=== PATIENT | female | born 1960 | race Caucasian/White ===

== ENCOUNTER 2023-08-23 16:45 | Inpatient (IN) | payer OTHER, SELFPAY ==
[2023-08-23 17:17] VITALS: BP 138/78; BP 138/84; PULSE 64; PULSE 72; RESP 18; TEMP 36.6; O2SAT 97; O2SAT 98; BMI 25.1
--- NOTE | 2023-08-23 17:53 | ED_ITS ---
HPI - General Adult General Chief complaint: Psychiatric Symptoms Stated complaint: SEC 12 FROM MV,DELUSIONS,PARANOID,GONZALES PER EMS Time Seen by Provider: 08/23/23 17:30 Source: patient, RN notes reviewed and old records reviewed Mode of arrival: EMS Limitations: other (Patient is delusional unclear which of the HPI is accurate) History of Present Illness HPI narrative: 63-year-old female presents for evaluation from [facility] Patient states that she is at [facility] for ?security. ? She states that her sister and a few others are ?trying to kill me for my spiritual gifts. Patient states that she was to be discharged from [facility] back to [place], [place] She states that there was an issue with the Uber and she could not go back to [facility] She was sent here in the meantime on a Section 12 Patient states that she was ?pushed off a laxmi in 2002. She states that ?they were drilling into my head to do bad things and get the spirits out. ? She complains of a left-sided headache that started just prior to arrival She took some baby aspirin which did not seem to help her pain Denies visual changes, nausea vomiting, diarrhea Related Data Home Medications Medication Instructions Recorded Confirmed quetiapine 25 mg tablet 25 mg PO BEDTIME 08/23/23 08/23/23 Allergies Allergy/AdvReac Type Severity Reaction Status Date / Time amoxicillin [From Augmentin] AdvReac Facial Verified 08/23/23 17:23 Swelling clavulanic acid AdvReac Facial Verified 08/23/23 17:23 [From Augmentin] Swelling Sulfa (Sulfonamide AdvReac Hives Verified 08/23/23 17:23 Antibiotics) sulfamethoxazole AdvReac Hives Verified 08/23/23 17:23 [From Bactrim] trimethoprim [From Bactrim] AdvReac Hives Verified 08/23/23 17:23 Review of Systems 2 Constitutional: Constitutional: Denies chills, Denies fever(s) and Reports headache(s) Eyes: Eyes: Denies blurry vision ENT: Reports headache(s) and Denies sore throat Cardiovascular: Cardiovascular: Denies chest pain and Denies dyspnea Respiratory: Respiratory: Denies cough and Denies dyspnea Gastrointestinal: Gastrointestinal: Denies abdominal pain, Denies nausea and Denies vomiting Genitourinary: Genitourinary: Denies difficulty voiding and Denies urinary urgency Musculoskeletal: Musculoskeletal: Denies back pain Integumentary/Breasts: Skin/Breast: Denies rash Neurologic: Reports headache(s) PMFSH Social History Social History Advance Directives: No Advance Directives Information Provided: No Healthcare Proxy: No Guardian: No Physical Exam ED Vital Signs: Vital Signs - 24 hr 08/23/23 17:17 08/24/23 06:34 Temperature 97.8 F 98.0 F Pulse Rate 64 53 Respiratory Rate 18 15 Blood Pressure 138/78 133/72 Pulse Oximetry 98 Oxygen Delivery Method Room Air Room Air BMI result Body Mass Index 25.1 Const General: healthy appearing, comfortable, no acute distress, alert and awake Nutritional Appearance: well nourished Orientation/consciousness: patient oriented x3 HENMT Head: Yes normocephalic and Yes atraumatic Eyes Eyelids: Yes eyelids normal Conjunctivae: conjunctivae normal Sclerae: sclerae normal Corneas: corneas normal Pupils: Equal, round and reactive pupils present EOM: EOMs intact bilaterally Neck Neck: Yes full ROM Resp Effort & Inspection: normal respiratory effort, able to speak in complete sentences and not labored Skin General skin exam: elasticity normal Neuro General: patient oriented x3 Cranial nerves: Yes Equal, round and reactive pupils present and Yes Bilaterally intact EOM present Cognition (Neuro): normal cognition Extrem Other: Moving all extremities well without any obvious deformities Psych Appearance: grossly normal Speech and movement: Normal speech and movement present Affect: normal affect Attitude: cooperative Thought process: Loose association thought process present Thought content: suicidality, no homicidality and Paranoid delusions present Insight: Limited insight present (Psych) Judgement: Limited judgement present (Psych) Course Reevaluation(s) Reevaluation #1: Reviewed patient's lab without any significant acute findings. The patient is medically cleared for care to evaluation Time: 18:34 Reevaluation #2: You physician observation, patient was Section 12 from [facility] but continued to be very delusional, follow-up today. Time: 07:19 Medications Administered Generic Name Dose Route Start Last Admin Trade Name Freq PRN Reason Stop Dose Admin Quetiapine Fumarate 25 mg 08/23/23 22:15 08/23/23 22:30 Quetiapine Fumarate 25 Mg Tablet PO 25 mg BEDTIME MARTHA Administration Medical Decision Making Medical Decision Making MDM Narrative: 63-year-old female presents for evaluation of delusional behavior and medical clearance. The patient denies section 12 from [facility]. She complains of a headache but declines analgesia at this time. She has no neuro deficits. Plan for basic labs, toxicology and COVID swab. Patient will require a care to evaluation and will likely be discharged back to [facility] Differential Diagnosis Differential Diagnoses: The differential diagnosis associated with the presentation includes Delusional behavior Paranoia Schizophrenia Bipolar disorder [place] Lab Data [facility] Lab Attestation statement: I reviewed the patient's lab results. No leukocytosis or anemia. No significant electrolyte abnormalities. 08/23/23 17:59 08/23/23 17:59 Labs: Lab Results 08/23/23 08/23/23 08/23/23 Range/Units 17:48 17:59 19:40 WBC 8.7 (4.8-10.8) X10*3/uL RBC 4.84 (4.20-5.50) X10*6/uL Hgb 14.3 (12.0-16.0) g/dl Hct 43.3 (37.0-47.0) % MCV 89.5 (80.0-98.0) fL MCH 29.5 (27.0-33.0) pg MCHC 33.0 (31.0-35.0) g/dl RDW 13.4 (11.0-16.0) % Plt Count 363 (160-400) X10*3/uL MPV 8.7 L (9.4-12.3) fL Immature Gran % (Auto) 0.6 H (0.0-0.4) % Neut % (Auto) 79.4 H (45-73) % Lymph % (Auto) 12.7 L (20-40) % [place] % (Auto) 5.9 (2-11) % Eos % (Auto) 0.7 (0-4) % Baso % (Auto) 0.7 (0-2) % Lymph # (Auto) 1.1 L (1.2-4.9) X10*3/uL [place] # (Auto) 0.5 (0.1-1.2) X10*3/uL Eos # (Auto) 0.1 (0.0-0.4) X10*3/uL Baso # (Auto) 0.1 (0.0-0.2) X10*3/uL Abs Immat Gran (auto) 0.05 H (0.00-0.03) X10*3/uL Absolute Neuts (auto) 6.9 (2.0-8.3) x10*3/uL Absolute Nucleated RBC 0.000 (0.0-0.012) X10*3/uL Nucleated RBC % (auto) 0.0 (0.0-0.2) /100WBC Sodium 141 (135-145) mmol/L Potassium 4.0 (3.3-5.1) mmol/L Chloride 106 (96-108) mmol/L Carbon Dioxide 28 (22-29) mmol/L Anion Gap 11 L (12-20) BUN 19 H (9-16) mg/dL Creatinine 0.85 (0.5-1.4) mg/dL Estim Creat Clear Calc 57.9 Estimated GFR > 60 Random Glucose 95 (60-115) mg/dL Calcium 9.6 (8.4-10.2) mg/dL Total Bilirubin 0.3 (0.0-1.0) mg/dL AST 18 (5-31) U/L ALT 16 (0-31) U/L Alkaline Phosphatase 68 (39-117) U/L Total Protein 7.0 (6.5-8.0) g/dL Albumin 4.2 (3.5-5.0) g/dL Urine Color Yellow Urine Appearance Clear Urine pH 7.0 (5.0-9.0) Ur Specific [place] <= 1.005 (1.005-1.025) Urine Protein Negative (Neg-Trace) mg/dL Urine Glucose (UA) Negative (Negative) mg/dL Urine Ketones Negative (Negative) mg/dL Urine Blood Negative (Negative) Urine Nitrite Negative (Negative) Ur Leukocyte Esterase Trace H (Negative) Urine RBC 0-2 (0-2) /HPF Urine WBC 0-5 (0-5) /HPF Ur Squamous Epith Cells 0-2 (0-2) /HPF Urine Bacteria None Seen (None Seen) Hyaline Casts 0-2 (0-2) /LPF Salicylates < 5.0 L (15-30) mg/dL Urine Opiates Screen Not Detected (Not Detect) Urine Fentanyl Screen Not Detected (Not Detect) Acetaminophen < 3 (<30) mcg/mL Ur Barbiturates Screen Not Detected (Not Detect) Ur Phencyclidine Scrn Not Detected (Not Detect) Ur Amphetamines Screen Not Detected (Not Detect) U Benzodiazepines Scrn Not Detected (Not Detect) Urine Cocaine Screen Not Detected (Not Detect) U Marijuana (THC) Screen Not Detected (Not Detect) Ethyl Alcohol < 10 mg/dL COVID-19 (ERIC) Positive A (Negative) COVID-19 Clin Com See Note Discharge Plan Discharge Clinical Impression: Acute psychosis Patient Disposition: Still a Patient Prescriptions: No Action quetiapine 25 mg tablet 25 mg PO BEDTIME Interventions: [place]-Suicide Risk Severity Scale Last Done: 08/24/23 07:08
--- NOTE | 2023-08-23 17:58 | PC.NURSE ---
Lillian was BIBA from [facility] after delusional behavior and poor insight according to her section 12. Lillian reports she was supposed to take an UBER to [place] but that it fell through and they no longer had a bed for her so they sent her here. Unclear answers to questions but she is pleasant and cooperative. No behavioral concerns. Labs pending.
[2023-08-23 18:28] LABS: Alanine Aminotransferase 16 U/L (0-31); Albumin Level 4.2 g/dL (3.5-5.0); Alkaline Phosphatase 68 U/L (39-117); Anion Gap 11 (12-20); Aspartate Amino Transferase 18 U/L (5-31); Bilirubin Total 0.3 mg/dL (0.0-1.0); Blood Urea Nitrogen 19 mg/dL (9-16); Calcium 9.6 mg/dL (8.4-10.2); Carbon Dioxide 28 mmol/L (22-29); Chloride 106 mmol/L (96-108); Creatinine Clr Calc Pharmacy 57.9; Estimated Glomerular Filt Rate > 60; Ethanol < 10 mg/dL; Glucose Random 95 mg/dL (60-115); Sodium 141 mmol/L (135-145)
[2023-08-24 06:34] VITALS: BP 133/72; PULSE 53; RESP 15; TEMP 36.7
--- NOTE | 2023-08-24 07:09 | PC.NURSE ---
Pt denies si.hi at this time. reports 03/30 pain states i have foreign objects all over by body plan of care ongoing
[2023-08-24 13:11] VITALS: RESP 18
--- NOTE | 2023-08-24 13:18 | PHA.MEDREC ---
Pharmacy Consult ? Medication Reconciliation Pharmacy has reviewed the medication reconciliation completed by nursing.
--- NOTE | 2023-08-24 13:26 | PC.NURSE ---
Covid Positive. Precautions in place. PT difficult to redirect at times. Appetite good. No medications req/rec. no behavioral concerns.
--- NOTE | 2023-08-24 15:25 | PM.PSYCN ---
History of Present Illness Date of Service: 08/24/2023 Chief Complaint: SEC 12 FROM MV,DELUSIONS,PARANOID,GONZALES PER EMS Reason for Consult: psychosis/delusions Requesting physician: Shahla Linton Discussed with referring provider: Yes Sources of Information: patient interviewed, chart reviewed and crisis/core team assessment reviewed HPI Narrative: Ms. Garcia is a 63 year-old woman with hx of schizophrenia. Pt was discharged from [facility] on 08/23/2023 and it appears she had then declined to leave the building as she reported not feeling safe returning to her home. She was sent on sect 12a to [facility] for further assessment and evaluations. In the ED. pt reports these people are trying to murder me. She reports that there is a and , with spiritual power who have been trying to kill her for 18 years. She adds, and is getting worse because now my sister is involved too. She reports she was told by two other spirits that there is a secure location for her to go. However, voices are not telling her the address. She reports she believes everyone else has this information referring to the address she is suppose to go to including this keno writer / runner. She reports she is not safe anywhere. She reports that last night these people inserted objects and medications into her. She reports she has sore throat which she interprets as spirits having done something to her last night and GI symptoms (including diarrhea and cramping). She is covid positive, which when this keno writer / runner tried to explain may be cause of her symptoms, pt continues to believe this is related to what spirits are trying to do. She denies SI/HI. She does present with impaired judgment in that she does not feel safe returning to her house because she believes she will be killed there but is awaiting for voices to tell her where to go. Collateral information gathered from the sister who reports pt progressively getting worse in terms of paranoid and psychosis and refusing treatment. She has had about 5-7 admission since last year and it appear that she is discharged without treatment. Pt in the past has been to other states including [place] and [place] due to voices telling her to go places. Pt was staying at her mother's apartment until 2019 when sister had to move mother into her house as pt not able to care for mother. However, pt's mother and sister pay all her bills and utilities so pt has a roof over her head. Sister reports pt has not had significant treatment to know which medications have been effective. Past Psychiatric History: Inpatient: [facility] 07/2023, 6 other admission in past year but unclear where OP: none Past medication trials: olanzapine, seroquel Diagnostics Vital Signs (24Hr): Vital Signs - 24 hr 08/23/23 17:17 08/24/23 06:34 08/24/23 13:11 Temperature 97.8 F 98.0 F Pulse Rate 64 53 Respiratory Rate 18 15 18 Blood Pressure 138/78 133/72 Pulse Oximetry 98 Oxygen Delivery Method Room Air Room Air BMI result Body Mass Index 25.1 Labs 08/23/23 17:59 08/23/23 17:59 Labs: Laboratory Results - last 48 hr 08/23/23 08/23/23 08/23/23 17:48 17:59 19:40 WBC 8.7 RBC 4.84 Hgb 14.3 Hct 43.3 MCV 89.5 MCH 29.5 MCHC 33.0 RDW 13.4 Plt Count 363 MPV 8.7 L Immature Gran % (Auto) 0.6 H Neut % (Auto) 79.4 H Lymph % (Auto) 12.7 L [place] % (Auto) 5.9 Eos % (Auto) 0.7 Baso % (Auto) 0.7 Lymph # (Auto) 1.1 L [place] # (Auto) 0.5 Eos # (Auto) 0.1 Baso # (Auto) 0.1 Abs Immat Gran (auto) 0.05 H Absolute Neuts (auto) 6.9 Absolute Nucleated RBC 0.000 Nucleated RBC % (auto) 0.0 Sodium 141 Potassium 4.0 Chloride 106 Carbon Dioxide 28 Anion Gap 11 L BUN 19 H Creatinine 0.85 Estim Creat Clear Calc 57.9 Estimated GFR > 60 Random Glucose 95 Calcium 9.6 Total Bilirubin 0.3 AST 18 ALT 16 Alkaline Phosphatase 68 Total Protein 7.0 Albumin 4.2 Urine Color Yellow Urine Appearance Clear Urine pH 7.0 Ur Specific [place] <= 1.005 Urine Protein Negative Urine Glucose (UA) Negative Urine Ketones Negative Urine Blood Negative Urine Nitrite Negative Ur Leukocyte Esterase Trace H Urine RBC 0-2 Urine WBC 0-5 Ur Squamous Epith Cells 0-2 Urine Bacteria None Seen Hyaline Casts 0-2 Salicylates < 5.0 L Urine Opiates Screen Not Detected Urine Fentanyl Screen Not Detected Acetaminophen < 3 Ur Barbiturates Screen Not Detected Ur Phencyclidine Scrn Not Detected Ur Amphetamines Screen Not Detected U Benzodiazepines Scrn Not Detected Urine Cocaine Screen Not Detected U Marijuana (THC) Screen Not Detected Ethyl Alcohol < 10 COVID-19 (ERIC) Positive A COVID-19 Clin Com See Note Mental Status Exam Mental Status Exam Narrative: Appearance: wearing hospital gown, fair hygiene, in NAD Behavior: somewhat guarded, Psychomotor: no agitation or retardation noted Speech: clear, normal rate/rhythm/volume, spontaneous TP: mostly linear TC: paranoid/persecutory delusions, VH/AH: responding to internal stimuli Delusions: paranoid delusions Insight/judgment: impaired x 2. Memory/cog: alert, oriented to place, month not situation. Medications Medications Current Medications Quetiapine Fumarate (Quetiapine Fumarate 25 Mg Tablet) 25 mg PO BEDTIME MARTHA Last Admin: 08/23/23 22:30 Dose: 25 mg Allergies Allergies Allergy/AdvReac Type Severity Reaction Status Date / Time amoxicillin [From Augmentin] AdvReac Facial Verified 08/23/23 17:23 Swelling clavulanic acid AdvReac Facial Verified 08/23/23 17:23 [From Augmentin] Swelling Sulfa (Sulfonamide AdvReac Hives Verified 08/23/23 17:23 Antibiotics) sulfamethoxazole AdvReac Hives Verified 08/23/23 17:23 [From Bactrim] trimethoprim [From Bactrim] AdvReac Hives Verified 08/23/23 17:23 Assessment & Plan Assessment & Plan (1) Schizophrenia, paranoid type: Status: Acute Code(s): F20.0 - Paranoid schizophrenia Plan Ms. Garcia is a 63 year-old woman with hx of schizophrenia mostly untreated who has been presenting with increase paranoid delusions and psychosis to the point that she does not feel safe returning home. She has no insight into mental illness nor need for treatment and refuses psychiatric treatment. Of concern is her impaired judgment, her ability to recognize medical symptoms related to medical conditions such as now covid symptoms which she explains as spirits trying to hurt her and fact that she waiting voices where to go and this is how in the past she has ended up in other states ([place] and [place]). Due to paranoia she has trespass [facility] and found in someone's kitchen at night. She has court hearing tomorrow- which we can send letter letting them know she is here in the hospital. PLAN 1. Pt has agreed voluntarily to go to inpatient psych. 2. She also lacks capacity to make medical decisions including insight into her mental illness and need for treatment. Would benefit from [facility]. 3. will start pepcid, flonax and mucinex for covid symptoms prn. 4. will start prolixin 5mg po BID for psychosis and delusions. Total time managing care of this patient today ____ minutes.
--- NOTE | 2023-08-24 19:03 | PC.NURSE ---
patient appears to remain at rest at present respirations are even and unlabored patient appears in no distress
[2023-08-24 21:15] VITALS: BP 109/48; PULSE 66; RESP 18; TEMP 37.3; O2SAT 98
[2023-08-25 03:56] VITALS: BP 125/67; PULSE 75; RESP 16; TEMP 37.8; O2SAT 97
--- NOTE | 2023-08-25 04:00 | PC.NURSE ---
Tylenol given for temp of 100.
[2023-08-25 07:44] VITALS: BP 114/62; PULSE 73; RESP 18; TEMP 37.5; O2SAT 95
--- NOTE | 2023-08-25 10:17 | PC.NURSE ---
alert, speech clear, skin wpd, refused pepcid and prolixin, Keila aware, asked for Ativan and given, pt states she would not start prolixin as she would not ever take this outside of the hospital
--- NOTE | 2023-08-25 14:24 | PM.PSYCN ---
History of Present Illness Date of Service: 08/25/2023 Chief Complaint: SEC 12 FROM MV,DELUSIONS,PARANOID,GONZALES PER EMS Reason for Consult: persecutory delusions and hallucinations Requesting physician: Leia Lr Discussed with referring provider: Yes Sources of Information: patient interviewed, chart reviewed and crisis/core team assessment reviewed HPI Narrative: Interim Hx: pt continues to present with persecutory delusions of couple trying to kill her. She reports she is still waiting for spirts (voices) to tell her where to go. She also reports voices are telling her that they will send transportation to pick her up. She reports less sore throat which she attributes to spirits trying to harm her and putting things down her throat. She denies SI/HI. She declines prolixin. She states she may try ativan for anxiety. Past Psychiatric History: Inpatient: [facility] 07/2023, 6 other admission in past year but unclear where OP: none Past medication trials: olanzapine, seroquel Diagnostics Vital Signs (24Hr): Vital Signs - 24 hr 08/24/23 21:15 08/25/23 03:56 08/25/23 07:44 Temperature 99.2 F 100.0 F 99.5 F Pulse Rate 66 75 73 Respiratory Rate 18 16 18 Blood Pressure 109/48 L 125/67 114/62 Pulse Oximetry 98 97 95 Oxygen Delivery Method Room Air Room Air Room Air BMI result Body Mass Index 25.1 Labs 08/23/23 17:59 08/23/23 17:59 Labs: Laboratory Results - last 48 hr 08/23/23 08/23/23 08/23/23 17:48 17:59 19:40 WBC 8.7 RBC 4.84 Hgb 14.3 Hct 43.3 MCV 89.5 MCH 29.5 MCHC 33.0 RDW 13.4 Plt Count 363 MPV 8.7 L Immature Gran % (Auto) 0.6 H Neut % (Auto) 79.4 H Lymph % (Auto) 12.7 L [place] % (Auto) 5.9 Eos % (Auto) 0.7 Baso % (Auto) 0.7 Lymph # (Auto) 1.1 L [place] # (Auto) 0.5 Eos # (Auto) 0.1 Baso # (Auto) 0.1 Abs Immat Gran (auto) 0.05 H Absolute Neuts (auto) 6.9 Absolute Nucleated RBC 0.000 Nucleated RBC % (auto) 0.0 Sodium 141 Potassium 4.0 Chloride 106 Carbon Dioxide 28 Anion Gap 11 L BUN 19 H Creatinine 0.85 Estim Creat Clear Calc 57.9 Estimated GFR > 60 Random Glucose 95 Calcium 9.6 Total Bilirubin 0.3 AST 18 ALT 16 Alkaline Phosphatase 68 Total Protein 7.0 Albumin 4.2 Urine Color Yellow Urine Appearance Clear Urine pH 7.0 Ur Specific [place] <= 1.005 Urine Protein Negative Urine Glucose (UA) Negative Urine Ketones Negative Urine Blood Negative Urine Nitrite Negative Ur Leukocyte Esterase Trace H Urine RBC 0-2 Urine WBC 0-5 Ur Squamous Epith Cells 0-2 Urine Bacteria None Seen Hyaline Casts 0-2 Salicylates < 5.0 L Urine Opiates Screen Not Detected Urine Fentanyl Screen Not Detected Acetaminophen < 3 Ur Barbiturates Screen Not Detected Ur Phencyclidine Scrn Not Detected Ur Amphetamines Screen Not Detected U Benzodiazepines Scrn Not Detected Urine Cocaine Screen Not Detected U Marijuana (THC) Screen Not Detected Ethyl Alcohol < 10 COVID-19 (ERIC) Positive A COVID-19 Clin Com See Note Mental Status Exam Mental Status Exam Narrative: Appearance: wearing hospital gown, fair hygiene, in NAD Behavior: somewhat guarded, Psychomotor: no agitation or retardation noted Speech: clear, normal rate/rhythm/volume, spontaneous TP: mostly linear TC: paranoid/persecutory delusions, VH/AH: responding to internal stimuli Delusions: paranoid delusions Insight/judgment: impaired x 2. Memory/cog: alert, oriented to place, month not situation. Medications Medications Current Medications Acetaminophen (Acetaminophen 325 Mg Tablet) 650 mg PO Q6H PRN PRN Reason: pain, fever Last Admin: 08/25/23 03:56 Dose: 650 mg Famotidine (Famotidine 20 Mg Tablet) 20 mg PO DAILY [facility] Last Admin: 08/25/23 10:13 Dose: Not Given Fluphenazine HCl (Fluphenazine Hcl 5 Mg Tablet) 5 mg PO BID [facility] Last Admin: 08/25/23 10:13 Dose: Not Given Fluticasone Propionate (Fluticasone Propionate Nasal 16 Gm [place]) 1 spray NOSTRIL-B ONCE [facility] Guaifenesin/Dextromethorphan (Guaifenesin Dm 600/30 1 Tab Tab.Er.12h) 1 tab PO BID PRN PRN Reason: congestion/cough Lorazepam (Lorazepam 0.5 Mg Tablet) 0.5 mg PO TID PRN PRN Reason: anxiety Last Admin: 08/25/23 10:14 Dose: 0.5 mg Allergies Allergies Allergy/AdvReac Type Severity Reaction Status Date / Time amoxicillin [From Augmentin] AdvReac Facial Verified 08/23/23 17:23 Swelling clavulanic acid AdvReac Facial Verified 08/23/23 17:23 [From Augmentin] Swelling Sulfa (Sulfonamide AdvReac Hives Verified 08/23/23 17:23 Antibiotics) sulfamethoxazole AdvReac Hives Verified 08/23/23 17:23 [From Bactrim] trimethoprim [From Bactrim] AdvReac Hives Verified 08/23/23 17:23 Assessment & Plan Assessment & Plan (1) Schizophrenia, paranoid type: Status: Acute Code(s): F20.0 - Paranoid schizophrenia Plan Ms. Garcia is a 63 year-old woman with hx of schizophrenia. She has been mostly untreated. She lacks capacity to make medical decisions and her judgment and insight is severely impaired due to psychiatric symptoms. At this point, pt will work with case management as macy is being petitioned. PLAN 1. Pt can't leave AMA due to lacking capacity to make medical decisions. 2. Case management working on filing macy. Total time managing care of this patient today ____ minutes.
--- NOTE | 2023-08-25 14:58 | MHC.CM.PN ---
Addendum entered by Oneida De La Torre 08/25/23 15:40: CM SPOKE TO THE DRAW FURNACE TENDER CLINICAL PRODUCT SPECIALIST AT [facility] THEY CONFIRM PT MISSED A HEARING TODAY THEY INDICATED IF A WRITTEN NOTICE, ON [facility] LETTERHEAD, IS EMAILED TO THEM THEY MAY BE ABLE TO RESCHEDULE EMAIL: [email or web address]. THEY ALSO PROVIDED INFORMATION REGARDING THE PTS CHIEF RADIOLOGIC TECHNOLOGIST: KARON DRISCOLL [phone] LETTER WILL BE EMAILED TODAY Original Note: CM will assist with next site of care for patient. Plan to pursue guardianship & glez. Will refer to [facility], [facility] & [facility]. Pt will need to be dis-enrolled from her [facility] Medicaid. Placement will be challenging due to open criminal charges.
--- NOTE | 2023-08-25 16:38 | PC.NURSE ---
Report taken from Mark GUEVARA, assumed care of pt at 1500. Pt A&Ox3, calm and cooperative, in behavioral control. Offers no complaints. Remains on continuous video monitoring in POD, safety maintained.
--- NOTE | 2023-08-25 18:23 | PC.NURSE ---
Pt remains calm and cooperative, no complaints at this time, dinner tray provided. SAfety maintained in pod.
--- NOTE | 2023-08-25 19:00 | PC.NURSE ---
Report given to Roxana RN, pt exits my care at this time.
--- NOTE | 2023-08-25 19:13 | PC.NURSE ---
[patient appears to remain at rest at present respirations are even and unlabored patient appears in no distress
[2023-08-25 20:33] VITALS: BP 130/77; PULSE 81; RESP 18; TEMP 37.4; O2SAT 96
--- NOTE | 2023-08-26 07:56 | MHC.CARE ---
RAD team conducted [place] bed[place], unfortunately there are no beds available due to pt saleem castanedaid+, RAD team will continue bedsearch tomorrow (08/27) if deemed necessary
--- NOTE | 2023-08-26 10:26 | PC.NURSE ---
OOB at 0930 requested breakfast, good appetite. 10:25 received Lorazepam 0.5mg PRN for anxiety. Advocating to DC. Will refer discharge questions to case management but client is going to be held pending guardianship hearing. Covid test pending to see if she is still positive.
--- NOTE | 2023-08-26 11:24 | MHC.CM.ED ---
Patient remains in ER BH pod. Will need guardianship paperwork. Sola Mcgraw CM director aware. Continue to monitor for d/c needs.
--- NOTE | 2023-08-26 16:24 | PC.NURSE ---
Lillian having some agitation today. Repeatedly stating she has a ride or an ambulance here to get her and asking to discharge. Loudly sobbing and screaming at times in her room. Coming out without a mask and stating she does not have Covid and only has a cold. Refused scheduled medications. Appetite good. Requiring redirection for stepping close to staff with fingers in their face demanding to be discharged but ultimately able to accept redirection.
[2023-08-26 17:53] VITALS: RESP 18
--- NOTE | 2023-08-26 19:34 | PC.NURSE ---
patient appears to remain relaxed at present respirations are even and unlabored, patient came out after dinner and brushed teeth, appears in no distress presently.
--- NOTE | 2023-08-26 21:12 | PC.NURSE ---
patient given seroquel after returning from restroom, patient continues with delusions people trying to kill me asked for fax number, given and client returned it soon thereafter.
[2023-08-26 22:00] VITALS: BP 97/60; PULSE 66; RESP 12; TEMP 37.2; O2SAT 95
[2023-08-27 06:00] VITALS: BP 122/62; PULSE 65; RESP 16; O2SAT 96
--- NOTE | 2023-08-27 13:59 | PC.NURSE ---
Client in room resting much of the day and observed watching tv and pacing. Refused AM medication and stated I don't need anything . Appetite good. No behavioral concerns or asking to DC. Denies SI/HI/AVH.
[2023-08-27 17:11] VITALS: BP 144/73; PULSE 64; RESP 17; TEMP 36.5; O2SAT 98
--- NOTE | 2023-08-27 18:04 | PC.NURSE ---
PT given Lorazepam 0.5mg and Tylenol 650mg. Pain in head 4/10 and anxiety a little . Pending effect.
--- NOTE | 2023-08-27 20:39 | PC.NURSE ---
Addendum entered by Nohemy Mcconnellarnacion 08/28/23 06:23: Upon conducting a thorough chart review, seroquel noted to be d/c by provider and prolixin ordered BID. Educated pt on medication and plan. Pt ultimately agreeable to take new medication. Original Note: Pt declines pm meds. Requesting seroquel 25mg. Med rec list this medication for her home medications. Reached out to provider with request.
--- NOTE | 2023-08-27 23:00 | PC.NURSE ---
Assumed care of pt at 1900. PT requesting seroquel. Explained that medication as dc'd and alternative antipsychotics prescribed. Pt initially declined, but after having troubling sleeping PT was agreeable. Plan of care ongoing
[2023-08-28 06:00] VITALS: BP 109/56; PULSE 60; RESP 15; TEMP 36.4; O2SAT 98
--- NOTE | 2023-08-28 11:17 | PC.NURSE ---
assumed care of pt at 1100. pt resting quietly, per AM nurse pt took meds this morning, has been wearing facemask when out in common areas. no new orders at this time.
--- NOTE | 2023-08-28 13:52 | PC.NURSE ---
pt asking about a ride from [facility] and asking if they have called to come and get her. pt is vague as to where she is planning on going when asked for address, states that the address needs to be protected and the people who need to know know. asking spirits what she needs to do to get out of here. pt tearful stating that it's uncomfortable and cold here and that she has been put in [facility] here for 3 weeks. pt requested medication to help her calm down, medicated w PRN ativan. pt continues to talk to spirits in her room asking them to call the nurse to get [her] out of here.
--- NOTE | 2023-08-28 15:05 | P.CNPS_ITS ---
History of Present Illness Date of Service: 08/28/2023 Chief Complaint: SEC 12 FROM MV,DELUSIONS,PARANOID,GONZALES PER EMS Reason for Consult: f/u delusions/psychosis Requesting physician: Leia Lr Discussed with referring provider: Yes Sources of Information: patient interviewed, chart reviewed and crisis/core team assessment reviewed HPI Narrative: Interim Hx: pt continues to present with paranoid/persecutory delusions, still reports hearing voices of spirits who are telling her there is transportation waiting for her. She did take first dose of prolixin last night and this morning. She tells this consumer loan underwriter that voices continue to talk to her and she is having difficulty keeping up with what they say. She reports feeling tired. No SI/HI. No aggression towards self or others. Per RN, pt more agitated over the weekend stating that there was transportation waiting for her outside as she was being informed by voices which was not the case. Past Psychiatric History: Inpatient: [facility] 07/2023, 6 other admission in past year but unclear where OP: none Past medication trials: olanzapine, seroquel Diagnostics Vital Signs (24Hr): Vital Signs - 24 hr 08/27/23 17:11 08/28/23 06:00 Temperature 97.7 F 97.6 F Pulse Rate 64 60 Respiratory Rate 17 15 Blood Pressure 144/73 H 109/56 L Pulse Oximetry 98 98 Oxygen Delivery Method Room Air Room Air BMI result Body Mass Index 25.1 Labs 08/23/23 17:59 08/23/23 17:59 Labs: Laboratory Results - last 48 hr 08/27/23 17:11 COVID-19 (ERIC) Positive A COVID-19 Clin Com See Note Mental Status Exam Mental Status Exam Narrative: Appearance: wearing hospital gown, fair hygiene, in NAD Behavior: somewhat guarded, Psychomotor: no agitation or retardation noted Speech: clear, normal rate/rhythm/volume, spontaneous TP: mostly linear TC: paranoid/persecutory delusions, VH/AH: responding to internal stimuli Delusions: paranoid delusions Insight/judgment: impaired x 2. Memory/cog: alert, oriented to place, month not situation. Medications Medications Current Medications Acetaminophen (Acetaminophen 325 Mg Tablet) 650 mg PO Q6H PRN PRN Reason: pain, fever Last Admin: 08/27/23 17:46 Dose: 650 mg Famotidine (Famotidine 20 Mg Tablet) 20 mg PO DAILY [facility] Last Admin: 08/28/23 08:29 Dose: 20 mg Fluphenazine HCl (Fluphenazine Hcl 5 Mg Tablet) 5 mg PO BID [facility] Last Admin: 08/28/23 08:29 Dose: 5 mg Fluticasone Propionate (Fluticasone Propionate Nasal 16 Gm [place]) 1 spray NOSTRIL-B ONCE [facility] Guaifenesin/Dextromethorphan (Guaifenesin Dm 600/30 1 Tab Tab.Er.12h) 1 tab PO BID PRN PRN Reason: congestion/cough Lorazepam (Lorazepam 0.5 Mg Tablet) 0.5 mg PO TID PRN PRN Reason: anxiety Last Admin: 08/28/23 13:43 Dose: 0.5 mg Allergies Allergies Allergy/AdvReac Type Severity Reaction Status Date / Time amoxicillin [From Augmentin] AdvReac Facial Verified 08/23/23 17:23 Swelling clavulanic acid AdvReac Facial Verified 08/23/23 17:23 [From Augmentin] Swelling Sulfa (Sulfonamide AdvReac Hives Verified 08/23/23 17:23 Antibiotics) sulfamethoxazole AdvReac Hives Verified 08/23/23 17:23 [From Bactrim] trimethoprim [From Bactrim] AdvReac Hives Verified 08/23/23 17:23 Assessment & Plan Assessment & Plan (1) Schizophrenia, paranoid type: Status: Acute Code(s): F20.0 - Paranoid schizophrenia Plan Mrs. Garcia continues to present with paranoid/persecutory delusions as well as auditory hallucinations. No insight into mental illness or need for treatment. Awaiting guardianship and glez. PLAN 1. Cannot leave AMA. pending guardianship. 2. continue prolixin 5mg po BID. pending meredith's. Total time managing care of this patient today ____ minutes.
[2023-08-28 17:48] VITALS: RESP 16
--- NOTE | 2023-08-28 19:20 | PC.NURSE ---
Pt ambulated with a steadt gait to restroom. Pt now in room sitting at the desk. Plan of care ongoing.
--- NOTE | 2023-08-28 19:27 | PC.NURSE ---
This RN assumed care of pt @ 1900. Plan of care ongoing.
--- NOTE | 2023-08-28 21:12 | PC.NURSE ---
Pt agitated and refused to take pm meds prolixin. Pt states Brooke taken like 5 different medications since I got here and i'm not taking anymore meds unless its seroquel. Plan of care ongoing.
--- NOTE | 2023-08-28 21:19 | PC.NURSE ---
Pt ambulated with a steady gait to restroom. Plan of care ongoing.
--- NOTE | 2023-08-28 21:31 | PC.NURSE ---
Pt requesting 50mg of seroquel for bed. Pt states I've been getting it every night here for bed. This RN made provider aware. Plan of care ongoing.
[2023-08-28] MEDS: QUEtiapine Fumarate 25 MG TABLET PO (21:45)
--- NOTE | 2023-08-28 21:49 | PC.NURSE ---
Pt agitated that she was given ice and gingerale. Pt speaking loudly stating Do you feel how cold it is in here why would I want anything with ice in it. I only want water and no ice. Pt medicated per mar. Plan of care ongoing.
[2023-08-29 06:20] VITALS: BP 135/70; PULSE 59; RESP 16; TEMP 36.3; O2SAT 98
[2023-08-29] MEDS: fluPHENAZine HCl 5 MG TABLET PO (08:55)
--- NOTE | 2023-08-29 11:09 | PC.NURSE ---
Assumed care of patient at 1100, pt sleeping at this time, respirations even and unlabored, no apparent distress. Awaiting guardianship and glez order from hospital
--- NOTE | 2023-08-29 12:35 | P.CNPS_ITS ---
History of Present Illness Date of Service: 08/29/2023 Chief Complaint: SEC 12 FROM MV,DELUSIONS,PARANOID,GONZALES PER EMS Reason for Consult: f/u Discussed with referring provider: Yes Sources of Information: patient interviewed, chart reviewed and crisis/core team assessment reviewed HPI Narrative: Interim Hx: Pt expressed frustration as to being here in the hospital. She believes voices are not telling her the secure address because of what my sister is doing. She reports voices telling her that there will be an ambulance coming to pick her up, which pt has been informed this is not the case. She does note that without an address she would be on the streets, as she continues to report she could not return to her mother's house. She denies SI/HI. She reports less cough and feeling better. She has been taking medications intermittently. VS stable, afebrile. NO SOB Past Psychiatric History: Inpatient: [facility] [place] 07/2023, 6 other admission in past year but unclear where OP: none Past medication trials: olanzapine, seroquel Medical Evaluation Reviewed: Yes Diagnostics Vital Signs (24Hr): Vital Signs - 24 hr 08/28/23 17:48 08/29/23 06:20 Temperature 97.4 F Pulse Rate 59 Respiratory Rate 16 16 Blood Pressure 135/70 Pulse Oximetry 98 Oxygen Delivery Method Room Air BMI result Body Mass Index 25.1 Labs 08/23/23 17:59 08/23/23 17:59 Labs: Laboratory Results - last 48 hr 08/27/23 17:11 COVID-19 (ERIC) Positive A COVID-19 Clin Com See Note Mental Status Exam Mental Status Exam Narrative: Appearance: wearing hospital gown, fair hygiene, in NAD Behavior: somewhat guarded, Psychomotor: no agitation or retardation noted Speech: clear, normal rate/rhythm/volume, spontaneous TP: mostly linear TC: paranoid/persecutory delusions, VH/AH: responding to internal stimuli Delusions: paranoid delusions Insight/judgment: impaired x 2. Memory/cog: alert, oriented to place, month not situation. Medications Medications Current Medications Acetaminophen (Acetaminophen 325 Mg Tablet) 650 mg PO Q6H PRN PRN Reason: pain, fever Last Admin: 08/27/23 17:46 Dose: 650 mg Famotidine (Famotidine 20 Mg Tablet) 20 mg PO DAILY [facility] Last Admin: 08/29/23 08:52 Dose: Not Given Fluphenazine HCl (Fluphenazine Hcl 5 Mg Tablet) 5 mg PO BID [facility] Last Admin: 08/29/23 08:55 Dose: 5 mg Fluticasone Propionate (Fluticasone Propionate Nasal 16 Gm [place]) 1 spray NOSTRIL-B ONCE [facility] Guaifenesin/Dextromethorphan (Guaifenesin Dm 600/30 1 Tab Tab.Er.12h) 1 tab PO BID PRN PRN Reason: congestion/cough Lorazepam (Lorazepam 0.5 Mg Tablet) 0.5 mg PO TID PRN PRN Reason: anxiety Last Admin: 08/28/23 13:43 Dose: 0.5 mg Allergies Allergies Allergy/AdvReac Type Severity Reaction Status Date / Time amoxicillin [From Augmentin] AdvReac Facial Verified 08/23/23 17:23 Swelling clavulanic acid AdvReac Facial Verified 08/23/23 17:23 [From Augmentin] Swelling Sulfa (Sulfonamide AdvReac Hives Verified 08/23/23 17:23 Antibiotics) sulfamethoxazole AdvReac Hives Verified 08/23/23 17:23 [From Bactrim] trimethoprim [From Bactrim] AdvReac Hives Verified 08/23/23 17:23 Assessment & Plan Assessment & Plan (1) Schizophrenia, paranoid type: Status: Acute Code(s): F20.0 - Paranoid schizophrenia Plan Mrs. Garcia continues to present with paranoid/persecutory delusions as well as auditory hallucinations. No insight into mental illness or need for treatment. Awaiting guardianship and glez. PLAN 1. Cannot leave AMA. pending guardianship. 2. continue prolixin 5mg po BID. pending meredith's. 3. Added prn seroquel, but main antipsychotic is prolixin Total time managing care of this patient today ____ minutes.
--- NOTE | 2023-08-29 18:16 | MHC.CM.ED ---
Sola Mcgraw continues to work on guardianship paperwork. Patient remains in behavioral health pod. CM following.
--- NOTE | 2023-08-29 19:04 | PC.NURSE ---
patient appears to remain at rest at present respirations are even and unlabored patient appears in no distress
[2023-08-29 20:25] VITALS: BP 131/76; PULSE 68; RESP 20; TEMP 36.3; O2SAT 98
[2023-08-29] MEDS: QUEtiapine Fumarate 25 MG TABLET PO (20:34)
[2023-08-29] MEDS: QUEtiapine Fumarate 50 MG TABLET PO (21:39)
--- NOTE | 2023-08-30 03:20 | PC.NURSE ---
assumed care of pt at this time. pt sleeping in room resp even and unlabored.
[2023-08-30 06:34] VITALS: BP 132/56; PULSE 54; RESP 16; TEMP 37.2; O2SAT 98
[2023-08-30 07:55] LABS: COVID-19 Test Positive (Negative); IDNOW Serial# 08D9AD1C
--- NOTE | 2023-08-30 08:17 | PC.NURSE ---
Pt refused the meds telling nurse keep it fuckin moving, I've been saying I'm not taking them for 3 days
--- NOTE | 2023-08-30 13:23 | PC.NURSE ---
Pt out in common area, compliant with mask, interacting nicely with staff.
[2023-08-30 17:41] VITALS: BP 143/69; PULSE 65; RESP 20; TEMP 36.6; O2SAT 98
--- NOTE | 2023-08-30 19:15 | PC.NURSE ---
patient appears to remain at rest/relaxing at this time, did ask about looking through belongings which t/w declined this request at present to prevent unnecessary exposure to staff, patient seemed to accept this well, patient appears in no distress.
[2023-08-30] MEDS: LORazepam 0.5 MG TABLET PO (21:28)
[2023-08-30] MEDS: QUEtiapine Fumarate 50 MG TABLET PO (22:51)
[2023-08-31 03:42] VITALS: BP 120/58; PULSE 62; RESP 15; TEMP 36.4; O2SAT 97
[2023-08-31 13:55] LABS: COVID-19 Test Positive (Negative); IDNOW Serial# 9DB6401D
[2023-08-31 18:00] VITALS: RESP 18
--- NOTE | 2023-08-31 18:12 | PC.NURSE ---
Pt calm and cooperative throughout shift, able to make needs known, ate 100% of meals during this shift with snacks provided upon request. Pt refused am medication. observed cleaning room, took shower, pacing at times. +covid.
[2023-08-31 18:18] VITALS: BP 141/78; PULSE 59; TEMP 36.6; O2SAT 97
--- NOTE | 2023-08-31 18:58 | PC.NURSE ---
patient appears to remain at rest at present respirations are even and unlabored patient appears in no distress.
[2023-08-31] MEDS: QUEtiapine Fumarate 50 MG TABLET PO (21:30)
[2023-09-01 03:47] VITALS: BP 110/59; PULSE 59; RESP 14; TEMP 36.7; O2SAT 96
[2023-09-01] MEDS: QUEtiapine Fumarate 50 MG TABLET PO (03:54)
[2023-09-01 08:35] VITALS: BP 127/73; PULSE 66; RESP 16; TEMP 36.7; O2SAT 96
[2023-09-01] MEDS: LORazepam 0.5 MG TABLET PO (08:36)
[2023-09-01] MEDS: fluPHENAZine HCl 5 MG TABLET PO ×2 (08:36→21:42)
--- NOTE | 2023-09-01 15:05 | MHC.CM.PN ---
All documentation for guardianship & Arron's had been submitted to [facility].
[2023-09-01 17:14] VITALS: RESP 18
--- NOTE | 2023-09-01 17:18 | PC.NURSE ---
Lillian OOB this morning and cleaning her room. Ambulates well and is independent with her ADL's. Adherent with medications. No behavioral concerns. Lillian still Covid Positive yesterday 08/31. Can be swabbed again this evening and is wearing a mask when not in her room. Appetite good.
[2023-09-01 18:13] LABS: COVID-19 Test Positive (Negative); IDNOW Serial# 152EDE1D
[2023-09-01] MEDS: Acetaminophen 325 MG TABLET 650 MG PO (21:12)
[2023-09-02] MEDS: LORazepam 0.5 MG TABLET PO ×2 (02:58→12:33)
[2023-09-02 03:21] VITALS: BP 121/54; PULSE 53; RESP 16; TEMP 36; O2SAT 97
--- NOTE | 2023-09-02 03:30 | PC.NURSE ---
PT requesting medication for anxious and restlessness. denies si/hi at this time. plan of care ongoing
[2023-09-02] MEDS: fluPHENAZine HCl 5 MG TABLET PO ×2 (09:04→21:02)
--- NOTE | 2023-09-02 10:51 | PC.NURSE ---
Assumed care of patient at 1045, patient is up making bed in room at this time, offers no complaints to this RN. Continued awaiting guardianship
--- NOTE | 2023-09-02 13:04 | PC.NURSE ---
Pt comes out of room, angry stating this is unacceptable, I have gotten pasta 3 days in a row for lunch, I need a salad with balsamic vinaigrette . This RN called food services to request something different. per food services, they were told yesterday that the patient only wanted pasta from this point on. Food order changed for today. Pt back in room at this time, respirations even and unlabored, skin pwd, no apparent distress
[2023-09-02] MEDS: Acetaminophen 325 MG TABLET 650 MG PO (19:42)
[2023-09-02 22:00] VITALS: RESP 16
[2023-09-02] MEDS: QUEtiapine Fumarate 50 MG TABLET PO (22:20)
--- NOTE | 2023-09-02 22:23 | PC.NURSE ---
pt requesting something additional something for sleep, provided with PRN
[2023-09-03 06:00] VITALS: BP 116/54; PULSE 57; RESP 16; TEMP 36.7; O2SAT 96
[2023-09-03 06:25] VITALS: BP 122/77
[2023-09-03] MEDS: fluPHENAZine HCl 5 MG TABLET PO ×2 (10:09→21:15)
--- NOTE | 2023-09-03 11:01 | MHC.EDTECH ---
Pt came to the nurses station stating she has previously requested something I actually want for breakfast. T/w said they would put in a note. She asked for a fruit cup and specifically blueberry yogurt, but any flavor yogurt will do.
--- NOTE | 2023-09-03 11:27 | PC.NURSE ---
Assumed care of patient at 1100, patient up to nurses station asking about specific offerings for meal times. Pt requesting chicken, potato and broccoli for lunch, kitchen called with request. Pt is otherwise in good mood, offers no complaints, willingly engages in conversation with this RN. Continue plan of care for guardianship
[2023-09-03 14:09] VITALS: RESP 12
[2023-09-03 17:07] LABS: COVID-19 Test Negative (Negative); IDNOW Serial# 08D9AD1C
--- NOTE | 2023-09-03 17:44 | PC.NURSE ---
pt tested again for COVID, negative test back. Precaution signs removed. Pt denies any symptoms
--- NOTE | 2023-09-03 19:04 | PC.NURSE ---
patient appears to remain at rest at present respirations are even and unlabored patient appears in no distress, patient now testing covid negative, giggling periodically.
[2023-09-03 20:44] VITALS: BP 133/65; PULSE 64; RESP 18; TEMP 36.1; O2SAT 98
[2023-09-03] MEDS: QUEtiapine Fumarate 50 MG TABLET PO (22:55)
[2023-09-04 06:19] VITALS: BP 107/51; PULSE 54; RESP 16; TEMP 36.5; O2SAT 97
[2023-09-04] MEDS: fluPHENAZine HCl 5 MG TABLET PO (10:57)
--- NOTE | 2023-09-04 15:01 | PM.PSYCN ---
History of Present Illness Date of Service: 09/04/2023 Chief Complaint: SEC 12 FROM MV,DELUSIONS,PARANOID,GONZALES PER EMS Reason for Consult: psychosis/delusions Sources of Information: patient interviewed, chart reviewed and crisis/core team assessment reviewed HPI Narrative: Interim Hx: pt continues to report hearing voices of spirits. She reports spirts are trying to harm her. She tells this card writer hand that she is leaving tomorrow. She states she communicated spiritually with her PCP in [place] and he told her that she is leaving tomorrow. She continues to report voices have a safe location for her to go but they can't disclose the location to her. She states I just follow their instruction No insight into symptoms and need for treatment. She denies SI/HI. No aggression towards others or herself. Past Psychiatric History: Inpatient: [facility] 07/2023, 6 other admission in past year but unclear where OP: none Past medication trials: olanzapine, seroquel Medical Evaluation Reviewed: Yes Diagnostics Vital Signs (24Hr): Vital Signs - 24 hr 09/03/23 20:44 09/04/23 06:19 Temperature 97 F 97.7 F Pulse Rate 64 54 Respiratory Rate 18 16 Blood Pressure 133/65 107/51 L Pulse Oximetry 98 97 Oxygen Delivery Method Room Air Room Air BMI result Body Mass Index 25.1 Labs 08/23/23 17:59 08/23/23 17:59 Labs: Laboratory Results - last 48 hr 09/03/23 16:48 COVID-19 (ERIC) Negative COVID-19 Clin Com See Note Mental Status Exam Mental Status Exam Narrative: Appearance: wearing hospital gown, fair hygiene, in NAD Behavior: somewhat guarded, Psychomotor: no agitation or retardation noted Speech: clear, normal rate/rhythm/volume, spontaneous TP: mostly linear TC: paranoid/persecutory delusions, VH/AH: responding to internal stimuli Delusions: paranoid delusions Insight/judgment: impaired x 2. Memory/cog: alert, oriented to place, month not situation. Medications Medications Current Medications Acetaminophen (Acetaminophen 325 Mg Tablet) 650 mg PO Q6H PRN PRN Reason: pain, fever Last Admin: 09/02/23 19:42 Dose: 650 mg Fluphenazine HCl (Fluphenazine Hcl 5 Mg Tablet) 5 mg PO BID [facility] Last Admin: 09/04/23 10:57 Dose: 5 mg Fluticasone Propionate (Fluticasone Propionate Nasal 16 Gm [place]) 1 spray NOSTRIL-B ONCE [facility] Guaifenesin/Dextromethorphan (Guaifenesin Dm 600/30 1 Tab Tab.Er.12h) 1 tab PO BID PRN PRN Reason: congestion/cough Quetiapine Fumarate (Quetiapine Fumarate 50 Mg Tablet) 50 mg PO Q6H PRN PRN Reason: agitation/anxiety Last Admin: 09/03/23 22:55 Dose: 50 mg Allergies Allergies Allergy/AdvReac Type Severity Reaction Status Date / Time amoxicillin [From Augmentin] AdvReac Facial Verified 08/23/23 17:23 Swelling clavulanic acid AdvReac Facial Verified 08/23/23 17:23 [From Augmentin] Swelling Sulfa (Sulfonamide AdvReac Hives Verified 08/23/23 17:23 Antibiotics) sulfamethoxazole AdvReac Hives Verified 08/23/23 17:23 [From Bactrim] trimethoprim [From Bactrim] AdvReac Hives Verified 08/23/23 17:23 Assessment & Plan Assessment & Plan (1) Schizophrenia, paranoid type: Status: Acute Code(s): F20.0 - Paranoid schizophrenia Plan Mrs. Garcia continues to present with paranoid/persecutory delusions as well as auditory hallucinations. No insight into mental illness or need for treatment. Awaiting guardianship and glez. PLAN 1. Cannot leave AMA. pending guardianship. 2. will increase prolixin to 10mg po BID, she is taking it a bit more consistently and no side effects. 3. continue prn seroquel and ativan Total time managing care of this patient today ____ minutes.
[2023-09-04 15:43] VITALS: BP 136/73; PULSE 64; RESP 18; TEMP 36.5; O2SAT 97
--- NOTE | 2023-09-04 17:52 | PC.NURSE ---
Observed pacing, pleasant. Compliant with meds, no behavioral concerns at this time. Appetite good.
[2023-09-04] MEDS: Acetaminophen 325 MG TABLET 650 MG PO (18:43)
--- NOTE | 2023-09-04 18:56 | PC.NURSE ---
Patient reports headache, 02/27, requested Tylenol. Patient administered PRN Tylenol 650 mg PO.
[2023-09-04] MEDS: fluPHENAZine HCl 5 MG TABLET 10 MG PO (21:53)
[2023-09-04] MEDS: QUEtiapine Fumarate 50 MG TABLET PO (23:45)
--- NOTE | 2023-09-05 00:43 | PC.NURSE ---
client remarked to this staff prior to admin of seroquel prn makes me feel stimulated, maybe i dont like it
[2023-09-05 05:52] VITALS: BP 105/52; PULSE 55; RESP 16; TEMP 36.6; O2SAT 96
--- NOTE | 2023-09-05 08:34 | MHC.CM.ED ---
Patient remains in ER BH Pod. Waiting for court date for guardianship. Continue to monitor for d/c needs.
--- NOTE | 2023-09-05 10:05 | PC.NURSE ---
Lillian verbalized she is ready for discharge and is planning to leave today at 1000. Case Management contacted and they report they are still waiting for a court date. Lillian refused her AM medications and stated she isn't taking anything else before we let her leave.
[2023-09-05 14:40] VITALS: RESP 18
[2023-09-05 17:32] VITALS: BP 127/54; PULSE 68; RESP 17; TEMP 37.1; O2SAT 98
[2023-09-05] MEDS: fluPHENAZine HCl 5 MG TABLET 10 MG PO (20:20)
[2023-09-05] MEDS: QUEtiapine Fumarate 50 MG TABLET PO (20:20)
[2023-09-06 02:35] VITALS: RESP 14
[2023-09-06 06:16] VITALS: BP 119/66; PULSE 52; RESP 16; TEMP 36.4; O2SAT 96
[2023-09-06] MEDS: fluPHENAZine HCl 5 MG TABLET 10 MG PO (10:29)
--- NOTE | 2023-09-06 13:30 | PC.NURSE ---
Assumed care of patient at 1100, patient awake and alert, calm and cooperative, offers no complaints to this RN. Denies pain. Patient offers no complaints to this RN. Eating lunch at this time, no apparent distress. Continuing await for guardianship
[2023-09-06] MEDS: QUEtiapine Fumarate 50 MG TABLET PO (21:16)
[2023-09-06 21:18] VITALS: BP 115/76; PULSE 63; RESP 18; TEMP 37.7; O2SAT 98
--- NOTE | 2023-09-06 21:22 | PC.NURSE ---
pt refused 2100 medication Prolixin stating that she wants to stop taking it all in all. This Rn educated patient on benefits of medication, patient continues to decline med
--- NOTE | 2023-09-06 22:04 | PC.NURSE ---
pt had uneventful day, offers no complaints, now sleeping, RR even and unlabored, no apparent distress
--- NOTE | 2023-09-07 03:58 | PC.NURSE ---
This resume writer assumed care of this patient at 03:00 am. Patient sleeping comfortably in bed, respirations even and unlabored, RR 16, no s/s of acute distress noted. Plan of care ongoing.
--- NOTE | 2023-09-07 05:30 | PC.NURSE ---
Assumed care of patient at 03:00 am, patient sleeping in bed, RR 16, no apparent distress. Plan of care ongoing.
[2023-09-07 06:28] VITALS: RESP 16
--- NOTE | 2023-09-07 07:06 | PC.NURSE ---
this RN assumed care of patient, patient appears to be asleep, respirations equal and unlabored. patient shows no signs of distress
--- NOTE | 2023-09-07 08:20 | PC.NURSE ---
patient refusing to take AM medications, documented in MAR
--- NOTE | 2023-09-07 09:37 | PC.NURSE ---
patient sitting up in bed watching tv, no apparent signs of distress, resp equal and unlabored, skin pwd
--- NOTE | 2023-09-07 12:26 | PC.NURSE ---
patient is in community room with other patients, has remained calm, cooperative and respectful to those around her. patient able to make needs known. patient made bed, is keeping room neat and clean.
[2023-09-07] MEDS: LORazepam 0.5 MG TABLET PO ×2 (14:17→20:14)
--- NOTE | 2023-09-07 14:18 | MHC.CM.ED ---
Patient remains in ER BH pod. Waiting for court date for Guardianship and Arron's Order. Continue to monitor for d/c needs.
--- NOTE | 2023-09-07 14:19 | PC.NURSE ---
patient stated she was feeling tense and could not relax, requested prn ativan. patient medicated per MAR
[2023-09-07 16:45] VITALS: BP 114/77; PULSE 65; RESP 18; TEMP 36.6; O2SAT 97
[2023-09-07] MEDS: QUEtiapine Fumarate 50 MG TABLET PO (22:02)
--- NOTE | 2023-09-07 22:02 | PM.PSYCN ---
History of Present Illness Date of Service: 09/12/2023 Chief Complaint: SEC 12 FROM MV,DELUSIONS,PARANOID,GONZALES PER EMS Discussed with referring provider: Yes Sources of Information: patient interviewed, chart reviewed and crisis/core team assessment reviewed HPI Narrative: Interim Hx: pt continues to report hearing voices of spirts who continue to tell her that group of people are trying to harm her. However, she is less guarded, able to have conversation about pending court case, she asks this conventional mortgage underwriter to contact court to find out what's going on. She takes medications sporadically. No aggression towards self or others. Past Psychiatric History: Inpatient: [facility] Pat[facility] 07/2023, 6 other admission in past year but unclear where OP: none Past medication trials: olanzapine, seroquel Review of Systems Constitutional: Denies chills, Denies fever(s) and Reports headache(s) Eyes: Denies blurry vision Reports headache(s) and Denies sore throat Cardiovascular: Denies chest pain and Denies dyspnea Respiratory: Denies cough and Denies dyspnea Gastrointestinal: Denies abdominal pain, Denies nausea and Denies vomiting Musculoskeletal: Denies back pain Skin/Breast: Denies rash Reports headache(s) Diagnostics Vital Signs (24Hr): Vital Signs - 24 hr 09/07/23 06:28 09/07/23 16:45 Temperature 97.8 F Pulse Rate 65 Respiratory Rate 16 18 Blood Pressure 114/77 Pulse Oximetry 97 Oxygen Delivery Method Room Air BMI result Body Mass Index 25.1 Labs 09/09/23 13:07 09/09/23 13:07 Mental Status Exam Mental Status Exam Narrative: Appearance: wearing hospital gown, fair hygiene, in NAD Behavior: somewhat guarded, Psychomotor: no agitation or retardation noted Speech: clear, normal rate/rhythm/volume, spontaneous TP: mostly linear TC: paranoid/persecutory delusions, VH/AH: responding to internal stimuli Delusions: paranoid delusions Insight/judgment: impaired x 2. Memory/cog: alert, oriented to place, month not situation. Medications Medications Current Medications Acetaminophen (Acetaminophen 325 Mg Tablet) 650 mg PO Q6H PRN PRN Reason: pain, fever Last Admin: 09/04/23 18:43 Dose: 650 mg Fluphenazine HCl (Fluphenazine Hcl 5 Mg Tablet) 10 mg PO BID MARTHA Last Admin: 09/07/23 20:16 Dose: Not Given Fluticasone Propionate (Fluticasone Propionate Nasal 16 Gm [place]) 1 spray NOSTRIL-B ONCE MARTHA Guaifenesin/Dextromethorphan (Guaifenesin Dm 600/30 1 Tab Tab.Er.12h) 1 tab PO BID PRN PRN Reason: congestion/cough Lorazepam (Lorazepam 0.5 Mg Tablet) 0.5 mg PO TID PRN PRN Reason: Anxiety Last Admin: 09/07/23 20:14 Dose: 0.5 mg Quetiapine Fumarate (Quetiapine Fumarate 50 Mg Tablet) 50 mg PO Q6H PRN PRN Reason: agitation/anxiety Last Admin: 09/06/23 21:16 Dose: 50 mg Allergies Allergies Allergy/AdvReac Type Severity Reaction Status Date / Time amoxicillin [From Augmentin] AdvReac Facial Verified 08/23/23 17:23 Swelling clavulanic acid AdvReac Facial Verified 08/23/23 17:23 [From Augmentin] Swelling Sulfa (Sulfonamide AdvReac Hives Verified 08/23/23 17:23 Antibiotics) sulfamethoxazole AdvReac Hives Verified 08/23/23 17:23 [From Bactrim] trimethoprim [From Bactrim] AdvReac Hives Verified 08/23/23 17:23 Assessment & Plan Assessment & Plan (1) Schizophrenia, paranoid type: Status: Acute Code(s): F20.0 - Paranoid schizophrenia Plan Mrs. Garcia continues to present with paranoid/persecutory delusions as well as auditory hallucinations. No insight into mental illness or need for treatment. Awaiting guardianship and glez. PLAN 1. Cannot leave AMA. pending guardianship. 2. continue prolixin to 10mg po BID, she is taking it a bit more consistently and no side effects. 3. continue prn seroquel and ativan Total time managing care of this patient today ____ minutes.
--- NOTE | 2023-09-07 23:20 | PC.NURSE ---
patient expressed before going to bed im not really supposed to be here...my sister called and...defending her belief essentially of yazdanism persecution, etc...
--- NOTE | 2023-09-08 | ECG_ITS ---
Test Reason : QTC Blood Pressure : / mmHG Vent. Rate : 064 BPM Atrial Rate : 064 BPM P-R Int : 158 ms QRS Dur : 078 ms QT Int : 392 ms P-R-T Axes : 057 031 036 degrees QTc Int : 404 ms Normal sinus rhythm Normal ECG When compared with ECG of 23-AUG-2023 19:46, Criteria for Septal infarct are no longer Present Referred By: Keila Romero Electronically Signed By:IRAIS AVILA
[2023-09-08 06:38] VITALS: BP 108/58; PULSE 58; RESP 15; TEMP 36.7; O2SAT 98
--- NOTE | 2023-09-08 07:36 | PC.NURSE ---
patient currently sleeping, respirations even/non labored
--- NOTE | 2023-09-08 08:10 | PC.NURSE ---
pt ambulating with steady gait throughout unit, this nurse asked pt to come to nurses station to be medicated, pt asked what medication she was getting and this nurse told her the name of her 9am med, pt refused medication.
[2023-09-08] MEDS: LORazepam 0.5 MG TABLET PO ×2 (10:16→15:08)
--- NOTE | 2023-09-08 10:23 | PC.NURSE ---
alert, denies pain, conversing with staff/patients in common room. denies si/hi. given prn ativan per pt request for anxiety. cooperative.
[2023-09-08 16:00] VITALS: BP 119/69; PULSE 65; RESP 16; TEMP 36.6; O2SAT 96
--- NOTE | 2023-09-08 17:14 | PC.NURSE ---
eating yogurt. no distress. this rn passed on message to case mgmt that pt wants to speak w them for update- roma states magali will visit
--- NOTE | 2023-09-08 19:10 | PC.NURSE ---
patient appears at rest at present respirations are even and unlabored patient appears in no distress
[2023-09-08] MEDS: QUEtiapine Fumarate 50 MG TABLET PO (21:00)
[2023-09-09 06:30] VITALS: BP 103/47; PULSE 67; RESP 16; TEMP 36.6; O2SAT 96
--- NOTE | 2023-09-09 09:03 | PC.NURSE ---
assumed care of pt at 0700. pt sleeping soundly in bed. rr even/unlabored. plan of care ongoing.
--- NOTE | 2023-09-09 10:17 | PC.NURSE ---
woke up pt to take medication. pt refused, sts she only wants to take Ativan. pt was quite dismissive of t/w and refused to answer any questions. pt placed towel over head and turned back over to sleep.
--- NOTE | 2023-09-09 10:45 | PC.NURSE ---
pt up and oob. requesting snack. judito provided. pt back to room. plan of care ongoing.
[2023-09-09 10:49] VITALS: BP 165/69; PULSE 65; RESP 16; TEMP 36.8; O2SAT 98
[2023-09-09 11:18] VITALS: BP 128/74; PULSE 59; RESP 16; O2SAT 95
--- NOTE | 2023-09-09 11:23 | PC.NURSE ---
pt requesting ativan for anxiety. pt medicated per oct. repeat BP taken due to elevated reading around 1100. BP now WNL. pt requesting to have a chemistry and hematology done for blood work due to her staying in one place and it being concerning to her. t/w assured her that she already had labs drawn when she arrived and she is not exhibiting any emergent symptoms that would require a redraw. pt understanding and cooperative.
[2023-09-09 12:37] VITALS: BP 134/66; PULSE 57; RESP 16; TEMP 36.2; O2SAT 97
--- NOTE | 2023-09-09 12:38 | PC.NURSE ---
Patient is c/o chest pressure mid sternal 5/10 non-radiating she is requesting ekg and labs. vitals are WNL. Dr. Price notified awaiting orders.
--- NOTE | 2023-09-09 12:44 | ECG_ITS ---
Test Reason : CHEST PAIN Blood Pressure : / mmHG Vent. Rate : 054 BPM Atrial Rate : 054 BPM P-R Int : 164 ms QRS Dur : 074 ms QT Int : 428 ms P-R-T Axes : 070 049 044 degrees QTc Int : 405 ms Sinus bradycardia Otherwise normal ECG When compared with ECG of 08-SEP-2023 14:44, No significant change was found Referred By: Lillian Price Electronically Signed By:IRAIS AVILA
[2023-09-09 13:13] LABS: MANUAL DIFF FLAG NO
[2023-09-09 13:14] LABS: Basophils Absolute Auto 0.1 X10*3/uL (0.0-0.2); Basophils Percent Auto 0.7 % (0-2); Eosinophils Absolute Auto 0.1 X10*3/uL (0.0-0.4); Eosinophils Percent Auto 1.6 % (0-4); Hematocrit 43.6 % (37.0-47.0); Hemoglobin 14.2 g/dl (12.0-16.0); Imm Gran Abs Auto 0.03 X10*3/uL (0.00-0.03); Imm Gran Pct Auto 0.4 % (0.0-0.4); Lymphocytes Absolute Auto 1.3 X10*3/uL (1.2-4.9); Lymphocytes Percent Auto 17.5 % (20-40); Mean Corpuscular HGB Conc 32.6 g/dl (31.0-35.0); Mean Corpuscular Hemoglobin 29.2 pg (27.0-33.0); Mean Corpuscular Volume 89.5 fL (80.0-98.0); Mean Platelet Volume 8.5 fL (9.4-12.3); Monocytes Absolute Auto 0.6 X10*3/uL (0.1-1.2); Monocytes Percent Auto 8.3 % (2-11); Neutrophils Absolute Auto 5.4 x10*3/uL (2.0-8.3); Neutrophils Percent Auto 71.5 % (45-73); Platelet Count 415 X10*3/uL (160-400); Red Blood Count 4.87 X10*6/uL (4.20-5.50); Red Cell Distribution Width 13.3 % (11.0-16.0); White Blood Count 7.5 X10*3/uL (4.8-10.8)
--- NOTE | 2023-09-09 13:27 | MHC.CM.ED ---
Patient remains in ER BH pod. Waiting for court date for guardianship and Arron's order. Continue to monitor for d/c needs.
[2023-09-09 13:31] LABS: Alanine Aminotransferase 17 U/L (0-31); Albumin Level 4.2 g/dL (3.5-5.0); Alkaline Phosphatase 76 U/L (39-117); Anion Gap 13 (12-20); Aspartate Amino Transferase 15 U/L (5-31); Bilirubin Total 0.3 mg/dL (0.0-1.0); Blood Urea Nitrogen 18 mg/dL (9-16); Calcium 9.4 mg/dL (8.4-10.2); Carbon Dioxide 28 mmol/L (22-29); Chloride 105 mmol/L (96-108); Creatinine Clr Calc Pharmacy 60.8; Estimated Glomerular Filt Rate > 60; Glucose Random 135 mg/dL (60-115); Potassium 4.2 mmol/L (3.3-5.1); Sodium 142 mmol/L (135-145); Total Protein 7.2 g/dL (6.5-8.0)
[2023-09-09 13:38] LABS: Troponin-I High Sensitivity < 2.7 ng/L (<3.5-17.0)
[2023-09-09 14:50] VITALS: BP 117/65; PULSE 64; RESP 16; TEMP 37.1; O2SAT 99
[2023-09-09 16:36] LABS: Troponin-I High Sensitivity < 2.7 ng/L (<3.5-17.0)
--- NOTE | 2023-09-09 18:16 | MHC.EDTECH ---
Patient given dinner tray
[2023-09-09] MEDS: fluPHENAZine HCl 5 MG TABLET 10 MG PO (20:18)
[2023-09-09 20:47] VITALS: BP 125/59; PULSE 64; RESP 16; TEMP 36.7; O2SAT 99
[2023-09-09] MEDS: QUEtiapine Fumarate 50 MG TABLET PO (21:30)
--- NOTE | 2023-09-09 23:09 | PC.NURSE ---
Took report from off-going RN. Pt is a 63 y/o female who is here for increasing delusions, seen by cases management, waitng for court date. Cooperative and easily arousable with verbal stimuli. Changes position in bed independently as desired and asks for needs as they arise. Will continue to monitor.
--- NOTE | 2023-09-10 00:14 | PC.NURSE ---
Pt OOB, walked to the bathroom without assistance. Steady gait observed.
--- NOTE | 2023-09-10 00:30 | MHC.EDTECH ---
Pt refusing vital signs multiple times.
--- NOTE | 2023-09-10 02:02 | PC.NURSE ---
Pt is sleeping in bed, appears comfortable, changes positions independently as desired. Ambulates to the bathroom when needed. Regular safety checks conducted. Pt is easily arousable with verbal stimuli.
--- NOTE | 2023-09-10 04:19 | PC.NURSE ---
Pt OOB to use the bathroom. No acute distress noted. Ambulated with a steady gait and returned to her room.
--- NOTE | 2023-09-10 04:53 | PC.NURSE ---
Pt OOB, walked to the nurses station and asked for a cup of orange juice and then sat in a chair to drink it. Pt has a calm cooperative demeanor. Described a noise in her head and reports feeling off but is unable to articulate details. No other symtposm or complaints reported. Pt returned to her room after consuming her drink. Will continue to monitor.
--- NOTE | 2023-09-10 05:36 | PC.NURSE ---
Pt is sleeping in bed, appears comfortable. Changes positions independently as desired. Easily arousable with verbal stimuli. Verbalizes needs. Will continue to monitor and note any changes. Regular safety checks will continue.
[2023-09-10 06:00] VITALS: BP 112/60; PULSE 56; RESP 12; TEMP 36.6; O2SAT 96
--- NOTE | 2023-09-10 08:39 | PC.NURSE ---
ASSUMED CARE OF THIS PT, ALLOWED TO SLEEP THIS AM, RESP EVEN NONLABOURED.
--- NOTE | 2023-09-10 14:03 | PC.NURSE ---
PATIENT WANTED ME TO KNOW SHE HAD A BOWEL MOVEMENT AT 2PM TODAY.
--- NOTE | 2023-09-10 14:04 | PC.NURSE ---
PATIENT STATES SHE WANTS SOMETHING DONE ABOUT THE SHAKES IN HER HANDS.
--- NOTE | 2023-09-10 14:48 | PC.NURSE ---
PT VERY TEARFUL, SOBBING IN HER ROOM, INCONSOLABLE, ANXIOUS. OFFERED PRN SEROQUEL, PT REFUSED STATING THAT IT MAKES HER GO TO SLEEP. SHE DOES NOT WANT TO SLEEP. DISCUSSED WITH MD, AWAITING NEW ORDERS.
[2023-09-10] MEDS: risperiDONE 1 MG TABLET PO (15:45)
[2023-09-10 18:26] VITALS: BP 139/75; PULSE 56; RESP 16; TEMP 36.5; O2SAT 98
[2023-09-10] MEDS: Acetaminophen 325 MG TABLET 650 MG PO (18:53)
[2023-09-10] MEDS: fluPHENAZine HCl 5 MG TABLET 10 MG PO (20:43)
[2023-09-10] MEDS: QUEtiapine Fumarate 50 MG TABLET PO (22:12)
[2023-09-11 06:11] VITALS: BP 113/64; PULSE 53; RESP 12; TEMP 36.8; O2SAT 98
--- NOTE | 2023-09-11 08:51 | MHC.CM.ED ---
Patient remains in ER BH pod. Still waiting for court date for guardianship and Arron's order. Referrals made to [facility], [facility], [facility] and [facility] as requested by Sola Mcgraw CM director. Continue to monitor for d/c needs.
[2023-09-11] MEDS: fluPHENAZine HCl 5 MG TABLET 10 MG PO (09:33)
--- NOTE | 2023-09-11 12:02 | PC.NURSE ---
Assumed care of patient at 1100, patient is ambulatory around BH pod, offers no complaints this am to this RN. Respirations even and unlabored, skin pwd, no apparent distress. continue guardianship search
[2023-09-11 14:04] VITALS: RESP 14
[2023-09-11] MEDS: Docusate Sodium 100 MG CAPSULE PO (17:33)
[2023-09-11] MEDS: QUEtiapine Fumarate 50 MG TABLET PO (20:40)
[2023-09-11 20:42] VITALS: BP 132/76; PULSE 63; RESP 20; TEMP 36.8; O2SAT 98
--- NOTE | 2023-09-11 21:10 | PC.NURSE ---
Pt refusing night medication, requesting seroquel
--- NOTE | 2023-09-12 01:57 | PC.NURSE ---
Pt had uneventful evening, now appears to be sleeping, RR even and unlabored, no apparent distress at this time
[2023-09-12 05:24] VITALS: BP 130/52; PULSE 82; RESP 16; TEMP 36.3; O2SAT 97
[2023-09-12] MEDS: fluPHENAZine HCl 5 MG TABLET 10 MG PO (08:34)
--- NOTE | 2023-09-12 10:11 | PC.NURSE ---
Pt alert and oriented x3, she denies pain, denies SI/HI. Plan of care remains the same, pt aware. Med given as documented, breakfast given, no behavioral concerns at this time.
[2023-09-12 11:16] VITALS: BP 118/61; PULSE 57; RESP 16; TEMP 36.5; O2SAT 95
[2023-09-12] MEDS: QUEtiapine Fumarate 50 MG TABLET PO (20:03)
[2023-09-12 20:43] VITALS: BP 130/66; PULSE 64; RESP 18; TEMP 36.6; O2SAT 97
[2023-09-13 02:11] VITALS: BP 126/53; PULSE 69; RESP 16; TEMP 36.4; O2SAT 98
[2023-09-13] MEDS: QUEtiapine Fumarate 50 MG TABLET PO ×2 (02:25→20:59)
[2023-09-13 07:59] VITALS: BP 116/60; PULSE 62; TEMP 36.3; O2SAT 98
--- NOTE | 2023-09-13 08:42 | MHC.CM.ED ---
Patient remains in ER BH pod. Still waiting for court date for guardianship & Arron's order. Continue to monitor for d/c needs.
[2023-09-13] MEDS: fluPHENAZine HCl 5 MG TABLET 10 MG PO (10:57)
[2023-09-13 14:20] VITALS: RESP 18
--- NOTE | 2023-09-13 17:37 | PC.NURSE ---
Lillian AYON this shift. pleasant when engaged. Appetite good. Gait steady.
--- NOTE | 2023-09-13 19:00 | PC.NURSE ---
patient appears to remain at rest at present respirations are even and unlabored patient appears in no distress.
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
[2023-09-13] MEDS: Docusate Sodium 100 MG CAPSULE PO (19:38)
--- NOTE | 2023-09-13 20:26 | P.CNPS_ITS ---
History of Present Illness Date of Service: 09/14/2023 Chief Complaint: SEC 12 FROM MV,DELUSIONS,PARANOID,GONZALES PER EMS Discussed with referring provider: Yes Sources of Information: patient interviewed, chart reviewed and crisis/core team assessment reviewed HPI Narrative: Interim Hx: pt reports that spirits are hanging on to me. She reports still hearing voices telling her that group of people are trying to harm her. Pt asks this scientific technical writer to contact actress from TV show because pt states she has been helping in spirit for the past 3 years. She states that the reason voices are not telling her address of secure location is because voices are telling other people like the actress from TV show and her PCP. She does agree that without an address or place for her to go she would be on the streets in the middle of the winter. She has been more open to taking prolixin, not consistently or at full dose but more consistently. She is able to have a slightly more coherent conversation. She tells this scientific technical writer she appreciates staff help in finding place, also expresses her frustration about being in the hospital in the ED. Past Psychiatric History: Inpatient: [facility] oPoja 07/2023, 6 other admission in past year but unclear where OP: none Past medication trials: olanzapine, seroquel Diagnostics Vital Signs (24Hr): Vital Signs - 24 hr 09/12/23 20:43 09/13/23 02:11 09/13/23 07:59 Temperature 97.8 F 97.6 F 97.3 F Pulse Rate 64 69 62 Respiratory Rate 18 16 Blood Pressure 130/66 126/53 L 116/60 Pulse Oximetry 97 98 98 Oxygen Delivery Method Room Air Room Air Room Air 09/13/23 14:20 Temperature Pulse Rate Respiratory Rate 18 Blood Pressure Pulse Oximetry Oxygen Delivery Method BMI result Body Mass Index 25.1 Labs 09/09/23 13:07 09/09/23 13:07 Mental Status Exam Mental Status Exam Narrative: Appearance: wearing hospital gown, fair hygiene, in NAD Behavior: somewhat guarded, Psychomotor: no agitation or retardation noted Speech: clear, normal rate/rhythm/volume, spontaneous TP: mostly linear TC: paranoid/persecutory delusions, VH/AH: responding to internal stimuli Delusions: paranoid delusions Insight/judgment: impaired x 2. Memory/cog: alert, oriented to place, month not situation. Medications Medications Current Medications Acetaminophen (Acetaminophen 325 Mg Tablet) 650 mg PO Q6H PRN PRN Reason: pain, fever Last Admin: 09/10/23 18:53 Dose: 650 mg Docusate Sodium (Docusate Sodium 100 Mg Capsule) 100 mg PO BID PRN PRN Reason: Constipation Stop: 09/19/23 23:59 Last Admin: 09/13/23 19:38 Dose: 100 mg Fluphenazine HCl (Fluphenazine Hcl 5 Mg Tablet) 10 mg PO BID MARTHA Last Admin: 09/13/23 10:57 Dose: 10 mg Fluticasone Propionate (Fluticasone Propionate Nasal 16 Gm [place]) 1 spray NOSTRIL-B ONCE PENDING SALE TO [facility] Guaifenesin/Dextromethorphan (Guaifenesin Dm 600/30 1 Tab Tab.Er.12h) 1 tab PO BID PRN PRN Reason: congestion/cough Quetiapine Fumarate (Quetiapine Fumarate 50 Mg Tablet) 50 mg PO Q6H PRN PRN Reason: agitation/anxiety Last Admin: 09/13/23 02:25 Dose: 50 mg Allergies Allergies Allergy/AdvReac Type Severity Reaction Status Date / Time amoxicillin [From Augmentin] AdvReac Facial Verified 08/23/23 17:23 Swelling clavulanic acid AdvReac Facial Verified 08/23/23 17:23 [From Augmentin] Swelling Sulfa (Sulfonamide AdvReac Hives Verified 08/23/23 17:23 Antibiotics) sulfamethoxazole AdvReac Hives Verified 08/23/23 17:23 [From Bactrim] trimethoprim [From Bactrim] AdvReac Hives Verified 08/23/23 17:23 Assessment & Plan Assessment & Plan (1) Schizophrenia, paranoid type: Status: Acute Code(s): F20.0 - Paranoid schizophrenia Plan Mrs. Garcia continues to present with paranoid/persecutory delusions as well as auditory hallucinations. No insight into mental illness or need for treatment. Awaiting guardianship and glez. PLAN 1. Cannot leave AMA. pending guardianship. 2. continue prolixin to 10mg po BID, she is taking it a bit more consistently and no side effects. 3. continue prn seroquel and ativan Total time managing care of this patient today ____ minutes.
[2023-09-13 20:27] VITALS: BP 127/51; PULSE 65; RESP 18; TEMP 36.8; O2SAT 98
[2023-09-14] MEDS: fluPHENAZine HCl 5 MG TABLET 10 MG PO (07:50)
--- NOTE | 2023-09-14 11:36 | PC.NURSE ---
Pt ate breakfast, given am medications without incident. Pt ambulatory to the BR for ADL's with a steady gait, able to make her needs known. Calm/cooperative.
[2023-09-14] MEDS: Docusate Sodium 100 MG CAPSULE PO (14:02)
--- NOTE | 2023-09-14 14:25 | MHC.CM.ED ---
Patient remains in ER overflow. Guardianship is scheduled virtually on 09/28 at 240pm. Patient came aware. Copy of court paperwork provided to patient. Tony Sunshine is her purposed guardian. Continue to monitor for d/c needs.
[2023-09-14] MEDS: LORazepam 0.5 MG TABLET PO (17:04)
[2023-09-14 17:40] VITALS: RESP 18
--- NOTE | 2023-09-14 17:42 | PC.NURSE ---
Lillian struggling with feelings about her upcoming court case this shift. She was able to verbalize feeling nervous and shaky with anxiety. Lorazepam 0.5mg given with pending effect. Lillian sought out staff to have her needs met this shift and reports she is having regular bowel movements with the addition of the stool softner. Appetite good. No behavioral concerns.
--- NOTE | 2023-09-14 19:23 | PC.NURSE ---
patient appears in no distress at present patient approached t/w and said hello within last ten minutes appears in no distress, pleasant cooperative, able to let need be known
[2023-09-14] MEDS: QUEtiapine Fumarate 50 MG TABLET PO (20:34)
[2023-09-15 06:54] VITALS: BP 134/62; PULSE 57; RESP 16; TEMP 36.4; O2SAT 97
[2023-09-15] MEDS: fluPHENAZine HCl 5 MG TABLET 10 MG PO ×2 (10:26→20:26)
[2023-09-15] MEDS: Sennosides/Docusate Sodium TABLET 1 TAB PO ×2 (10:26→20:26)
[2023-09-15 11:54] VITALS: BP 127/67; PULSE 53; RESP 16; TEMP 36.7; O2SAT 97
--- NOTE | 2023-09-15 17:18 | PC.NURSE ---
sleeping in room. NAD. skin PWD. chest rise noted.
[2023-09-15 21:46] VITALS: BP 128/58; PULSE 55; RESP 16; TEMP 36.4; O2SAT 96
[2023-09-15] MEDS: QUEtiapine Fumarate 50 MG TABLET PO (21:57)
[2023-09-16 05:43] VITALS: RESP 16
[2023-09-16] MEDS: fluPHENAZine HCl 5 MG TABLET 10 MG PO ×2 (09:01→20:38)
[2023-09-16] MEDS: Sennosides/Docusate Sodium TABLET 1 TAB PO ×2 (09:01→20:38)
--- NOTE | 2023-09-16 11:07 | PC.NURSE ---
Assumed care of patient at 1100, patient is ambulating with steady gait around BH pod, offers no complaints to this RN at this time. calm and cooperative, respirations even and unlabored, skin pwd, alert and oriented x4, no apparent distress. Pt remains under case management review at this time, court date on Sep 22
--- NOTE | 2023-09-16 14:32 | MHC.CM.ED ---
Pt remains holding in the ED pending a guardianship hearing on 09/28. CM to follow for finalization of d/c needs after appointment.
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
[2023-09-16 18:53] VITALS: BP 133/79; PULSE 75; RESP 18; TEMP 36.6; O2SAT 95
[2023-09-16] MEDS: QUEtiapine Fumarate 50 MG TABLET PO (20:39)
--- NOTE | 2023-09-16 22:52 | PC.NURSE ---
Pt had uneventful day, now sleeping, respirations even and unlabored, skin pwd, no apparent distress. Continue plan of care for CM review
[2023-09-17] MEDS: LORazepam 0.5 MG TABLET PO ×3 (00:50→18:26)
[2023-09-17 06:18] VITALS: BP 111/52; PULSE 60; RESP 16; TEMP 37.2; O2SAT 96
[2023-09-17] MEDS: fluPHENAZine HCl 5 MG TABLET 10 MG PO ×2 (08:05→20:41)
--- NOTE | 2023-09-17 11:05 | PC.NURSE ---
Assumed care of patient at 1045, patient appears to be sleeping, respirations even and unlabored, no apparent distress is noted. Continue plan of care for CM follow up and court date on 09/28
--- NOTE | 2023-09-17 12:18 | PC.NURSE ---
report given to PAOLA Gamble in overflow
--- NOTE | 2023-09-17 12:57 | PC.NURSE ---
pt belongings moved from lockers to overflow with patient. and November, [facility] transporting patient to overflow at this time
--- NOTE | 2023-09-17 13:45 | PC.NURSE ---
assumed care of pt at 1315. pt transitioned to overflow from pod. plan for guardianship hearing 09/28, pt aware and agreeable to plan. pt oriented to new room and surrounding. pt belongings at bedside. kitchen staff at bedside coordinating menu for pt. kitchen contacted for missing lunch tray.
[2023-09-17 13:52] VITALS: BP 114/75; PULSE 65; RESP 20; TEMP 37.1; O2SAT 97
--- NOTE | 2023-09-17 15:53 | PC.NURSE ---
pt assisted in trimming finger nail, independently filing nails and trimming toe nails. reports some increased back spasms which she correlates to increased anxiety. discussed triggers for anxiety and pt agreed that it may be due to relocating to over flow. pt declined PRN seroquel and verbalized understanding that it is too early for next dose of ativan. pt agreeable to relaxing in bed and watching nature program on tv.
--- NOTE | 2023-09-17 18:18 | PC.NURSE ---
pt given warm wipes to clean face and brief for overnight. pt requesting PRN ativan.
[2023-09-17] MEDS: Sennosides/Docusate Sodium TABLET 1 TAB PO (20:41)
--- NOTE | 2023-09-17 21:08 | PC.NURSE ---
pt medicated per MAR, pt reports that she is more comfortable and furniture inspector overflow room. pt ambulating independently to restroom, vss. denies any needs at this time.
[2023-09-17 21:11] VITALS: BP 131/71; PULSE 61; RESP 16; TEMP 36.8; O2SAT 94
[2023-09-18] MEDS: LORazepam 0.5 MG TABLET PO (04:26)
[2023-09-18 05:01] VITALS: BP 131/69; PULSE 71; RESP 19; TEMP 36.3; O2SAT 95
[2023-09-18] MEDS: fluPHENAZine HCl 5 MG TABLET 10 MG PO ×2 (11:02→21:53)
[2023-09-18 16:57] VITALS: BP 127/70; PULSE 72; RESP 16; TEMP 36.6; O2SAT 97
[2023-09-18] MEDS: QUEtiapine Fumarate 50 MG TABLET PO (20:23)
[2023-09-18 21:02] VITALS: BP 140/69; PULSE 62; RESP 16; TEMP 36.7; O2SAT 98
--- NOTE | 2023-09-19 04:42 | PC.NURSE ---
this RN assumed care of the pt at 0330. pt refusing vital signs at this time. pt independently ambulates to and from bathroom with a steady gait.
[2023-09-19 06:00] VITALS: BP 125/60; PULSE 54; RESP 17; TEMP 36.4; O2SAT 95
--- NOTE | 2023-09-19 08:25 | PC.NURSE ---
PT IS A/O X 4 NO SOB/HUGO NOTED SPEAKS IN FULL SENTENCES. PT TOOK HER AM MEDS WITHOUT ANY ISSUES. DENIES ANY PAIN/DISC. DENIES ANY SI/HI. DENIES ANY HALLUCINATIONS. PT AMB (I) GAIT STEADY FROM HER ROOM TO THE BATHROOM AND BTB. WILL CONTINUE TO MONITOR.
[2023-09-19] MEDS: fluPHENAZine HCl 5 MG TABLET 10 MG PO ×2 (08:38→21:12)
[2023-09-19] MEDS: Sennosides/Docusate Sodium TABLET 1 TAB PO ×2 (08:38→21:13)
--- NOTE | 2023-09-19 08:53 | MHC.CM.ED ---
Patient remains in ER overflow. Court scheduled for 09/28 for guardianship and Arron's order. Continue to monitor for d/c needs.
--- NOTE | 2023-09-19 13:00 | MHC.EDTECH ---
pt ate 100% of her lunch, 240cc of her fluids
[2023-09-19 14:00] VITALS: BP 137/74; PULSE 59; RESP 17; TEMP 36.9; O2SAT 96
--- NOTE | 2023-09-19 14:01 | PC.NURSE ---
PT IS CALM/CO-OP. PT CONTINUES TO AMB (I) GAIT STEADY FROM BED TO BATHROOM AND BTB.
--- NOTE | 2023-09-19 16:00 | PC.NURSE ---
PT'S LABORATORY APPARATUS GLASS BLOWER IS AT BEDSIDE. CASE MANAGEMENT AWARE.
--- NOTE | 2023-09-19 17:02 | MHC.EDTECH ---
PT ATE 100% OF HER BREAKFAST. 240CC OF FLUIDS
--- NOTE | 2023-09-19 17:30 | PC.NURSE ---
PT AMB (I) TO BATHROOM, STATES THAT SHE HAD A LARGE MODERATELY LOOSE BM X 1
--- NOTE | 2023-09-19 18:02 | MHC.EDTECH ---
PT IS A INDEPENDENT. CLOSE WATCH FOR FLIGHT RISK. PT USED THE BATHROOM AND HAD A BOWEL MOVEMENT.
--- NOTE | 2023-09-19 18:03 | MHC.EDTECH ---
PT ATE 100% OF HER DINNER TRAY. 240CC OF FLUIDS
--- NOTE | 2023-09-19 18:59 | MHC.CM.ED ---
Court appointed immigration lawyer, Casa Lang met with patient and then met with CM to discuss patient. Aware that psych does not feel patient has capacity to make decisions. Hand Trimmer is in agreement. Court Date 09/28/2023. CM contact card given. CM will follow for discharge needs.
[2023-09-19] MEDS: QUEtiapine Fumarate 50 MG TABLET PO (21:15)
[2023-09-19 22:45] VITALS: BP 145/75; PULSE 60; RESP 17; TEMP 36.7; O2SAT 97
[2023-09-20] MEDS: QUEtiapine Fumarate 50 MG TABLET PO ×2 (05:14→20:27)
[2023-09-20 05:39] VITALS: BP 136/73; PULSE 61; RESP 16; TEMP 37.4; O2SAT 96
[2023-09-20 08:29] VITALS: BP 119/69; PULSE 67; RESP 18; TEMP 36.4; O2SAT 94
--- NOTE | 2023-09-20 08:40 | PC.NURSE ---
PT IS A/O X 4 NO SOB/HUGO NOTED SPEAKS IN FULL SENTENCES. AMB (I) GAIT STEADY TO BATHROOM AND BTB. PT WAS OFFERED TO SHOWER/ADL'S AND REFUSED. PT DENIES ANY PAIN/DISC. PT DENIES ANY SI/HI/HALLUCINATIONS. WILL CONTINUE TO MONITOR.
[2023-09-20] MEDS: fluPHENAZine HCl 5 MG TABLET 10 MG PO ×2 (08:48→20:27)
[2023-09-20] MEDS: Sennosides/Docusate Sodium TABLET 1 TAB PO ×2 (08:48→20:27)
[2023-09-20 14:00] VITALS: BP 114/57; PULSE 64; RESP 18; TEMP 36.8; O2SAT 95
--- NOTE | 2023-09-20 16:02 | PC.NURSE ---
this rn assumed care of pt. pt ambulated with steady gait to bathroom at this time, denies pain and SOB. no acute distress noted.
[2023-09-20 16:13] VITALS: BP 144/77; PULSE 63; RESP 16; TEMP 37.3; O2SAT 95
--- NOTE | 2023-09-20 19:30 | PC.NURSE ---
Patient refusing vital signs at this time. Patient able to ambulate to bathroom without assistance. Patient with no s/s of distress noted at this time, able to make needs known.
[2023-09-20 19:46] VITALS: BP 142/73; PULSE 70; RESP 15; TEMP 37.1; O2SAT 94
[2023-09-21] MEDS: QUEtiapine Fumarate 50 MG TABLET PO ×3 (02:34→20:02)
--- NOTE | 2023-09-21 02:36 | PC.NURSE ---
Patient stating that she is having difficulty sleeping and requesting a dose of seroquel. Patient medicated per OCT. Patient resting on bed calmly, no s/s of distress noted.
[2023-09-21 04:43] VITALS: BP 125/66; PULSE 60; RESP 19; TEMP 36.4; O2SAT 95
[2023-09-21] MEDS: fluPHENAZine HCl 5 MG TABLET 10 MG PO ×2 (07:52→20:02)
[2023-09-21] MEDS: Sennosides/Docusate Sodium TABLET 1 TAB PO ×2 (07:52→20:02)
--- NOTE | 2023-09-21 10:53 | PC.NURSE ---
in room with lights off at this time, sleeping intermittently. Requesting door to remain shut
--- NOTE | 2023-09-21 12:25 | PC.NURSE ---
ate lunch , medicated with prn seroquel for reported anxiety, no other needs or complaints per pt, laying in room with lights off
[2023-09-21 14:00] VITALS: BP 122/60; PULSE 62; RESP 16; TEMP 36.4; O2SAT 98
--- NOTE | 2023-09-21 17:33 | PC.NURSE ---
assumed care of pt at 1500, pt resting quietly in bed, eyes closed, respirations even and unlabored. wakes to name. Awake to eat dinner, requesting her lights remain off and door remains shut, encouraged to call for assistance, offering no complaints, safety precautions remain in place.
[2023-09-21 20:04] VITALS: BP 133/61; PULSE 60; RESP 19; TEMP 36.6; O2SAT 99
--- NOTE | 2023-09-21 21:57 | PC.NURSE ---
Assumed care of pt at 19:00: Pt Alert to self and place at this time. Ambulates independently w/ supervision. Cont X2. VSS, breathing non-labored, afebrile. Denies pain. pt c/o anxiety, given prn seroquel as ordered with good effect. Pt resting quietly at this time, call rincon within reach. Will cont with plan of care, safety precautions remain in place.
[2023-09-22] MEDS: QUEtiapine Fumarate 50 MG TABLET PO ×2 (03:52→20:57)
[2023-09-22 05:56] VITALS: BP 121/63; PULSE 57; RESP 19; TEMP 36.2; O2SAT 95
[2023-09-22] MEDS: fluPHENAZine HCl 5 MG TABLET 10 MG PO ×2 (08:17→20:57)
[2023-09-22] MEDS: Sennosides/Docusate Sodium TABLET 1 TAB PO ×2 (08:17→20:57)
[2023-09-22 14:00] VITALS: BP 148/72; PULSE 66; RESP 16; TEMP 36.6; O2SAT 96
[2023-09-22 20:46] VITALS: BP 128/78; PULSE 59; RESP 16; TEMP 37.3; O2SAT 95
[2023-09-23 05:25] VITALS: BP 131/72; PULSE 58; RESP 14; TEMP 36.4; O2SAT 94
--- NOTE | 2023-09-23 07:12 | PC.NURSE ---
Assumed care of patient at 19:00 on 09/22. Patient seen in ED overflow. Pt is A&Ox4, calm and cooperative. VSS. +pp/cms. Breathing is even and unlabored without distress. Pt denies acute complaints. Tolerated po meds without n/v. Ambulates independently with standby assistance to bathroom due to elopement risk. Safety measures in place. Handoff report given at 06:45.
--- NOTE | 2023-09-23 07:38 | PC.NURSE ---
assumed care of pt at 0700. pt resting quietly in bed sandra, watching tv. denies SI/HI. awaiting breakfast tray. all pt needs met sandra. call rincon within reach. plan of care ongoing.
[2023-09-23] MEDS: fluPHENAZine HCl 5 MG TABLET 10 MG PO ×2 (09:38→20:22)
[2023-09-23] MEDS: Sennosides/Docusate Sodium TABLET 1 TAB PO ×2 (09:38→20:22)
--- NOTE | 2023-09-23 10:28 | PC.NURSE ---
pt consumed breakfast and medicated per oct. pt between bed and recliner, ambulating self with steady gait. pt resting quietly, watching tv. plan of care ongoing.
--- NOTE | 2023-09-23 12:51 | PC.NURSE ---
Addendum entered by Meliza Meehan RN 09/23/23 13:47: pt medicated per mar with prn seroquel for agitation. Original Note: pt reporting spasming of the inside of her upper body. t/w tried to feel and observe for any spasming. none witnessed. pt sts this happens frequently and doesn't know what she is normally given for it. pt is starting to get agitated. t/w offered pt prn seroquel but pt requested not to take it due to drowsiness. BRIGIDA Owen notified.
[2023-09-23] MEDS: QUEtiapine Fumarate 50 MG TABLET PO ×2 (13:12→20:22)
[2023-09-23 14:00] VITALS: BP 104/61; PULSE 62; RESP 18; TEMP 37.2; O2SAT 94
--- NOTE | 2023-09-23 19:05 | PC.NURSE ---
pt sleeping quietly in bed, rr even/unlabored. plan of care ongoing.
[2023-09-23 20:15] VITALS: BP 142/83; PULSE 63; RESP 14; TEMP 36.6; O2SAT 94
--- NOTE | 2023-09-23 21:32 | PC.NURSE ---
Pt took all her pm meds offers no complaints resting quietly at present time.
[2023-09-24 06:00] VITALS: BP 105/58; PULSE 55; RESP 16; TEMP 36.9; O2SAT 96
[2023-09-24] MEDS: fluPHENAZine HCl 5 MG TABLET 10 MG PO ×2 (09:07→20:49)
[2023-09-24] MEDS: Sennosides/Docusate Sodium TABLET 1 TAB PO ×2 (09:07→20:49)
[2023-09-24] MEDS: QUEtiapine Fumarate 50 MG TABLET PO ×3 (09:08→20:50)
--- NOTE | 2023-09-24 09:49 | PC.NURSE ---
pt awake, ate breakfast. pleasant in her affect. pt reports feeling anxious and requested PRN medication, pt medicated per OCT. pt in room, resting with lights off requesting to sleep at this time. pt needs met, she is in NAD, rr even, unlabored/
[2023-09-24 13:58] VITALS: BP 138/68; PULSE 62; RESP 18; TEMP 37; O2SAT 96
--- NOTE | 2023-09-24 18:46 | PC.NURSE ---
pt called staff into her room, reporting that she is shakey and agitated . offered PRN Seroquel and pt accepted, reports she feels agitated because she cant do anything for herself . educated pt on asking for help from staff as well as deep breathing techniques and grounding techniques. pt thankful. reports she wants to rest at this time.
--- NOTE | 2023-09-24 20:48 | MHC.EDTECH ---
patient refused vitals ,rn aware
--- NOTE | 2023-09-24 20:55 | PC.NURSE ---
Pt calm and cooperative resting at the bedside. Medicated per MAR. All needs mets. Delines vitals at this time reports I already had them done earlier today . Pt ambulates independently to the restroom and back. Able to make needs known. Monitoring is ongoing.
[2023-09-25] MEDS: QUEtiapine Fumarate 50 MG TABLET PO ×3 (00:01→20:39)
[2023-09-25 05:36] VITALS: BP 116/64; PULSE 63; RESP 16; TEMP 36.5; O2SAT 97
[2023-09-25] MEDS: Sennosides/Docusate Sodium TABLET 1 TAB PO ×2 (07:54→20:39)
[2023-09-25] MEDS: fluPHENAZine HCl 5 MG TABLET 10 MG PO ×2 (07:54→20:39)
--- NOTE | 2023-09-25 08:08 | MHC.CM.ED ---
Patient remains in ER overflow. Court scheduled for 09/28 for Guardianship and Arron's order. Continue to monitor for d/c needs.
--- NOTE | 2023-09-25 09:43 | MHC.EDTECH ---
patient wash washed up with a complete bed change and teeth brushing was done
--- NOTE | 2023-09-25 10:28 | PM.PSYCN ---
History of Present Illness Date of Service: 09/25/2023 Chief Complaint: SEC 12 FROM MV,DELUSIONS,PARANOID,GONZALES PER EMS Discussed with referring provider: Yes Sources of Information: patient interviewed, chart reviewed and crisis/core team assessment reviewed HPI Narrative: Interim Hx: pt reports she barely hearing voices of the spirits. She states for the first time in 15 years, no one is following me anymore. I'm glad it stopped She does report missing one of the voices of the spirits who had promised her the [place]. She appears more aware of reality and fact that she has to find with support of case management, housing. She denies SI/HI. She reports sleeping and eating well. No side effects with current medications. No s/s of EPS. Past Psychiatric History: Inpatient: [facility] 07/2023, 6 other admission in past year but unclear where OP: none Past medication trials: olanzapine, seroquel Diagnostics Vital Signs (24Hr): Vital Signs - 24 hr 09/24/23 13:58 09/25/23 05:36 Temperature 98.6 F 97.7 F Pulse Rate 62 63 Respiratory Rate 18 16 Blood Pressure 138/68 116/64 Pulse Oximetry 96 97 Oxygen Delivery Method Room Air Room Air BMI result Body Mass Index 25.1 Labs 09/09/23 13:07 09/09/23 13:07 Mental Status Exam Mental Status Exam Narrative: Appearance: wearing hospital gown, fair hygiene, in NAD Behavior: cooperative. Psychomotor: no agitation or retardation noted Speech: clear, normal rate/rhythm/volume, spontaneous TP: mostly linear TC: much less paranoid/persecutory delusions, VH/AH: reports she is not hearing spirits as often as she was Delusions: paranoid delusions Insight/judgment: impaired x 2 Memory/cog: alert, oriented to place, month not situation. Medications Medications Current Medications Acetaminophen (Acetaminophen 325 Mg Tablet) 650 mg PO Q6H PRN PRN Reason: pain, fever Last Admin: 09/10/23 18:53 Dose: 650 mg Fluphenazine HCl (Fluphenazine Hcl 5 Mg Tablet) 10 mg PO BID MARTHA Last Admin: 09/25/23 07:54 Dose: 10 mg Fluticasone Propionate (Fluticasone Propionate Nasal 16 Gm [place]) 1 spray NOSTRIL-B ONCE [facility] Guaifenesin/Dextromethorphan (Guaifenesin Dm 600/30 1 Tab Tab.Er.12h) 1 tab PO BID PRN PRN Reason: congestion/cough Quetiapine Fumarate (Quetiapine Fumarate 50 Mg Tablet) 50 mg PO Q6H PRN PRN Reason: agitation/anxiety Last Admin: 09/25/23 00:01 Dose: 50 mg Quetiapine Fumarate (Quetiapine Fumarate 50 Mg Tablet) 50 mg PO BEDTIME MARTHA Last Admin: 09/24/23 20:50 Dose: 50 mg Senna/Docusate Sodium (Sennosides/Docusate Sodium Tablet) 1 tab PO BID MARTHA Last Admin: 09/25/23 07:54 Dose: 1 tab Allergies Allergies Allergy/AdvReac Type Severity Reaction Status Date / Time amoxicillin [From Augmentin] AdvReac Facial Verified 08/23/23 17:23 Swelling clavulanic acid AdvReac Facial Verified 08/23/23 17:23 [From Augmentin] Swelling Sulfa (Sulfonamide AdvReac Hives Verified 08/23/23 17:23 Antibiotics) sulfamethoxazole AdvReac Hives Verified 08/23/23 17:23 [From Bactrim] trimethoprim [From Bactrim] AdvReac Hives Verified 08/23/23 17:23 Assessment & Plan Assessment & Plan (1) Schizophrenia, paranoid type: Status: Acute Code(s): F20.0 - Paranoid schizophrenia Plan Mrs. Garcia continues to present with paranoid/persecutory delusions as well as auditory hallucinations. No insight into mental illness or need for treatment. Awaiting guardianship and glez. PLAN 2/5 pt appears with much less delusional content, less VH/AH. expresses relief about not hearing voices and not feeling like people are following her trying to harm her. No side effects with prolixin which she is tolerating well and taking consistently. Total time managing care of this patient today ____ minutes.
[2023-09-25 14:00] VITALS: BP 115/59; PULSE 66; RESP 16; TEMP 36.5; O2SAT 96
[2023-09-25 20:15] VITALS: BP 123/68; PULSE 58; RESP 20; TEMP 37.6; O2SAT 95
--- NOTE | 2023-09-25 21:13 | PC.NURSE ---
Patient is resting in a recliner chair, watching TV. Patient is calm and cooperative, medicated per MAR. Patient is able to make her need known. Call rincon within patient's reach. Plan of care ongoing.
[2023-09-26] MEDS: QUEtiapine Fumarate 50 MG TABLET PO ×3 (02:05→20:29)
--- NOTE | 2023-09-26 02:10 | PC.NURSE ---
Patient reports that she is having difficulty sleeping and requesting PRN dose of Seroquel 50 mg. Patient medicated per OCT. Patient currently resting in bed eyes closed, RR 16, respirations are even and unlabored, call rincon in patien's reach.
[2023-09-26 05:28] VITALS: BP 111/61; PULSE 60; RESP 18; TEMP 36.7; O2SAT 97
[2023-09-26 08:04] VITALS: BP 131/73; PULSE 56; RESP 14; TEMP 36.6; O2SAT 97
[2023-09-26] MEDS: fluPHENAZine HCl 5 MG TABLET 10 MG PO ×2 (08:37→20:29)
[2023-09-26] MEDS: Sennosides/Docusate Sodium TABLET 1 TAB PO ×2 (08:37→20:28)
--- NOTE | 2023-09-26 08:40 | PC.NURSE ---
Assumed care of this pt at 0700. Pt a+o x3, vss, denies pain. Pt up to use restroom independently, gait stead. Meds given as documented, breakfast given. No complaints at this time.
--- NOTE | 2023-09-26 13:00 | PC.NURSE ---
Pt requested Seroquel for anxiety. Med given as documented. Good effect.
[2023-09-26 14:00] VITALS: BP 119/66; PULSE 61; RESP 14; TEMP 36.7; O2SAT 95
--- NOTE | 2023-09-26 16:04 | MHC.EDTECH ---
pt went to use the bathroom. and returned back to her room.
[2023-09-26 21:09] VITALS: BP 151/75; PULSE 57; RESP 18; TEMP 36.8; O2SAT 97
[2023-09-27] MEDS: QUEtiapine Fumarate 50 MG TABLET PO ×2 (01:12→20:56)
--- NOTE | 2023-09-27 01:14 | PC.NURSE ---
Pt is a 63 y/o female who is here awaiting guardianship with a court date set for Sep 28, pt has been here since Aug 23. Pt is pleasant and cooperative. No acute distress noted. Pt ambulates to and from bathroom independently as desired without assistance and steady gait. Verbalizes needs appropriately. Skin is W/P/D. Speech is clear. Bed is at the lowest position and call light is within reach. Cleared by care team, no SI/HI. Will continue to monitor.
--- NOTE | 2023-09-27 01:19 | PC.NURSE ---
Pt reports being wide awake and requests seroquel. Medicated per oct. Lights dimmed and door partially closed at pt's request.
--- NOTE | 2023-09-27 01:20 | PC.NURSE ---
Took report from off-going RN at 2300 hours.
--- NOTE | 2023-09-27 02:48 | PC.NURSE ---
Pt is restless in bed, reports having a difficult time sleeping. Asking for additional medication to help with sleep. Provider aware. Pt ambulates independently as desired with a steady gait. Changes positions in bed as desired. Awaiting guardianship. Will continue to monitor.
--- NOTE | 2023-09-27 04:59 | PC.NURSE ---
Pt is sleeping and appears comfortable. Was restless earlier. Changes position in bed as desired. No acute distress observed. RR is regular depth and pattern. Will continue to monitor.
[2023-09-27 06:00] VITALS: BP 111/64; PULSE 79; RESP 18; TEMP 37.2; O2SAT 96
[2023-09-27] MEDS: fluPHENAZine HCl 5 MG TABLET 10 MG PO ×2 (08:04→20:55)
[2023-09-27] MEDS: Sennosides/Docusate Sodium TABLET 1 TAB PO ×2 (08:04→20:55)
[2023-09-27 13:49] VITALS: BP 114/63; PULSE 59; RESP 18; TEMP 36.4; O2SAT 96
[2023-09-27 23:11] VITALS: BP 121/66; PULSE 66; RESP 18; TEMP 37; O2SAT 97
--- NOTE | 2023-09-27 23:15 | PC.NURSE ---
Patient calm and cooperative with staff, able to ambulate to bathroom independently. Patient with no s/s of distress at this time, able to make needs known.
[2023-09-28] MEDS: QUEtiapine Fumarate 50 MG TABLET PO ×2 (00:28→21:03)
--- NOTE | 2023-09-28 00:28 | PC.NURSE ---
Patient stating that she is unable to sleep and requesting PRN which was provided for patient per MAR
[2023-09-28 05:26] VITALS: BP 114/67; PULSE 55; RESP 16; TEMP 36.6; O2SAT 94
[2023-09-28] MEDS: Sennosides/Docusate Sodium TABLET 1 TAB PO ×2 (08:22→21:03)
[2023-09-28] MEDS: fluPHENAZine HCl 5 MG TABLET 10 MG PO ×2 (08:22→21:03)
[2023-09-28 14:00] VITALS: BP 126/70; PULSE 64; RESP 20; TEMP 37; O2SAT 96
--- NOTE | 2023-09-28 16:52 | PC.NURSE ---
assumed care of pt at 1555, pt resting quietly in room, ambulating independently to restroom, sitting in bed eating dinner.
[2023-09-28 22:00] VITALS: BP 133/67; PULSE 60; RESP 18; TEMP 36.7; O2SAT 97
--- NOTE | 2023-09-28 22:51 | PC.NURSE ---
pt medicated per MAR - meds taken whole w water. pt expressed concern that medications are making her more shaky during the day but that it has typically worn of by the evening. discussed holding second PRN seroquel that pt has been getting later in the evening to see if this helps. pt agreeable to trying, but will notify nurse if she is having difficulty sleeping. vss. resting quietly w eyes closed.
--- NOTE | 2023-09-29 03:06 | PC.NURSE ---
Assumed care of pt at 23:30. Pt AxOx4,self with ADLs, ambulates independently to restroom. VSS. Pt flight risk on unit. Pt resting quietly in bed, in lowest position, no complaints of pain. Call rincon within reach of pt. CM involved with care.
[2023-09-29 06:00] VITALS: BP 135/78; PULSE 63; RESP 16; TEMP 36.6; O2SAT 96
--- NOTE | 2023-09-29 08:23 | MHC.EDTECH ---
pt ate 100% of her breakfast and 120cc of juice.
--- NOTE | 2023-09-29 08:25 | PC.NURSE ---
PT IS A/O X 4 NO SOB/HUGO NOTED SPEAKS IN FULL SENTENCES. NO EDEMA NOTED PT REFUSED ALL AM MEDS. STATES THAT SHE IS SHAKING FOR A COUPLE OF WEEKS DUE TO THE MEDS THAT SHE IS TAKING. PT STATES I AM NOT TAKING ANY MORE MEDS BECAUSE I CANNOT FUNCTION AND TAKE CARE OF MYSELF . PT ENCOURAGED TO TAKE HER MEDS, BUT PT HAS ADAMANTLY REFUSED. PT DENIES ANY PAIN/DISC. DENIES ANY HALLUCINATIONS. PT AMB (I) GAIT STEADY TO BATHROOM AND BTB. WILL CONTINUE TO MONITOR.
[2023-09-29 08:36] VITALS: BP 133/70; PULSE 61; RESP 16; TEMP 36.6; O2SAT 96
--- NOTE | 2023-09-29 10:00 | MHC.EDTECH ---
Pt went to the bathroom and back in room
--- NOTE | 2023-09-29 12:37 | PC.NURSE ---
PT REFUSED LUNCH, STATING THAT SHE DOES NOT FEEL WELL. MLP (NANCI) AWARE.
--- NOTE | 2023-09-29 13:43 | PC.NURSE ---
PT CONTINUES TO AMB (I) GAIT STEADY BATHROOM AND BTB. WILL CONTINUE.
[2023-09-29 14:00] VITALS: BP 151/77; PULSE 59; RESP 18; TEMP 36.9; O2SAT 95
--- NOTE | 2023-09-29 14:47 | PC.NURSE ---
PT IS A/O X 4 NO SOB/HUGO NOTED SPEAKS IN FULL SENTENCES. PASylvia (Dolores CHRISTINE) AT BEDSIDE ASSESS/EVAL PT WITH THIS RN PRESENT. PT TO HAVE REPEAT LABS AND URINE DONE. PER MLP (NANCI).
[2023-09-29 16:11] LABS: MANUAL DIFF FLAG NO
[2023-09-29 16:12] LABS: Basophils Percent Auto 0.6 % (0-2); Eosinophils Absolute Auto 0.2 X10*3/uL (0.0-0.4); Eosinophils Percent Auto 2.3 % (0-4); Hematocrit 42.6 % (37.0-47.0); Hemoglobin 14.3 g/dl (12.0-16.0); Imm Gran Abs Auto 0.01 X10*3/uL (0.00-0.03); Imm Gran Pct Auto 0.1 % (0.0-0.4); Lymphocytes Percent Auto 14.8 % (20-40); Mean Corpuscular HGB Conc 33.6 g/dl (31.0-35.0); Mean Corpuscular Hemoglobin 29.5 pg (27.0-33.0); Mean Corpuscular Volume 87.8 fL (80.0-98.0); Mean Platelet Volume 8.3 fL (9.4-12.3); Monocytes Absolute Auto 0.5 X10*3/uL (0.1-1.2); Monocytes Percent Auto 7.2 % (2-11); Neutrophils Absolute Auto 5.1 x10*3/uL (2.0-8.3); Platelet Count 371 X10*3/uL (160-400); Red Blood Count 4.85 X10*6/uL (4.20-5.50); Red Cell Distribution Width 13.3 % (11.0-16.0); White Blood Count 6.8 X10*3/uL (4.8-10.8)
[2023-09-29 16:13] LABS: Appearance Urine Cloudy; Color Urine Yellow; Glucose Urine UA Negative (Negative); Leukocyte Esterase Urine Negative (Negative); Nitrite Urine Negative (Negative); PH 6.5 (5.0-9.0); Specific Gravity - Urine 1.025 (1.005-1.025); Urine Blood Negative (Negative); Urine Ketones Negative (Negative); Urine Protein Negative (Neg-Trace)
[2023-09-29 16:26] LABS: Alanine Aminotransferase 10 U/L (0-31); Albumin Level 4.2 g/dL (3.5-5.0); Alkaline Phosphatase 71 U/L (39-117); Anion Gap 11 (12-20); Aspartate Amino Transferase 13 U/L (5-31); Bilirubin Total 0.4 mg/dL (0.0-1.0); Blood Urea Nitrogen 18 mg/dL (9-16); Calcium 9.1 mg/dL (8.4-10.2); Carbon Dioxide 29 mmol/L (22-29); Chloride 106 mmol/L (96-108); Creatinine Clr Calc Pharmacy 68.4; Estimated Glomerular Filt Rate > 60; Glucose Random 110 mg/dL (60-115); Magnesium 2.1 mg/dL (1.6-2.6); Potassium 4.4 mmol/L (3.3-5.1); Sodium 142 mmol/L (135-145); Total Protein 7.1 g/dL (6.5-8.0)
--- NOTE | 2023-09-29 19:59 | PC.NURSE ---
This RN took over pt care @ 1900. Pt ambulated to the restroom and back into room/bed. Pt reporting she cannot get comfortable. Pt refusing to take meds. Pt states I dont want meds. I'm not taking any meds. Pt in bed, camera in place. Plan of care ongoing.
--- NOTE | 2023-09-29 21:06 | PC.NURSE ---
Pt ambulated to the restroom and back into room/bed independently. Pt still refusing 2100 meds. Plan of care ongoing.
[2023-09-29 21:40] VITALS: BP 156/81; PULSE 72; RESP 17; TEMP 37; O2SAT 95
[2023-09-30] MEDS: QUEtiapine Fumarate 50 MG TABLET PO ×3 (00:30→20:50)
--- NOTE | 2023-09-30 03:11 | PC.NURSE ---
Pt. requested Seroquel at 00:30AM; pt reported feeling spazzy. Given 50mg PRN Seroquel. Pt. has been sleeping in her room since. Will cont. to monitor.
[2023-09-30 08:33] VITALS: BP 132/74; PULSE 64; RESP 18; TEMP 37.6; O2SAT 96
[2023-09-30] MEDS: Sennosides/Docusate Sodium TABLET 1 TAB PO ×2 (08:43→20:50)
[2023-09-30 14:00] VITALS: BP 132/74; PULSE 72; RESP 18; TEMP 36.8; O2SAT 94
--- NOTE | 2023-09-30 20:08 | PC.NURSE ---
This RN took over pt care @ 1900. Pt ambulated to restroom and assisted by tech. Plan of care ongoing.
--- NOTE | 2023-09-30 20:50 | PC.NURSE ---
Pt medicated per oct. Pt refused prolixin at this time. Plan of care ongoing.
[2023-09-30 23:00] VITALS: BP 133/66; PULSE 67; RESP 19; TEMP 37.1; O2SAT 94
--- NOTE | 2023-10-01 00:04 | MHC.EDTECH ---
This tech took over care of patient at 2300,hourly rounds completed,patient ambulate to the bathroom with a steady gait,patient is back in bed resting comfortably.
--- NOTE | 2023-10-01 01:34 | MHC.EDTECH ---
Patient ambulated to bathroom with a steady gait,patient back to bed and resting at this time.
[2023-10-01 06:00] VITALS: BP 137/83; PULSE 75; RESP 20; TEMP 36.3; O2SAT 93
[2023-10-01] MEDS: fluPHENAZine HCl 5 MG TABLET 10 MG PO (08:50)
[2023-10-01] MEDS: Sennosides/Docusate Sodium TABLET 1 TAB PO ×2 (08:50→21:01)
[2023-10-01] MEDS: QUEtiapine Fumarate 50 MG TABLET PO ×2 (08:53→21:01)
[2023-10-01 14:00] VITALS: BP 140/69; PULSE 62; RESP 15; TEMP 36.8; O2SAT 95
[2023-10-01 23:21] VITALS: BP 157/79; PULSE 68; RESP 17; TEMP 37; O2SAT 94
[2023-10-02 07:49] VITALS: BP 152/71; PULSE 60; RESP 18; TEMP 36.6; O2SAT 94
--- NOTE | 2023-10-02 08:26 | PC.NURSE ---
attempted to medicate patient, requesting medications be provided later so she could continue to sleep. will reattempt to medicate patient
--- NOTE | 2023-10-02 11:40 | PC.NURSE ---
did not eat breakfast, refusing lunch at this time. offered patient different food option, denied.
--- NOTE | 2023-10-02 11:44 | MHC.CM.ED ---
Patient remains in ER overflow. Temporary guardianship has been obtained. Just waiting for court to provide paperwork. Continue to monitor for d/c needs.
[2023-10-02 14:00] VITALS: BP 156/74; PULSE 59; RESP 18; TEMP 36.8; O2SAT 96
[2023-10-02] MEDS: QUEtiapine Fumarate 50 MG TABLET PO (19:07)
[2023-10-02] MEDS: Sennosides/Docusate Sodium TABLET 1 TAB PO (19:07)
--- NOTE | 2023-10-02 19:08 | PC.NURSE ---
Assumed care of patient 19:00. Patient demanding her night meds, refused the blue ones , stated I don't take those . Carolin not offer a reason why. Medicated with remaining ordered scheduled meds.
[2023-10-02] MEDS: Acetaminophen 325 MG TABLET 650 MG PO (19:13)
[2023-10-02 20:34] VITALS: BP 135/78; PULSE 62; RESP 19; TEMP 36.4; O2SAT 96
[2023-10-03] MEDS: QUEtiapine Fumarate 50 MG TABLET PO ×3 (00:04→20:34)
[2023-10-03 01:04] VITALS: RESP 16
--- NOTE | 2023-10-03 01:17 | PC.NURSE ---
Patient continues in ED overflow. A&Ox4, anxious at times. Patient medicated with prn seroquel as ordered and appropriate with +effect. Patient observed resting in bed with even and unlabored breathing on reassessment. Pain well managed with current ordered regimen. VSS. Patient ambulates to the bathroom steadily with nursing supervision due to elopement risk. Camera also continues outside of patient room. Hourly purposeful rounding and safety measures in place. Call rincon within reach, pt able to make needs known. Will continue to monitor for remainder of television writer's scheduled care.
[2023-10-03 06:00] VITALS: BP 119/62; PULSE 57; RESP 16; TEMP 36.8; O2SAT 98
[2023-10-03] MEDS: Sennosides/Docusate Sodium TABLET 1 TAB PO ×2 (07:34→20:34)
--- NOTE | 2023-10-03 15:07 | PM.PSYCN ---
History of Present Illness Date of Service: 10/03/2023 Chief Complaint: SEC 12 FROM MV,DELUSIONS,PARANOID,GONZALES PER EMS Discussed with referring provider: Yes Sources of Information: patient interviewed, chart reviewed and crisis/core team assessment reviewed HPI Narrative: Interim Hx: pt stopped taking oral prolixin. Today, pt presents as more paranoid and suspicious. She reports again that she is being followed. She states she does not have schizophrenia or any mental illness and does not think she needs psychiatric treatment. Court hearing was scheduled for 09/28- approved temporary guardianship and glez. WIll give Prolixin decanoate- she had oral for several week with no side effects and positive therapeutic effect. Past Psychiatric History: Inpatient: [facility] 07/2023, 6 other admission in past year but unclear where OP: none Past medication trials: olanzapine, seroquel Review of Systems Constitutional: Denies chills, Denies fever(s) and Reports headache(s) Eyes: Denies blurry vision Reports headache(s) and Denies sore throat Cardiovascular: Denies chest pain and Denies dyspnea Respiratory: Denies cough and Denies dyspnea Gastrointestinal: Denies abdominal pain, Denies nausea and Denies vomiting Musculoskeletal: Denies back pain Skin/Breast: Denies rash Reports headache(s) Diagnostics Vital Signs (24Hr): Vital Signs - 24 hr 10/02/23 20:34 10/03/23 01:04 10/03/23 06:00 Temperature 97.6 F 98.2 F Pulse Rate 62 57 Respiratory Rate 19 16 16 Blood Pressure 135/78 119/62 Pulse Oximetry 96 98 Oxygen Delivery Method Room Air Room Air BMI result Body Mass Index 25.1 Labs 09/29/23 15:59 09/29/23 15:59 Mental Status Exam Mental Status Exam Narrative: Appearance: wearing hospital gown, fair hygiene, in NAD Behavior: cooperative. Psychomotor: no agitation or retardation noted Speech: clear, normal rate/rhythm/volume, spontaneous TP: mostly linear TC:more paranoid VH/AH: increase AH Delusions: paranoid delusions Insight/judgment: impaired x 2 Memory/cog: alert, oriented to place, month not situation. Medications Medications Current Medications Acetaminophen (Acetaminophen 325 Mg Tablet) 650 mg PO Q6H PRN PRN Reason: pain, fever Last Admin: 10/02/23 19:13 Dose: 650 mg Fluphenazine HCl (Fluphenazine Hcl 5 Mg Tablet) 10 mg PO BID COUNTS INCLUDE 234 BEDS AT [facility] Last Admin: 10/03/23 07:35 Dose: Not Given Fluticasone Propionate (Fluticasone Propionate Nasal 16 Gm [place]) 1 spray NOSTRIL-B ONCE COUNTS INCLUDE 234 BEDS AT THE [facility] Guaifenesin/Dextromethorphan (Guaifenesin Dm 600/30 1 Tab Tab.Er.12h) 1 tab PO BID PRN PRN Reason: congestion/cough Quetiapine Fumarate (Quetiapine Fumarate 50 Mg Tablet) 50 mg PO Q6H PRN PRN Reason: agitation/anxiety Last Admin: 10/03/23 07:34 Dose: 50 mg Quetiapine Fumarate (Quetiapine Fumarate 50 Mg Tablet) 50 mg PO BEDTIME COUNTS INCLUDE 234 BEDS AT THE [facility] Last Admin: 10/02/23 19:07 Dose: 50 mg Senna/Docusate Sodium (Sennosides/Docusate Sodium Tablet) 1 tab PO BID COUNTS INCLUDE 234 BEDS AT THE [facility] Last Admin: 10/03/23 07:34 Dose: 1 tab Allergies Allergies Allergy/AdvReac Type Severity Reaction Status Date / Time amoxicillin [From Augmentin] AdvReac Facial Verified 08/23/23 17:23 Swelling clavulanic acid AdvReac Facial Verified 08/23/23 17:23 [From Augmentin] Swelling Sulfa (Sulfonamide AdvReac Hives Verified 08/23/23 17:23 Antibiotics) sulfamethoxazole AdvReac Hives Verified 08/23/23 17:23 [From Bactrim] trimethoprim [From Bactrim] AdvReac Hives Verified 08/23/23 17:23 Assessment & Plan Assessment & Plan (1) Schizophrenia, paranoid type: Status: Acute Code(s): F20.0 - Paranoid schizophrenia Plan Mrs. Garcia continues to present with paranoid/persecutory delusions as well as auditory hallucinations. No insight into mental illness or need for treatment. Awaiting guardianship and glez. PLAN 09/25 pt appears with much less delusional content, less VH/AH. expresses relief about not hearing voices and not feeling like people are following her trying to harm her. No side effects with prolixin which she is tolerating well and taking consistently. 10/03 pt stopped taking prolixin oral since 09/28- again presents as much more suspicious and paranoid. Temporary Arron's granted. Will give prolixin decanoate 50mg IM qmonthly. Pt had several weeks of prolixin oral with positive therapeutic effect and no side effect. Total time managing care of this patient today ____ minutes.
[2023-10-03 16:28] VITALS: BP 143/69; PULSE 72; RESP 16; TEMP 36.8; O2SAT 94
--- NOTE | 2023-10-03 16:40 | PC.NURSE ---
Pt refused to let this nurse give IM prolixin deconate as ordered. Nurse Practitioner Keila Romero notified.
--- NOTE | 2023-10-03 19:15 | PC.NURSE ---
This RN took over pt care @ 1900. Pt ambulated to restroom and back to room independently. Camera remains on. Plan of care ongoing.
--- NOTE | 2023-10-03 20:36 | PC.NURSE ---
Pt requesting seroquel and senna. Pt medicated per oct. Pt refused prolixin. Plan of care ongoing.
[2023-10-03 21:15] VITALS: BP 133/71; PULSE 59; RESP 18; TEMP 37.1; O2SAT 96
--- NOTE | 2023-10-03 23:38 | PC.NURSE ---
Pt ambulated to the restroom independently and back to room/bed. Camera remains on. Plan of care ongoing.
[2023-10-04] MEDS: QUEtiapine Fumarate 50 MG TABLET PO ×3 (03:22→20:19)
--- NOTE | 2023-10-04 03:23 | PC.NURSE ---
Pt requested and given prn seroquel. Plan of care ongoing.
--- NOTE | 2023-10-04 07:32 | PC.NURSE ---
Addendum entered by Bea Fowler RN 10/04/23 07:41: ED provider-stephanie is also notified of this situation. Original Note: this nurse obtained report and was told the patient was awaiting temporary guardianship and a glez order and patient had been refusing po and im prolixin. upon this nurse looking into the chart this nurse found a note by Keila Romero which stated there was a court hearing on 09/28 and temporary guardianship and glez was given and patient was to have IM prolixitin 50 mg monthly, it was then noted by this nurse that this medication was not given IM which was stated to give by the psych provider. this nurse also checked the patients chart and there is no copy of the glez order in the chart. This nurse then called audrey- Moriah about the situation, also tiger texted Keila Romero and placed a call to case management to get guidance.
[2023-10-04 07:58] VITALS: BP 118/67; PULSE 62; RESP 16; TEMP 36.9; O2SAT 96
[2023-10-04] MEDS: Sennosides/Docusate Sodium TABLET 1 TAB PO ×2 (08:46→20:19)
--- NOTE | 2023-10-04 08:52 | PC.NURSE ---
patient alert to person/place and is aware today is valentines day- likely from the TV being on, patient refused prolixin PO but requested po PRN seroquel which was given, pt currently calm/cooporative otherwise, meds were given whole with water, lungs clear- respirations equal and non labored, denies pain/discomfort, pt independent in room and to bathroom with steady gait, pt camera outside of room, call rincon within reach, will continue to monitor
--- NOTE | 2023-10-04 10:52 | MHC.CM.PN ---
Communication sent to Jane and Neo for copies of guardianship and [place]- as of 10/04 AM the paperwork is not ready from the courts.
[2023-10-04 14:00] VITALS: BP 124/60; PULSE 58; RESP 16; TEMP 36.7; O2SAT 95
--- NOTE | 2023-10-04 14:04 | PC.NURSE ---
patient refused most of her lunch, pt ambulated with steady gait to bathroom.
--- NOTE | 2023-10-04 16:45 | MHC.CM.ED ---
Guardianship paperwork placed on patient chart and uploaded into [facility] [employer]. Primary RN aware
--- NOTE | 2023-10-04 17:13 | PC.NURSE ---
this nurse was given a copy of the patients guardianship/glez order for medication by case management and it was placed in the chart. Keila wilder tiger texted a copy of the medication portion of this document.
--- NOTE | 2023-10-04 18:18 | PC.NURSE ---
Med order Per noa parra- because of having the copy of the glez order, the patient can begin the prolixin 50 mg IM today, pharmacy was called and they updated the order that was already in the system but not given since we didnt previously have the order in hand. Noa was notified of this and we will administer the medication when it is brought to the unit with assistance of security.
[2023-10-04] MEDS: fluPHENAZine decanoate 25 MG/ML 5 ML VIAL 50 MG IM (18:59)
--- NOTE | 2023-10-04 18:59 | PC.NURSE ---
security arrived, pt was spoken to about having a court order to take her medication, pt was upset and not wanting the medication- pt was given med with the help of security.
[2023-10-04 22:00] VITALS: BP 137/66; PULSE 63; RESP 18; TEMP 36.3; O2SAT 96
[2023-10-05] MEDS: QUEtiapine Fumarate 50 MG TABLET PO ×4 (02:08→21:32)
[2023-10-05 06:00] VITALS: BP 130/70; PULSE 54; RESP 18; TEMP 36.6; O2SAT 98
--- NOTE | 2023-10-05 08:10 | MHC.EDTECH ---
patient was offered to wash up and brush teeth she said later
[2023-10-05] MEDS: Sennosides/Docusate Sodium TABLET 1 TAB PO ×2 (09:10→21:32)
[2023-10-05] MEDS: fluPHENAZine HCl 5 MG TABLET 10 MG PO ×2 (09:59→21:32)
--- NOTE | 2023-10-05 10:05 | PC.NURSE ---
Assumed care at 0700. Pt calm, cooperative, offering no complaints this morning. Pt compliant with all medications this morning, additionally requested PRN seroquel. Pt verbalized understanding of continuation of Prolixin PO BID. Plan of care ongoing.
--- NOTE | 2023-10-05 12:00 | PC.NURSE ---
assumed care of pt at 1100, pt resting quietly in room, camera in hallway, pt sleeping in bed w lights dimmed, encouraged to sit up in recliner for lunch, pt declined.
[2023-10-05 14:00] VITALS: BP 118/70; PULSE 61; RESP 16; TEMP 36.8; O2SAT 96
--- NOTE | 2023-10-05 15:33 | PC.NURSE ---
pt camera alarming when pt is exiting room, clarified w both case management and psych that camera should be positioned to watch hallway leading to overflow exit doors, and alarm if pt turns to exit unit. she is allowed to walk around unit and to the bathroom independently. [facility] observation unit notified and altered camera orientation.
--- NOTE | 2023-10-05 15:42 | PC.NURSE ---
pt reporting increased anxiety, medicated per OCT w PRN seroquel. pt stated that she was planning on taking all of her medications if it helped her get out of here.
--- NOTE | 2023-10-05 19:06 | PC.NURSE ---
this nurse met with patient, patient sts that since her prolixin has been restarted she seems to be forgetting things and would like to have seroquel q6h PRN changed to scheduled q6h as she forgets to ask for it .
[2023-10-05 20:59] VITALS: BP 127/71; PULSE 59; RESP 20; TEMP 36.7; O2SAT 96
--- NOTE | 2023-10-05 22:00 | PC.NURSE ---
pt medicated according to oct. pt states no new needs at this time
[2023-10-06] MEDS: QUEtiapine Fumarate 50 MG TABLET PO ×3 (03:35→20:11)
--- NOTE | 2023-10-06 03:37 | PC.NURSE ---
this rn re assumed care of pt @ 0181. pt requested prn dose of seroquel for anxiety. pt medicated according to oct. lights dimmed to promote sleep
[2023-10-06] MEDS: fluPHENAZine HCl 5 MG TABLET 10 MG PO ×2 (08:18→20:11)
[2023-10-06] MEDS: Sennosides/Docusate Sodium TABLET 1 TAB PO ×2 (08:18→20:11)
--- NOTE | 2023-10-06 08:37 | PC.NURSE ---
Calm and cooperative, po meds as ordered, ate well for breakfast.
--- NOTE | 2023-10-06 12:24 | MHC.CM.ED ---
Patient remains in ER overflow. Guardianship and Arron's orders obtained. [facility] does not feel she is appropriate for their facility. [facility] doesn't have a bed available. Waiting to hear from [facility] and [facility]. Continue to monitor for d/c needs.
[2023-10-06 13:39] VITALS: BP 109/59; PULSE 61; RESP 18; TEMP 36.4; O2SAT 97
[2023-10-06 20:04] VITALS: BP 125/63; PULSE 60; RESP 14; TEMP 36.6; O2SAT 97
--- NOTE | 2023-10-06 20:05 | MHC.EDTECH ---
Assumed care of pt at 1930. Vitals updated. Pt resting quietly in bed. Camera in place outside room. RN aware
--- NOTE | 2023-10-06 22:52 | PC.NURSE ---
Addendum entered by Patience Heredia 10/06/23 23:10: Pt denies SI/HI/AH/VH. Plan of care on going. Original Note: This financial underwriter assumed care of this Pt at 1900. Pt A&Ox3, denies any pain. Pt medicated per OCT. Water given per request. Pt has camera outside of room for flight risk.
--- NOTE | 2023-10-07 00:02 | PC.NURSE ---
Pt ambulated to BR independently with steady gait.
[2023-10-07] MEDS: QUEtiapine Fumarate 50 MG TABLET PO ×3 (02:02→20:22)
--- NOTE | 2023-10-07 02:03 | PC.NURSE ---
Pt requesting PRN med to help sleep, medicated per OCT.
--- NOTE | 2023-10-07 04:59 | PC.NURSE ---
Pt appears to be sleeping, equal, nonlabored respirations, no apparent distress. Plan of care ongoing.
[2023-10-07 06:20] VITALS: BP 126/62; PULSE 54; RESP 16; TEMP 37.1; O2SAT 98
--- NOTE | 2023-10-07 07:40 | PC.NURSE ---
PT IS A/O X 4. NO SOB/HUGO NOTED SPEAKS IN FULL SENTENCES. PT EATING BREAKFAST. DENIES ANY PAIN/DISC/HALLUCINATIONS. PT DENIES ANY SI/HI. PT AMB (I) GAIT STEADY TO BATHROOM AND BTB. PT TAKES MEDS WHOLE WITH WATER. PT IS A FLIGHT RISK - CAMERA IN USE. PT AWARE OF PLAN OF CARE. WILL CONTINUE TO MONITOR.
--- NOTE | 2023-10-07 07:45 | PC.NURSE ---
PT C/O SLIGHT ANXIETY, MED X 1 WITH SEROQUEL 50MG PO.
[2023-10-07 07:50] VITALS: BP 129/79; PULSE 69; RESP 16; TEMP 36.8; O2SAT 96
[2023-10-07] MEDS: Sennosides/Docusate Sodium TABLET 1 TAB PO ×2 (07:51→20:22)
[2023-10-07] MEDS: fluPHENAZine HCl 5 MG TABLET 10 MG PO ×2 (07:51→20:22)
--- NOTE | 2023-10-07 08:13 | MHC.EDTECH ---
gave patient her breakfast. she at 80% of her breakfast.
--- NOTE | 2023-10-07 11:16 | MHC.EDTECH ---
Patient offered to be cleaned up but declined and said she is tired. will try again later.
--- NOTE | 2023-10-07 12:36 | MHC.EDTECH ---
patient asleep. lunch put aside until patient wakes up.
[2023-10-07 18:20] VITALS: BP 124/62; PULSE 73; RESP 16; TEMP 36.8; O2SAT 97
--- NOTE | 2023-10-07 18:24 | MHC.EDTECH ---
Patient ate 40% of her dinner.
[2023-10-08 01:19] VITALS: BP 119/66; PULSE 59
[2023-10-08] MEDS: QUEtiapine Fumarate 50 MG TABLET PO ×3 (01:23→19:52)
[2023-10-08 05:47] VITALS: BP 115/59; PULSE 59; RESP 21; TEMP 36.4; O2SAT 96
[2023-10-08] MEDS: Sennosides/Docusate Sodium TABLET 1 TAB PO ×2 (08:24→19:52)
[2023-10-08] MEDS: fluPHENAZine HCl 5 MG TABLET 10 MG PO ×2 (08:24→19:52)
[2023-10-08 14:41] VITALS: BP 134/64; PULSE 61; RESP 16; O2SAT 95
[2023-10-08 20:02] VITALS: BP 137/69; PULSE 62; RESP 16; TEMP 36.5; O2SAT 97
[2023-10-09] MEDS: QUEtiapine Fumarate 50 MG TABLET PO ×3 (00:08→22:18)
--- NOTE | 2023-10-09 00:54 | PC.NURSE ---
assumed care of pt at 2300. PT alert and oriented. ambulated independently to bathroom. Reports anxiety and difficulty sleeping. States she does not understand why they sought guardianship and why it is taking so long to be place. This Rn spoke with PT in her room to allow her to vent feeling for about 20 minutes and provided PRN seroquel for anxiety.
[2023-10-09 07:23] VITALS: BP 119/63; PULSE 59; RESP 18; TEMP 36.6; O2SAT 97
[2023-10-09] MEDS: Sennosides/Docusate Sodium TABLET 1 TAB PO ×2 (08:27→22:18)
[2023-10-09] MEDS: fluPHENAZine HCl 5 MG TABLET 10 MG PO ×2 (08:27→22:17)
--- NOTE | 2023-10-09 08:43 | MHC.EDTECH ---
Pt ate 50% of her breakfast. 120cc of fluids
--- NOTE | 2023-10-09 12:21 | MHC.EDTECH ---
pt ate 100% of her lunch. 240cc of fluids
[2023-10-09 14:00] VITALS: BP 120/70; PULSE 75; RESP 18; TEMP 36.8; O2SAT 95
[2023-10-09 21:27] VITALS: BP 131/72; PULSE 60; RESP 16; TEMP 36.6; O2SAT 95
--- NOTE | 2023-10-10 03:51 | PC.NURSE ---
CARE ASSUMED 7PM...AWAKE..ALERT..ORIENTED X3...VAGUE RESPONSES AT TIMES....VSS...AMBULATES TO BATHROOM WITH STEADY GAIT...CALM AND CO-OPERATIVE OVERNIGHT..DENIES/OFFERS NO COMPLAINTS
[2023-10-10 05:14] VITALS: BP 110/70; PULSE 62; RESP 16; TEMP 36.8; O2SAT 96
--- NOTE | 2023-10-10 05:26 | MHC.EDTECH ---
Patient slept most of the night ,vitals taken ,pt up to bathroom four times tonight .
[2023-10-10] MEDS: fluPHENAZine HCl 5 MG TABLET 10 MG PO (07:22)
[2023-10-10] MEDS: Sennosides/Docusate Sodium TABLET 1 TAB PO ×2 (07:22→21:24)
--- NOTE | 2023-10-10 07:25 | PC.NURSE ---
Resumed care of patisera, she is currently ambulating to that bathroom. She is a/o, no complaints of pain, call rincon within reach.
--- NOTE | 2023-10-10 08:49 | MHC.CM.ED ---
NO BED OFFERS OF THIS NOTE. [facility] DECLINES OT OFFER A BED [facility] DOES NOT HAVE A BED. [facility] HAS PATIENT ON A WAITLIST REFERRALS UPDATED TO INCLUDE [facility], [facility], AND [facility].
--- NOTE | 2023-10-10 11:38 | MHC.CM.PN ---
This magnetic tape typewriter operator received notification from [facility] that pt has 39K in assets thus requiring the addition of a conservator to pt's guardianship. Paperwork sent to attorneys to move forward.
--- NOTE | 2023-10-10 13:24 | MHC.CM.ED ---
Call from patient's temporary guardian, Tony Castillo who is willing to serve as temporary guardian. Facility search updated.
[2023-10-10 13:57] VITALS: BP 137/82; PULSE 67; RESP 17; TEMP 36.6; O2SAT 96
--- NOTE | 2023-10-10 15:28 | PM.PSYCN ---
History of Present Illness Date of Service: 10/10/23 Chief Complaint: SEC 12 FROM MV,DELUSIONS,PARANOID,GONZALES PER EMS Discussed with referring provider: Yes Sources of Information: patient interviewed, chart reviewed and crisis/core team assessment reviewed HPI Narrative: Interim Hx: pt presents with very little to no delusional content. She asks appropriate questions about where she will go next. She is not talking about spirits or spirits trying to kill her. Case management informed this speech writer that she does have some funds. She does have some rigidity. No cogwheel. she received prolixin dec 50mg IM last week. Will stop oral prolixin and add cogentin 1mg po BID and clonazepam. No SI/HI. Past Psychiatric History: Inpatient: [facility] 07/2023, 6 other admission in past year but unclear where OP: none Past medication trials: olanzapine, seroquel Diagnostics Vital Signs (24Hr): Vital Signs - 24 hr 10/09/23 21:27 10/10/23 05:14 10/10/23 13:57 Temperature 97.8 F 98.3 F 97.9 F Pulse Rate 60 62 67 Respiratory Rate 16 16 17 Blood Pressure 131/72 110/70 137/82 Pulse Oximetry 95 96 96 Oxygen Delivery Method Room Air Room Air Room Air BMI result Body Mass Index 25.1 Labs 09/29/23 15:59 09/29/23 15:59 Mental Status Exam Mental Status Exam Narrative: Appearance: wearing hospital gown, fair hygiene, in NAD Behavior: cooperative. Psychomotor: no agitation or retardation noted Speech: clear, normal rate/rhythm/volume, spontaneous TP: mostly linear TC: waiting for a place to go VH/AH: denies Delusions: no overt delusions. Insight/judgment: impaired x 2 Memory/cog: alert, oriented to place, month not situation. Medications Medications Current Medications Acetaminophen (Acetaminophen 325 Mg Tablet) 650 mg PO Q6H PRN PRN Reason: pain, fever Last Admin: 10/02/23 19:13 Dose: 650 mg Benztropine Mesylate (Benztropine Mesylate 1 Mg Tablet) 1 mg PO BID [facility]TH[facility] Fluphenazine Decanoate (Fluphenazine Decanoate 25 Mg/Ml 5 Ml Vial) 50 mg IM Q28D [facility]TH[facility] Last Admin: 10/04/23 18:59 Dose: 50 mg Fluticasone Propionate (Fluticasone Propionate Nasal 16 Gm [place]) 1 spray NOSTRIL-B ONCE [facility] Guaifenesin/Dextromethorphan (Guaifenesin Dm 600/30 1 Tab Tab.Er.12h) 1 tab PO BID PRN PRN Reason: congestion/cough Quetiapine Fumarate (Quetiapine Fumarate 50 Mg Tablet) 50 mg PO Q6H PRN PRN Reason: agitation/anxiety Last Admin: 10/09/23 08:29 Dose: 50 mg Quetiapine Fumarate (Quetiapine Fumarate 50 Mg Tablet) 50 mg PO BEDTIME [facility] Last Admin: 10/09/23 22:18 Dose: 50 mg Senna/Docusate Sodium (Sennosides/Docusate Sodium Tablet) 1 tab PO BID [facility] Last Admin: 10/10/23 07:22 Dose: 1 tab Allergies Allergies Allergy/AdvReac Type Severity Reaction Status Date / Time amoxicillin [From Augmentin] AdvReac Facial Verified 08/23/23 17:23 Swelling clavulanic acid AdvReac Facial Verified 08/23/23 17:23 [From Augmentin] Swelling Sulfa (Sulfonamide AdvReac Hives Verified 08/23/23 17:23 Antibiotics) sulfamethoxazole AdvReac Hives Verified 08/23/23 17:23 [From Bactrim] trimethoprim [From Bactrim] AdvReac Hives Verified 08/23/23 17:23 Assessment & Plan Assessment & Plan (1) Schizophrenia, paranoid type: Status: Acute Code(s): F20.0 - Paranoid schizophrenia Plan Mrs. Garcia continues to present with paranoid/persecutory delusions as well as auditory hallucinations. No insight into mental illness or need for treatment. Awaiting guardianship and glez. PLAN 09/25 pt appears with much less delusional content, less VH/AH. expresses relief about not hearing voices and not feeling like people are following her trying to harm her. No side effects with prolixin which she is tolerating well and taking consistently. 10/03 pt stopped taking prolixin oral since 09/28- again presents as much more suspicious and paranoid. Temporary Arron's granted. Will give prolixin decanoate 50mg IM qmonthly. Pt had several weeks of prolixin oral with positive therapeutic effect and no side effect. 10/10 received prolixin dec 50mg IM on 10/04. She has continued oral prolixin. Some rigidity noted with mild shuffling gait. Will stop oral prolixin. Will add cogentin and clonazepam. May have to decrease dose of prolixin dec next dose if s/e not improve or worsen. Otherwise, pt stable psychiatrically, conversations much more based on reality. Total time managing care of this patient today ____ minutes.
[2023-10-10] MEDS: clonazePAM 0.5 MG TABLET PO ×2 (16:11→21:24)
[2023-10-10] MEDS: Benztropine Mesylate 1 MG TABLET PO ×2 (16:11→21:24)
[2023-10-10] MEDS: QUEtiapine Fumarate 50 MG TABLET PO (21:24)
[2023-10-10 21:35] VITALS: BP 134/79; PULSE 66; RESP 18; TEMP 36.6; O2SAT 94
--- NOTE | 2023-10-10 23:30 | PC.NURSE ---
Assumed care for pt. Pt currently sleeping at the bedside. No apparent distress noted. Breaths are even regular and unlabored. Monitoring is ongoing.
[2023-10-11] MEDS: QUEtiapine Fumarate 50 MG TABLET PO ×2 (03:46→20:31)
--- NOTE | 2023-10-11 03:50 | PC.NURSE ---
Pt reporting difficulty sleeping. Medicated with PRN meds as ordered. Pt tolerated well.
[2023-10-11 06:00] VITALS: RESP 18
[2023-10-11] MEDS: Benztropine Mesylate 1 MG TABLET PO (08:26)
[2023-10-11] MEDS: Sennosides/Docusate Sodium TABLET 1 TAB PO ×2 (08:26→20:31)
[2023-10-11] MEDS: clonazePAM 0.5 MG TABLET PO ×2 (08:26→20:31)
[2023-10-11 14:00] VITALS: BP 105/55; PULSE 66; RESP 20; TEMP 37; O2SAT 95
--- NOTE | 2023-10-11 17:49 | MHC.EDTECH ---
Brought patient cranberry juice and one chocolate ice cream.
--- NOTE | 2023-10-11 18:12 | PC.NURSE ---
report recieved from overnight RN, medication specialist per OCT. pt ambulates independently with a steady gait, speech is clear, CALVIN, respirations even and unlabored, offering no complaints. Withdrawn to room most of day with door closed and lights off, eating meals with lights on. Pleasant and cooperative. Safety precautions remain in place, call rincon within reach, encouraged to call for assistance.
[2023-10-11] MEDS: Acetaminophen 325 MG TABLET 650 MG PO (18:25)
[2023-10-11 20:33] VITALS: BP 117/69; PULSE 62; RESP 16; TEMP 36.7; O2SAT 93
[2023-10-12 06:00] VITALS: BP 116/60; PULSE 53; RESP 15; TEMP 36.8; O2SAT 95
[2023-10-12] MEDS: clonazePAM 0.5 MG TABLET PO ×2 (09:14→21:05)
[2023-10-12] MEDS: Sennosides/Docusate Sodium TABLET 1 TAB PO ×2 (09:14→21:05)
[2023-10-12] MEDS: Benztropine Mesylate 1 MG TABLET PO ×2 (09:14→21:30)
--- NOTE | 2023-10-12 10:05 | PC.NURSE ---
this RN resumed care of pt at this time. pt resting comfortably in no apparent distress w/ the lights dimmed. medications administered per provider order. pt requesting prolixin injection at this time. per pt's progress notes - there has been a delay in IM proloxin d/t meredith's order not being confirmed at this time. this RN will reach out to INÉS Pedraza in regards to medication request. no sob/wob noted. respirations even and unlabored. call rincon placed within reach.
--- NOTE | 2023-10-12 12:53 | MHC.CM.ED ---
Patient remains in ER. Guardianship was granted. However it was discovered patient has about $39,000 in assets. Conservator is needed. Antony is in the process of obtaining court date for this. Continue to monitor for d/c needs.
[2023-10-12 14:21] VITALS: BP 132/63; PULSE 62; RESP 18; TEMP 36.6; O2SAT 96
--- NOTE | 2023-10-12 15:38 | MHC.EDTECH ---
pt had a bm at 3:30 pm
[2023-10-12 16:19] VITALS: BP 122/71; PULSE 75; RESP 18; TEMP 36.8; O2SAT 95
--- NOTE | 2023-10-12 16:21 | MHC.EDTECH ---
pt. complain not feeling good . Her nurse require .
[2023-10-12 17:27] VITALS: TEMP 36.5
--- NOTE | 2023-10-12 19:58 | PC.NURSE ---
no respiratory distress. breathing well. in bed resting.
[2023-10-12] MEDS: QUEtiapine Fumarate 50 MG TABLET PO (21:05)
[2023-10-12 21:12] VITALS: BP 122/71; PULSE 63; RESP 18; TEMP 37.1; O2SAT 96
--- NOTE | 2023-10-13 01:22 | PC.NURSE ---
Pt ambulating to the bathroom with steady gait.
[2023-10-13] MEDS: QUEtiapine Fumarate 50 MG TABLET PO ×2 (04:35→20:45)
[2023-10-13 04:58] VITALS: BP 120/62; PULSE 56; RESP 18; TEMP 36.4; O2SAT 94
[2023-10-13 08:32] VITALS: BP 131/78; PULSE 56; RESP 17; TEMP 36.8; O2SAT 96
[2023-10-13] MEDS: Benztropine Mesylate 1 MG TABLET PO ×2 (08:56→20:42)
[2023-10-13] MEDS: clonazePAM 0.5 MG TABLET PO ×2 (08:56→20:42)
[2023-10-13] MEDS: Sennosides/Docusate Sodium TABLET 1 TAB PO ×2 (08:56→20:42)
--- NOTE | 2023-10-13 12:00 | PM.PSYCN ---
History of Present Illness Date of Service: 10/13/2023 Chief Complaint: SEC 12 FROM MV,DELUSIONS,PARANOID,GONZALES PER EMS Discussed with referring provider: Yes Sources of Information: patient interviewed, chart reviewed and crisis/core team assessment reviewed HPI Narrative: Interin Hx: pt slept through the night. Less tremors noted with cogentin. Her conversations are more and more based on reality. She asks about housing, facilities available and whether she needs to pay out of pocket. She is also asking for casual clothing, which case management is working on. OT offered additional activities. She is intermittently doing cross words. She denies SI/HI. She has much less AH/VH. Much less paranoid ideas. She expresses relief about not having to worry about people trying to harm her. No behavioral concerns. Pt is pleasant on approach. Past Psychiatric History: Inpatient: [facility] 07/2023, 6 other admission in past year but unclear where OP: none Past medication trials: olanzapine, seroquel Diagnostics Vital Signs (24Hr): Vital Signs - 24 hr 10/12/23 14:21 10/12/23 16:19 10/12/23 17:27 Temperature 97.9 F 98.2 F 97.7 F Pulse Rate 62 75 Respiratory Rate 18 18 Blood Pressure 132/63 122/71 Pulse Oximetry 96 95 Oxygen Delivery Method Room Air Room Air 10/12/23 21:12 10/13/23 04:58 10/13/23 08:32 Temperature 98.7 F 97.6 F 98.2 F Pulse Rate 63 56 56 Respiratory Rate 18 18 17 Blood Pressure 122/71 120/62 131/78 Pulse Oximetry 96 94 96 Oxygen Delivery Method Room Air Room Air Room Air BMI result Body Mass Index 25.1 Labs 09/29/23 15:59 09/29/23 15:59 Mental Status Exam Mental Status Exam Narrative: Appearance: wearing hospital gown, fair hygiene, in NAD Behavior: cooperative. Psychomotor: no agitation or retardation noted Speech: clear, normal rate/rhythm/volume, spontaneous TP: mostly linear TC: waiting for a place to go VH/AH: denies Delusions: no overt delusions. Insight/judgment: improving x 2 Memory/cog: alert, oriented x 3. Medications Medications Current Medications Acetaminophen (Acetaminophen 325 Mg Tablet) 650 mg PO Q6H PRN PRN Reason: pain, fever Last Admin: 10/11/23 18:25 Dose: 650 mg Benztropine Mesylate (Benztropine Mesylate 1 Mg Tablet) 1 mg PO BID [facility] Last Admin: 10/13/23 08:56 Dose: 1 mg Clonazepam (Clonazepam 0.5 Mg Tablet) 0.5 mg PO BEDTIME [facility] Fluphenazine Decanoate (Fluphenazine Decanoate 25 Mg/Ml 5 Ml Vial) 50 mg IM Q28D [facility] Last Admin: 10/04/23 18:59 Dose: 50 mg Fluticasone Propionate (Fluticasone Propionate Nasal 16 Gm [place]) 1 spray NOSTRIL-B ONCE [facility] Guaifenesin/Dextromethorphan (Guaifenesin Dm 600/30 1 Tab Tab.Er.12h) 1 tab PO BID PRN PRN Reason: congestion/cough Quetiapine Fumarate (Quetiapine Fumarate 50 Mg Tablet) 50 mg PO Q6H PRN PRN Reason: agitation/anxiety Last Admin: 10/13/23 04:35 Dose: 50 mg Senna/Docusate Sodium (Sennosides/Docusate Sodium Tablet) 1 tab PO BID [facility] Last Admin: 10/13/23 08:56 Dose: 1 tab Allergies Allergies Allergy/AdvReac Type Severity Reaction Status Date / Time amoxicillin [From Augmentin] AdvReac Facial Verified 08/23/23 17:23 Swelling clavulanic acid AdvReac Facial Verified 08/23/23 17:23 [From Augmentin] Swelling Sulfa (Sulfonamide AdvReac Hives Verified 08/23/23 17:23 Antibiotics) sulfamethoxazole AdvReac Hives Verified 08/23/23 17:23 [From Bactrim] trimethoprim [From Bactrim] AdvReac Hives Verified 08/23/23 17:23 Assessment & Plan Assessment & Plan (1) Schizophrenia, paranoid type: Status: Acute Code(s): F20.0 - Paranoid schizophrenia Plan Mrs. Garcia continues to present with paranoid/persecutory delusions as well as auditory hallucinations. No insight into mental illness or need for treatment. Awaiting guardianship and glez. PLAN 2/5 pt appears with much less delusional content, less VH/AH. expresses relief about not hearing voices and not feeling like people are following her trying to harm her. No side effects with prolixin which she is tolerating well and taking consistently. 10/03 pt stopped taking prolixin oral since 09/28- again presents as much more suspicious and paranoid. Temporary Arron's granted. Will give prolixin decanoate 50mg IM qmonthly. Pt had several weeks of prolixin oral with positive therapeutic effect and no side effect. 10/10 received prolixin dec 50mg IM on 10/04. She has continued oral prolixin. Some rigidity noted with mild shuffling gait. Will stop oral prolixin. Will add cogentin and clonazepam. May have to decrease dose of prolixin dec next dose if s/e not improve or worsen. Otherwise, pt stable psychiatrically, conversations much more based on reality. 10/13 less tremors and rigidity with cogentin. She is much improved in terms of delusions and psychosis. conversations much more based on reality. Next COFFMAN of Prolixin due 10/31-->may consider giving lower dose of prolixin 25mg IM q28d given mild-moderate EPS although much improved with cogentin and discontinuation of oral prolixin (initial COFFMAN has a delayed onset of action). Seroquel is as needed and honestly only keeping it due to pt requesting it at times. Total time managing care of this patient today ____ minutes.
--- NOTE | 2023-10-13 12:00 | PC.NURSE ---
pt resting in bed in NAD, skin PWD, pts appearance remains unkempt though she does report that she feels more clear and is able to work on a cross word puzzle. train director Keila martinez to see pt. pt initially had refused lunch but later agreed to sit up and have something to eat. she ate 100% of her lunch. pt ambulates to the bathroom independently with an appropriate gait
[2023-10-13 14:00] VITALS: BP 111/58; PULSE 60; RESP 16; TEMP 36.9; O2SAT 97
--- NOTE | 2023-10-13 15:09 | P.HPHOSP_ITS ---
History of Present Illness Date of Service: 10/13/23 Attending physician on admission: Anthony Sanders Chief Complaint: Delusional behavior Pt is a 63-year-old female with a PMH significant for schizophrenia? who initially presented to the ED on 08/23/2023 for evaluation of delusional behavior. Patient was apparently recently discharged from [facility] and was placed on a section 12 due to increasingly erratic behavior. Patient apparently was paranoid that other people were ?trying to kill me for my spiritual gives? by ?drilling into my head to do bad things and get the spirits out?. Workup at that time significant for patient tested positive for COVID. Patient was placed in physician observation and seen by crisis and case management and placed in overflow awaiting long-term placement and filing for guardianship. Temporary guardianship was obtained, and patient's stay has so far has been largely unremarkable. Vital signs have remained stable. Will get labs tomorrow. Patient seen and evaluated in her room, where she is resting comfortably in bed. Patient is alert and oriented x4. Reports being ?bored? since she does not have much of anything to do, but has no acute medical complaints at this time. Patient will be admitted to the hospital and brought to the medical floor while awaiting long-term placement. Review of Systems 2 Review of Systems: Patient has no acute medical complaints at this time [facility] Social History Smoked in Last 30 Days: No Use of substances other than those prescribed or required for medical reasons: No Advance Directives: No Advance Directives Information Provided: No Healthcare Proxy: No Guardian: No Patient : No Meds Allergies Allergy/AdvReac Type Severity Reaction Status Date / Time amoxicillin [From Augmentin] AdvReac Facial Verified 08/23/23 17:23 Swelling clavulanic acid AdvReac Facial Verified 08/23/23 17:23 [From Augmentin] Swelling Sulfa (Sulfonamide AdvReac Hives Verified 08/23/23 17:23 Antibiotics) sulfamethoxazole AdvReac Hives Verified 08/23/23 17:23 [From Bactrim] trimethoprim [From Bactrim] AdvReac Hives Verified 08/23/23 17:23 Active Medications: Current Medications Acetaminophen (Acetaminophen 325 Mg Tablet) 650 mg PO Q6H PRN PRN Reason: pain, fever Last Admin: 10/11/23 18:25 Dose: 650 mg Benztropine Mesylate (Benztropine Mesylate 1 Mg Tablet) 1 mg PO BID [facility] Last Admin: 10/13/23 08:56 Dose: 1 mg Clonazepam (Clonazepam 0.5 Mg Tablet) 0.5 mg PO BEDTIME [facility] Fluphenazine Decanoate (Fluphenazine Decanoate 25 Mg/Ml 5 Ml Vial) 50 mg IM Q28D [facility] Last Admin: 10/04/23 18:59 Dose: 50 mg Fluticasone Propionate (Fluticasone Propionate Nasal 16 Gm [place]) 1 spray NOSTRIL-B ONCE [facility] Guaifenesin/Dextromethorphan (Guaifenesin Dm 600/30 1 Tab Tab.Er.12h) 1 tab PO BID PRN PRN Reason: congestion/cough Quetiapine Fumarate (Quetiapine Fumarate 50 Mg Tablet) 50 mg PO Q6H PRN PRN Reason: agitation/anxiety Last Admin: 10/13/23 04:35 Dose: 50 mg Senna/Docusate Sodium (Sennosides/Docusate Sodium Tablet) 1 tab PO BID [facility] Last Admin: 10/13/23 08:56 Dose: 1 tab Home Medications Medication Instructions Recorded Confirmed Last Taken Type quetiapine 50 mg tablet 50 mg PO BEDTIME 09/09/23 09/09/23 Unknown History Physical Exam 2 Vital Signs and Narrative: Vital Signs: Last Vital Signs Temp 98.5 F 10/13/23 14:00 Pulse 60 10/13/23 14:00 Resp 16 10/13/23 14:00 BP 111/58 L 10/13/23 14:00 Pulse Ox 97 10/13/23 14:00 O2 Del Method Room Air 10/13/23 14:00 BMI result Body Mass Index 25.1 General: AOx3, no acute distress Resp: CTA bilaterally CVS: S1, S2, RRR GI: +BS, NT, no distention Skin: Warm, dry Neuro: Cranial nerves II-XII grossly intact bilaterally. Motor grossly intact bilaterally Extremities: No edema Psych: Appropriate affect Results Labs 09/29/23 15:59 09/29/23 15:59 Assessment and Plan (1) Schizophrenia, paranoid type: Status: Acute Plan Pt is a 63-year-old female with a PMH significant for schizophrenia? who initially presented to the ED on 08/23/2023 for evaluation of delusional behavior. Medical workup has been negative for any acute concerns, and patient has been placed on physician observation in over flow since that time. Patient will be admitted to the hospital and brought to the medical floor while awaiting long- term placement. Schizophrenia, paranoid type Currently alert and oriented x4, no acute delusions Patient has been seen and evaluated by psych and started on appropriate medications Continue Klonopin, quetiapine, fluphenazine, and Cogentin Patient otherwise has no chronic medical conditions or acute medical complaints Full Code Attending:?Dr. Sanders DVT Prophylaxis: Patient ambulatory Patient will be admitted to the hospital and brought to the medical floor while awaiting long-term care placement. Quality Stroke Does the patient have a stroke diagnosis?: No VTE Prior VTE?: No VTE Risk Level:: Medical - low VTE Device Contraindication: Treatment Not Indicated VTE Drug Contraindication: Treatment Not Indicated
[2023-10-13 16:37] VITALS: BP 124/69; PULSE 62; RESP 17; TEMP 36.3; O2SAT 96
--- NOTE | 2023-10-13 16:46 | PC.NURSE ---
Pt A/O. Ambulated to BR with a steady gait. Denies pain. All needs in reach
--- NOTE | 2023-10-13 17:59 | MHC.EDTECH ---
Pt ambulated to and from bathroom.
--- NOTE | 2023-10-13 19:27 | MHC.CM.ED ---
Pt will be socially admitted awaiting conservator and LTC placement. Bed assignment pending.
[2023-10-13 20:43] VITALS: BP 122/74; PULSE 59; RESP 16; TEMP 36.8; O2SAT 96
--- NOTE | 2023-10-13 20:44 | MHC.EDTECH ---
This tech took over care at 1900. PT found laying in bed with camera present. PT states she is hungry and given a sandwich. PT assisted to bathroom without incident. PT vitals are taken and as noted.
--- NOTE | 2023-10-13 21:58 | PC.NURSE ---
this rn assumed care of pt @ 1900 pt medicated according to oct pt requested prn serquel pt provided with med according to oct. pt remains calm and cooperative
[2023-10-14] MEDS: Melatonin 3 MG TABLET 6 MG PO (01:21)
--- NOTE | 2023-10-14 05:13 | PC.NURSE ---
Assumed care of patient . Patient requesting additional sleep medication. Melatonin admininstered as per OCT . Patient resting comfortable at present time.
[2023-10-14 06:11] LABS: Hematocrit 40.8 % (37.0-47.0); Hemoglobin 13.5 g/dl (12.0-16.0); Mean Corpuscular HGB Conc 33.1 g/dl (31.0-35.0); Mean Corpuscular Hemoglobin 29.2 pg (27.0-33.0); Mean Corpuscular Volume 88.1 fL (80.0-98.0); Mean Platelet Volume 8.3 fL (9.4-12.3); Platelet Count 328 X10*3/uL (160-400); Red Blood Count 4.63 X10*6/uL (4.20-5.50); Red Cell Distribution Width 13.5 % (11.0-16.0)
[2023-10-14 06:27] LABS: Anion Gap 12 (12-20); Blood Urea Nitrogen 16 mg/dL (9-16); Carbon Dioxide 28 mmol/L (22-29); Chloride 108 mmol/L (96-108); Creatinine Clr Calc Pharmacy 57.3; Estimated Glomerular Filt Rate > 60; Glucose Random 89 mg/dL (60-115); Sodium 144 mmol/L (135-145)
[2023-10-14 07:48] VITALS: BP 136/75; PULSE 53; RESP 14; TEMP 36.3; O2SAT 96
[2023-10-14] MEDS: Sennosides/Docusate Sodium TABLET 1 TAB PO ×2 (08:15→20:52)
[2023-10-14] MEDS: Benztropine Mesylate 1 MG TABLET PO ×2 (08:15→20:52)
--- NOTE | 2023-10-14 10:56 | PC.NURSE ---
uriel caro notified pt wants tums for acid reflux sensation. walked well to bathroom. video monitor on
--- NOTE | 2023-10-14 11:42 | PC.NURSE ---
monisha tobias from pharmacy prn dyspepsia
[2023-10-14 12:00] VITALS: BP 112/70; PULSE 55; RESP 14; TEMP 36.4; O2SAT 96
[2023-10-14] MEDS: Calcium Carbonate 750 MG TAB.CHEW PO (13:36)
--- NOTE | 2023-10-14 14:39 | P.PNIM_ITS ---
Subjective Subjective Date of Service: 10/14/23 Interval History: No acute issues overnight Review of Systems Denies chest pain Denies shortness of breath Denies nausea vomiting diarrhea Denies fever chills Physical Exam 2 Vital Signs: Vital Signs: Last Vital Signs Temp 97.5 F 10/14/23 12:00 Pulse 55 10/14/23 12:00 Resp 14 10/14/23 12:00 BP 112/70 10/14/23 12:00 Pulse Ox 96 10/14/23 12:00 O2 Del Method Room Air 10/14/23 12:00 BMI result Body Mass Index 25.1 Const: Other: Awake alert no acute distress Resp: Other: Clear to auscultation bilaterally no rales rhonchi or wheezes Cardio: Other: No S4; positive S1-S2; no S3 murmurs rubs gallops Extrem: Other: No edema bilaterally Objective Data Active Medications Acetaminophen (Acetaminophen 325 Mg Tablet) 650 mg PO Q6H PRN PRN Reason: pain, fever Last Admin: 10/11/23 18:25 Dose: 650 mg Documented By: KUN Benztropine Mesylate (Benztropine Mesylate 1 Mg Tablet) 1 mg PO BID [facility] Last Admin: 10/14/23 08:15 Dose: 1 mg Documented By: WAYNE Calcium Carbonate (Calcium Carbonate 750 Mg Tab.Chew) 750 mg PO Q6H PRN PRN Reason: Dyspepsia Last Admin: 10/14/23 13:36 Dose: 750 mg Documented By: ERIS Clonazepam (Clonazepam 0.5 Mg Tablet) 0.5 mg PO BEDTIME [facility] Last Admin: 10/13/23 20:42 Dose: 0.5 mg Documented By: BARBARA Fluphenazine Decanoate (Fluphenazine Decanoate 25 Mg/Ml 5 Ml Vial) 50 mg IM Q28D [facility] Last Admin: 10/04/23 18:59 Dose: 50 mg Documented By: DAVE Fluticasone Propionate (Fluticasone Propionate Nasal 16 Gm [place]) 1 spray NOSTRIL-B ONCE [facility] Guaifenesin/Dextromethorphan (Guaifenesin Dm 600/30 1 Tab Tab.Er.12h) 1 tab PO BID PRN PRN Reason: congestion/cough Melatonin (Melatonin 3 Mg Tablet) 6 mg PO BEDTIME PRN PRN Reason: Insomnia Last Admin: 10/14/23 01:21 Dose: 6 mg Documented By: ISMAEL Ondansetron HCl (Ondansetron Hcl 4 Mg/2 Ml Vial) 4 mg IVPUSH Q8H PRN PRN Reason: Nausea and Vomiting Quetiapine Fumarate (Quetiapine Fumarate 50 Mg Tablet) 50 mg PO Q6H PRN PRN Reason: agitation/anxiety Last Admin: 10/13/23 20:45 Dose: 50 mg Documented By: BARBARA Senna/Docusate Sodium (Sennosides/Docusate Sodium Tablet) 1 tab PO BID [facility] Last Admin: 10/14/23 08:15 Dose: 1 tab Documented By: THOMASFAJessica Sodium Chloride (0.9 % Sodium Chloride Flush 3 Ml Syringe) 3 ml IVFLUSH QSHIFT [facility] Last Admin: 10/14/23 07:46 Dose: Not Given Documented By: WAYNE Non-Admin Reason: See Note Labs 10/14/23 05:47 10/14/23 05:47 Labs: Laboratory Results - last 24 hr 10/14/23 05:47 MCV 88.1 MCH 29.2 MCHC 33.1 RDW 13.5 Plt Count 328 MPV 8.3 L Absolute Nucleated RBC 0.000 Nucleated RBC % (auto) 0.0 Anion Gap 12 Estim Creat Clear Calc 57.3 Estimated GFR > 60 Random Glucose 89 Calcium 9.0 Assessment and Plan (1) Schizophrenia, paranoid type: Status: Acute Plan Pt is a 63-year-old female with a PMH significant for schizophrenia? who initially presented to the ED on 08/23/2023 for evaluation of delusional behavior. Medical workup has been negative for any acute concerns, and patient has been placed on physician observation in over flow since that time. Patient will be admitted to the hospital and brought to the medical floor while awaiting long- term placement. Schizophrenia, paranoid type Currently alert and oriented x4, no acute delusions Patient has been seen and evaluated by psych and started on appropriate medications Continue Klonopin, quetiapine, fluphenazine, and Cogentin Patient otherwise has no chronic medical conditions or acute medical complaints Full Code Attending:?Dr. Sanders DVT Prophylaxis: Patient ambulatory Patient will be admitted to the hospital and brought to the medical floor while awaiting long-term care placement. Quality Stroke Does the patient have a stroke diagnosis?: No VTE Prior VTE?: No VTE Risk Level:: Medical - low VTE Device Contraindication: Treatment Not Indicated VTE Drug Contraindication: Treatment Not Indicated
[2023-10-14 16:00] VITALS: BP 131/63; PULSE 57; RESP 18; TEMP 36.6; O2SAT 96
[2023-10-14] MEDS: Acetaminophen 325 MG TABLET 650 MG PO (16:41)
[2023-10-14] MEDS: clonazePAM 0.5 MG TABLET PO (20:52)
[2023-10-14] MEDS: QUEtiapine Fumarate 50 MG TABLET PO (20:56)
[2023-10-15] MEDS: QUEtiapine Fumarate 50 MG TABLET PO ×2 (03:02→14:52)
[2023-10-15 03:04] VITALS: BP 128/69; PULSE 54; RESP 14; TEMP 36.4; O2SAT 94
--- NOTE | 2023-10-15 03:05 | MHC.EDTECH ---
PT requests sleeping meds at this time. Tech assisted PT to bathroom multiple times through the night without incident. PT vitals taken at this time. PT calm and cooperative throughout care.
[2023-10-15] MEDS: Benztropine Mesylate 1 MG TABLET PO ×2 (08:39→21:09)
[2023-10-15] MEDS: Sennosides/Docusate Sodium TABLET 1 TAB PO ×2 (08:39→21:09)
--- NOTE | 2023-10-15 08:41 | MHC.EDTECH ---
Pt ate 100% of her breakfast. 120cc of fluids. Pt is resting in her room.
--- NOTE | 2023-10-15 09:28 | MHC.EDTECH ---
This tech offered to setup for a shower for the PT but she said she took one yesterday and declined.
--- NOTE | 2023-10-15 12:18 | MHC.EDTECH ---
Pt ate 50% of her lunch. Pt drank 120cc of juice.
--- NOTE | 2023-10-15 13:45 | HO.PM.IMPN ---
Subjective Subjective Date of Service: 10/15/23 Interval History: No acute issues overnight Review of Systems Denies chest pain Denies shortness of breath Denies nausea vomiting diarrhea Denies fever chills Physical Exam Vital Signs: Vital Signs: Last Vital Signs Temp 97.6 F 10/15/23 03:04 Pulse 54 10/15/23 03:04 Resp 14 10/15/23 03:04 BP 128/69 10/15/23 03:04 Pulse Ox 94 10/15/23 03:04 O2 Del Method Room Air 10/15/23 03:04 BMI result Body Mass Index 25.1 Const: Other: Awake alert no acute distress Resp: Other: Clear to auscultation bilaterally no rales rhonchi or wheezes Cardio: Other: No S4; positive S1-S2; no S3 murmurs rubs gallops Extrem: Other: No edema bilaterally Objective Data Active Medications Acetaminophen (Acetaminophen 325 Mg Tablet) 650 mg PO Q6H PRN PRN Reason: pain, fever Last Admin: 10/14/23 16:41 Dose: 650 mg Documented By: PRITESH Benztropine Mesylate (Benztropine Mesylate 1 Mg Tablet) 1 mg PO BID [facility] Last Admin: 10/15/23 08:39 Dose: 1 mg Documented By: OTTO Calcium Carbonate (Calcium Carbonate 750 Mg Tab.Chew) 750 mg PO Q6H PRN PRN Reason: Dyspepsia Last Admin: 10/14/23 13:36 Dose: 750 mg Documented By: ERIS Clonazepam (Clonazepam 0.5 Mg Tablet) 0.5 mg PO BEDTIME [facility] Last Admin: 10/14/23 20:52 Dose: 0.5 mg Documented By: CARMINA Fluphenazine Decanoate (Fluphenazine Decanoate 25 Mg/Ml 5 Ml Vial) 50 mg IM Q28D [facility] Last Admin: 10/04/23 18:59 Dose: 50 mg Documented By: DAVE Fluticasone Propionate (Fluticasone Propionate Nasal 16 Gm [place]) 1 spray NOSTRIL-B ONCE [facility] Guaifenesin/Dextromethorphan (Guaifenesin Dm 600/30 1 Tab Tab.Er.12h) 1 tab PO BID PRN PRN Reason: congestion/cough Melatonin (Melatonin 3 Mg Tablet) 6 mg PO BEDTIME PRN PRN Reason: Insomnia Last Admin: 10/14/23 01:21 Dose: 6 mg Documented By: ISMAEL Ondansetron HCl (Ondansetron Hcl 4 Mg/2 Ml Vial) 4 mg IVPUSH Q8H PRN PRN Reason: Nausea and Vomiting Quetiapine Fumarate (Quetiapine Fumarate 50 Mg Tablet) 50 mg PO Q6H PRN PRN Reason: agitation/anxiety Last Admin: 10/15/23 03:02 Dose: 50 mg Documented By: CARMINA Senna/Docusate Sodium (Sennosides/Docusate Sodium Tablet) 1 tab PO BID [facility] Last Admin: 10/15/23 08:39 Dose: 1 tab Documented By: OTTO Sodium Chloride (0.9 % Sodium Chloride Flush 3 Ml Syringe) 3 ml IVFLUSH QSHIFT [facility] Last Admin: 10/15/23 08:41 Dose: Not Given Documented By: OTTO Non-Admin Reason: No Access Labs 10/14/23 05:47 10/14/23 05:47 Assessment and Plan (1) Schizophrenia, paranoid type: Status: Acute Plan Pt is a 63-year-old female with a PMH significant for schizophrenia? who initially presented to the ED on 08/23/2023 for evaluation of delusional behavior. Medical workup has been negative for any acute concerns, and patient has been placed on physician observation in over flow since that time. Patient will be admitted to the hospital and brought to the medical floor while awaiting long-term placement. Schizophrenia, paranoid type Currently alert and oriented x4, no acute delusions Patient has been seen and evaluated by psych and started on appropriate medications Continue Klonopin, quetiapine, fluphenazine, and Cogentin Patient otherwise has no chronic medical conditions or acute medical complaints Full Code Attending:?Dr. Sanders DVT Prophylaxis: Patient ambulatory Patient will be admitted to the hospital and brought to the medical floor while awaiting long-term care placement. Quality Stroke Does the patient have a stroke diagnosis?: No VTE Prior VTE?: No VTE Risk Level:: Medical - low VTE Device Contraindication: Treatment Not Indicated VTE Drug Contraindication: Treatment Not Indicated
[2023-10-15 15:12] VITALS: BP 119/65; PULSE 62; RESP 17; TEMP 37.1; O2SAT 95
--- NOTE | 2023-10-15 17:44 | MHC.EDTECH ---
pt ate 50% of her dinner. 120ccof juice
--- NOTE | 2023-10-15 20:23 | PC.NURSE ---
Pt ambulated to the restroom. Pt requested and given time. Plan of care ongoing.
--- NOTE | 2023-10-15 20:27 | PC.NURSE ---
Pt ambulated back to room. plan of care ongoing.
--- NOTE | 2023-10-15 20:53 | PC.NURSE ---
Pt out of room at the nurses station requesting to meds. Pt advised meds will be administered shortly. Pt back in room. Plan of care ongoing.
[2023-10-15] MEDS: clonazePAM 0.5 MG TABLET PO (21:09)
--- NOTE | 2023-10-15 21:12 | PC.NURSE ---
Pt medicated per oct. Plan of care ongoing.
--- NOTE | 2023-10-15 23:35 | PC.NURSE ---
Pt ambulated to restroom and back to bed independently. Plan of care ongoing.
[2023-10-16] VITALS: BP 121/63; PULSE 55; RESP 19; TEMP 36.7; O2SAT 96
[2023-10-16] MEDS: Melatonin 3 MG TABLET 6 MG PO (00:01)
--- NOTE | 2023-10-16 00:02 | PC.NURSE ---
Pt requested and given meds to help with insomnia. Plan of care ongoing.
--- NOTE | 2023-10-16 02:38 | PC.NURSE ---
Pt ambulated to the restroom and back to bed. plan of care ongoing.
--- NOTE | 2023-10-16 03:30 | PC.NURSE ---
Pt ambulated to the restroom and back to room independently. Plan of care ongoing.
--- NOTE | 2023-10-16 04:08 | PC.NURSE ---
Pt up at the nurses station requesting and given food. Plan of care ongoing.
[2023-10-16] MEDS: QUEtiapine Fumarate 50 MG TABLET PO ×3 (08:36→23:49)
[2023-10-16] MEDS: Benztropine Mesylate 1 MG TABLET PO ×2 (08:37→20:03)
[2023-10-16] MEDS: Sennosides/Docusate Sodium TABLET 1 TAB PO ×2 (08:37→20:04)
[2023-10-16 08:59] VITALS: BP 123/64; PULSE 59; RESP 17; TEMP 36.3; O2SAT 95
--- NOTE | 2023-10-16 12:35 | PC.NURSE ---
Pt does not have IV line, refusing. MD Frankel aware.
--- NOTE | 2023-10-16 14:00 | HO.PM.IMPN ---
Subjective Subjective Date of Service: 10/16/23 Interval History: f/u on delusional, paranoid schizophrenia she is calm, cooperative and lucid Physical Exam Vital Signs: Vital Signs: Last Vital Signs Temp 97.4 F 10/16/23 08:59 Pulse 59 10/16/23 08:59 Resp 17 10/16/23 08:59 BP 123/64 10/16/23 08:59 Pulse Ox 95 10/16/23 08:59 O2 Del Method Room Air 10/16/23 08:59 BMI result Body Mass Index 25.1 General: AO X 3, no acute distress Resp: CTA bilateral CVS: S1,S2,RRR GI: +BS, NT, no distention Skin: No rash Neuro: motor grossly intact Psych: appropriate affect Objective Data Active Medications Acetaminophen (Acetaminophen 325 Mg Tablet) 650 mg PO Q6H PRN PRN Reason: pain, fever Last Admin: 10/14/23 16:41 Dose: 650 mg Documented By: PRITESH Benztropine Mesylate (Benztropine Mesylate 1 Mg Tablet) 1 mg PO BID [facility] Last Admin: 10/16/23 08:37 Dose: 1 mg Documented By: JAGDISH Calcium Carbonate (Calcium Carbonate 750 Mg Tab.Chew) 750 mg PO Q6H PRN PRN Reason: Dyspepsia Last Admin: 10/14/23 13:36 Dose: 750 mg Documented By: ERIS Clonazepam (Clonazepam 0.5 Mg Tablet) 0.5 mg PO BEDTIME [facility] Last Admin: 10/15/23 21:09 Dose: 0.5 mg Documented By: ROSE Fluphenazine Decanoate (Fluphenazine Decanoate 25 Mg/Ml 5 Ml Vial) 50 mg IM Q28D [facility] Last Admin: 10/04/23 18:59 Dose: 50 mg Documented By: DAVE Fluticasone Propionate (Fluticasone Propionate Nasal 16 Gm [place]) 1 spray NOSTRIL-B ONCE [facility] Guaifenesin/Dextromethorphan (Guaifenesin Dm 600/30 1 Tab Tab.Er.12h) 1 tab PO BID PRN PRN Reason: congestion/cough Melatonin (Melatonin 3 Mg Tablet) 6 mg PO BEDTIME PRN PRN Reason: Insomnia Last Admin: 10/16/23 00:01 Dose: 6 mg Documented By: ROSE Ondansetron HCl (Ondansetron Hcl 4 Mg/2 Ml Vial) 4 mg IVPUSH Q8H PRN PRN Reason: Nausea and Vomiting Quetiapine Fumarate (Quetiapine Fumarate 50 Mg Tablet) 50 mg PO Q6H PRN PRN Reason: agitation/anxiety Last Admin: 10/16/23 08:36 Dose: 50 mg Documented By: JAGDISH Senna/Docusate Sodium (Sennosides/Docusate Sodium Tablet) 1 tab PO BID [facility] Last Admin: 10/16/23 08:37 Dose: 1 tab Documented By: JAGDISH Labs 10/14/23 05:47 10/14/23 05:47 Assessment and Plan (1) Schizophrenia, paranoid type: Status: Acute Plan Pt is a 63-year-old female with a PMH significant for schizophrenia? who initially presented to the ED on 08/23/2023 for evaluation of delusional behavior. Medical workup has been negative for any acute concerns, and patient has been placed on physician observation in over flow since that time. Patient will be admitted to the hospital and brought to the medical floor while awaiting long-term placement. Schizophrenia, paranoid type Currently alert and oriented x4, no acute delusions Patient has been seen and evaluated by psych and started on appropriate medications Continue Klonopin, quetiapine, fluphenazine, and Cogentin Patient otherwise has no acute or chronic medical conditions or acute medical complaints Full Code DVT Prophylaxis: Patient ambulatory need for inpt: awaiting for placement Quality Stroke Does the patient have a stroke diagnosis?: No VTE Prior VTE?: No VTE Risk Level:: Medical - low VTE Device Contraindication: Treatment Not Indicated VTE Drug Contraindication: Treatment Not Indicated
[2023-10-16] MEDS: Milk of Magnesia 30 ML ORAL.SUSP PO (14:52)
[2023-10-16] MEDS: Docusate Sodium 100 MG CAPSULE PO ×2 (14:52→20:04)
--- NOTE | 2023-10-16 16:34 | PC.NURSE ---
assumed care of pt at 1530, per report pt has been c/o constipation. pt successfully moved bowels 1630, states she is feeling much better. Safety precautions remain in place, call rincon within reach, ambulating independently with a steady gait, respirations even and unlabored, offering no complaints at this time. Encouraged to call for assistance.
[2023-10-16] MEDS: Acetaminophen 325 MG TABLET 650 MG PO (18:09)
--- NOTE | 2023-10-16 19:10 | PC.NURSE ---
arrived to overflow and pt was already upstairs- sent up by previous shift.
[2023-10-16 19:30] VITALS: BMI 25.0
[2023-10-16 20:00] VITALS: BP 126/71; PULSE 65; RESP 20; TEMP 36.6; O2SAT 96
[2023-10-16] MEDS: clonazePAM 0.5 MG TABLET PO (20:04)
[2023-10-17 00:10] VITALS: BP 130/70; PULSE 53; TEMP 36.7; O2SAT 97
[2023-10-17] MEDS: Melatonin 3 MG TABLET 6 MG PO ×2 (02:40→23:42)
[2023-10-17 03:41] VITALS: BP 119/72; PULSE 51; RESP 18; TEMP 36.8; O2SAT 96
[2023-10-17 07:34] VITALS: BP 123/58; PULSE 51; RESP 18; TEMP 36.2; O2SAT 95
[2023-10-17] MEDS: Docusate Sodium 100 MG CAPSULE PO ×2 (08:23→20:34)
[2023-10-17] MEDS: Benztropine Mesylate 1 MG TABLET PO ×2 (08:23→20:34)
[2023-10-17] MEDS: Sennosides/Docusate Sodium TABLET 1 TAB PO ×2 (08:23→20:33)
[2023-10-17] MEDS: QUEtiapine Fumarate 50 MG TABLET PO ×3 (08:23→20:33)
[2023-10-17] MEDS: Acetaminophen 325 MG TABLET 650 MG PO ×2 (08:50→14:34)
--- NOTE | 2023-10-17 10:39 | MHC.CM.PN ---
Received call from Jocelin at [address] (pts payor through [employer]) who states pt does not have a LTC benefit. She also stated payor would offer administrative day rate until pt is placed: Per CM director, this is acceptable. Information requested by payor faxed along with admin day auth. CM to follow for eventual placement. Jocelin [phone]
--- NOTE | 2023-10-17 10:54 | HO.PM.IMPN ---
Subjective Subjective Date of Service: 10/18/23 Interval History: f/u on delusional, paranoid schizophrenia she remains calm, cooperative and lucid Physical Exam Vital Signs: Vital Signs: Last Vital Signs Temp 97.2 F 10/17/23 07:34 Pulse 51 10/17/23 07:34 Resp 18 10/17/23 07:34 BP 123/58 L 10/17/23 07:34 Pulse Ox 95 10/17/23 07:34 O2 Del Method Room Air 10/17/23 07:34 BMI result Body Mass Index 25.0 General: AO X 3, no acute distress Resp: CTA bilateral CVS: S1,S2,RRR GI: +BS, NT, no distention Skin: No rash Neuro: motor grossly intact Psych: appropriate affect Objective Data Active Medications Acetaminophen (Acetaminophen 325 Mg Tablet) 650 mg PO Q6H PRN PRN Reason: pain, fever Last Admin: 10/17/23 08:50 Dose: 650 mg Documented By: BRENDA Benztropine Mesylate (Benztropine Mesylate 1 Mg Tablet) 1 mg PO BID [facility] Last Admin: 10/17/23 08:23 Dose: 1 mg Documented By: BRENDA Calcium Carbonate (Calcium Carbonate 750 Mg Tab.Chew) 750 mg PO Q6H PRN PRN Reason: Dyspepsia Last Admin: 10/14/23 13:36 Dose: 750 mg Clonazepam (Clonazepam 0.5 Mg Tablet) 0.5 mg PO BEDTIME [facility] Last Admin: 10/16/23 20:04 Dose: 0.5 mg Documented By: LIAT Docusate Sodium (Docusate Sodium 100 Mg Capsule) 100 mg PO BID [facility] Last Admin: 10/17/23 08:23 Dose: 100 mg Documented By: BRENDA Fluphenazine Decanoate (Fluphenazine Decanoate 25 Mg/Ml 5 Ml Vial) 50 mg IM Q28D [facility] Last Admin: 10/04/23 18:59 Dose: 50 mg Documented By: DAVE Fluticasone Propionate (Fluticasone Propionate Nasal 16 Gm [place]) 1 spray NOSTRIL-B ONCE [facility] Guaifenesin/Dextromethorphan (Guaifenesin Dm 600/30 1 Tab Tab.Er.12h) 1 tab PO BID PRN PRN Reason: congestion/cough Magnesium Hydroxide (Milk Of Magnesia 30 Ml Oral.Susp) 30 ml PO DAILY PRN PRN Reason: Constipation Last Admin: 10/16/23 14:52 Dose: 30 ml Documented By: JAGDISH Melatonin (Melatonin 3 Mg Tablet) 6 mg PO BEDTIME PRN PRN Reason: Insomnia Last Admin: 10/17/23 02:40 Dose: 6 mg Documented By: ARNOLDO Ondansetron HCl (Ondansetron Hcl 4 Mg/2 Ml Vial) 4 mg IVPUSH Q8H PRN PRN Reason: Nausea and Vomiting Polyethylene Glycol (Polyethylene Glycol 3350 17 Gm Powd.Pack) 17 gm PO DAILY PRN PRN Reason: Constipation Quetiapine Fumarate (Quetiapine Fumarate 50 Mg Tablet) 50 mg PO Q6H PRN PRN Reason: agitation/anxiety Last Admin: 10/17/23 08:23 Dose: 50 mg Documented By: BRENDA Senna/Docusate Sodium (Sennosides/Docusate Sodium Tablet) 1 tab PO BID [facility] Last Admin: 10/17/23 08:23 Dose: 1 tab Documented By: BRENDA Labs 10/14/23 05:47 10/14/23 05:47 Assessment and Plan (1) Schizophrenia, paranoid type: Status: Acute Plan Pt is a 63-year-old female with a PMH significant for schizophrenia? who initially presented to the ED on 08/23/2023 for evaluation of delusional behavior. Medical workup has been negative for any acute concerns, and patient has been placed on physician observation in over flow since that time. Patient will be admitted to the hospital and brought to the medical floor while awaiting long-term placement. Schizophrenia, paranoid type, symptoms controlled, lucid, continue meds per Psych direction (Klonopin, quetiapine, fluphenazine, and Cogentin) Patient otherwise has no acute or chronic medical conditions issues and just awaiting placement Full Code DVT Prophylaxis: Patient ambulatory need for inpt: awaiting for placement Quality Stroke Does the patient have a stroke diagnosis?: No VTE Prior VTE?: No VTE Risk Level:: Medical - low VTE Device Contraindication: Treatment Not Indicated VTE Drug Contraindication: Treatment Not Indicated
--- NOTE | 2023-10-17 11:42 | MHC.CM.PN ---
EMR REVIEWED, PER CM DIRECTOR PREVIOUS CM, PT HAS $39,000 IN ASSETS AND WILL NEED A CONSERVATOR, GUARDIAN IS FARAZ EMILIA [phone] WHO WILL BE PT'S CONSERVATOR WELL, CM DIRECTOR AWAITING COURT DATE. DAS ORDER NEEDS TO BE REVIEWED BY 12/15/23 OR IT WILL 7DAYS AFTER 12/14. ANTIC PT WILL BE ABLE TO PRIVATE PAY FOR LTC ONCE CONSERVATORSHIP GRANTED AND GUARDIAN HAS ACCESS TO PT'S FUNDS.
--- NOTE | 2023-10-17 12:04 | MHC.CM.PN ---
CM RECEIVED CALL FROM PT'S [facility] NURSE BECKA TRAN [phone] WHO PROVIDES PT'S OUTPT PSYCHIATRIC SERVICES, REQUESTED UPDATE ON PLAN, BECKA UPDATED AND GIVEN CM OFFICE NUMBER.
[2023-10-17 15:34] VITALS: BP 110/57; PULSE 70; RESP 18; TEMP 37.2; O2SAT 98
[2023-10-17] MEDS: Calcium Carbonate 750 MG TAB.CHEW PO (19:43)
[2023-10-17 20:00] VITALS: BP 121/68; PULSE 62; RESP 16; TEMP 36.7; O2SAT 96
[2023-10-17] MEDS: clonazePAM 0.5 MG TABLET PO (20:35)
[2023-10-18] MEDS: QUEtiapine Fumarate 50 MG TABLET PO ×2 (02:45→20:32)
[2023-10-18 03:21] VITALS: BP 132/69; PULSE 53; RESP 18; TEMP 36.2; O2SAT 96
[2023-10-18 07:46] VITALS: BP 108/64; PULSE 51; RESP 18; TEMP 36.1; O2SAT 96
--- NOTE | 2023-10-18 09:16 | MHC.CM.PN ---
Addendum entered by Ct Griffin 10/18/23 12:44: This CM received a return call from Sandhya from [facility], they have added pt to their wait list and will contact us when they need information on her. Original Note: This CM called [facility] [place], and faxed information to them to review pt for respite care. This CM called and left messages at [facility] and [facility], awaiting return calls.
[2023-10-18] MEDS: Docusate Sodium 100 MG CAPSULE PO ×2 (09:46→20:32)
[2023-10-18] MEDS: Benztropine Mesylate 1 MG TABLET PO ×2 (09:46→20:32)
[2023-10-18] MEDS: Sennosides/Docusate Sodium TABLET 1 TAB PO ×2 (09:46→20:32)
--- NOTE | 2023-10-18 10:29 | HO.PM.IMPN ---
Subjective Subjective Date of Service: 10/18/23 Interval History: She is fully alert and oriented, cooperative and has no acute complaint Physical Exam Vital Signs: Vital Signs: Last Vital Signs Temp 97.0 F 10/18/23 07:46 Pulse 51 10/18/23 07:46 Resp 18 10/18/23 07:46 BP 108/64 10/18/23 07:46 Pulse Ox 96 10/18/23 07:46 O2 Del Method Room Air 10/18/23 07:46 BMI result Body Mass Index 25.0 General: AO X 3, no acute distress Resp: CTA bilateral CVS: S1,S2,RRR GI: +BS, NT, no distention Skin: No rash Neuro: motor grossly intact Psych: appropriate affect Objective Data Active Medications Acetaminophen (Acetaminophen 325 Mg Tablet) 650 mg PO Q6H PRN PRN Reason: pain, fever Last Admin: 10/17/23 14:34 Dose: 650 mg Documented By: BRENDA Benztropine Mesylate (Benztropine Mesylate 1 Mg Tablet) 1 mg PO BID [facility] Last Admin: 10/18/23 09:46 Dose: 1 mg Documented By: SHIRLEY Calcium Carbonate (Calcium Carbonate 750 Mg Tab.Chew) 750 mg PO Q6H PRN PRN Reason: Dyspepsia Last Admin: 10/17/23 19:43 Dose: 750 mg Documented By: KIM Clonazepam (Clonazepam 0.5 Mg Tablet) 0.5 mg PO BEDTIME [facility] Last Admin: 10/17/23 20:35 Dose: 0.5 mg Documented By: KIM Docusate Sodium (Docusate Sodium 100 Mg Capsule) 100 mg PO BID [facility] Last Admin: 10/18/23 09:46 Dose: 100 mg Documented By: SHIRLEY Fluphenazine Decanoate (Fluphenazine Decanoate 25 Mg/Ml 5 Ml Vial) 50 mg IM Q28D [facility] Last Admin: 10/04/23 18:59 Dose: 50 mg Documented By: DAVE Fluticasone Propionate (Fluticasone Propionate Nasal 16 Gm [place]) 1 spray NOSTRIL-B ONCE [facility] Guaifenesin/Dextromethorphan (Guaifenesin Dm 600/30 1 Tab Tab.Er.12h) 1 tab PO BID PRN PRN Reason: congestion/cough Magnesium Hydroxide (Milk Of Magnesia 30 Ml Oral.Susp) 30 ml PO DAILY PRN PRN Reason: Constipation Last Admin: 10/16/23 14:52 Dose: 30 ml Documented By: JAGDISH Melatonin (Melatonin 3 Mg Tablet) 6 mg PO BEDTIME PRN PRN Reason: Insomnia Last Admin: 10/17/23 23:42 Dose: 6 mg Documented By: KIM Ondansetron HCl (Ondansetron Hcl 4 Mg/2 Ml Vial) 4 mg IVPUSH Q8H PRN PRN Reason: Nausea and Vomiting Polyethylene Glycol (Polyethylene Glycol 3350 17 Gm Powd.Pack) 17 gm PO DAILY PRN PRN Reason: Constipation Quetiapine Fumarate (Quetiapine Fumarate 50 Mg Tablet) 50 mg PO Q6H PRN PRN Reason: agitation/anxiety Last Admin: 10/18/23 02:45 Dose: 50 mg Documented By: KIM Senna/Docusate Sodium (Sennosides/Docusate Sodium Tablet) 1 tab PO BID [facility] Last Admin: 10/18/23 09:46 Dose: 1 tab Documented By: PHANLYM Labs 10/14/23 05:47 10/14/23 05:47 Assessment and Plan (1) Schizophrenia, paranoid type: Status: Acute Plan Pt is a 63-year-old female with a PMH significant for schizophrenia? who initially presented to the ED on 08/23/2023 for evaluation of delusional behavior. Medical workup has been negative for any acute concerns, and patient has been placed on physician observation in over flow since that time. Patient will be admitted to the hospital and brought to the medical floor while awaiting long-term placement. Schizophrenia, paranoid type, symptoms controlled, lucid, continue meds per Psych direction (Klonopin, quetiapine, fluphenazine, and Cogentin) Patient otherwise has no acute or chronic medical conditions issues and just awaiting placement Full Code DVT Prophylaxis: Patient ambulatory need for inpt: awaiting for placement Quality Stroke Does the patient have a stroke diagnosis?: No VTE Prior VTE?: No VTE Risk Level:: Medical - low VTE Device Contraindication: Treatment Not Indicated VTE Drug Contraindication: Treatment Not Indicated
--- NOTE | 2023-10-18 10:46 | MHC.CM.PN ---
This functional tester typewriters spoke w/ [employer] Sola Lara- court hearing for conservatorship will not take place anytime before 10/20. Continue to await date for conservator hearing.
[2023-10-18] MEDS: polyethylene glycoL 3350 17 GM POWD.PACK PO (14:03)
[2023-10-18 15:19] VITALS: BP 116/76; PULSE 59; RESP 19; TEMP 36.1; O2SAT 96
[2023-10-18] MEDS: Acetaminophen 325 MG TABLET 650 MG PO (17:30)
[2023-10-18 19:28] VITALS: BP 127/65; PULSE 60; RESP 20; TEMP 36.2; O2SAT 96
[2023-10-18] MEDS: clonazePAM 0.5 MG TABLET PO (20:32)
[2023-10-18 23:46] VITALS: BP 110/58; PULSE 58; RESP 20; TEMP 36.8; O2SAT 96
[2023-10-19 03:48] VITALS: BP 129/60; PULSE 52; RESP 20; TEMP 36.8; O2SAT 96
[2023-10-19] MEDS: Docusate Sodium 100 MG CAPSULE PO (07:39)
[2023-10-19] MEDS: Sennosides/Docusate Sodium TABLET 1 TAB PO ×2 (07:40→20:23)
[2023-10-19] MEDS: Benztropine Mesylate 1 MG TABLET PO ×2 (07:40→20:23)
[2023-10-19 07:52] VITALS: BP 113/57; PULSE 54; RESP 18; TEMP 36.8; O2SAT 95
--- NOTE | 2023-10-19 11:05 | HO.PM.IMPN ---
Subjective Subjective Date of Service: 10/19/23 Interval History: She is doing well with no new complaint Review of Systems Denies chest pain Denies shortness of breath Denies nausea vomiting diarrhea Denies fever chills Constitutional Constitutional: Denies chills, Denies fever(s) and Reports headache(s) Eyes Eyes: Denies blurry vision ENT Ears, Nose, Mouth, and Throat: Reports headache(s) and Denies sore throat Cardiovascular Cardiovascular: Denies chest pain and Denies dyspnea Respiratory Respiratory: Denies cough and Denies dyspnea Gastrointestinal Gastrointestinal: Denies abdominal pain, Denies nausea and Denies vomiting Musculoskeletal Musculoskeletal: Denies back pain Integumentary/Breasts Skin/Breast: Denies rash Neurologic Neurologic: Reports headache(s) Physical Exam Vital Signs: Vital Signs: Last Vital Signs Temp 98.3 F 10/19/23 07:52 Pulse 54 10/19/23 07:52 Resp 18 10/19/23 07:52 BP 113/57 L 10/19/23 07:52 Pulse Ox 95 10/19/23 07:52 O2 Del Method Room Air 10/19/23 07:52 BMI result Body Mass Index 25.0 General: AO X 3, no acute distress Resp: CTA bilateral CVS: S1,S2,RRR GI: +BS, NT, no distention Skin: No rash Neuro: motor grossly intact Psych: appropriate affect Const: Other: Awake alert no acute distress Resp: Other: Clear to auscultation bilaterally no rales rhonchi or wheezes Cardio: Other: No S4; positive S1-S2; no S3 murmurs rubs gallops Extrem: Other: No edema bilaterally Objective Data Active Medications Acetaminophen (Acetaminophen 325 Mg Tablet) 650 mg PO Q6H PRN PRN Reason: pain, fever Last Admin: 10/18/23 17:30 Dose: 650 mg Documented By: SHIRLEY Benztropine Mesylate (Benztropine Mesylate 1 Mg Tablet) 1 mg PO BID [facility] Last Admin: 10/19/23 07:40 Dose: 1 mg Documented By: ESTHER Calcium Carbonate (Calcium Carbonate 750 Mg Tab.Chew) 750 mg PO Q6H PRN PRN Reason: Dyspepsia Last Admin: 10/17/23 19:43 Dose: 750 mg Documented By: KIM Docusate Sodium (Docusate Sodium 100 Mg Capsule) 100 mg PO BID [facility] Last Admin: 10/19/23 07:39 Dose: 100 mg Documented By: ESTHER Fluphenazine Decanoate (Fluphenazine Decanoate 25 Mg/Ml 5 Ml Vial) 50 mg IM Q28D [facility] Last Admin: 10/04/23 18:59 Dose: 50 mg Documented By: DAVE Fluticasone Propionate (Fluticasone Propionate Nasal 16 Gm [place]) 1 spray NOSTRIL-B ONCE [facility] Guaifenesin/Dextromethorphan (Guaifenesin Dm 600/30 1 Tab Tab.Er.12h) 1 tab PO BID PRN PRN Reason: congestion/cough Magnesium Hydroxide (Milk Of Magnesia 30 Ml Oral.Susp) 30 ml PO DAILY PRN PRN Reason: Constipation Last Admin: 10/16/23 14:52 Dose: 30 ml Documented By: JAGDISH Melatonin (Melatonin 3 Mg Tablet) 6 mg PO BEDTIME PRN PRN Reason: Insomnia Last Admin: 10/17/23 23:42 Dose: 6 mg Documented By: KIM Ondansetron HCl (Ondansetron Hcl 4 Mg/2 Ml Vial) 4 mg IVPUSH Q8H PRN PRN Reason: Nausea and Vomiting Polyethylene Glycol (Polyethylene Glycol 3350 17 Gm Powd.Pack) 17 gm PO DAILY PRN PRN Reason: Constipation Last Admin: 10/18/23 14:03 Dose: 17 gm Documented By: SHIRLEY Quetiapine Fumarate (Quetiapine Fumarate 50 Mg Tablet) 50 mg PO Q6H PRN PRN Reason: agitation/anxiety Last Admin: 10/18/23 20:32 Dose: 50 mg Documented By: LACEY Senna/Docusate Sodium (Sennosides/Docusate Sodium Tablet) 1 tab PO BID [facility] Last Admin: 10/19/23 07:40 Dose: 1 tab Documented By: ESTHER Labs 10/14/23 05:47 10/14/23 05:47 Assessment and Plan (1) Schizophrenia, paranoid type: Status: Acute Plan Pt is a 63-year-old female with a PMH significant for schizophrenia? who initially presented to the ED on 08/23/2023 for evaluation of delusional behavior. Medical workup has been negative for any acute concerns, and patient has been placed on physician observation in over flow since that time. Patient will be admitted to the hospital and brought to the medical floor while awaiting long-term placement. Schizophrenia, paranoid type, symptoms controlled, lucid, continue meds per Psych direction (Prolixin, cogentin) and seroquel PRN Patient otherwise has no acute or chronic medical conditions issues and just awaiting placement Full Code DVT Prophylaxis: Patient ambulatory need for inpt: awaiting for placement out of bed, ambulate Quality Stroke Does the patient have a stroke diagnosis?: No VTE Prior VTE?: No VTE Risk Level:: Medical - low VTE Device Contraindication: Treatment Not Indicated VTE Drug Contraindication: Treatment Not Indicated
--- NOTE | 2023-10-19 12:23 | P.CNPS_ITS ---
History of Present Illness Date of Service: 10/19/2023 Chief Complaint: Awaiting usp placement HPI Narrative: Interim Hx: pt mostly in bed. She appropriately express frustration about being here in the hospital with minimal interactions with others. She denies SI/HI. Less AH/VH. Her conversations are overall much more reality base although she questions validity of her dx schizophrenia. She reports she does not hear the spirits as much, nor her sister who was harassing her (pt would hear her here in the hospital when sister not present). She also questions need for prolixin as an antipsychotic as she states I've never been psychotic, that would be awful. She does report that she needs supports to function such as help with securing housing, managing finances and is in agreement with guardian and conservatorship. Pt does have some mild rigidity, will lower prolixin next dose to 25mg IM [id number]. Per RN, no aggression or agitation. Past Psychiatric History: Inpatient: [facility] 07/2023, 6 other admission in past year but unclear where OP: none Past medication trials: olanzapine, seroquel Diagnostics Vital Signs (24Hr): Vital Signs - 24 hr 10/18/23 15:19 10/18/23 19:28 10/18/23 23:46 Temperature 96.9 F 97.2 F 98.3 F Pulse Rate 59 60 58 Respiratory Rate 19 20 20 Blood Pressure 116/76 127/65 110/58 L Pulse Oximetry 96 96 96 Oxygen Delivery Method Room Air Room Air Room Air 10/19/23 03:48 10/19/23 07:52 Temperature 98.2 F 98.3 F Pulse Rate 52 54 Respiratory Rate 20 18 Blood Pressure 129/60 113/57 L Pulse Oximetry 96 95 Oxygen Delivery Method Room Air Room Air BMI result Body Mass Index 25.0 Labs 10/14/23 05:47 10/14/23 05:47 Mental Status Exam Mental Status Exam Narrative: Appearance: wearing hospital gown, fair hygiene, in NAD Behavior: cooperative. Psychomotor: no agitation or retardation noted Speech: clear, normal rate/rhythm/volume, spontaneous TP: mostly linear TC: waiting for a place to go VH/AH: denies Delusions: no overt delusions. Insight/judgment: improving x 2 Memory/cog: alert, oriented x 3. Medications Medications Current Medications Acetaminophen (Acetaminophen 325 Mg Tablet) 650 mg PO Q6H PRN PRN Reason: pain, fever Last Admin: 10/18/23 17:30 Dose: 650 mg Benztropine Mesylate (Benztropine Mesylate 1 Mg Tablet) 1 mg PO BID [facility] Last Admin: 10/19/23 07:40 Dose: 1 mg Calcium Carbonate (Calcium Carbonate 750 Mg Tab.Chew) 750 mg PO Q6H PRN PRN Reason: Dyspepsia Last Admin: 10/17/23 19:43 Dose: 750 mg Docusate Sodium (Docusate Sodium 100 Mg Capsule) 100 mg PO BID [facility] Last Admin: 10/19/23 07:39 Dose: 100 mg Fluphenazine Decanoate (Fluphenazine Decanoate 25 Mg/Ml 5 Ml Vial) 50 mg IM Q28D [facility] Last Admin: 10/04/23 18:59 Dose: 50 mg Fluticasone Propionate (Fluticasone Propionate Nasal 16 Gm [place]) 1 spray NOSTRIL-B ONCE [facility] Guaifenesin/Dextromethorphan (Guaifenesin Dm 600/30 1 Tab Tab.Er.12h) 1 tab PO BID PRN PRN Reason: congestion/cough Magnesium Hydroxide (Milk Of Magnesia 30 Ml Oral.Susp) 30 ml PO DAILY PRN PRN Reason: Constipation Last Admin: 10/16/23 14:52 Dose: 30 ml Melatonin (Melatonin 3 Mg Tablet) 6 mg PO BEDTIME PRN PRN Reason: Insomnia Last Admin: 10/17/23 23:42 Dose: 6 mg Ondansetron HCl (Ondansetron Hcl 4 Mg/2 Ml Vial) 4 mg IVPUSH Q8H PRN PRN Reason: Nausea and Vomiting Polyethylene Glycol (Polyethylene Glycol 3350 17 Gm Powd.Pack) 17 gm PO DAILY PRN PRN Reason: Constipation Last Admin: 10/18/23 14:03 Dose: 17 gm Quetiapine Fumarate (Quetiapine Fumarate 50 Mg Tablet) 50 mg PO Q6H PRN PRN Reason: agitation/anxiety Last Admin: 10/18/23 20:32 Dose: 50 mg Senna/Docusate Sodium (Sennosides/Docusate Sodium Tablet) 1 tab PO BID [facility] Last Admin: 10/19/23 07:40 Dose: 1 tab Allergies Allergies Allergy/AdvReac Type Severity Reaction Status Date / Time amoxicillin [From Augmentin] AdvReac Facial Verified 08/23/23 17:23 Swelling clavulanic acid AdvReac Facial Verified 08/23/23 17:23 [From Augmentin] Swelling Sulfa (Sulfonamide AdvReac Hives Verified 08/23/23 17:23 Antibiotics) sulfamethoxazole AdvReac Hives Verified 08/23/23 17:23 [From Bactrim] trimethoprim [From Bactrim] AdvReac Hives Verified 08/23/23 17:23 Assessment & Plan Assessment & Plan (1) Schizophrenia, paranoid type: Status: Acute Code(s): F20.0 - Paranoid schizophrenia Plan Pt is a 63-year-old female with a PMH significant for schizophrenia? who initially presented to the ED on 08/23/2023 for evaluation of delusional behavior. Medical workup has been negative for any acute concerns, and patient has been placed on physician observation in over flow since that time. Patient will be admitted to the hospital and brought to the medical floor while awaiting long- term placement. - will add trazodone for sleep 50mg po qhs- monitor dry mouth, carry over sedation next morning. I lowered next dose of Prolixin from 50mg IM to 25mg IM q28d due to persistent mild rigidity even with addition of cogentin. Next Prolixin dose is on 11/01/23. No cogwheel. Encourage Ms. Garcia to get out of bed, offer activities during the day. Total time managing care of this patient today ____ minutes. Patient educated on: diagnosis and medication risk/benefits
[2023-10-19] MEDS: Acetaminophen 325 MG TABLET 650 MG PO (14:25)
[2023-10-19] MEDS: QUEtiapine Fumarate 50 MG TABLET PO ×2 (14:25→20:26)
--- NOTE | 2023-10-19 14:36 | MHC.CM.PN ---
CHRISTIANO received a call today from pt.'s guardian, Tony Gracia, she has requested that referrals be submitted to SNF's that have mental health services and a secured unit. CM was looking at rest homes for pt., guardian said no to this, that pt must be in secured unit. CM will submit referrals to SNFs requested and gave guardian my email if she has more facilities that she would like us to refer to.
[2023-10-19 16:00] VITALS: BP 108/66; PULSE 58; RESP 16; TEMP 36.6; O2SAT 96
[2023-10-19 19:12] VITALS: BP 111/58; PULSE 54; RESP 20; TEMP 36.6; O2SAT 97
[2023-10-19] MEDS: Melatonin 3 MG TABLET 6 MG PO (20:25)
[2023-10-20] MEDS: traZODone HCL 50 MG TABLET PO ×2 (00:45→20:08)
[2023-10-20 03:31] VITALS: BP 109/59; PULSE 50; RESP 20; TEMP 36.8; O2SAT 95
[2023-10-20] MEDS: Sennosides/Docusate Sodium TABLET 1 TAB PO ×2 (07:48→20:08)
[2023-10-20] MEDS: Benztropine Mesylate 1 MG TABLET PO ×2 (07:49→20:08)
[2023-10-20 07:50] VITALS: BP 137/60; PULSE 52; RESP 16; TEMP 36; O2SAT 96
--- NOTE | 2023-10-20 11:58 | P.PNIM_ITS ---
Subjective Subjective Date of Service: 10/20/23 Interval History: No new issues Physical Exam 2 Vital Signs: Vital Signs: Last Vital Signs Temp 96.8 F 10/20/23 07:50 Pulse 52 10/20/23 07:50 Resp 16 10/20/23 07:50 BP 137/60 10/20/23 07:50 Pulse Ox 96 10/20/23 07:50 O2 Del Method Room Air 10/20/23 07:50 BMI result Body Mass Index 25.0 General: AO X 3, no acute distress Resp: CTA bilateral CVS: S1,S2,RRR GI: +BS, NT, no distention Skin: No rash Neuro: motor grossly intact Psych: appropriate affect Objective Data Active Medications Acetaminophen (Acetaminophen 325 Mg Tablet) 650 mg PO Q6H PRN PRN Reason: pain, fever Last Admin: 10/19/23 14:25 Dose: 650 mg Documented By: ESTHER Benztropine Mesylate (Benztropine Mesylate 1 Mg Tablet) 1 mg PO BID [facility] Last Admin: 10/20/23 07:49 Dose: 1 mg Documented By: LAUREL Calcium Carbonate (Calcium Carbonate 750 Mg Tab.Chew) 750 mg PO Q6H PRN PRN Reason: Dyspepsia Last Admin: 10/17/23 19:43 Dose: 750 mg Documented By: KIM Fluphenazine Decanoate (Fluphenazine Decanoate 25 Mg/Ml 5 Ml Vial) 25 mg IM Q28D [facility] Fluticasone Propionate (Fluticasone Propionate Nasal 16 Gm [place]) 1 spray NOSTRIL-B ONCE [facility] Guaifenesin/Dextromethorphan (Guaifenesin Dm 600/30 1 Tab Tab.Er.12h) 1 tab PO BID PRN PRN Reason: congestion/cough Magnesium Hydroxide (Milk Of Magnesia 30 Ml Oral.Susp) 30 ml PO DAILY PRN PRN Reason: Constipation Last Admin: 10/16/23 14:52 Dose: 30 ml Documented By: JAGDISH Melatonin (Melatonin 3 Mg Tablet) 6 mg PO BEDTIME [facility] Last Admin: 10/19/23 20:25 Dose: 6 mg Documented By: LACEY Ondansetron HCl (Ondansetron Hcl 4 Mg/2 Ml Vial) 4 mg IVPUSH Q8H PRN PRN Reason: Nausea and Vomiting Polyethylene Glycol (Polyethylene Glycol 3350 17 Gm Powd.Pack) 17 gm PO DAILY PRN PRN Reason: Constipation Last Admin: 10/18/23 14:03 Dose: 17 gm Documented By: SHIRLEY Quetiapine Fumarate (Quetiapine Fumarate 50 Mg Tablet) 50 mg PO Q6H PRN PRN Reason: agitation/anxiety Last Admin: 10/19/23 20:26 Dose: 50 mg Documented By: LACEY Senna/Docusate Sodium (Sennosides/Docusate Sodium Tablet) 1 tab PO BID [facility] Last Admin: 10/20/23 07:48 Dose: 1 tab Documented By: LAUREL Trazodone HCl (Trazodone Hcl 50 Mg Tablet) 50 mg PO BEDTIME [facility] Last Admin: 10/20/23 00:45 Dose: 50 mg Documented By: LACEY Labs 10/14/23 05:47 10/14/23 05:47 Assessment and Plan (1) Schizophrenia, paranoid type: Status: Acute Plan Pt is a 63-year-old female with a PMH significant for schizophrenia? who initially presented to the ED on 08/23/2023 for evaluation of delusional behavior. Medical workup has been negative for any acute concerns, and patient has been placed on physician observation in over flow since that time. Patient will be admitted to the hospital and brought to the medical floor while awaiting long- term placement. essentially no changes Schizophrenia, paranoid type, symptoms controlled, lucid, continue meds per Psych direction (Prolixin, cogentin) and seroquel PRN or further adjustment per Psych Patient otherwise has no acute or chronic medical conditions issues and just awaiting placement Full Code DVT Prophylaxis: Patient ambulatory need for inpt: awaiting for placement out of bed, ambulate Quality Stroke Does the patient have a stroke diagnosis?: No VTE Prior VTE?: No VTE Risk Level:: Medical - low VTE Device Contraindication: Treatment Not Indicated VTE Drug Contraindication: Treatment Not Indicated
[2023-10-20 16:00] VITALS: BP 128/64; PULSE 58; RESP 16; TEMP 36.8; O2SAT 96
[2023-10-20 19:29] VITALS: BP 119/70; PULSE 67; RESP 20; TEMP 36.2; O2SAT 97
[2023-10-20] MEDS: Melatonin 3 MG TABLET 6 MG PO (20:08)
[2023-10-20 23:04] VITALS: BP 113/55; PULSE 54; RESP 20; TEMP 36.7; O2SAT 96
[2023-10-21 03:07] VITALS: BP 121/58; PULSE 52; RESP 20; TEMP 36.4; O2SAT 97
[2023-10-21 08:00] VITALS: BP 106/66; PULSE 60; RESP 20; TEMP 36.2; O2SAT 96
[2023-10-21] MEDS: Benztropine Mesylate 1 MG TABLET PO ×2 (09:46→20:25)
[2023-10-21] MEDS: Sennosides/Docusate Sodium TABLET 1 TAB PO ×2 (09:46→20:25)
--- NOTE | 2023-10-21 11:36 | P.PNIM_ITS ---
Subjective Subjective Date of Service: 10/21/23 Interval History: No new issues, doing well Physical Exam 2 Vital Signs: Vital Signs: Last Vital Signs Temp 97.2 F 10/21/23 08:00 Pulse 60 10/21/23 08:00 Resp 20 10/21/23 08:00 BP 106/66 10/21/23 08:00 Pulse Ox 96 10/21/23 08:00 O2 Del Method Room Air 10/21/23 08:00 BMI result Body Mass Index 25.0 General: AO X 3, no acute distress Resp: CTA bilateral CVS: S1,S2,RRR GI: +BS, NT, no distention Skin: No rash Neuro: motor grossly intact Psych: appropriate affect Objective Data Active Medications Acetaminophen (Acetaminophen 325 Mg Tablet) 650 mg PO Q6H PRN PRN Reason: pain, fever Last Admin: 10/19/23 14:25 Dose: 650 mg Documented By: ESTHER Benztropine Mesylate (Benztropine Mesylate 1 Mg Tablet) 1 mg PO BID [facility] Last Admin: 10/21/23 09:46 Dose: 1 mg Documented By: CINTHYA Calcium Carbonate (Calcium Carbonate 750 Mg Tab.Chew) 750 mg PO Q6H PRN PRN Reason: Dyspepsia Last Admin: 10/17/23 19:43 Dose: 750 mg Documented By: KIM Fluphenazine Decanoate (Fluphenazine Decanoate 25 Mg/Ml 5 Ml Vial) 25 mg IM Q28D [facility] Fluticasone Propionate (Fluticasone Propionate Nasal 16 Gm [place]) 1 spray NOSTRIL-B ONCE [facility] Guaifenesin/Dextromethorphan (Guaifenesin Dm 600/30 1 Tab Tab.Er.12h) 1 tab PO BID PRN PRN Reason: congestion/cough Magnesium Hydroxide (Milk Of Magnesia 30 Ml Oral.Susp) 30 ml PO DAILY PRN PRN Reason: Constipation Last Admin: 10/16/23 14:52 Dose: 30 ml Documented By: JAGDISH Melatonin (Melatonin 3 Mg Tablet) 6 mg PO BEDTIME [facility] Last Admin: 10/20/23 20:08 Dose: 6 mg Documented By: AMINA Ondansetron HCl (Ondansetron Hcl 4 Mg/2 Ml Vial) 4 mg IVPUSH Q8H PRN PRN Reason: Nausea and Vomiting Polyethylene Glycol (Polyethylene Glycol 3350 17 Gm Powd.Pack) 17 gm PO DAILY PRN PRN Reason: Constipation Last Admin: 10/18/23 14:03 Dose: 17 gm Documented By: SHIRLEY Quetiapine Fumarate (Quetiapine Fumarate 50 Mg Tablet) 50 mg PO Q6H PRN PRN Reason: agitation/anxiety Last Admin: 10/19/23 20:26 Dose: 50 mg Documented By: LACEY Senna/Docusate Sodium (Sennosides/Docusate Sodium Tablet) 1 tab PO BID [facility] Last Admin: 10/21/23 09:46 Dose: 1 tab Documented By: CINTHYA Trazodone HCl (Trazodone Hcl 50 Mg Tablet) 50 mg PO BEDTIME [facility] Last Admin: 10/20/23 20:08 Dose: 50 mg Documented By: ANDERM Labs 10/14/23 05:47 10/14/23 05:47 Assessment and Plan (1) Schizophrenia, paranoid type: Status: Acute Plan Pt is a 63-year-old female with a PMH significant for schizophrenia? who initially presented to the ED on 08/23/2023 for evaluation of delusional behavior. Medical workup has been negative for any acute concerns, and patient has been placed on physician observation in over flow since that time. Patient will be admitted to the hospital and brought to the medical floor while awaiting long- term placement. essentially no changes in care at this time Schizophrenia, paranoid type, symptoms controlled, lucid, continue meds per Psych direction (Prolixin, cogentin, Trazadone at hs) and or further adjustment per Psych Patient otherwise has no acute or chronic medical conditions issues and just awaiting placement Full Code DVT Prophylaxis: Patient ambulatory need for inpt: awaiting for placement out of bed, ambulate Quality Stroke Does the patient have a stroke diagnosis?: No VTE Prior VTE?: No VTE Risk Level:: Medical - low VTE Device Contraindication: Treatment Not Indicated VTE Drug Contraindication: Treatment Not Indicated
[2023-10-21 15:55] VITALS: BP 134/62; PULSE 57; RESP 20; TEMP 36.9; O2SAT 97
[2023-10-21] MEDS: Melatonin 3 MG TABLET 6 MG PO (20:25)
[2023-10-21] MEDS: traZODone HCL 50 MG TABLET PO (20:25)
[2023-10-21 20:30] VITALS: BP 133/63; PULSE 57; RESP 20; TEMP 36.3; O2SAT 96
[2023-10-21 23:04] VITALS: BP 111/58; PULSE 54; RESP 20; TEMP 36.5; O2SAT 97
[2023-10-22 03:34] VITALS: BP 126/67; PULSE 59; RESP 20; TEMP 37; O2SAT 97
[2023-10-22 08:00] VITALS: BP 122/70; PULSE 65; RESP 16; TEMP 36.4; O2SAT 97
[2023-10-22] MEDS: Benztropine Mesylate 1 MG TABLET PO ×2 (09:04→20:42)
[2023-10-22] MEDS: Sennosides/Docusate Sodium TABLET 1 TAB PO ×2 (09:04→20:42)
[2023-10-22 11:17] VITALS: BP 123/82; PULSE 55; RESP 20; TEMP 36.9; O2SAT 97
[2023-10-22] MEDS: Calcium Carbonate 750 MG TAB.CHEW PO (14:46)
[2023-10-22 15:45] VITALS: BP 133/76; PULSE 60; RESP 18; TEMP 36.6; O2SAT 95
[2023-10-22] MEDS: Magnesium Hydrox/Alum Hydrox 30 ML ORAL.SUSP PO (17:06)
[2023-10-22 19:24] VITALS: BP 139/66; PULSE 54; RESP 18; TEMP 36.6; O2SAT 96
[2023-10-22] MEDS: Melatonin 3 MG TABLET 6 MG PO (20:42)
[2023-10-22] MEDS: traZODone HCL 50 MG TABLET PO (20:42)
[2023-10-23 03:28] VITALS: BP 118/56; PULSE 51; RESP 18; TEMP 36.6; O2SAT 95
[2023-10-23] MEDS: Magnesium Hydrox/Alum Hydrox 30 ML ORAL.SUSP PO ×3 (04:05→19:45)
[2023-10-23] MEDS: Benztropine Mesylate 1 MG TABLET PO ×2 (07:48→19:45)
[2023-10-23] MEDS: Sennosides/Docusate Sodium TABLET 1 TAB PO ×2 (07:48→19:45)
[2023-10-23 08:00] VITALS: BP 137/75; PULSE 52; RESP 20; TEMP 36.4; O2SAT 95
--- NOTE | 2023-10-23 10:49 | HO.PM.IMPN ---
Subjective Subjective Date of Service: 10/23/23 Interval History: doing well, no new issues Physical Exam Vital Signs: Vital Signs: Last Vital Signs Temp 97.6 F 10/23/23 08:00 Pulse 52 10/23/23 08:00 Resp 20 10/23/23 08:00 BP 137/75 10/23/23 08:00 Pulse Ox 95 10/23/23 08:00 O2 Del Method Room Air 10/23/23 08:00 BMI result Body Mass Index 25.0 General: AO X 3, no acute distress Resp: CTA bilateral CVS: S1,S2,RRR GI: +BS, NT, no distention Skin: No rash Neuro: motor grossly intact Psych: appropriate affect Objective Data Active Medications Acetaminophen (Acetaminophen 325 Mg Tablet) 650 mg PO Q6H PRN PRN Reason: pain, fever Last Admin: 10/19/23 14:25 Dose: 650 mg Documented By: ESTHER Al Hydroxide/Mg Hydroxide (Magnesium Hydrox/Alum Hydrox 30 Ml Oral.Susp) 30 ml PO Q6H PRN PRN Reason: Dyspepsia Last Admin: 10/23/23 04:05 Dose: 30 ml Documented By: KIM Benztropine Mesylate (Benztropine Mesylate 1 Mg Tablet) 1 mg PO BID [facility] Last Admin: 10/23/23 07:48 Dose: 1 mg Documented By: LAUREL Calcium Carbonate (Calcium Carbonate 750 Mg Tab.Chew) 750 mg PO Q6H PRN PRN Reason: Dyspepsia Last Admin: 10/22/23 14:46 Dose: 750 mg Documented By: BRIANNA Fluphenazine Decanoate (Fluphenazine Decanoate 25 Mg/Ml 5 Ml Vial) 25 mg IM Q28D [facility] Fluticasone Propionate (Fluticasone Propionate Nasal 16 Gm [employer]) 1 spray NOSTRIL-B ONCE [facility] Guaifenesin/Dextromethorphan (Guaifenesin Dm 600/30 1 Tab Tab.Er.12h) 1 tab PO BID PRN PRN Reason: congestion/cough Magnesium Hydroxide (Milk Of Magnesia 30 Ml Oral.Susp) 30 ml PO DAILY PRN PRN Reason: Constipation Last Admin: 10/16/23 14:52 Dose: 30 ml Documented By: JAGDISH Melatonin (Melatonin 3 Mg Tablet) 6 mg PO BEDTIME [facility] Last Admin: 10/22/23 20:42 Dose: 6 mg Documented By: KIM Ondansetron HCl (Ondansetron Hcl 4 Mg/2 Ml Vial) 4 mg IVPUSH Q8H PRN PRN Reason: Nausea and Vomiting Polyethylene Glycol (Polyethylene Glycol 3350 17 Gm Powd.Pack) 17 gm PO DAILY PRN PRN Reason: Constipation Last Admin: 10/18/23 14:03 Dose: 17 gm Documented By: SHIRLEY Quetiapine Fumarate (Quetiapine Fumarate 50 Mg Tablet) 50 mg PO Q6H PRN PRN Reason: agitation/anxiety Last Admin: 10/19/23 20:26 Dose: 50 mg Documented By: LACEY Senna/Docusate Sodium (Sennosides/Docusate Sodium Tablet) 1 tab PO BID [facility] Last Admin: 10/23/23 07:48 Dose: 1 tab Documented By: LAUREL Trazodone HCl (Trazodone Hcl 50 Mg Tablet) 50 mg PO BEDTIME [facility] Last Admin: 10/22/23 20:42 Dose: 50 mg Documented By: KIM Labs 10/14/23 05:47 10/14/23 05:47 Assessment and Plan (1) Schizophrenia, paranoid type: Status: Acute Plan Pt is a 63-year-old female with a PMH significant for schizophrenia? who initially presented to the ED on 08/23/2023 for evaluation of delusional behavior. Medical workup has been negative for any acute concerns, and patient has been placed on physician observation in over flow since that time. Patient will be admitted to the hospital and brought to the medical floor while awaiting long-term placement. essentially no changes in care at this time Schizophrenia, paranoid type, symptoms controlled, lucid, continue meds per Psych direction (Prolixin, cogentin, Trazadone at hs) and or further adjustment per Psych Patient otherwise has no acute or chronic medical conditions issues and just awaiting placement Full Code DVT Prophylaxis: Patient ambulatory need for inpt: awaiting for placement out of bed, ambulate Quality Stroke Does the patient have a stroke diagnosis?: No VTE Prior VTE?: No VTE Risk Level:: Medical - low VTE Device Contraindication: Treatment Not Indicated VTE Drug Contraindication: Treatment Not Indicated
[2023-10-23 11:16] VITALS: BP 126/70; PULSE 55; RESP 20; TEMP 36.5; O2SAT 94
--- NOTE | 2023-10-23 11:21 | MHC.CM.PN ---
EMR REVIEWED, CM DIRECTOR STILL AWAITING COURT DATE FOR CONSERVATORSHIP, PER PREVIOUS CM NOTES PER DAJAAN FARAZ MILES PT WILL NEED SECURE UNIT AND WOULD LIKE FACILITY W/PSYCH SERVICES, CM HAS UPDATED AND EXPANDED REFERRAL, CM WILL CONT TO FOLLOW DC NEEDS.
[2023-10-23 15:17] VITALS: BP 136/74; PULSE 59; RESP 20; TEMP 36.7; O2SAT 96
[2023-10-23 19:06] VITALS: BP 131/64; PULSE 57; RESP 20; TEMP 36.1; O2SAT 97
[2023-10-23] MEDS: Melatonin 3 MG TABLET 6 MG PO (19:44)
[2023-10-23] MEDS: traZODone HCL 50 MG TABLET PO (19:45)
[2023-10-23 23:21] VITALS: BP 129/58; PULSE 53; RESP 16; TEMP 36.2; O2SAT 94
[2023-10-23] MEDS: Calcium Carbonate 750 MG TAB.CHEW PO (23:34)
[2023-10-24 07:24] VITALS: BP 121/59; PULSE 54; RESP 18; TEMP 36.6; O2SAT 94
[2023-10-24] MEDS: Sennosides/Docusate Sodium TABLET 1 TAB PO ×2 (08:14→20:36)
[2023-10-24] MEDS: Acetaminophen 325 MG TABLET 650 MG PO (08:14)
[2023-10-24] MEDS: Benztropine Mesylate 1 MG TABLET PO ×2 (08:14→20:36)
[2023-10-24] MEDS: Magnesium Hydrox/Alum Hydrox 30 ML ORAL.SUSP PO (08:14)
--- NOTE | 2023-10-24 10:15 | P.PNIM_ITS ---
Subjective Subjective Date of Service: 10/24/23 Interval History: doing well, no new issues, inquiring about when she can go Physical Exam 2 Vital Signs: Vital Signs: Last Vital Signs Temp 97.8 F 10/24/23 07:24 Pulse 54 10/24/23 07:24 Resp 18 10/24/23 07:24 BP 121/59 L 10/24/23 07:24 Pulse Ox 94 10/24/23 07:24 O2 Del Method Room Air 10/24/23 07:24 BMI result Body Mass Index 25.0 General: AO X 3, no acute distress Resp: CTA bilateral CVS: S1,S2,RRR GI: +BS, NT, no distention Skin: No rash Neuro: motor grossly intact Psych: appropriate affect Objective Data Active Medications Acetaminophen (Acetaminophen 325 Mg Tablet) 650 mg PO Q6H PRN PRN Reason: pain, fever Last Admin: 10/24/23 08:14 Dose: 650 mg Documented By: ESTHER Al Hydroxide/Mg Hydroxide (Magnesium Hydrox/Alum Hydrox 30 Ml Oral.Susp) 30 ml PO Q6H PRN PRN Reason: Dyspepsia Last Admin: 10/24/23 08:14 Dose: 30 ml Documented By: ESTHER Benztropine Mesylate (Benztropine Mesylate 1 Mg Tablet) 1 mg PO BID [facility] Last Admin: 10/24/23 08:14 Dose: 1 mg Documented By: ESTHER Calcium Carbonate (Calcium Carbonate 750 Mg Tab.Chew) 750 mg PO Q6H PRN PRN Reason: Dyspepsia Last Admin: 10/23/23 23:34 Dose: 750 mg Fluphenazine Decanoate (Fluphenazine Decanoate 25 Mg/Ml 5 Ml Vial) 25 mg IM Q28D [facility] Fluticasone Propionate (Fluticasone Propionate Nasal 16 Gm [place]) 1 spray NOSTRIL-B ONCE [facility] Guaifenesin/Dextromethorphan (Guaifenesin Dm 600/30 1 Tab Tab.Er.12h) 1 tab PO BID PRN PRN Reason: congestion/cough Magnesium Hydroxide (Milk Of Magnesia 30 Ml Oral.Susp) 30 ml PO DAILY PRN PRN Reason: Constipation Last Admin: 10/16/23 14:52 Dose: 30 ml Documented By: JAGDISH Melatonin (Melatonin 3 Mg Tablet) 6 mg PO BEDTIME [facility] Last Admin: 10/23/23 19:44 Dose: 6 mg Documented By: KIM Ondansetron HCl (Ondansetron Hcl 4 Mg/2 Ml Vial) 4 mg IVPUSH Q8H PRN PRN Reason: Nausea and Vomiting Polyethylene Glycol (Polyethylene Glycol 3350 17 Gm Powd.Pack) 17 gm PO DAILY PRN PRN Reason: Constipation Last Admin: 10/18/23 14:03 Dose: 17 gm Documented By: SHILREY Quetiapine Fumarate (Quetiapine Fumarate 50 Mg Tablet) 50 mg PO Q6H PRN PRN Reason: agitation/anxiety Last Admin: 10/19/23 20:26 Dose: 50 mg Documented By: LACEY Senna/Docusate Sodium (Sennosides/Docusate Sodium Tablet) 1 tab PO BID [facility] Last Admin: 10/24/23 08:14 Dose: 1 tab Documented By: ESTHER Trazodone HCl (Trazodone Hcl 50 Mg Tablet) 50 mg PO BEDTIME [facility] Last Admin: 10/23/23 19:45 Dose: 50 mg Documented By: KIM Labs 10/14/23 05:47 10/14/23 05:47 Assessment and Plan (1) Schizophrenia, paranoid type: Status: Acute Plan Pt is a 63-year-old female with a PMH significant for schizophrenia? who initially presented to the ED on 08/23/2023 for evaluation of delusional behavior. Medical workup has been negative for any acute concerns, and patient has been placed on physician observation in over flow since that time. Patient will be admitted to the hospital and brought to the medical floor while awaiting long- term placement. essentially no changes in care at this time Schizophrenia, paranoid type, symptoms controlled, lucid, continue meds per Psych direction (Prolixin, cogentin, Trazadone at hs) and or further adjustment per Psych Patient otherwise has no acute or chronic medical conditions issues and just awaiting placement Full Code DVT Prophylaxis: Patient ambulatory need for inpt: awaiting for placement out of bed, ambulate Ongoing daily discussion with CM Quality Stroke Does the patient have a stroke diagnosis?: No VTE Prior VTE?: No VTE Risk Level:: Medical - low VTE Device Contraindication: Treatment Not Indicated VTE Drug Contraindication: Treatment Not Indicated
[2023-10-24] MEDS: QUEtiapine Fumarate 50 MG TABLET PO ×2 (10:25→18:51)
[2023-10-24 15:53] VITALS: BP 123/60; PULSE 72; RESP 16; TEMP 36.4; O2SAT 99
[2023-10-24 19:34] VITALS: BP 141/65; PULSE 62; RESP 18; TEMP 36.8; O2SAT 94
[2023-10-24] MEDS: traZODone HCL 50 MG TABLET PO (20:36)
[2023-10-24] MEDS: Melatonin 3 MG TABLET 6 MG PO (20:36)
[2023-10-25 03:25] VITALS: BP 121/57; PULSE 51; RESP 16; TEMP 36.2; O2SAT 95
[2023-10-25 07:38] VITALS: BP 135/78; PULSE 62; RESP 20; TEMP 36.1; O2SAT 95
[2023-10-25] MEDS: QUEtiapine Fumarate 50 MG TABLET PO ×2 (07:43→19:04)
[2023-10-25] MEDS: Benztropine Mesylate 1 MG TABLET PO ×2 (07:43→19:24)
[2023-10-25] MEDS: Sennosides/Docusate Sodium TABLET 1 TAB PO ×2 (07:43→19:24)
--- NOTE | 2023-10-25 10:17 | HO.PM.IMPN ---
Subjective Subjective Date of Service: 10/25/23 Interval History: Seen and evaluated this morning feels comfortable overall no reported events overnight Review of Systems Review of Systems: Yes all other systems are reviewed and are negative Physical Exam Vital Signs: Vital Signs: Last Vital Signs Temp 96.9 F 10/25/23 07:38 Pulse 62 10/25/23 07:38 Resp 20 10/25/23 07:38 BP 135/78 10/25/23 07:38 Pulse Ox 95 10/25/23 07:38 O2 Del Method Room Air 10/25/23 07:38 BMI result Body Mass Index 25.0 Const: Other: Constitutional : Awake, interactive, not in distress Neck : Normal inspection, Supple Cardiovascular : no JVP, no lower extremity edema Skin : Warm, Dry Neurological : Alert & oriented to self and place, No focal deficit Objective Data Active Medications Acetaminophen (Acetaminophen 325 Mg Tablet) 650 mg PO Q6H PRN PRN Reason: pain, fever Last Admin: 10/24/23 08:14 Dose: 650 mg Documented By: ESTHER Al Hydroxide/Mg Hydroxide (Magnesium Hydrox/Alum Hydrox 30 Ml Oral.Susp) 30 ml PO Q6H PRN PRN Reason: Dyspepsia Last Admin: 10/24/23 08:14 Dose: 30 ml Documented By: ESTHER Benztropine Mesylate (Benztropine Mesylate 1 Mg Tablet) 1 mg PO BID [facility] Last Admin: 10/25/23 07:43 Dose: 1 mg Documented By: ESTHER Calcium Carbonate (Calcium Carbonate 750 Mg Tab.Chew) 750 mg PO Q6H PRN PRN Reason: Dyspepsia Last Admin: 10/23/23 23:34 Dose: 750 mg Fluphenazine Decanoate (Fluphenazine Decanoate 25 Mg/Ml 5 Ml Vial) 25 mg IM Q28D [facility] Fluticasone Propionate (Fluticasone Propionate Nasal 16 Gm [place]) 1 spray NOSTRIL-B ONCE [facility] Guaifenesin/Dextromethorphan (Guaifenesin Dm 600/30 1 Tab Tab.Er.12h) 1 tab PO BID PRN PRN Reason: congestion/cough Magnesium Hydroxide (Milk Of Magnesia 30 Ml Oral.Susp) 30 ml PO DAILY PRN PRN Reason: Constipation Last Admin: 10/16/23 14:52 Dose: 30 ml Documented By: JAGDISH Melatonin (Melatonin 3 Mg Tablet) 6 mg PO BEDTIME [facility] Last Admin: 10/24/23 20:36 Dose: 6 mg Documented By: TIESHA Ondansetron HCl (Ondansetron Hcl 4 Mg/2 Ml Vial) 4 mg IVPUSH Q8H PRN PRN Reason: Nausea and Vomiting Polyethylene Glycol (Polyethylene Glycol 3350 17 Gm Powd.Pack) 17 gm PO DAILY PRN PRN Reason: Constipation Last Admin: 10/18/23 14:03 Dose: 17 gm Documented By: SHIRLEY Quetiapine Fumarate (Quetiapine Fumarate 50 Mg Tablet) 50 mg PO Q6H PRN PRN Reason: agitation/anxiety Last Admin: 10/25/23 07:43 Dose: 50 mg Documented By: ESTHER Senna/Docusate Sodium (Sennosides/Docusate Sodium Tablet) 1 tab PO BID [facility] Last Admin: 10/25/23 07:43 Dose: 1 tab Documented By: ESTHER Trazodone HCl (Trazodone Hcl 50 Mg Tablet) 50 mg PO BEDTIME [facility] Last Admin: 10/24/23 20:36 Dose: 50 mg Documented By: TIESHA Labs 10/14/23 05:47 10/14/23 05:47 Assessment and Plan (1) Schizophrenia, paranoid type: Status: Acute Plan Pt is a 63-year-old female with a PMH significant for schizophrenia? who initially presented to the ED on 08/23/2023 for evaluation of delusional behavior. Medical workup has been negative for any acute concerns, and patient has been placed on physician observation in over flow since that time. Patient will be admitted to the hospital and brought to the medical floor while awaiting long-term placement. essentially no changes in care at this time Schizophrenia, paranoid type, symptoms controlled, lucid, continue meds per Psych direction (Prolixin, cogentin, Trazadone at hs) and or further adjustment per Psych Patient otherwise has no acute or chronic medical conditions issues and just awaiting placement Full Code DVT Prophylaxis: Patient ambulatory need for inpt: awaiting for placement out of bed, ambulate Ongoing daily discussion with CM Quality Stroke Does the patient have a stroke diagnosis?: No VTE Prior VTE?: No VTE Risk Level:: Medical - low VTE Device Contraindication: Treatment Not Indicated VTE Drug Contraindication: Treatment Not Indicated
--- NOTE | 2023-10-25 15:14 | MHC.CM.PN ---
EMR reviewed and per MD rounds, pt remains medically cleared for D/C, but unable to due to awaiting date for conservatorship. This CM met with pt to discuss per her request.
[2023-10-25 15:37] VITALS: BP 129/74; PULSE 58; RESP 16; TEMP 36.6; O2SAT 97
[2023-10-25 19:00] VITALS: BP 130/70; PULSE 71; RESP 20; TEMP 36.6; O2SAT 92
[2023-10-25] MEDS: traZODone HCL 50 MG TABLET PO (19:24)
[2023-10-25] MEDS: Melatonin 3 MG TABLET 6 MG PO (19:24)
[2023-10-26] MEDS: QUEtiapine Fumarate 50 MG TABLET PO ×2 (05:28→12:12)
[2023-10-26 07:22] VITALS: BP 111/66; PULSE 56; RESP 20; TEMP 36.9; O2SAT 97
[2023-10-26] MEDS: Sennosides/Docusate Sodium TABLET 1 TAB PO (08:00)
[2023-10-26] MEDS: Acetaminophen 325 MG TABLET 650 MG PO (08:00)
[2023-10-26] MEDS: Benztropine Mesylate 1 MG TABLET PO ×2 (08:00→21:22)
--- NOTE | 2023-10-26 15:28 | MHC.CM.PN ---
CM contacted both [facility] [place]) and [place] [facility] to see if Pt. was connected with them, had a showcase maker who could help with DC planning. Both offices said that she is not listed with them. CM gathering a list of [place] SNF's with locked units to refer pt when finances / conservator is in place.
[2023-10-26 15:36] VITALS: BP 131/86; PULSE 60; RESP 18; TEMP 36.6; O2SAT 96
--- NOTE | 2023-10-26 15:59 | P.PNIM_ITS ---
Subjective Subjective Date of Service: 10/26/23 Interval History: Seen and evaluated this morning feels comfortable overall no reported events overnight Physical Exam 2 Vital Signs: Vital Signs: Last Vital Signs Temp 97.9 F 10/26/23 15:36 Pulse 60 10/26/23 15:36 Resp 18 10/26/23 15:36 BP 131/86 10/26/23 15:36 Pulse Ox 96 10/26/23 15:36 O2 Del Method Room Air 10/26/23 15:36 BMI result Body Mass Index 25.0 Const: Other: Constitutional : Awake, interactive, not in distress Neck : Normal inspection, Supple Cardiovascular : no JVP, no lower extremity edema Skin : Warm, Dry Neurological : Alert & oriented to self and place, No focal deficit Objective Data Active Medications Acetaminophen (Acetaminophen 325 Mg Tablet) 650 mg PO Q6H PRN PRN Reason: pain, fever Last Admin: 10/26/23 08:00 Dose: 650 mg Documented By: ESTHER Al Hydroxide/Mg Hydroxide (Magnesium Hydrox/Alum Hydrox 30 Ml Oral.Susp) 30 ml PO Q6H PRN PRN Reason: Dyspepsia Last Admin: 10/24/23 08:14 Dose: 30 ml Documented By: ESTHER Benztropine Mesylate (Benztropine Mesylate 1 Mg Tablet) 1 mg PO BID [facility] Last Admin: 10/26/23 08:00 Dose: 1 mg Documented By: ESTHER Calcium Carbonate (Calcium Carbonate 750 Mg Tab.Chew) 750 mg PO Q6H PRN PRN Reason: Dyspepsia Last Admin: 10/23/23 23:34 Dose: 750 mg Fluphenazine Decanoate (Fluphenazine Decanoate 25 Mg/Ml 5 Ml Vial) 25 mg IM Q28D [facility] Fluticasone Propionate (Fluticasone Propionate Nasal 16 Gm [place]) 1 spray NOSTRIL-B ONCE [facility] Guaifenesin/Dextromethorphan (Guaifenesin Dm 600/30 1 Tab Tab.Er.12h) 1 tab PO BID PRN PRN Reason: congestion/cough Magnesium Hydroxide (Milk Of Magnesia 30 Ml Oral.Susp) 30 ml PO DAILY PRN PRN Reason: Constipation Last Admin: 10/16/23 14:52 Dose: 30 ml Documented By: JAGDISH Melatonin (Melatonin 3 Mg Tablet) 6 mg PO BEDTIME [facility] Last Admin: 10/25/23 19:24 Dose: 6 mg Documented By: VLADISLAV Ondansetron HCl (Ondansetron Hcl 4 Mg/2 Ml Vial) 4 mg IVPUSH Q8H PRN PRN Reason: Nausea and Vomiting Polyethylene Glycol (Polyethylene Glycol 3350 17 Gm Powd.Pack) 17 gm PO DAILY PRN PRN Reason: Constipation Last Admin: 10/18/23 14:03 Dose: 17 gm Documented By: SHIRLEY Quetiapine Fumarate (Quetiapine Fumarate 50 Mg Tablet) 50 mg PO Q6H PRN PRN Reason: agitation/anxiety Last Admin: 10/26/23 12:12 Dose: 50 mg Documented By: ESTHER Senna/Docusate Sodium (Sennosides/Docusate Sodium Tablet) 1 tab PO BID [facility] Last Admin: 10/26/23 08:00 Dose: 1 tab Documented By: ESTHER Trazodone HCl (Trazodone Hcl 50 Mg Tablet) 50 mg PO BEDTIME [facility] Last Admin: 10/25/23 19:24 Dose: 50 mg Documented By: VLADISLAV Labs 10/14/23 05:47 10/14/23 05:47 Assessment and Plan (1) Schizophrenia, paranoid type: Status: Acute Plan Pt is a 63-year-old female with a PMH significant for schizophrenia? who initially presented to the ED on 08/23/2023 for evaluation of delusional behavior. Medical workup has been negative for any acute concerns, and patient has been placed on physician observation in over flow since that time. Patient will be admitted to the hospital and brought to the medical floor while awaiting long- term placement. essentially no changes in care at this time Schizophrenia, paranoid type, symptoms controlled, lucid, continue meds per Psych direction (Prolixin, cogentin, Trazadone at hs) and or further adjustment per Psych Patient otherwise has no acute or chronic medical conditions issues and just awaiting placement Full Code DVT Prophylaxis: Patient ambulatory need for inpt: awaiting for placement out of bed, ambulate Ongoing daily discussion with CM Quality Stroke Does the patient have a stroke diagnosis?: No VTE Prior VTE?: No VTE Risk Level:: Medical - low VTE Device Contraindication: Treatment Not Indicated VTE Drug Contraindication: Treatment Not Indicated
[2023-10-26 19:48] VITALS: BP 122/70; PULSE 62; RESP 20; TEMP 36.6; O2SAT 93
[2023-10-26] MEDS: Melatonin 3 MG TABLET 6 MG PO (21:21)
[2023-10-26] MEDS: traZODone HCL 50 MG TABLET PO (21:22)
[2023-10-27] MEDS: QUEtiapine Fumarate 50 MG TABLET PO ×3 (01:45→23:45)
[2023-10-27 03:36] VITALS: BP 116/59; PULSE 54; RESP 20; TEMP 36.1; O2SAT 98
[2023-10-27 07:29] VITALS: BP 145/69; PULSE 59; RESP 16; TEMP 36.7; O2SAT 96
[2023-10-27] MEDS: Sennosides/Docusate Sodium TABLET 1 TAB PO ×2 (07:54→20:16)
[2023-10-27] MEDS: Benztropine Mesylate 1 MG TABLET PO ×2 (07:54→20:16)
--- NOTE | 2023-10-27 12:00 | MHC.CM.PN ---
CM MET W/PT TO VERIFY PCP, PT REPORTS HER PCP [facility] IN [place], TASK COMPLETED.
--- NOTE | 2023-10-27 12:29 | MHC.CM.PN ---
CM called [facility] today to ask about previous referral, they declined because pt does not have Dementia. Referral sent to [facility] call placed to [facility] to inquire about their previous declining of pt.
--- NOTE | 2023-10-27 12:49 | P.PNIM_ITS ---
Subjective Subjective Date of Service: 10/27/23 Interval History: Seen and evaluated this morning feels comfortable overall no reported events overnight Review of Systems Review of Systems: Yes all other systems are reviewed and are negative Physical Exam 2 Vital Signs: Vital Signs: Last Vital Signs Temp 98.1 F 10/27/23 07:29 Pulse 59 10/27/23 07:29 Resp 16 10/27/23 07:29 BP 145/69 H 10/27/23 07:29 Pulse Ox 96 10/27/23 07:29 O2 Del Method Room Air 10/27/23 07:29 BMI result Body Mass Index 25.0 Const: Other: Constitutional : Awake, interactive, not in distress Neck : Normal inspection, Supple Cardiovascular : no JVP, no lower extremity edema Skin : Warm, Dry Neurological : Alert & oriented to self and place, No focal deficit Objective Data Active Medications Acetaminophen (Acetaminophen 325 Mg Tablet) 650 mg PO Q6H PRN PRN Reason: pain, fever Last Admin: 10/26/23 08:00 Dose: 650 mg Documented By: ESTHER Al Hydroxide/Mg Hydroxide (Magnesium Hydrox/Alum Hydrox 30 Ml Oral.Susp) 30 ml PO Q6H PRN PRN Reason: Dyspepsia Last Admin: 10/24/23 08:14 Dose: 30 ml Documented By: ESTHER Benztropine Mesylate (Benztropine Mesylate 1 Mg Tablet) 1 mg PO BID [facility] Last Admin: 10/27/23 07:54 Dose: 1 mg Documented By: SABA Calcium Carbonate (Calcium Carbonate 750 Mg Tab.Chew) 750 mg PO Q6H PRN PRN Reason: Dyspepsia Last Admin: 10/23/23 23:34 Dose: 750 mg Fluphenazine Decanoate (Fluphenazine Decanoate 25 Mg/Ml 5 Ml Vial) 25 mg IM Q28D [facility] Fluticasone Propionate (Fluticasone Propionate Nasal 16 Gm [place]) 1 spray NOSTRIL-B ONCE [facility] Guaifenesin/Dextromethorphan (Guaifenesin Dm 600/30 1 Tab Tab.Er.12h) 1 tab PO BID PRN PRN Reason: congestion/cough Magnesium Hydroxide (Milk Of Magnesia 30 Ml Oral.Susp) 30 ml PO DAILY PRN PRN Reason: Constipation Last Admin: 10/16/23 14:52 Dose: 30 ml Documented By: JAGDISH Melatonin (Melatonin 3 Mg Tablet) 6 mg PO BEDTIME [facility] Last Admin: 10/26/23 21:21 Dose: 6 mg Documented By: MANNY Ondansetron HCl (Ondansetron Hcl 4 Mg/2 Ml Vial) 4 mg IVPUSH Q8H PRN PRN Reason: Nausea and Vomiting Polyethylene Glycol (Polyethylene Glycol 3350 17 Gm Powd.Pack) 17 gm PO DAILY PRN PRN Reason: Constipation Last Admin: 10/18/23 14:03 Dose: 17 gm Documented By: SHIRLEY Quetiapine Fumarate (Quetiapine Fumarate 50 Mg Tablet) 50 mg PO Q6H PRN PRN Reason: agitation/anxiety Last Admin: 10/27/23 07:54 Dose: 50 mg Documented By: SABA Senna/Docusate Sodium (Sennosides/Docusate Sodium Tablet) 1 tab PO BID [facility] Last Admin: 10/27/23 07:54 Dose: 1 tab Documented By: SABA Trazodone HCl (Trazodone Hcl 50 Mg Tablet) 50 mg PO BEDTIME [facility] Last Admin: 10/26/23 21:22 Dose: 50 mg Documented By: MANNY Labs 10/14/23 05:47 10/14/23 05:47 Assessment and Plan (1) Schizophrenia, paranoid type: Status: Acute Plan Pt is a 63-year-old female with a PMH significant for schizophrenia? who initially presented to the ED on 08/23/2023 for evaluation of delusional behavior. Medical workup has been negative for any acute concerns, and patient has been placed on physician observation in over flow since that time. Patient will be admitted to the hospital and brought to the medical floor while awaiting long- term placement. essentially no changes in care at this time Schizophrenia, paranoid type, symptoms controlled, lucid, continue meds per Psych direction (Prolixin, cogentin, Trazadone at hs) and or further adjustment per Psych Patient otherwise has no acute or chronic medical conditions issues and just awaiting placement Full Code DVT Prophylaxis: Patient ambulatory need for inpt: awaiting for placement out of bed, ambulate Ongoing daily discussion with CM Quality Stroke Does the patient have a stroke diagnosis?: No VTE Prior VTE?: No VTE Risk Level:: Medical - low VTE Device Contraindication: Treatment Not Indicated VTE Drug Contraindication: Treatment Not Indicated
[2023-10-27 15:10] VITALS: BP 119/60; PULSE 65; RESP 20; TEMP 36.8; O2SAT 93
[2023-10-27 19:09] VITALS: BP 136/75; PULSE 62; RESP 20; TEMP 36.3; O2SAT 96
[2023-10-27] MEDS: traZODone HCL 50 MG TABLET PO (20:16)
[2023-10-27] MEDS: Melatonin 3 MG TABLET 6 MG PO (20:16)
[2023-10-28 04:00] VITALS: TEMP -17.7; TEMP 0
[2023-10-28 08:00] VITALS: BP 125/66; PULSE 59; RESP 20; TEMP 36.1; O2SAT 94
[2023-10-28] MEDS: Sennosides/Docusate Sodium TABLET 1 TAB PO ×2 (08:57→20:16)
[2023-10-28] MEDS: Benztropine Mesylate 1 MG TABLET PO ×2 (08:57→20:16)
[2023-10-28 11:14] VITALS: BP 141/75; PULSE 62; RESP 20; TEMP 36.1; O2SAT 96
--- NOTE | 2023-10-28 11:40 | HO.PM.IMPN ---
Subjective Subjective Date of Service: 10/28/23 Interval History: Seen and evaluated this morning feels comfortable overall no reported events overnight Physical Exam Vital Signs: Vital Signs: Last Vital Signs Temp 97.0 F 10/28/23 11:14 Pulse 62 10/28/23 11:14 Resp 20 10/28/23 11:14 BP 141/75 H 10/28/23 11:14 Pulse Ox 96 10/28/23 11:14 O2 Del Method Room Air 10/28/23 11:14 BMI result Body Mass Index 25.0 Const: Other: Constitutional : Awake, interactive, not in distress Neck : Normal inspection, Supple Cardiovascular : no JVP, no lower extremity edema Skin : Warm, Dry Neurological : Alert & oriented to self and place, No focal deficit Objective Data Active Medications Acetaminophen (Acetaminophen 325 Mg Tablet) 650 mg PO Q6H PRN PRN Reason: pain, fever Last Admin: 10/26/23 08:00 Dose: 650 mg Documented By: ESTHER Al Hydroxide/Mg Hydroxide (Magnesium Hydrox/Alum Hydrox 30 Ml Oral.Susp) 30 ml PO Q6H PRN PRN Reason: Dyspepsia Last Admin: 10/24/23 08:14 Dose: 30 ml Documented By: ESTHER Benztropine Mesylate (Benztropine Mesylate 1 Mg Tablet) 1 mg PO BID [facility] Last Admin: 10/28/23 08:57 Dose: 1 mg Documented By: BRENDA Calcium Carbonate (Calcium Carbonate 750 Mg Tab.Chew) 750 mg PO Q6H PRN PRN Reason: Dyspepsia Last Admin: 10/23/23 23:34 Dose: 750 mg Fluphenazine Decanoate (Fluphenazine Decanoate 25 Mg/Ml 5 Ml Vial) 25 mg IM Q28D [facility] Fluticasone Propionate (Fluticasone Propionate Nasal 16 Gm [place]) 1 spray NOSTRIL-B ONCE [facility] Guaifenesin/Dextromethorphan (Guaifenesin Dm 600/30 1 Tab Tab.Er.12h) 1 tab PO BID PRN PRN Reason: congestion/cough Magnesium Hydroxide (Milk Of Magnesia 30 Ml Oral.Susp) 30 ml PO DAILY PRN PRN Reason: Constipation Last Admin: 10/16/23 14:52 Dose: 30 ml Documented By: JAGDISH Melatonin (Melatonin 3 Mg Tablet) 6 mg PO BEDTIME [facility] Last Admin: 10/27/23 20:16 Dose: 6 mg Documented By: MANNY Ondansetron HCl (Ondansetron Hcl 4 Mg/2 Ml Vial) 4 mg IVPUSH Q8H PRN PRN Reason: Nausea and Vomiting Polyethylene Glycol (Polyethylene Glycol 3350 17 Gm Powd.Pack) 17 gm PO DAILY PRN PRN Reason: Constipation Last Admin: 10/18/23 14:03 Dose: 17 gm Documented By: SHIRLEY Quetiapine Fumarate (Quetiapine Fumarate 50 Mg Tablet) 50 mg PO Q6H PRN PRN Reason: agitation/anxiety Last Admin: 10/27/23 23:45 Dose: 50 mg Documented By: MANNY Senna/Docusate Sodium (Sennosides/Docusate Sodium Tablet) 1 tab PO BID [facility] Last Admin: 10/28/23 08:57 Dose: 1 tab Documented By: BRENDA Trazodone HCl (Trazodone Hcl 50 Mg Tablet) 50 mg PO BEDTIME [facility] Last Admin: 10/27/23 20:16 Dose: 50 mg Documented By: MANNY Labs 10/14/23 05:47 10/14/23 05:47 Assessment and Plan (1) Schizophrenia, paranoid type: Status: Acute Plan Pt is a 63-year-old female with a PMH significant for schizophrenia? who initially presented to the ED on 08/23/2023 for evaluation of delusional behavior. Medical workup has been negative for any acute concerns, and patient has been placed on physician observation in over flow since that time. Patient will be admitted to the hospital and brought to the medical floor while awaiting long-term placement. essentially no changes in care at this time Schizophrenia, paranoid type, symptoms controlled, lucid, continue meds per Psych direction (Prolixin, cogentin, Trazadone at hs) and or further adjustment per Psych Patient otherwise has no acute or chronic medical conditions issues and just awaiting placement Full Code DVT Prophylaxis: Patient ambulatory need for inpt: awaiting for placement out of bed, ambulate Ongoing daily discussion with CM Quality Stroke Does the patient have a stroke diagnosis?: No VTE Prior VTE?: No VTE Risk Level:: Medical - low VTE Device Contraindication: Treatment Not Indicated VTE Drug Contraindication: Treatment Not Indicated
[2023-10-28 15:10] VITALS: BP 147/77; PULSE 55; RESP 18; TEMP 36.7; O2SAT 96
[2023-10-28] MEDS: QUEtiapine Fumarate 50 MG TABLET PO (15:31)
[2023-10-28 20:00] VITALS: BP 138/65; PULSE 64; RESP 20; TEMP 36.2; O2SAT 98
[2023-10-28] MEDS: traZODone HCL 50 MG TABLET PO (20:16)
[2023-10-28] MEDS: Melatonin 3 MG TABLET 6 MG PO (20:16)
[2023-10-29] MEDS: QUEtiapine Fumarate 50 MG TABLET PO ×3 (04:10→20:03)
[2023-10-29 07:58] VITALS: BP 136/70; PULSE 56; RESP 19; TEMP 36.2; O2SAT 96
[2023-10-29] MEDS: Benztropine Mesylate 1 MG TABLET PO ×2 (08:58→20:02)
[2023-10-29] MEDS: Sennosides/Docusate Sodium TABLET 1 TAB PO ×2 (08:58→20:03)
[2023-10-29 10:54] VITALS: BP 141/73; PULSE 62; RESP 19; TEMP 36.1; O2SAT 94
--- NOTE | 2023-10-29 12:48 | HO.PM.IMPN ---
Subjective Subjective Date of Service: 10/29/23 Interval History: Seen and evaluated this morning feels comfortable overall No complaints Physical Exam Vital Signs: Vital Signs: Last Vital Signs Temp 96.9 F 10/29/23 10:54 Pulse 62 10/29/23 10:54 Resp 19 10/29/23 10:54 BP 141/73 H 10/29/23 10:54 Pulse Ox 94 10/29/23 10:54 O2 Del Method Room Air 10/29/23 10:54 BMI result Body Mass Index 25.0 Const: Other: Constitutional : Awake, interactive, not in distress Neck : Normal inspection, Supple Cardiovascular : no JVP, no lower extremity edema Skin : Warm, Dry Neurological : Alert & oriented to self and place, No focal deficit Objective Data Active Medications Acetaminophen (Acetaminophen 325 Mg Tablet) 650 mg PO Q6H PRN PRN Reason: pain, fever Last Admin: 10/26/23 08:00 Dose: 650 mg Documented By: ESTHER Al Hydroxide/Mg Hydroxide (Magnesium Hydrox/Alum Hydrox 30 Ml Oral.Susp) 30 ml PO Q6H PRN PRN Reason: Dyspepsia Last Admin: 10/24/23 08:14 Dose: 30 ml Documented By: ESTHER Benztropine Mesylate (Benztropine Mesylate 1 Mg Tablet) 1 mg PO BID [facility] Last Admin: 10/29/23 08:58 Dose: 1 mg Documented By: BRENDA Calcium Carbonate (Calcium Carbonate 750 Mg Tab.Chew) 750 mg PO Q6H PRN PRN Reason: Dyspepsia Last Admin: 10/23/23 23:34 Dose: 750 mg Fluphenazine Decanoate (Fluphenazine Decanoate 25 Mg/Ml 5 Ml Vial) 25 mg IM Q28D [facility] Fluticasone Propionate (Fluticasone Propionate Nasal 16 Gm [place]) 1 spray NOSTRIL-B ONCE [facility] Guaifenesin/Dextromethorphan (Guaifenesin Dm 600/30 1 Tab Tab.Er.12h) 1 tab PO BID PRN PRN Reason: congestion/cough Magnesium Hydroxide (Milk Of Magnesia 30 Ml Oral.Susp) 30 ml PO DAILY PRN PRN Reason: Constipation Last Admin: 10/16/23 14:52 Dose: 30 ml Documented By: JAGDISH Melatonin (Melatonin 3 Mg Tablet) 6 mg PO BEDTIME [facility] Last Admin: 10/28/23 20:16 Dose: 6 mg Documented By: KIM Ondansetron HCl (Ondansetron Hcl 4 Mg/2 Ml Vial) 4 mg IVPUSH Q8H PRN PRN Reason: Nausea and Vomiting Polyethylene Glycol (Polyethylene Glycol 3350 17 Gm Powd.Pack) 17 gm PO DAILY PRN PRN Reason: Constipation Last Admin: 10/18/23 14:03 Dose: 17 gm Documented By: SHIRLEY Quetiapine Fumarate (Quetiapine Fumarate 50 Mg Tablet) 50 mg PO Q6H PRN PRN Reason: agitation/anxiety Last Admin: 10/29/23 04:10 Dose: 50 mg Documented By: KIM Senna/Docusate Sodium (Sennosides/Docusate Sodium Tablet) 1 tab PO BID [facility] Last Admin: 10/29/23 08:58 Dose: 1 tab Documented By: BRENDA Trazodone HCl (Trazodone Hcl 50 Mg Tablet) 50 mg PO BEDTIME [facility] Last Admin: 10/28/23 20:16 Dose: 50 mg Documented By: KIM Labs 10/14/23 05:47 10/14/23 05:47 Assessment and Plan (1) Schizophrenia, paranoid type: Status: Acute Plan Pt is a 63-year-old female with a PMH significant for schizophrenia? who initially presented to the ED on 08/23/2023 for evaluation of delusional behavior. Medical workup has been negative for any acute concerns, and patient has been placed on physician observation in over flow since that time. Patient will be admitted to the hospital and brought to the medical floor while awaiting long-term placement. essentially no changes in care at this time Schizophrenia, paranoid type, symptoms controlled, lucid, continue meds per Psych direction (Prolixin, cogentin, Trazadone at hs) and or further adjustment per Psych Patient otherwise has no acute or chronic medical conditions issues and just awaiting placement DVT Prophylaxis: Patient ambulatory need for inpt: awaiting for placement , Ongoing daily discussion with CM Quality Stroke Does the patient have a stroke diagnosis?: No VTE Prior VTE?: No VTE Risk Level:: Medical - low VTE Device Contraindication: Treatment Not Indicated VTE Drug Contraindication: Treatment Not Indicated
[2023-10-29 15:46] VITALS: BP 131/68; PULSE 64; RESP 20; TEMP 36.4; O2SAT 95
[2023-10-29 19:18] VITALS: BP 140/66; PULSE 68; RESP 20; TEMP 36.4; O2SAT 95
[2023-10-29] MEDS: Melatonin 3 MG TABLET 6 MG PO (20:02)
[2023-10-29] MEDS: traZODone HCL 50 MG TABLET PO (20:03)
[2023-10-30 03:29] VITALS: BP 129/55; PULSE 53; RESP 20; TEMP 36.1; O2SAT 95
[2023-10-30] MEDS: QUEtiapine Fumarate 50 MG TABLET PO ×2 (03:55→19:55)
[2023-10-30 07:16] VITALS: BP 134/61; PULSE 57; RESP 18; TEMP 36.2; O2SAT 94
[2023-10-30] MEDS: hydrOXYzine HCL 25 MG TABLET PO ×2 (08:14→15:04)
[2023-10-30] MEDS: Benztropine Mesylate 1 MG TABLET PO ×2 (08:14→19:55)
[2023-10-30] MEDS: Sennosides/Docusate Sodium TABLET 1 TAB PO ×2 (08:14→19:55)
--- NOTE | 2023-10-30 10:14 | MHC.CM.PN ---
EMR REVIEWED, CM DIRECTOR STILL AWAITING COURT DATE FOR CONSERVATORSHIP, CM STILL WAITING TO SECURE PLACEMENT AND CALL CALL BACK FROM [place] AND RESPONSE FROM [facility], CM WILL CONT TO FOLLOW REFERRAL, DC NEEDS.
--- NOTE | 2023-10-30 11:36 | HO.PM.IMPN ---
Subjective Subjective Date of Service: 10/30/23 Interval History: Seen and evaluated this morning feels comfortable overall No complaints Review of Systems Review of Systems: Yes all other systems are reviewed and are negative Physical Exam Vital Signs: Vital Signs: Last Vital Signs Temp 97.2 F 10/30/23 07:16 Pulse 57 10/30/23 07:16 Resp 18 10/30/23 07:16 BP 134/61 10/30/23 07:16 Pulse Ox 94 10/30/23 07:16 O2 Del Method Room Air 10/30/23 07:16 BMI result Body Mass Index 25.0 Const: Other: Constitutional : Awake, interactive, not in distress Neck : Normal inspection, Supple Cardiovascular : no JVP, no lower extremity edema Skin : Warm, Dry Neurological : Alert & oriented to self and place, No focal deficit Objective Data Active Medications Acetaminophen (Acetaminophen 325 Mg Tablet) 650 mg PO Q6H PRN PRN Reason: pain, fever Last Admin: 10/26/23 08:00 Dose: 650 mg Documented By: ESTHER Al Hydroxide/Mg Hydroxide (Magnesium Hydrox/Alum Hydrox 30 Ml Oral.Susp) 30 ml PO Q6H PRN PRN Reason: Dyspepsia Last Admin: 10/24/23 08:14 Dose: 30 ml Documented By: ESTHER Benztropine Mesylate (Benztropine Mesylate 1 Mg Tablet) 1 mg PO BID [facility] Last Admin: 10/30/23 08:14 Dose: 1 mg Documented By: BRENDA Calcium Carbonate (Calcium Carbonate 750 Mg Tab.Chew) 750 mg PO Q6H PRN PRN Reason: Dyspepsia Last Admin: 10/23/23 23:34 Dose: 750 mg Fluphenazine Decanoate (Fluphenazine Decanoate 25 Mg/Ml 5 Ml Vial) 25 mg IM Q28D [facility] Fluticasone Propionate (Fluticasone Propionate Nasal 16 Gm [place]) 1 spray NOSTRIL-B ONCE [facility] Guaifenesin/Dextromethorphan (Guaifenesin Dm 600/30 1 Tab Tab.Er.12h) 1 tab PO BID PRN PRN Reason: congestion/cough Hydroxyzine HCl (Hydroxyzine Hcl 25 Mg Tablet) 25 mg PO Q8H PRN PRN Reason: anxiety/restlessness Last Admin: 10/30/23 08:14 Dose: 25 mg Documented By: BRENDA Magnesium Hydroxide (Milk Of Magnesia 30 Ml Oral.Susp) 30 ml PO DAILY PRN PRN Reason: Constipation Last Admin: 10/16/23 14:52 Dose: 30 ml Documented By: JAGDISH Melatonin (Melatonin 3 Mg Tablet) 6 mg PO BEDTIME [facility] Last Admin: 10/29/23 20:02 Dose: 6 mg Documented By: KIM Ondansetron HCl (Ondansetron Hcl 4 Mg/2 Ml Vial) 4 mg IVPUSH Q8H PRN PRN Reason: Nausea and Vomiting Polyethylene Glycol (Polyethylene Glycol 3350 17 Gm Powd.Pack) 17 gm PO DAILY PRN PRN Reason: Constipation Last Admin: 10/18/23 14:03 Dose: 17 gm Documented By: SHIRLEY Quetiapine Fumarate (Quetiapine Fumarate 50 Mg Tablet) 50 mg PO Q6H PRN PRN Reason: agitation/anxiety Last Admin: 10/30/23 03:55 Dose: 50 mg Documented By: KIM Senna/Docusate Sodium (Sennosides/Docusate Sodium Tablet) 1 tab PO BID [facility] Last Admin: 10/30/23 08:14 Dose: 1 tab Documented By: BRENDA Trazodone HCl (Trazodone Hcl 50 Mg Tablet) 50 mg PO BEDTIME [facility] Last Admin: 10/29/23 20:03 Dose: 50 mg Documented By: KIM Labs 10/14/23 05:47 10/14/23 05:47 Assessment and Plan (1) Schizophrenia, paranoid type: Status: Acute Plan Pt is a 63-year-old female with a PMH significant for schizophrenia? who initially presented to the ED on 08/23/2023 for evaluation of delusional behavior. Medical workup has been negative for any acute concerns, and patient has been placed on physician observation in over flow since that time. Patient will be admitted to the hospital and brought to the medical floor while awaiting long-term placement. essentially no changes in care at this time Schizophrenia, paranoid type, symptoms controlled, lucid, continue meds per Psych direction (Prolixin, cogentin, Trazadone at hs) and or further adjustment per Psych Patient otherwise has no acute or chronic medical conditions issues and just awaiting placement DVT Prophylaxis: Patient ambulatory need for inpt: awaiting for placement , Ongoing daily discussion with CM Quality Stroke Does the patient have a stroke diagnosis?: No VTE Prior VTE?: No VTE Risk Level:: Medical - low VTE Device Contraindication: Treatment Not Indicated VTE Drug Contraindication: Treatment Not Indicated
[2023-10-30 15:13] VITALS: BP 127/70; PULSE 62; RESP 20; TEMP 36.1; O2SAT 96
[2023-10-30 19:15] VITALS: BP 128/62; PULSE 60; RESP 15; TEMP 36.1; O2SAT 96
[2023-10-30] MEDS: traZODone HCL 50 MG TABLET PO (19:55)
[2023-10-30] MEDS: Melatonin 3 MG TABLET 6 MG PO (19:55)
[2023-10-31] MEDS: QUEtiapine Fumarate 50 MG TABLET PO ×2 (03:17→19:31)
[2023-10-31 03:18] VITALS: BP 130/66; PULSE 54; RESP 16; TEMP 36.2; O2SAT 95
[2023-10-31 07:20] VITALS: BP 130/70; PULSE 55; RESP 20; TEMP 36.9; O2SAT 97
[2023-10-31] MEDS: Sennosides/Docusate Sodium TABLET 1 TAB PO ×2 (08:08→19:31)
[2023-10-31] MEDS: Benztropine Mesylate 1 MG TABLET PO ×2 (08:08→19:31)
--- NOTE | 2023-10-31 12:27 | P.PNIM_ITS ---
Subjective Subjective Date of Service: 10/31/23 Interval History: Seen and evaluated this morning feels comfortable overall No complaints Review of Systems Review of Systems: Yes all other systems are reviewed and are negative Physical Exam 2 Vital Signs: Vital Signs: Last Vital Signs Temp 98.5 F 10/31/23 07:20 Pulse 55 10/31/23 07:20 Resp 20 10/31/23 07:20 BP 130/70 10/31/23 07:20 Pulse Ox 97 10/31/23 07:20 O2 Del Method Room Air 10/31/23 07:20 BMI result Body Mass Index 25.0 Const: Other: Constitutional : Awake, interactive, not in distress Neck : Normal inspection, Supple Cardiovascular : no JVP, no lower extremity edema Skin : Warm, Dry Neurological : Alert & oriented to self and place, No focal deficit Objective Data Active Medications Acetaminophen (Acetaminophen 325 Mg Tablet) 650 mg PO Q6H PRN PRN Reason: pain, fever Last Admin: 10/26/23 08:00 Dose: 650 mg Documented By: ESTHER Al Hydroxide/Mg Hydroxide (Magnesium Hydrox/Alum Hydrox 30 Ml Oral.Susp) 30 ml PO Q6H PRN PRN Reason: Dyspepsia Last Admin: 10/24/23 08:14 Dose: 30 ml Documented By: ESTHER Benztropine Mesylate (Benztropine Mesylate 1 Mg Tablet) 1 mg PO BID [facility] Last Admin: 10/31/23 08:08 Dose: 1 mg Documented By: CAROLTEKGregory Calcium Carbonate (Calcium Carbonate 750 Mg Tab.Chew) 750 mg PO Q6H PRN PRN Reason: Dyspepsia Last Admin: 10/23/23 23:34 Dose: 750 mg Fluphenazine Decanoate (Fluphenazine Decanoate 25 Mg/Ml 5 Ml Vial) 25 mg IM Q28D [facility] Fluticasone Propionate (Fluticasone Propionate Nasal 16 Gm [place]) 1 spray NOSTRIL-B ONCE [facility] Guaifenesin/Dextromethorphan (Guaifenesin Dm 600/30 1 Tab Tab.Er.12h) 1 tab PO BID PRN PRN Reason: congestion/cough Hydroxyzine HCl (Hydroxyzine Hcl 25 Mg Tablet) 25 mg PO Q8H PRN PRN Reason: anxiety/restlessness Last Admin: 10/30/23 15:04 Dose: 25 mg Documented By: BRENDA Magnesium Hydroxide (Milk Of Magnesia 30 Ml Oral.Susp) 30 ml PO DAILY PRN PRN Reason: Constipation Last Admin: 10/16/23 14:52 Dose: 30 ml Documented By: JAGDISH Melatonin (Melatonin 3 Mg Tablet) 6 mg PO BEDTIME [facility] Last Admin: 10/30/23 19:55 Dose: 6 mg Documented By: ELIANA Ondansetron HCl (Ondansetron Hcl 4 Mg/2 Ml Vial) 4 mg IVPUSH Q8H PRN PRN Reason: Nausea and Vomiting Polyethylene Glycol (Polyethylene Glycol 3350 17 Gm Powd.Pack) 17 gm PO DAILY PRN PRN Reason: Constipation Last Admin: 10/18/23 14:03 Dose: 17 gm Documented By: SHIRLEY Quetiapine Fumarate (Quetiapine Fumarate 50 Mg Tablet) 50 mg PO Q6H PRN PRN Reason: agitation/anxiety Last Admin: 10/31/23 03:17 Dose: 50 mg Documented By: ELIANA Senna/Docusate Sodium (Sennosides/Docusate Sodium Tablet) 1 tab PO BID [facility] Last Admin: 10/31/23 08:08 Dose: 1 tab Documented By: MARTIN Trazodone HCl (Trazodone Hcl 50 Mg Tablet) 50 mg PO BEDTIME [facility] Last Admin: 10/30/23 19:55 Dose: 50 mg Documented By: ELIANA Labs 10/14/23 05:47 10/14/23 05:47 Assessment and Plan (1) Schizophrenia, paranoid type: Status: Acute Plan Pt is a 63-year-old female with a PMH significant for schizophrenia? who initially presented to the ED on 08/23/2023 for evaluation of delusional behavior. Medical workup has been negative for any acute concerns, and patient has been placed on physician observation in over flow since that time. Patient will be admitted to the hospital and brought to the medical floor while awaiting long- term placement. essentially no changes in care at this time Schizophrenia, paranoid type, symptoms controlled, lucid, continue meds per Psych direction (Prolixin, cogentin, Trazadone at hs) and or further adjustment per Psych Patient otherwise has no acute or chronic medical conditions issues and just awaiting placement DVT Prophylaxis: Patient ambulatory need for inpt: awaiting for placement , Ongoing daily discussion with CM Quality Stroke Does the patient have a stroke diagnosis?: No VTE Prior VTE?: No VTE Risk Level:: Medical - low VTE Device Contraindication: Treatment Not Indicated VTE Drug Contraindication: Treatment Not Indicated
--- NOTE | 2023-10-31 13:31 | MHC.CM.PN ---
CM ATTEMPTED TO CONTACT [facility]MISS[facility] THROUGH MAIN # [phone] HOWEVER CM TRANSFERRED AND NO ANSWER, NO VOICEMAIL PICKING UP, PER [facility] [employer] [facility] ADMISSIONS IS VERY BUSY AND MAY NOT BE ABLE TO GET THROUGH. CM ALSO ATTEMPTED TO CONTACT LIUDMILA THE HISTORICAL GUIDE DIRECTLY [phone], LIUDMILA DID NOT ANSWER AND NO VOICEMAIL PICKED UP AFTER SEVERAL CALLS, CM TO REVISIT. PER CM DIRECTOR PT'S GUARDIAN AGREEABLE TO SHORT/FINAL EXPENSE AGENT PSYCH PLACEMENTS.
--- NOTE | 2023-10-31 14:29 | MHC.CM.PN ---
Addendum entered by Sola Mcgraw 10/31/23 14:30: Tony stated she is working on getting charges for pt dismissed. Original Note: This policy writer placed call to Guardian- Tony Gonsalez. Discussed plan for referral to [facility]/ goal for pt to transition to LT unit. In addition application for [facility]. Guardian agreeable with plan. DM application completed- sent to Tony for signature. Awaiting return documents.
[2023-10-31] MEDS: hydrOXYzine HCL 25 MG TABLET PO (14:57)
--- NOTE | 2023-10-31 15:11 | MHC.CM.PN ---
CM CONTACTED PT LIUDMILA AT [id number] [phone], LIUDMILA REPORTS PT WAS DECLINED D/T BEING COVID+, HOWEVER INTAKE HAD MISREAD H&P WHICH STATED PT WAS COVID + AT TIME SHE PRESENTED TO ED, NEG COVID TEST AND UPDATED NOTE FAXED TO INTAKE [phone], CM ATTEMPTED TO CALL LIUDMILA BACK HOWEVER NO ANSWER, CM WILL REVISIT.
[2023-10-31 15:23] VITALS: BP 113/56; PULSE 55; RESP 20; TEMP 36.7; O2SAT 98
[2023-10-31 19:12] VITALS: BP 128/68; PULSE 59; RESP 16; TEMP 36.4; O2SAT 98
[2023-10-31] MEDS: Melatonin 3 MG TABLET 6 MG PO (19:31)
[2023-10-31] MEDS: traZODone HCL 50 MG TABLET PO (19:31)
[2023-11-01 02:32] VITALS: BP 133/61; PULSE 60; RESP 16; TEMP 36.4; O2SAT 96
[2023-11-01] MEDS: QUEtiapine Fumarate 50 MG TABLET PO (02:33)
[2023-11-01 07:07] VITALS: BP 123/67; PULSE 60; RESP 20; TEMP 36.5; O2SAT 97
[2023-11-01] MEDS: Benztropine Mesylate 1 MG TABLET PO ×2 (08:45→22:07)
[2023-11-01] MEDS: Sennosides/Docusate Sodium TABLET 1 TAB PO (08:45)
--- NOTE | 2023-11-01 10:31 | P.PNIM_ITS ---
Subjective Subjective Date of Service: 11/01/23 Interval History: Seen and evaluated this morning feels comfortable overall No complaints Review of Systems Review of Systems: Yes all other systems are reviewed and are negative Physical Exam 2 Vital Signs: Vital Signs: Last Vital Signs Temp 97.7 F 11/01/23 07:07 Pulse 60 11/01/23 07:07 Resp 20 11/01/23 07:07 BP 123/67 11/01/23 07:07 Pulse Ox 97 11/01/23 07:07 O2 Del Method Room Air 11/01/23 07:07 BMI result Body Mass Index 25.0 Const: Other: Constitutional : Awake, interactive, not in distress Neck : Normal inspection, Supple Cardiovascular : no JVP, no lower extremity edema Skin : Warm, Dry Neurological : Alert & oriented to self and place, No focal deficit Objective Data Active Medications Acetaminophen (Acetaminophen 325 Mg Tablet) 650 mg PO Q6H PRN PRN Reason: pain, fever Last Admin: 10/26/23 08:00 Dose: 650 mg Documented By: ESTHER Al Hydroxide/Mg Hydroxide (Magnesium Hydrox/Alum Hydrox 30 Ml Oral.Susp) 30 ml PO Q6H PRN PRN Reason: Dyspepsia Last Admin: 10/24/23 08:14 Dose: 30 ml Documented By: ESTHER Benztropine Mesylate (Benztropine Mesylate 1 Mg Tablet) 1 mg PO BID [facility] Last Admin: 11/01/23 08:45 Dose: 1 mg Documented By: CAROLTEKGregory Calcium Carbonate (Calcium Carbonate 750 Mg Tab.Chew) 750 mg PO Q6H PRN PRN Reason: Dyspepsia Last Admin: 10/23/23 23:34 Dose: 750 mg Fluphenazine Decanoate (Fluphenazine Decanoate 25 Mg/Ml 5 Ml Vial) 25 mg IM Q28D [facility] Fluticasone Propionate (Fluticasone Propionate Nasal 16 Gm [place]) 1 spray NOSTRIL-B ONCE [facility] Guaifenesin/Dextromethorphan (Guaifenesin Dm 600/30 1 Tab Tab.Er.12h) 1 tab PO BID PRN PRN Reason: congestion/cough Hydroxyzine HCl (Hydroxyzine Hcl 25 Mg Tablet) 25 mg PO Q8H PRN PRN Reason: anxiety/restlessness Last Admin: 10/31/23 14:57 Dose: 25 mg Documented By: MARTIN Comments: given for anxiety Magnesium Hydroxide (Milk Of Magnesia 30 Ml Oral.Susp) 30 ml PO DAILY PRN PRN Reason: Constipation Last Admin: 10/16/23 14:52 Dose: 30 ml Documented By: JAGDISH Melatonin (Melatonin 3 Mg Tablet) 6 mg PO BEDTIME [facility] Last Admin: 10/31/23 19:31 Dose: 6 mg Documented By: ELIANA Ondansetron HCl (Ondansetron Hcl 4 Mg/2 Ml Vial) 4 mg IVPUSH Q8H PRN PRN Reason: Nausea and Vomiting Polyethylene Glycol (Polyethylene Glycol 3350 17 Gm Powd.Pack) 17 gm PO DAILY PRN PRN Reason: Constipation Last Admin: 10/18/23 14:03 Dose: 17 gm Documented By: SHIRLEY Quetiapine Fumarate (Quetiapine Fumarate 50 Mg Tablet) 50 mg PO Q6H PRN PRN Reason: agitation/anxiety Last Admin: 11/01/23 02:33 Dose: 50 mg Documented By: ELIANA Senna/Docusate Sodium (Sennosides/Docusate Sodium Tablet) 1 tab PO BID [facility] Last Admin: 11/01/23 08:45 Dose: 1 tab Documented By: MARTIN Trazodone HCl (Trazodone Hcl 50 Mg Tablet) 50 mg PO BEDTIME [facility] Last Admin: 10/31/23 19:31 Dose: 50 mg Documented By: ELIANA Labs 10/14/23 05:47 10/14/23 05:47 Assessment and Plan (1) Schizophrenia, paranoid type: Status: Acute Plan 63F [facility] significant for schizophrenia?who initially presented to the ED on 08/23/2023 for evaluation of delusional behavior. Medical workup has been negative for any acute concerns, and patient had been placed on physician observation, due to prolonged stay, transfered to medical service 10/13/23 essentially no changes in care at this time Schizophrenia, paranoid type, symptoms controlled, lucid, continue meds per Psych direction (Prolixin, cogentin, Trazadone at hs) and or further adjustment per Psych Patient otherwise has no acute or chronic medical conditions issues and just awaiting placement DVT Prophylaxis: Patient ambulatory need for inpt: awaiting for placement , Ongoing daily discussion with CM Quality Stroke Does the patient have a stroke diagnosis?: No VTE Prior VTE?: No VTE Risk Level:: Medical - low VTE Device Contraindication: Treatment Not Indicated VTE Drug Contraindication: Treatment Not Indicated
[2023-11-01] MEDS: fluPHENAZine decanoate 25 MG/ML 5 ML VIAL IM (12:22)
--- NOTE | 2023-11-01 13:11 | MHC.CM.PN ---
CM contacted [facility] and was told that pt is seeking LTC and they will only consider if she is seeking a short term stay.
[2023-11-01 15:19] VITALS: BP 115/60; PULSE 53; RESP 20; TEMP 36.2; O2SAT 96
[2023-11-01 19:01] VITALS: BP 113/55; PULSE 60; RESP 16; TEMP 37.2; O2SAT 95
[2023-11-01] MEDS: Melatonin 3 MG TABLET 6 MG PO (22:07)
[2023-11-01] MEDS: traZODone HCL 50 MG TABLET PO (22:07)
[2023-11-02] VITALS (7 sets, daily range): BP systolic 105–143; BP diastolic 49–73; PULSE 53–58; RESP 16–20; TEMP 36.2–36.5; O2SAT 94–99
[2023-11-02] MEDS: Benztropine Mesylate 1 MG TABLET PO ×2 (09:21→20:51)
[2023-11-02] MEDS: Sennosides/Docusate Sodium TABLET 1 TAB PO (09:21)
--- NOTE | 2023-11-02 09:51 | HO.PM.IMPN ---
Subjective Subjective Date of Service: 11/02/23 Interval History: Seen and evaluated this morning feels comfortable overall No complaints Review of Systems Review of Systems: Yes all other systems are reviewed and are negative Physical Exam Vital Signs: Vital Signs: Last Vital Signs Temp 97.3 F 11/02/23 07:29 Pulse 55 11/02/23 07:29 Resp 20 11/02/23 07:29 BP 105/49 L 11/02/23 07:29 Pulse Ox 94 11/02/23 07:29 O2 Del Method Room Air 11/02/23 07:29 BMI result Body Mass Index 25.0 Const: Other: Constitutional : Awake, interactive, not in distress Neck : Normal inspection, Supple Cardiovascular : no JVP, no lower extremity edema Skin : Warm, Dry Neurological : Alert & oriented to self and place, No focal deficit Objective Data Active Medications Acetaminophen (Acetaminophen 325 Mg Tablet) 650 mg PO Q6H PRN PRN Reason: pain, fever Last Admin: 10/26/23 08:00 Dose: 650 mg Documented By: ESTHER Al Hydroxide/Mg Hydroxide (Magnesium Hydrox/Alum Hydrox 30 Ml Oral.Susp) 30 ml PO Q6H PRN PRN Reason: Dyspepsia Last Admin: 10/24/23 08:14 Dose: 30 ml Documented By: ESTHER Benztropine Mesylate (Benztropine Mesylate 1 Mg Tablet) 1 mg PO BID [facility] Last Admin: 11/02/23 09:21 Dose: 1 mg Documented By: SABA Calcium Carbonate (Calcium Carbonate 750 Mg Tab.Chew) 750 mg PO Q6H PRN PRN Reason: Dyspepsia Last Admin: 10/23/23 23:34 Dose: 750 mg Fluphenazine Decanoate (Fluphenazine Decanoate 25 Mg/Ml 5 Ml Vial) 25 mg IM Q28D [facility] Last Admin: 11/01/23 12:22 Dose: 25 mg Documented By: MARTIN Comments: med just arrived on unit Fluticasone Propionate (Fluticasone Propionate Nasal 16 Gm [place]) 1 spray NOSTRIL-B ONCE [facility] Guaifenesin/Dextromethorphan (Guaifenesin Dm 600/30 1 Tab Tab.Er.12h) 1 tab PO BID PRN PRN Reason: congestion/cough Hydroxyzine HCl (Hydroxyzine Hcl 25 Mg Tablet) 25 mg PO Q8H PRN PRN Reason: anxiety/restlessness Last Admin: 10/31/23 14:57 Dose: 25 mg Documented By: MARTIN Comments: given for anxiety Magnesium Hydroxide (Milk Of Magnesia 30 Ml Oral.Susp) 30 ml PO DAILY PRN PRN Reason: Constipation Last Admin: 10/16/23 14:52 Dose: 30 ml Documented By: JAGDISH Melatonin (Melatonin 3 Mg Tablet) 6 mg PO BEDTIME [facility] Last Admin: 11/01/23 22:07 Dose: 6 mg Documented By: LACEY Ondansetron HCl (Ondansetron Hcl 4 Mg/2 Ml Vial) 4 mg IVPUSH Q8H PRN PRN Reason: Nausea and Vomiting Polyethylene Glycol (Polyethylene Glycol 3350 17 Gm Powd.Pack) 17 gm PO DAILY PRN PRN Reason: Constipation Last Admin: 10/18/23 14:03 Dose: 17 gm Documented By: SHIRLEY Quetiapine Fumarate (Quetiapine Fumarate 50 Mg Tablet) 50 mg PO Q6H PRN PRN Reason: agitation/anxiety Last Admin: 11/01/23 02:33 Dose: 50 mg Documented By: ELIANA Senna/Docusate Sodium (Sennosides/Docusate Sodium Tablet) 1 tab PO BID [facility] Last Admin: 11/02/23 09:21 Dose: 1 tab Documented By: SABA Trazodone HCl (Trazodone Hcl 50 Mg Tablet) 50 mg PO BEDTIME [facility] Last Admin: 11/01/23 22:07 Dose: 50 mg Documented By: LACEY Labs 10/14/23 05:47 10/14/23 05:47 Assessment and Plan (1) Schizophrenia, paranoid type: Status: Acute Plan 63F PMH significant for schizophrenia?who initially presented to the ED on 08/23/2023 for evaluation of delusional behavior. Medical workup has been negative for any acute concerns, and patient had been placed on physician observation, due to prolonged stay, transfered to medical service 10/13/23 essentially no changes in care at this time Schizophrenia, paranoid type, symptoms controlled, lucid, continue meds per Psych direction (Prolixin, cogentin, Trazadone at hs) and or further adjustment per Psych Patient otherwise has no acute or chronic medical conditions issues and just awaiting placement DVT Prophylaxis: Patient ambulatory need for inpt: awaiting for placement , Ongoing daily discussion with CM Quality Stroke Does the patient have a stroke diagnosis?: No VTE Prior VTE?: No VTE Risk Level:: Medical - low VTE Device Contraindication: Treatment Not Indicated VTE Drug Contraindication: Treatment Not Indicated
[2023-11-02] MEDS: traZODone HCL 50 MG TABLET PO (20:51)
--- NOTE | 2023-11-02 20:53 | PC.NURSE ---
Pt refused her nighttime dos of melatonin and sennokot. Attempted to explain to her why they were needed, however, she appeared to be getting upset. Deescalated the situation by agreeing to hold those medications. Pt is resting comfortably in her room.
[2023-11-03] MEDS: hydrOXYzine HCL 25 MG TABLET PO
[2023-11-03 04:00] VITALS: BP 138/64; PULSE 75; RESP 18; TEMP 36.6; O2SAT 99
[2023-11-03 07:44] VITALS: BP 132/64; PULSE 55; RESP 18; TEMP 36.1; O2SAT 94
--- NOTE | 2023-11-03 09:01 | HO.PM.IMPN ---
Subjective Subjective Date of Service: 11/03/23 Interval History: Seen and evaluated this morning feels comfortable overall No complaints Review of Systems Review of Systems: Yes all other systems are reviewed and are negative Physical Exam Vital Signs: Vital Signs: Last Vital Signs Temp 97.0 F 11/03/23 07:44 Pulse 55 11/03/23 07:44 Resp 18 11/03/23 07:44 BP 132/64 11/03/23 07:44 Pulse Ox 94 11/03/23 07:44 O2 Del Method Room Air 11/03/23 07:44 O2 Flow Rate 2 11/02/23 15:24 BMI result Body Mass Index 25.0 Const: Other: Constitutional : Awake, interactive, not in distress Neck : Normal inspection, Supple Cardiovascular : no JVP, no lower extremity edema Skin : Warm, Dry Neurological : Alert & oriented to self and place, No focal deficit Objective Data Active Medications Acetaminophen (Acetaminophen 325 Mg Tablet) 650 mg PO Q6H PRN PRN Reason: pain, fever Last Admin: 10/26/23 08:00 Dose: 650 mg Documented By: ESTHER Al Hydroxide/Mg Hydroxide (Magnesium Hydrox/Alum Hydrox 30 Ml Oral.Susp) 30 ml PO Q6H PRN PRN Reason: Dyspepsia Last Admin: 10/24/23 08:14 Dose: 30 ml Documented By: ESTHER Benztropine Mesylate (Benztropine Mesylate 1 Mg Tablet) 1 mg PO BID [facility] Last Admin: 11/02/23 20:51 Dose: 1 mg Documented By: RIGO Calcium Carbonate (Calcium Carbonate 750 Mg Tab.Chew) 750 mg PO Q6H PRN PRN Reason: Dyspepsia Last Admin: 10/23/23 23:34 Dose: 750 mg Fluphenazine Decanoate (Fluphenazine Decanoate 25 Mg/Ml 5 Ml Vial) 25 mg IM Q28D [facility] Last Admin: 11/01/23 12:22 Dose: 25 mg Documented By: MARTIN Comments: med just arrived on unit Fluticasone Propionate (Fluticasone Propionate Nasal 16 Gm [place]) 1 spray NOSTRIL-B ONCE [facility] Guaifenesin/Dextromethorphan (Guaifenesin Dm 600/30 1 Tab Tab.Er.12h) 1 tab PO BID PRN PRN Reason: congestion/cough Hydroxyzine HCl (Hydroxyzine Hcl 25 Mg Tablet) 25 mg PO Q8H PRN PRN Reason: anxiety/restlessness Last Admin: 11/03/23 00:00 Dose: 25 mg Documented By: SHANELLE Magnesium Hydroxide (Milk Of Magnesia 30 Ml Oral.Susp) 30 ml PO DAILY PRN PRN Reason: Constipation Last Admin: 10/16/23 14:52 Dose: 30 ml Documented By: JAGDISH Melatonin (Melatonin 3 Mg Tablet) 6 mg PO BEDTIME [facility] Last Admin: 11/02/23 20:51 Dose: Not Given Documented By: RIGO Non-Admin Reason: Patient Refused Ondansetron HCl (Ondansetron Hcl 4 Mg/2 Ml Vial) 4 mg IVPUSH Q8H PRN PRN Reason: Nausea and Vomiting Polyethylene Glycol (Polyethylene Glycol 3350 17 Gm Powd.Pack) 17 gm PO DAILY PRN PRN Reason: Constipation Last Admin: 10/18/23 14:03 Dose: 17 gm Documented By: SHIRLEY Quetiapine Fumarate (Quetiapine Fumarate 50 Mg Tablet) 50 mg PO Q6H PRN PRN Reason: agitation/anxiety Last Admin: 11/01/23 02:33 Dose: 50 mg Documented By: ELIANA Senna/Docusate Sodium (Sennosides/Docusate Sodium Tablet) 1 tab PO BID [facility] Last Admin: 11/02/23 20:51 Dose: Not Given Documented By: RIGO Non-Admin Reason: Patient Refused Trazodone HCl (Trazodone Hcl 50 Mg Tablet) 50 mg PO BEDTIME [facility] Last Admin: 11/02/23 20:51 Dose: 50 mg Documented By: RIGO Labs 10/14/23 05:47 10/14/23 05:47 Assessment and Plan (1) Schizophrenia, paranoid type: Status: Acute Plan 63F [facility] significant for schizophrenia?who initially presented to the ED on 08/23/2023 for evaluation of delusional behavior. Medical workup has been negative for any acute concerns, and patient had been placed on physician observation, due to prolonged stay, transfered to medical service 10/13/23 essentially no changes in care at this time Schizophrenia, paranoid type, symptoms controlled, lucid, continue meds per Psych direction (Prolixin, cogentin, Trazadone at hs) and or further adjustment per Psych Patient otherwise has no acute or chronic medical conditions issues and just awaiting placement DVT Prophylaxis: Patient ambulatory need for inpt: awaiting for placement , Ongoing daily discussion with CM Quality Stroke Does the patient have a stroke diagnosis?: No VTE Prior VTE?: No VTE Risk Level:: Medical - low VTE Device Contraindication: Treatment Not Indicated VTE Drug Contraindication: Treatment Not Indicated
[2023-11-03] MEDS: Sennosides/Docusate Sodium TABLET 1 TAB PO ×2 (09:12→22:15)
[2023-11-03] MEDS: Benztropine Mesylate 1 MG TABLET PO ×2 (09:12→22:15)
--- NOTE | 2023-11-03 14:27 | MHC.CM.PN ---
Pt still awaiting conservatorship assignment [facility].
[2023-11-03 16:00] VITALS: BP 127/60; PULSE 56; RESP 18; TEMP 36.7; O2SAT 97
[2023-11-03 19:11] VITALS: BP 131/65; PULSE 55; RESP 18; TEMP 36.4; O2SAT 96
[2023-11-03] MEDS: Melatonin 3 MG TABLET 6 MG PO (22:15)
[2023-11-03] MEDS: traZODone HCL 50 MG TABLET PO (22:15)
[2023-11-04 03:09] VITALS: BP 114/57; PULSE 53; RESP 16; TEMP 36.6; O2SAT 95
[2023-11-04 07:52] VITALS: BP 133/77; PULSE 57; RESP 16; TEMP 36.4; O2SAT 96
[2023-11-04] MEDS: hydrOXYzine HCL 25 MG TABLET PO (09:54)
[2023-11-04] MEDS: Benztropine Mesylate 1 MG TABLET PO ×2 (09:54→20:18)
[2023-11-04] MEDS: Sennosides/Docusate Sodium TABLET 1 TAB PO ×2 (09:54→20:18)
--- NOTE | 2023-11-04 09:56 | P.PNIM_ITS ---
Subjective Subjective Date of Service: 11/04/23 Interval History: Seen and evaluated this morning feels comfortable overall No complaints Review of Systems Review of Systems: Yes all other systems are reviewed and are negative Physical Exam 2 Vital Signs: Vital Signs: Last Vital Signs Temp 97.5 F 11/04/23 07:52 Pulse 57 11/04/23 07:52 Resp 16 11/04/23 07:52 BP 133/77 11/04/23 07:52 Pulse Ox 96 11/04/23 07:52 O2 Del Method Room Air 11/04/23 07:52 O2 Flow Rate 2 11/02/23 15:24 BMI result Body Mass Index 25.0 Const: Other: Constitutional : Awake, interactive, not in distress Neck : Normal inspection, Supple Cardiovascular : no JVP, no lower extremity edema Skin : Warm, Dry Neurological : Alert & oriented to self and place, No focal deficit Objective Data Active Medications Acetaminophen (Acetaminophen 325 Mg Tablet) 650 mg PO Q6H PRN PRN Reason: pain, fever Last Admin: 10/26/23 08:00 Dose: 650 mg Documented By: ESTHER Al Hydroxide/Mg Hydroxide (Magnesium Hydrox/Alum Hydrox 30 Ml Oral.Susp) 30 ml PO Q6H PRN PRN Reason: Dyspepsia Last Admin: 10/24/23 08:14 Dose: 30 ml Documented By: ESTHER Benztropine Mesylate (Benztropine Mesylate 1 Mg Tablet) 1 mg PO BID [facility] Last Admin: 11/04/23 09:54 Dose: 1 mg Documented By: EDUARDO Calcium Carbonate (Calcium Carbonate 750 Mg Tab.Chew) 750 mg PO Q6H PRN PRN Reason: Dyspepsia Last Admin: 10/23/23 23:34 Dose: 750 mg Fluphenazine Decanoate (Fluphenazine Decanoate 25 Mg/Ml 5 Ml Vial) 25 mg IM Q28D [facility] Last Admin: 11/01/23 12:22 Dose: 25 mg Documented By: MARTIN Comments: med just arrived on unit Fluticasone Propionate (Fluticasone Propionate Nasal 16 Gm [place]) 1 spray NOSTRIL-B ONCE [facility] Guaifenesin/Dextromethorphan (Guaifenesin Dm 600/30 1 Tab Tab.Er.12h) 1 tab PO BID PRN PRN Reason: congestion/cough Hydroxyzine HCl (Hydroxyzine Hcl 25 Mg Tablet) 25 mg PO Q8H PRN PRN Reason: anxiety/restlessness Last Admin: 11/04/23 09:54 Dose: 25 mg Documented By: EDUARDO Magnesium Hydroxide (Milk Of Magnesia 30 Ml Oral.Susp) 30 ml PO DAILY PRN PRN Reason: Constipation Last Admin: 10/16/23 14:52 Dose: 30 ml Documented By: JAGDISH Melatonin (Melatonin 3 Mg Tablet) 6 mg PO BEDTIME [facility] Last Admin: 11/03/23 22:15 Dose: 6 mg Documented By: YVROSE Ondansetron HCl (Ondansetron Hcl 4 Mg/2 Ml Vial) 4 mg IVPUSH Q8H PRN PRN Reason: Nausea and Vomiting Polyethylene Glycol (Polyethylene Glycol 3350 17 Gm Powd.Pack) 17 gm PO DAILY PRN PRN Reason: Constipation Last Admin: 10/18/23 14:03 Dose: 17 gm Documented By: SHIRLEY Quetiapine Fumarate (Quetiapine Fumarate 50 Mg Tablet) 50 mg PO Q6H PRN PRN Reason: agitation/anxiety Last Admin: 11/01/23 02:33 Dose: 50 mg Documented By: ELIANA Senna/Docusate Sodium (Sennosides/Docusate Sodium Tablet) 1 tab PO BID [facility] Last Admin: 11/04/23 09:54 Dose: 1 tab Documented By: EDUARDO Trazodone HCl (Trazodone Hcl 50 Mg Tablet) 50 mg PO BEDTIME [facility] Last Admin: 11/03/23 22:15 Dose: 50 mg Documented By: YVROSE Labs 10/14/23 05:47 10/14/23 05:47 Assessment and Plan (1) Schizophrenia, paranoid type: Status: Acute Plan 63F [facility] significant for schizophrenia?who initially presented to the ED on 08/23/2023 for evaluation of delusional behavior. Medical workup has been negative for any acute concerns, and patient had been placed on physician observation, due to prolonged stay, transfered to medical service 10/13/23 essentially no changes in care at this time Schizophrenia, paranoid type, symptoms controlled, lucid, continue meds per Psych direction (Prolixin, cogentin, Trazadone at hs) and or further adjustment per Psych Patient otherwise has no acute or chronic medical conditions issues and just awaiting placement DVT Prophylaxis: Patient ambulatory need for inpt: awaiting for placement , Ongoing daily discussion with CM Quality Stroke Does the patient have a stroke diagnosis?: No VTE Prior VTE?: No VTE Risk Level:: Medical - low VTE Device Contraindication: Treatment Not Indicated VTE Drug Contraindication: Treatment Not Indicated
[2023-11-04 15:00] VITALS: BP 125/59; PULSE 58; RESP 16; TEMP 36.6; O2SAT 95
[2023-11-04 19:28] VITALS: BP 125/56; PULSE 57; RESP 18; TEMP 36.6; O2SAT 96
[2023-11-04] MEDS: Melatonin 3 MG TABLET 6 MG PO (20:18)
[2023-11-04] MEDS: traZODone HCL 50 MG TABLET PO (20:18)
[2023-11-05 03:00] VITALS: BP 123/66; PULSE 58; RESP 16; TEMP 36.5; O2SAT 96
[2023-11-05] MEDS: QUEtiapine Fumarate 50 MG TABLET PO (03:04)
[2023-11-05 07:51] VITALS: BP 130/65; PULSE 57; RESP 16; TEMP 37.1; O2SAT 96
--- NOTE | 2023-11-05 08:18 | MHC.CM.PN ---
LATE ENTRY NOTE FOR 11/04/23, CM RECEIVED CALL FROM CM DIRECTOR REPORTING SHE HAD RECEIVED A [facility] HX ON PT INCLUDING PT HAVING A TBI SINCE 2003, [facility] HX UPLOADED TO [facility] W/UPDATES AND SENT TO [facility] TAK[facility] PT'S, CM STILL AWAITING RESPONSE FROM [facility] HOWEVER NOT LIKELY TO RECIEVE UNTIL TOMORROW SUNDAY 11/05, CM WILL CONT TO FOLLOW DC NEEDS.
[2023-11-05] MEDS: Sennosides/Docusate Sodium TABLET 1 TAB PO ×2 (09:46→20:07)
[2023-11-05] MEDS: Benztropine Mesylate 1 MG TABLET PO ×2 (09:46→20:07)
--- NOTE | 2023-11-05 10:20 | P.PNIM_ITS ---
Subjective Subjective Date of Service: 11/05/23 Interval History: Seen and evaluated this morning feels comfortable overall No complaints Review of Systems Review of Systems: Yes all other systems are reviewed and are negative Physical Exam 2 Vital Signs: Vital Signs: Last Vital Signs Temp 98.7 F 11/05/23 07:51 Pulse 57 11/05/23 07:51 Resp 16 11/05/23 07:51 BP 130/65 11/05/23 07:51 Pulse Ox 96 11/05/23 07:51 O2 Del Method Room Air 11/05/23 07:51 O2 Flow Rate 2 11/02/23 15:24 BMI result Body Mass Index 25.0 Const: Other: Constitutional : Awake, interactive, not in distress Neck : Normal inspection, Supple Cardiovascular : no JVP, no lower extremity edema Skin : Warm, Dry Neurological : Alert & oriented to self and place, No focal deficit Objective Data Active Medications Acetaminophen (Acetaminophen 325 Mg Tablet) 650 mg PO Q6H PRN PRN Reason: pain, fever Last Admin: 10/26/23 08:00 Dose: 650 mg Documented By: ESTHER Al Hydroxide/Mg Hydroxide (Magnesium Hydrox/Alum Hydrox 30 Ml Oral.Susp) 30 ml PO Q6H PRN PRN Reason: Dyspepsia Last Admin: 10/24/23 08:14 Dose: 30 ml Documented By: ESTHER Benztropine Mesylate (Benztropine Mesylate 1 Mg Tablet) 1 mg PO BID [facility] Last Admin: 11/05/23 09:46 Dose: 1 mg Documented By: EDUARDO Calcium Carbonate (Calcium Carbonate 750 Mg Tab.Chew) 750 mg PO Q6H PRN PRN Reason: Dyspepsia Last Admin: 10/23/23 23:34 Dose: 750 mg Fluphenazine Decanoate (Fluphenazine Decanoate 25 Mg/Ml 5 Ml Vial) 25 mg IM Q28D [facility] Last Admin: 11/01/23 12:22 Dose: 25 mg Documented By: MARTIN Comments: med just arrived on unit Fluticasone Propionate (Fluticasone Propionate Nasal 16 Gm [place]) 1 spray NOSTRIL-B ONCE [facility] Guaifenesin/Dextromethorphan (Guaifenesin Dm 600/30 1 Tab Tab.Er.12h) 1 tab PO BID PRN PRN Reason: congestion/cough Hydroxyzine HCl (Hydroxyzine Hcl 25 Mg Tablet) 25 mg PO Q8H PRN PRN Reason: anxiety/restlessness Last Admin: 11/04/23 09:54 Dose: 25 mg Documented By: EDUARDO Magnesium Hydroxide (Milk Of Magnesia 30 Ml Oral.Susp) 30 ml PO DAILY PRN PRN Reason: Constipation Last Admin: 10/16/23 14:52 Dose: 30 ml Documented By: JAGDISH Melatonin (Melatonin 3 Mg Tablet) 6 mg PO BEDTIME [facility] Last Admin: 11/04/23 20:18 Dose: 6 mg Documented By: YVROSE Ondansetron HCl (Ondansetron Hcl 4 Mg/2 Ml Vial) 4 mg IVPUSH Q8H PRN PRN Reason: Nausea and Vomiting Polyethylene Glycol (Polyethylene Glycol 3350 17 Gm Powd.Pack) 17 gm PO DAILY PRN PRN Reason: Constipation Last Admin: 10/18/23 14:03 Dose: 17 gm Documented By: SHIRLEY Quetiapine Fumarate (Quetiapine Fumarate 50 Mg Tablet) 50 mg PO Q6H PRN PRN Reason: agitation/anxiety Last Admin: 11/05/23 03:04 Dose: 50 mg Documented By: YVROSE Senna/Docusate Sodium (Sennosides/Docusate Sodium Tablet) 1 tab PO BID [facility] Last Admin: 11/05/23 09:46 Dose: 1 tab Documented By: EDUARDO Trazodone HCl (Trazodone Hcl 50 Mg Tablet) 50 mg PO BEDTIME [facility] Last Admin: 11/04/23 20:18 Dose: 50 mg Documented By: YVROSE Labs 10/14/23 05:47 10/14/23 05:47 Assessment and Plan (1) Schizophrenia, paranoid type: Status: Acute Plan 63F [facility] significant for schizophrenia?who initially presented to the ED on 08/23/2023 for evaluation of delusional behavior. Medical workup has been negative for any acute concerns, and patient had been placed on physician observation, due to prolonged stay, transfered to medical service 10/13/23 essentially no changes in care at this time Schizophrenia, paranoid type, symptoms controlled, lucid, continue meds per Psych direction (Prolixin, cogentin, Trazadone at hs) and or further adjustment per Psych Patient otherwise has no acute or chronic medical conditions issues and just awaiting placement DVT Prophylaxis: Patient ambulatory need for inpt: awaiting for placement , Ongoing daily discussion with CM Quality Stroke Does the patient have a stroke diagnosis?: No VTE Prior VTE?: No VTE Risk Level:: Medical - low VTE Device Contraindication: Treatment Not Indicated VTE Drug Contraindication: Treatment Not Indicated
[2023-11-05] MEDS: hydrOXYzine HCL 25 MG TABLET PO (10:33)
[2023-11-05 14:58] VITALS: BP 121/71; PULSE 59; RESP 20; TEMP 36.4; O2SAT 97
[2023-11-05 19:54] VITALS: BP 125/59; PULSE 58; RESP 17; TEMP 36.4; O2SAT 98
[2023-11-05] MEDS: Melatonin 3 MG TABLET 6 MG PO (20:07)
[2023-11-05] MEDS: traZODone HCL 50 MG TABLET PO (20:07)
[2023-11-06 04:00] VITALS: BP 119/73; PULSE 61; RESP 18; TEMP 36.5; O2SAT 95
[2023-11-06 07:24] VITALS: BP 118/58; PULSE 55; RESP 18; TEMP 36.1; O2SAT 95
--- NOTE | 2023-11-06 08:29 | HO.PM.IMPN ---
Subjective Subjective Date of Service: 11/06/23 Interval History: Seen and evaluated this morning feels comfortable overall No complaints Review of Systems Review of Systems: Yes all other systems are reviewed and are negative Physical Exam Vital Signs: Vital Signs: Last Vital Signs Temp 97.0 F 11/06/23 07:24 Pulse 55 11/06/23 07:24 Resp 18 11/06/23 07:24 BP 118/58 L 11/06/23 07:24 Pulse Ox 95 11/06/23 07:24 O2 Del Method Room Air 11/06/23 07:24 O2 Flow Rate 2 11/02/23 15:24 BMI result Body Mass Index 25.0 Const: Other: Constitutional : Awake, interactive, not in distress Neck : Normal inspection, Supple Cardiovascular : no JVP, no lower extremity edema Skin : Warm, Dry Neurological : Alert & oriented to self and place, No focal deficit Objective Data Active Medications Acetaminophen (Acetaminophen 325 Mg Tablet) 650 mg PO Q6H PRN PRN Reason: pain, fever Last Admin: 10/26/23 08:00 Dose: 650 mg Documented By: ESTHER Al Hydroxide/Mg Hydroxide (Magnesium Hydrox/Alum Hydrox 30 Ml Oral.Susp) 30 ml PO Q6H PRN PRN Reason: Dyspepsia Last Admin: 10/24/23 08:14 Dose: 30 ml Documented By: ESTHER Benztropine Mesylate (Benztropine Mesylate 1 Mg Tablet) 1 mg PO BID [facility] Last Admin: 11/05/23 20:07 Dose: 1 mg Documented By: ALISON Calcium Carbonate (Calcium Carbonate 750 Mg Tab.Chew) 750 mg PO Q6H PRN PRN Reason: Dyspepsia Last Admin: 10/23/23 23:34 Dose: 750 mg Fluphenazine Decanoate (Fluphenazine Decanoate 25 Mg/Ml 5 Ml Vial) 25 mg IM Q28D [facility] Last Admin: 11/01/23 12:22 Dose: 25 mg Documented By: MARTIN Comments: med just arrived on unit Fluticasone Propionate (Fluticasone Propionate Nasal 16 Gm [place]) 1 spray NOSTRIL-B ONCE [facility] Guaifenesin/Dextromethorphan (Guaifenesin Dm 600/30 1 Tab Tab.Er.12h) 1 tab PO BID PRN PRN Reason: congestion/cough Hydroxyzine HCl (Hydroxyzine Hcl 25 Mg Tablet) 25 mg PO Q8H PRN PRN Reason: anxiety/restlessness Last Admin: 11/05/23 10:33 Dose: 25 mg Documented By: EDUARDO Magnesium Hydroxide (Milk Of Magnesia 30 Ml Oral.Susp) 30 ml PO DAILY PRN PRN Reason: Constipation Last Admin: 10/16/23 14:52 Dose: 30 ml Documented By: JAGDISH Melatonin (Melatonin 3 Mg Tablet) 6 mg PO BEDTIME [facility] Last Admin: 11/05/23 20:07 Dose: 6 mg Documented By: ALISON Ondansetron HCl (Ondansetron Hcl 4 Mg/2 Ml Vial) 4 mg IVPUSH Q8H PRN PRN Reason: Nausea and Vomiting Polyethylene Glycol (Polyethylene Glycol 3350 17 Gm Powd.Pack) 17 gm PO DAILY PRN PRN Reason: Constipation Last Admin: 10/18/23 14:03 Dose: 17 gm Documented By: SHIRLEY Quetiapine Fumarate (Quetiapine Fumarate 50 Mg Tablet) 50 mg PO Q6H PRN PRN Reason: agitation/anxiety Last Admin: 11/05/23 03:04 Dose: 50 mg Documented By: YVROSE Senna/Docusate Sodium (Sennosides/Docusate Sodium Tablet) 1 tab PO BID [facility] Last Admin: 11/05/23 20:07 Dose: 1 tab Documented By: ALISON Trazodone HCl (Trazodone Hcl 50 Mg Tablet) 50 mg PO BEDTIME [facility] Last Admin: 11/05/23 20:07 Dose: 50 mg Documented By: ALISON Labs 10/14/23 05:47 10/14/23 05:47 Assessment and Plan (1) Schizophrenia, paranoid type: Status: Acute Plan 63F [facility] significant for schizophrenia?who initially presented to the ED on 08/23/2023 for evaluation of delusional behavior. Medical workup has been negative for any acute concerns, and patient had been placed on physician observation, due to prolonged stay, transfered to medical service 10/13/23 essentially no changes in care at this time Schizophrenia, paranoid type, symptoms controlled, lucid, continue meds per Psych direction (Prolixin, cogentin, Trazadone at hs) and or further adjustment per Psych Patient otherwise has no acute or chronic medical conditions issues and just awaiting placement DVT Prophylaxis: Patient ambulatory need for inpt: awaiting for placement , Ongoing daily discussion with CM Quality Stroke Does the patient have a stroke diagnosis?: No VTE Prior VTE?: No VTE Risk Level:: Medical - low VTE Device Contraindication: Treatment Not Indicated VTE Drug Contraindication: Treatment Not Indicated
[2023-11-06] MEDS: Benztropine Mesylate 1 MG TABLET PO ×2 (08:57→21:31)
[2023-11-06] MEDS: Sennosides/Docusate Sodium TABLET 1 TAB PO ×2 (08:57→21:32)
[2023-11-06] MEDS: hydrOXYzine HCL 25 MG TABLET PO (14:25)
[2023-11-06 15:16] VITALS: BP 128/59; PULSE 62; RESP 20; TEMP 36.9; O2SAT 98
[2023-11-06 19:19] VITALS: BP 118/63; PULSE 55; RESP 20; TEMP 36.2; O2SAT 97
[2023-11-06] MEDS: Melatonin 3 MG TABLET 6 MG PO (21:31)
[2023-11-06] MEDS: traZODone HCL 50 MG TABLET PO (21:31)
[2023-11-07] MEDS: hydrOXYzine HCL 25 MG TABLET PO (02:58)
[2023-11-07 04:00] VITALS: BP 125/62; PULSE 51; RESP 18; TEMP 36.8; O2SAT 96
[2023-11-07 07:42] VITALS: BP 138/69; PULSE 54; RESP 20; TEMP 36.1; O2SAT 95
[2023-11-07] MEDS: Benztropine Mesylate 1 MG TABLET PO ×2 (07:48→21:51)
[2023-11-07] MEDS: Sennosides/Docusate Sodium TABLET 1 TAB PO ×2 (07:48→21:51)
--- NOTE | 2023-11-07 09:51 | HO.PM.IMPN ---
Subjective Subjective Date of Service: 11/07/23 Interval History: Seen and evaluated this morning feels comfortable overall No complaints Review of Systems Review of Systems: Yes all other systems are reviewed and are negative Physical Exam Vital Signs: Vital Signs: Last Vital Signs Temp 96.9 F 11/07/23 07:42 Pulse 54 11/07/23 07:42 Resp 20 11/07/23 07:42 BP 138/69 11/07/23 07:42 Pulse Ox 95 11/07/23 07:42 O2 Del Method Room Air 11/07/23 07:42 O2 Flow Rate 2 11/02/23 15:24 BMI result Body Mass Index 25.0 Const: Other: Constitutional : Awake, interactive, not in distress Neck : Normal inspection, Supple Cardiovascular : no JVP, no lower extremity edema Skin : Warm, Dry Neurological : Alert & oriented to self and place, No focal deficit Objective Data Active Medications Acetaminophen (Acetaminophen 325 Mg Tablet) 650 mg PO Q6H PRN PRN Reason: pain, fever Last Admin: 10/26/23 08:00 Dose: 650 mg Documented By: ESTHER Al Hydroxide/Mg Hydroxide (Magnesium Hydrox/Alum Hydrox 30 Ml Oral.Susp) 30 ml PO Q6H PRN PRN Reason: Dyspepsia Last Admin: 10/24/23 08:14 Dose: 30 ml Documented By: ESTHER Benztropine Mesylate (Benztropine Mesylate 1 Mg Tablet) 1 mg PO BID [facility] Last Admin: 11/07/23 07:48 Dose: 1 mg Documented By: LAUREL Calcium Carbonate (Calcium Carbonate 750 Mg Tab.Chew) 750 mg PO Q6H PRN PRN Reason: Dyspepsia Last Admin: 10/23/23 23:34 Dose: 750 mg Fluphenazine Decanoate (Fluphenazine Decanoate 25 Mg/Ml 5 Ml Vial) 25 mg IM Q28D [facility] Last Admin: 11/01/23 12:22 Dose: 25 mg Documented By: MARTIN Comments: med just arrived on unit Fluticasone Propionate (Fluticasone Propionate Nasal 16 Gm [place]) 1 spray NOSTRIL-B ONCE [facility] Guaifenesin/Dextromethorphan (Guaifenesin Dm 600/30 1 Tab Tab.Er.12h) 1 tab PO BID PRN PRN Reason: congestion/cough Hydroxyzine HCl (Hydroxyzine Hcl 25 Mg Tablet) 25 mg PO Q8H PRN PRN Reason: anxiety/restlessness Last Admin: 11/07/23 02:58 Dose: 25 mg Documented By: SABINE Magnesium Hydroxide (Milk Of Magnesia 30 Ml Oral.Susp) 30 ml PO DAILY PRN PRN Reason: Constipation Last Admin: 10/16/23 14:52 Dose: 30 ml Documented By: JAGDISH Melatonin (Melatonin 3 Mg Tablet) 6 mg PO BEDTIME [facility] Last Admin: 11/06/23 21:31 Dose: 6 mg Documented By: SABINE Ondansetron HCl (Ondansetron Hcl 4 Mg/2 Ml Vial) 4 mg IVPUSH Q8H PRN PRN Reason: Nausea and Vomiting Polyethylene Glycol (Polyethylene Glycol 3350 17 Gm Powd.Pack) 17 gm PO DAILY PRN PRN Reason: Constipation Last Admin: 10/18/23 14:03 Dose: 17 gm Documented By: SHIRLEY Quetiapine Fumarate (Quetiapine Fumarate 50 Mg Tablet) 50 mg PO Q6H PRN PRN Reason: agitation/anxiety Last Admin: 11/05/23 03:04 Dose: 50 mg Documented By: YVROSE Senna/Docusate Sodium (Sennosides/Docusate Sodium Tablet) 1 tab PO BID [facility] Last Admin: 11/07/23 07:48 Dose: 1 tab Documented By: LAUREL Trazodone HCl (Trazodone Hcl 50 Mg Tablet) 50 mg PO BEDTIME [facility] Last Admin: 11/06/23 21:31 Dose: 50 mg Documented By: SABINE Labs 10/14/23 05:47 10/14/23 05:47 Assessment and Plan (1) Schizophrenia, paranoid type: Status: Acute Plan 63F [facility] significant for schizophrenia?who initially presented to the ED on 08/23/2023 for evaluation of delusional behavior. Medical workup has been negative for any acute concerns, and patient had been placed on physician observation, due to prolonged stay, transfered to medical service 10/13/23 essentially no changes in care at this time Schizophrenia, paranoid type, symptoms controlled, lucid, continue meds per Psych direction (Prolixin, cogentin, Trazadone at hs) and or further adjustment per Psych Patient otherwise has no acute or chronic medical conditions issues and just awaiting placement DVT Prophylaxis: Patient ambulatory need for inpt: awaiting for placement , Ongoing daily discussion with CM Quality Stroke Does the patient have a stroke diagnosis?: No VTE Prior VTE?: No VTE Risk Level:: Medical - low VTE Device Contraindication: Treatment Not Indicated VTE Drug Contraindication: Treatment Not Indicated
[2023-11-07] MEDS: QUEtiapine Fumarate 50 MG TABLET PO (10:24)
--- NOTE | 2023-11-07 14:50 | HO.PSYCHPN ---
Subjective Subjective Date of Service: 11/07/23 Reason For Visit: Awaiting skilled nursing placement Interim History: Lillian reports some days she sleeps better than other. She denies constipation or dry mouth. She asks about placement and whether this health underwriter has news about where she will go next. No overt VH/AH. No overt delusional content noted or reported. She also asks about clean clothes and new clothes- message sent to the guardian, Tony. Today, we had meeting with her guardian, Tony, Sola ochoa regarding placement- this health underwriter provided Tony update on medications and status. No behavioral concerns. Pt is pleasant on approach. Review of Systems Review of Systems Denies chest pain Denies shortness of breath Denies nausea vomiting diarrhea Denies fever chills Yes all other systems are reviewed and are negative Constitutional: Denies chills, Denies fever(s) and Reports headache(s) Eyes: Denies blurry vision Reports headache(s) and Denies sore throat Cardiovascular: Denies chest pain and Denies dyspnea Respiratory: Denies cough and Denies dyspnea Gastrointestinal: Denies abdominal pain, Denies nausea and Denies vomiting Musculoskeletal: Denies back pain Skin/Breast: Denies rash Reports headache(s) Mental Status Exam Mental Status Exam Narrative: Appearance: wearing hospital gown, fair hygiene, in NAD Behavior: cooperative. Psychomotor: no agitation or retardation noted Speech: clear, normal rate/rhythm/volume, spontaneous TP: mostly linear TC: waiting for a place to go VH/AH: denies Delusions: no overt delusions. Insight/judgment: improving x 2 Memory/cog: alert, oriented x 3. Diagnostics Vital Signs (24Hr): Vital Signs - 24 hr 11/06/23 15:16 11/06/23 19:19 11/07/23 04:00 Temperature 98.4 F 97.2 F 98.3 F Pulse Rate 62 55 51 Respiratory Rate 20 20 18 Blood Pressure 128/59 L 118/63 125/62 Pulse Oximetry 98 97 96 Oxygen Delivery Method Room Air Room Air Room Air 11/07/23 07:42 Temperature 96.9 F Pulse Rate 54 Respiratory Rate 20 Blood Pressure 138/69 Pulse Oximetry 95 Oxygen Delivery Method Room Air BMI result Body Mass Index 25.0 Labs 10/14/23 05:47 10/14/23 05:47 Medications Medications Current Medications Acetaminophen (Acetaminophen 325 Mg Tablet) 650 mg PO Q6H PRN PRN Reason: pain, fever Last Admin: 10/26/23 08:00 Dose: 650 mg Al Hydroxide/Mg Hydroxide (Magnesium Hydrox/Alum Hydrox 30 Ml Oral.Susp) 30 ml PO Q6H PRN PRN Reason: Dyspepsia Last Admin: 10/24/23 08:14 Dose: 30 ml Benztropine Mesylate (Benztropine Mesylate 1 Mg Tablet) 1 mg PO BID [facility] Last Admin: 11/07/23 07:48 Dose: 1 mg Calcium Carbonate (Calcium Carbonate 750 Mg Tab.Chew) 750 mg PO Q6H PRN PRN Reason: Dyspepsia Last Admin: 10/23/23 23:34 Dose: 750 mg Fluphenazine Decanoate (Fluphenazine Decanoate 25 Mg/Ml 5 Ml Vial) 25 mg IM Q28D [facility] Last Admin: 11/01/23 12:22 Dose: 25 mg Fluticasone Propionate (Fluticasone Propionate Nasal 16 Gm [place]) 1 spray NOSTRIL-B ONCE [facility] Guaifenesin/Dextromethorphan (Guaifenesin Dm 600/30 1 Tab Tab.Er.12h) 1 tab PO BID PRN PRN Reason: congestion/cough Hydroxyzine HCl (Hydroxyzine Hcl 25 Mg Tablet) 25 mg PO Q8H PRN PRN Reason: anxiety/restlessness Last Admin: 11/07/23 02:58 Dose: 25 mg Magnesium Hydroxide (Milk Of Magnesia 30 Ml Oral.Susp) 30 ml PO DAILY PRN PRN Reason: Constipation Last Admin: 10/16/23 14:52 Dose: 30 ml Melatonin (Melatonin 3 Mg Tablet) 6 mg PO BEDTIME [facility] Last Admin: 11/06/23 21:31 Dose: 6 mg Ondansetron HCl (Ondansetron Hcl 4 Mg/2 Ml Vial) 4 mg IVPUSH Q8H PRN PRN Reason: Nausea and Vomiting Polyethylene Glycol (Polyethylene Glycol 3350 17 Gm Powd.Pack) 17 gm PO DAILY PRN PRN Reason: Constipation Last Admin: 10/18/23 14:03 Dose: 17 gm Quetiapine Fumarate (Quetiapine Fumarate 50 Mg Tablet) 50 mg PO Q6H PRN PRN Reason: agitation/anxiety Last Admin: 11/07/23 10:24 Dose: 50 mg Senna/Docusate Sodium (Sennosides/Docusate Sodium Tablet) 1 tab PO BID [facility] Last Admin: 11/07/23 07:48 Dose: 1 tab Trazodone HCl (Trazodone Hcl 50 Mg Tablet) 50 mg PO BEDTIME [facility] Last Admin: 11/06/23 21:31 Dose: 50 mg Allergies Allergies Allergy/AdvReac Type Severity Reaction Status Date / Time amoxicillin [From Augmentin] AdvReac Facial Verified 08/23/23 17:23 Swelling clavulanic acid AdvReac Facial Verified 08/23/23 17:23 [From Augmentin] Swelling Sulfa (Sulfonamide AdvReac Hives Verified 08/23/23 17:23 Antibiotics) sulfamethoxazole AdvReac Hives Verified 08/23/23 17:23 [From Bactrim] trimethoprim [From Bactrim] AdvReac Hives Verified 08/23/23 17:23 Assessment & Plan Assessment & Plan (1) Schizophrenia, paranoid type: Status: Acute Code(s): F20.0 - Paranoid schizophrenia Plan 11/06 increase trazodone to 75mg po qhs for sleep. Continue cogentin. Prolixin 25mg IM q28day given last on 10/31. mild action tremor on right hand. No cogwheel, or rigidity noted on exam. Reason for continued inpatient stay Substantial Risk for: inability to function (awaiting placement) Time Spent With Patient Time: Total time managing care of this patient today ____ minutes.
--- NOTE | 2023-11-07 14:50 | MHC.CM.PN ---
referral submitted today to [facility], a SNF for pt with TBI. Guardian suggested this referral and informed CM that she will change pt from [facility] ins to Medicare / Medicaid. Meeting with guardian, CM, CM s/v and psych provider to discuss DC plan, and whether or not pt requires secured unit. Guardian to follow up with legal issues for pt at this time, and to change ins.
[2023-11-07 15:17] VITALS: BP 126/60; PULSE 58; RESP 20; TEMP 36.3; O2SAT 95
[2023-11-07 19:02] VITALS: BP 107/50; PULSE 80; RESP 20; TEMP 36.7; O2SAT 98
[2023-11-07] MEDS: Melatonin 3 MG TABLET 6 MG PO (21:51)
[2023-11-07] MEDS: traZODone HCL 25 MG HALFTAB 75 MG PO (21:51)
[2023-11-08 03:11] VITALS: BP 108/53; PULSE 53; RESP 20; TEMP 36.2; O2SAT 95
[2023-11-08 07:23] VITALS: BP 119/60; PULSE 62; RESP 18; TEMP 36.4; O2SAT 95
[2023-11-08] MEDS: Sennosides/Docusate Sodium TABLET 1 TAB PO ×2 (09:21→19:30)
[2023-11-08] MEDS: Benztropine Mesylate 1 MG TABLET PO ×2 (09:21→19:30)
--- NOTE | 2023-11-08 09:40 | HO.PM.IMPN ---
Subjective Subjective Date of Service: 11/08/23 Interval History: Seen and evaluated this morning feels comfortable overall No complaints Review of Systems Review of Systems: Yes all other systems are reviewed and are negative Physical Exam Vital Signs: Vital Signs: Last Vital Signs Temp 97.6 F 11/08/23 07:23 Pulse 62 11/08/23 07:23 Resp 18 11/08/23 07:23 BP 119/60 11/08/23 07:23 Pulse Ox 95 11/08/23 07:23 O2 Del Method Room Air 11/08/23 07:23 O2 Flow Rate 2 11/02/23 15:24 BMI result Body Mass Index 25.0 Const: Other: Constitutional : Awake, interactive, not in distress Neck : Normal inspection, Supple Cardiovascular : no JVP, no lower extremity edema Skin : Warm, Dry Neurological : Alert & oriented to self and place, No focal deficit Objective Data Active Medications Acetaminophen (Acetaminophen 325 Mg Tablet) 650 mg PO Q6H PRN PRN Reason: pain, fever Last Admin: 10/26/23 08:00 Dose: 650 mg Documented By: ESTHER Al Hydroxide/Mg Hydroxide (Magnesium Hydrox/Alum Hydrox 30 Ml Oral.Susp) 30 ml PO Q6H PRN PRN Reason: Dyspepsia Last Admin: 10/24/23 08:14 Dose: 30 ml Documented By: ESTHER Benztropine Mesylate (Benztropine Mesylate 1 Mg Tablet) 1 mg PO BID [facility] Last Admin: 11/08/23 09:21 Dose: 1 mg Documented By: ROGELIO Calcium Carbonate (Calcium Carbonate 750 Mg Tab.Chew) 750 mg PO Q6H PRN PRN Reason: Dyspepsia Last Admin: 10/23/23 23:34 Dose: 750 mg Fluphenazine Decanoate (Fluphenazine Decanoate 25 Mg/Ml 5 Ml Vial) 25 mg IM Q28D [facility] Last Admin: 11/01/23 12:22 Dose: 25 mg Documented By: MARTIN Comments: med just arrived on unit Fluticasone Propionate (Fluticasone Propionate Nasal 16 Gm [place]) 1 spray NOSTRIL-B ONCE [facility] Guaifenesin/Dextromethorphan (Guaifenesin Dm 600/30 1 Tab Tab.Er.12h) 1 tab PO BID PRN PRN Reason: congestion/cough Hydroxyzine HCl (Hydroxyzine Hcl 25 Mg Tablet) 25 mg PO Q8H PRN PRN Reason: anxiety/restlessness Last Admin: 11/07/23 02:58 Dose: 25 mg Documented By: SABINE Magnesium Hydroxide (Milk Of Magnesia 30 Ml Oral.Susp) 30 ml PO DAILY PRN PRN Reason: Constipation Last Admin: 10/16/23 14:52 Dose: 30 ml Documented By: JAGDISH Melatonin (Melatonin 3 Mg Tablet) 6 mg PO BEDTIME [facility] Last Admin: 11/07/23 21:51 Dose: 6 mg Documented By: YVROSE Ondansetron HCl (Ondansetron Hcl 4 Mg/2 Ml Vial) 4 mg IVPUSH Q8H PRN PRN Reason: Nausea and Vomiting Polyethylene Glycol (Polyethylene Glycol 3350 17 Gm Powd.Pack) 17 gm PO DAILY PRN PRN Reason: Constipation Last Admin: 10/18/23 14:03 Dose: 17 gm Documented By: SHIRLEY Quetiapine Fumarate (Quetiapine Fumarate 50 Mg Tablet) 50 mg PO Q6H PRN PRN Reason: agitation/anxiety Last Admin: 11/07/23 10:24 Dose: 50 mg Documented By: ROGELIO Senna/Docusate Sodium (Sennosides/Docusate Sodium Tablet) 1 tab PO BID [facility] Last Admin: 11/08/23 09:21 Dose: 1 tab Documented By: ROGELIO Trazodone HCl (Trazodone Hcl 25 Mg Halftab) 75 mg PO BEDTIME [facility] Last Admin: 11/07/23 21:51 Dose: 75 mg Documented By: YVROSE Labs 10/14/23 05:47 10/14/23 05:47 Assessment and Plan (1) Schizophrenia, paranoid type: Status: Acute Plan 63F PM significant for schizophrenia?who initially presented to the ED on 08/23/2023 for evaluation of delusional behavior. Medical workup has been negative for any acute concerns, and patient had been placed on physician observation, due to prolonged stay, transfered to medical service 10/13/23 essentially no changes in care at this time Schizophrenia, paranoid type, symptoms controlled, lucid, continue meds per Psych direction (Prolixin, cogentin, Trazadone at hs) and or further adjustment per Psych Patient otherwise has no acute or chronic medical conditions issues and just awaiting placement DVT Prophylaxis: Patient ambulatory need for inpt: awaiting for placement , Ongoing daily discussion with CM Quality Stroke Does the patient have a stroke diagnosis?: No VTE Prior VTE?: No VTE Risk Level:: Medical - low VTE Device Contraindication: Treatment Not Indicated VTE Drug Contraindication: Treatment Not Indicated
[2023-11-08 15:56] VITALS: BP 119/57; PULSE 60; RESP 18; TEMP 36.3; O2SAT 96
[2023-11-08] MEDS: traZODone HCL 25 MG HALFTAB 75 MG PO (19:30)
[2023-11-08] MEDS: Melatonin 3 MG TABLET 6 MG PO (19:30)
[2023-11-08 19:33] VITALS: BP 124/69; PULSE 61; RESP 16; TEMP 36.3; O2SAT 96
[2023-11-09 05:49] VITALS: BP 120/56; PULSE 55; RESP 18; TEMP 36.8; O2SAT 98
[2023-11-09] MEDS: Benztropine Mesylate 1 MG TABLET PO ×2 (08:58→20:04)
[2023-11-09] MEDS: Sennosides/Docusate Sodium TABLET 1 TAB PO ×2 (08:58→20:04)
--- NOTE | 2023-11-09 09:02 | HO.PM.IMPN ---
Subjective Subjective Date of Service: 11/09/23 Interval History: Seen and evaluated this morning feels comfortable overall No complaints Review of Systems Review of Systems: Yes all other systems are reviewed and are negative Physical Exam Vital Signs: Vital Signs: Last Vital Signs Temp 98.2 F 11/09/23 05:49 Pulse 55 11/09/23 05:49 Resp 18 11/09/23 05:49 BP 120/56 L 11/09/23 05:49 Pulse Ox 98 11/09/23 05:49 O2 Del Method Room Air 11/09/23 05:49 O2 Flow Rate 2 11/02/23 15:24 BMI result Body Mass Index 25.0 Const: Other: Constitutional : Awake, interactive, not in distress Neck : Normal inspection, Supple Cardiovascular : no JVP, no lower extremity edema Skin : Warm, Dry Neurological : Alert & oriented to self and place, No focal deficit Objective Data Active Medications Acetaminophen (Acetaminophen 325 Mg Tablet) 650 mg PO Q6H PRN PRN Reason: pain, fever Last Admin: 10/26/23 08:00 Dose: 650 mg Documented By: ESTHER Al Hydroxide/Mg Hydroxide (Magnesium Hydrox/Alum Hydrox 30 Ml Oral.Susp) 30 ml PO Q6H PRN PRN Reason: Dyspepsia Last Admin: 10/24/23 08:14 Dose: 30 ml Documented By: ESTHER Benztropine Mesylate (Benztropine Mesylate 1 Mg Tablet) 1 mg PO BID [facility] Last Admin: 11/09/23 08:58 Dose: 1 mg Documented By: BRENDA Calcium Carbonate (Calcium Carbonate 750 Mg Tab.Chew) 750 mg PO Q6H PRN PRN Reason: Dyspepsia Last Admin: 10/23/23 23:34 Dose: 750 mg Fluphenazine Decanoate (Fluphenazine Decanoate 25 Mg/Ml 5 Ml Vial) 25 mg IM Q28D [facility] Last Admin: 11/01/23 12:22 Dose: 25 mg Documented By: MARTIN Comments: med just arrived on unit Fluticasone Propionate (Fluticasone Propionate Nasal 16 Gm [place]) 1 spray NOSTRIL-B ONCE [facility] Guaifenesin/Dextromethorphan (Guaifenesin Dm 600/30 1 Tab Tab.Er.12h) 1 tab PO BID PRN PRN Reason: congestion/cough Hydroxyzine HCl (Hydroxyzine Hcl 25 Mg Tablet) 25 mg PO Q8H PRN PRN Reason: anxiety/restlessness Last Admin: 11/07/23 02:58 Dose: 25 mg Documented By: SABINE Magnesium Hydroxide (Milk Of Magnesia 30 Ml Oral.Susp) 30 ml PO DAILY PRN PRN Reason: Constipation Last Admin: 10/16/23 14:52 Dose: 30 ml Documented By: JAGDISH Melatonin (Melatonin 3 Mg Tablet) 6 mg PO BEDTIME [facility] Last Admin: 11/08/23 19:30 Dose: 6 mg Documented By: TIESHA Ondansetron HCl (Ondansetron Hcl 4 Mg/2 Ml Vial) 4 mg IVPUSH Q8H PRN PRN Reason: Nausea and Vomiting Polyethylene Glycol (Polyethylene Glycol 3350 17 Gm Powd.Pack) 17 gm PO DAILY PRN PRN Reason: Constipation Last Admin: 10/18/23 14:03 Dose: 17 gm Documented By: SHIRLEY Quetiapine Fumarate (Quetiapine Fumarate 50 Mg Tablet) 50 mg PO Q6H PRN PRN Reason: agitation/anxiety Last Admin: 11/07/23 10:24 Dose: 50 mg Documented By: ROGELIO Senna/Docusate Sodium (Sennosides/Docusate Sodium Tablet) 1 tab PO BID [facility] Last Admin: 11/09/23 08:58 Dose: 1 tab Documented By: BRENDA Trazodone HCl (Trazodone Hcl 25 Mg Halftab) 75 mg PO BEDTIME [facility] Last Admin: 11/08/23 19:30 Dose: 75 mg Documented By: TIESHA Labs 10/14/23 05:47 10/14/23 05:47 Assessment and Plan (1) Schizophrenia, paranoid type: Status: Acute Plan 63F PMH significant for schizophrenia?who initially presented to the ED on 08/23/2023 for evaluation of delusional behavior. Medical workup has been negative for any acute concerns, and patient had been placed on physician observation, due to prolonged stay, transfered to medical service 10/13/23 essentially no changes in care at this time Schizophrenia, paranoid type, symptoms controlled, lucid, continue meds per Psych direction (Prolixin, cogentin, Trazadone at hs) and or further adjustment per Psych Patient otherwise has no acute or chronic medical conditions issues and just awaiting placement DVT Prophylaxis: Patient ambulatory need for inpt: awaiting for placement , Ongoing daily discussion with CM Quality Stroke Does the patient have a stroke diagnosis?: No VTE Prior VTE?: No VTE Risk Level:: Medical - low VTE Device Contraindication: Treatment Not Indicated VTE Drug Contraindication: Treatment Not Indicated
[2023-11-09] MEDS: hydrOXYzine HCL 25 MG TABLET PO (14:23)
[2023-11-09 18:00] VITALS: BP 125/60; PULSE 58; RESP 18; TEMP 36.7; O2SAT 97
[2023-11-09 19:18] VITALS: BP 118/64; PULSE 59; RESP 20; TEMP 36.5; O2SAT 96
[2023-11-09] MEDS: traZODone HCL 25 MG HALFTAB 75 MG PO (20:04)
[2023-11-09] MEDS: Melatonin 3 MG TABLET 6 MG PO (20:04)
[2023-11-10 05:59] VITALS: BP 113/53; PULSE 56; RESP 20; TEMP 36.6; O2SAT 98
[2023-11-10] MEDS: Sennosides/Docusate Sodium TABLET 1 TAB PO ×2 (08:26→20:05)
[2023-11-10] MEDS: Benztropine Mesylate 1 MG TABLET PO ×2 (08:26→20:05)
--- NOTE | 2023-11-10 09:35 | P.PNIM_ITS ---
Subjective Subjective Date of Service: 11/10/23 Interval History: No acute events overnight. Patient sitting up in chair and has no new complaints Review of Systems Denies chest pain Denies shortness of breath Denies nausea vomiting diarrhea Denies fever chills Constitutional Constitutional: Denies chills, Denies fever(s) and Reports headache(s) Eyes Eyes: Denies blurry vision ENT Ears, Nose, Mouth, and Throat: Reports headache(s) and Denies sore throat Cardiovascular Cardiovascular: Denies chest pain and Denies dyspnea Respiratory Respiratory: Denies cough and Denies dyspnea Gastrointestinal Gastrointestinal: Denies abdominal pain, Denies nausea and Denies vomiting Musculoskeletal Musculoskeletal: Denies back pain Integumentary/Breasts Skin/Breast: Denies rash Neurologic Neurologic: Reports headache(s) Physical Exam 2 Vital Signs: Vital Signs: Last Vital Signs Temp 97.9 F 11/10/23 05:59 Pulse 56 11/10/23 05:59 Resp 20 11/10/23 05:59 BP 113/53 L 11/10/23 05:59 Pulse Ox 98 11/10/23 05:59 O2 Del Method Room Air 11/10/23 05:59 O2 Flow Rate 2 11/02/23 15:24 BMI result Body Mass Index 25.0 Const: Other: Constitutional : Awake, interactive, not in distress Neck : Normal inspection, Supple Cardiovascular : no JVP, no lower extremity edema Skin : Warm, Dry Neurological : Alert & oriented to self and place, No focal deficit Resp: Other: Clear to auscultation bilaterally no rales rhonchi or wheezes Cardio: Other: No S4; positive S1-S2; no S3 murmurs rubs gallops Extrem: Other: No edema bilaterally Objective Data Active Medications Acetaminophen (Acetaminophen 325 Mg Tablet) 650 mg PO Q6H PRN PRN Reason: pain, fever Last Admin: 10/26/23 08:00 Dose: 650 mg Documented By: ESTHER Al Hydroxide/Mg Hydroxide (Magnesium Hydrox/Alum Hydrox 30 Ml Oral.Susp) 30 ml PO Q6H PRN PRN Reason: Dyspepsia Last Admin: 10/24/23 08:14 Dose: 30 ml Documented By: ESTHER Benztropine Mesylate (Benztropine Mesylate 1 Mg Tablet) 1 mg PO BID [facility] Last Admin: 11/10/23 08:26 Dose: 1 mg Documented By: BRENDA Calcium Carbonate (Calcium Carbonate 750 Mg Tab.Chew) 750 mg PO Q6H PRN PRN Reason: Dyspepsia Last Admin: 10/23/23 23:34 Dose: 750 mg Fluphenazine Decanoate (Fluphenazine Decanoate 25 Mg/Ml 5 Ml Vial) 25 mg IM Q28D [facility] Last Admin: 11/01/23 12:22 Dose: 25 mg Documented By: MARTIN Comments: med just arrived on unit Fluticasone Propionate (Fluticasone Propionate Nasal 16 Gm [place]) 1 spray NOSTRIL-B ONCE [facility] Guaifenesin/Dextromethorphan (Guaifenesin Dm 600/30 1 Tab Tab.Er.12h) 1 tab PO BID PRN PRN Reason: congestion/cough Hydroxyzine HCl (Hydroxyzine Hcl 25 Mg Tablet) 25 mg PO Q8H PRN PRN Reason: anxiety/restlessness Last Admin: 11/09/23 14:23 Dose: 25 mg Documented By: BRENDA Magnesium Hydroxide (Milk Of Magnesia 30 Ml Oral.Susp) 30 ml PO DAILY PRN PRN Reason: Constipation Last Admin: 10/16/23 14:52 Dose: 30 ml Documented By: JAGDISH Melatonin (Melatonin 3 Mg Tablet) 6 mg PO BEDTIME [facility] Last Admin: 11/09/23 20:04 Dose: 6 mg Documented By: KIM Ondansetron HCl (Ondansetron Hcl 4 Mg/2 Ml Vial) 4 mg IVPUSH Q8H PRN PRN Reason: Nausea and Vomiting Polyethylene Glycol (Polyethylene Glycol 3350 17 Gm Powd.Pack) 17 gm PO DAILY PRN PRN Reason: Constipation Last Admin: 10/18/23 14:03 Dose: 17 gm Documented By: SHIRLEY Quetiapine Fumarate (Quetiapine Fumarate 50 Mg Tablet) 50 mg PO Q6H PRN PRN Reason: agitation/anxiety Last Admin: 11/07/23 10:24 Dose: 50 mg Documented By: ROGELIO Senna/Docusate Sodium (Sennosides/Docusate Sodium Tablet) 1 tab PO BID [facility] Last Admin: 11/10/23 08:26 Dose: 1 tab Documented By: BRENDA Trazodone HCl (Trazodone Hcl 25 Mg Halftab) 75 mg PO BEDTIME [facility] Last Admin: 11/09/23 20:04 Dose: 75 mg Documented By: KIM Nava 10/14/23 05:47 10/14/23 05:47 Assessment and Plan (1) Schizophrenia, paranoid type: Status: Acute Plan 63F PMH significant for schizophrenia?who initially presented to the ED on 08/23/2023 for evaluation of delusional behavior. Medical workup has been negative for any acute concerns, and patient had been placed on physician observation, due to prolonged stay, transfered to medical service 10/13/23 essentially no changes in care at this time Schizophrenia, paranoid type, symptoms controlled, lucid, continue meds per Psych direction (Prolixin, cogentin, Trazadone at hs) and or further adjustment per Psych Patient otherwise has no acute or chronic medical conditions issues and just awaiting placement DVT Prophylaxis: Patient ambulatory need for inpt: awaiting for placement , Ongoing daily discussion with CM Quality Stroke Does the patient have a stroke diagnosis?: No VTE Prior VTE?: No VTE Risk Level:: Medical - low VTE Device Contraindication: Treatment Not Indicated VTE Drug Contraindication: Treatment Not Indicated
[2023-11-10] MEDS: hydrOXYzine HCL 25 MG TABLET PO (14:14)
--- NOTE | 2023-11-10 16:11 | MHC.CM.PN ---
EMR REVIEWED, PT REMAINS MEDICALLY CLEARED FOR DC, CONSERVATORSHIP GRANTED TO [employer] ON 11/10, CM DIRECTOR AWAITING COURT DOCUMENTS, [employer] TO WORK ON DISENROLLING PT FROM [employer] PART OF PT'S MEDICAID AND CLEARING PT'S WARRANT, NO BED OFFERS AT THIS TIME HOWEVER [facility] WORKING ON [facility] FOR PLACEMENT WELL, CM WILL CONT TO FOLLOW DC NEEDS.
[2023-11-10] MEDS: Melatonin 3 MG TABLET 6 MG PO (20:05)
[2023-11-10] MEDS: traZODone HCL 25 MG HALFTAB 75 MG PO (20:05)
[2023-11-10 20:19] VITALS: BP 126/64; PULSE 53; RESP 20; TEMP 36.7; O2SAT 95
[2023-11-11 09:00] VITALS: BP 155/65; PULSE 62; RESP 16; TEMP 36.1; O2SAT 97
--- NOTE | 2023-11-11 09:42 | HO.PM.IMPN ---
Subjective Subjective Date of Service: 11/11/23 Interval History: No acute events overnight. Patient sitting up in chair and has no new complaints Review of Systems Denies chest pain Denies shortness of breath Denies nausea vomiting diarrhea Denies fever chills Constitutional Constitutional: Denies chills, Denies fever(s) and Reports headache(s) Eyes Eyes: Denies blurry vision ENT Ears, Nose, Mouth, and Throat: Reports headache(s) and Denies sore throat Cardiovascular Cardiovascular: Denies chest pain and Denies dyspnea Respiratory Respiratory: Denies cough and Denies dyspnea Gastrointestinal Gastrointestinal: Denies abdominal pain, Denies nausea and Denies vomiting Musculoskeletal Musculoskeletal: Denies back pain Integumentary/Breasts Skin/Breast: Denies rash Neurologic Neurologic: Reports headache(s) Physical Exam Vital Signs: Vital Signs: Last Vital Signs Temp 98.0 F 11/10/23 20:19 Pulse 53 11/10/23 20:19 Resp 20 11/10/23 20:19 BP 126/64 11/10/23 20:19 Pulse Ox 95 11/10/23 20:19 O2 Del Method Room Air 11/10/23 20:19 O2 Flow Rate 2 11/02/23 15:24 BMI result Body Mass Index 25.0 Const: Other: Constitutional : Awake, interactive, not in distress Neck : Normal inspection, Supple Cardiovascular : no JVP, no lower extremity edema Skin : Warm, Dry Neurological : Alert & oriented to self and place, No focal deficit Resp: Other: Clear to auscultation bilaterally no rales rhonchi or wheezes Cardio: Other: No S4; positive S1-S2; no S3 murmurs rubs gallops Extrem: Other: No edema bilaterally Objective Data Active Medications Acetaminophen (Acetaminophen 325 Mg Tablet) 650 mg PO Q6H PRN PRN Reason: pain, fever Last Admin: 10/26/23 08:00 Dose: 650 mg Documented By: ESTHER Al Hydroxide/Mg Hydroxide (Magnesium Hydrox/Alum Hydrox 30 Ml Oral.Susp) 30 ml PO Q6H PRN PRN Reason: Dyspepsia Last Admin: 10/24/23 08:14 Dose: 30 ml Documented By: ESTHER Benztropine Mesylate (Benztropine Mesylate 1 Mg Tablet) 1 mg PO BID [facility] Last Admin: 11/10/23 20:05 Dose: 1 mg Documented By: KIM Calcium Carbonate (Calcium Carbonate 750 Mg Tab.Chew) 750 mg PO Q6H PRN PRN Reason: Dyspepsia Last Admin: 10/23/23 23:34 Dose: 750 mg Fluphenazine Decanoate (Fluphenazine Decanoate 25 Mg/Ml 5 Ml Vial) 25 mg IM Q28D [facility] Last Admin: 11/01/23 12:22 Dose: 25 mg Documented By: MARTIN Comments: med just arrived on unit Fluticasone Propionate (Fluticasone Propionate Nasal 16 Gm [place]) 1 spray NOSTRIL-B ONCE [facility] Guaifenesin/Dextromethorphan (Guaifenesin Dm 600/30 1 Tab Tab.Er.12h) 1 tab PO BID PRN PRN Reason: congestion/cough Hydroxyzine HCl (Hydroxyzine Hcl 25 Mg Tablet) 25 mg PO Q8H PRN PRN Reason: anxiety/restlessness Last Admin: 11/10/23 14:14 Dose: 25 mg Documented By: BRENDA Magnesium Hydroxide (Milk Of Magnesia 30 Ml Oral.Susp) 30 ml PO DAILY PRN PRN Reason: Constipation Last Admin: 10/16/23 14:52 Dose: 30 ml Documented By: JAGDISH Melatonin (Melatonin 3 Mg Tablet) 6 mg PO BEDTIME [facility] Last Admin: 11/10/23 20:05 Dose: 6 mg Documented By: KIM Ondansetron HCl (Ondansetron Hcl 4 Mg/2 Ml Vial) 4 mg IVPUSH Q8H PRN PRN Reason: Nausea and Vomiting Polyethylene Glycol (Polyethylene Glycol 3350 17 Gm Powd.Pack) 17 gm PO DAILY PRN PRN Reason: Constipation Last Admin: 10/18/23 14:03 Dose: 17 gm Documented By: SHIRLEY Quetiapine Fumarate (Quetiapine Fumarate 50 Mg Tablet) 50 mg PO Q6H PRN PRN Reason: agitation/anxiety Last Admin: 11/07/23 10:24 Dose: 50 mg Documented By: ROGELIO Senna/Docusate Sodium (Sennosides/Docusate Sodium Tablet) 1 tab PO BID [facility] Last Admin: 11/10/23 20:05 Dose: 1 tab Documented By: KIM Trazodone HCl (Trazodone Hcl 25 Mg Halftab) 75 mg PO BEDTIME [facility] Last Admin: 11/10/23 20:05 Dose: 75 mg Documented By: KIM Labs 10/14/23 05:47 10/14/23 05:47 Assessment and Plan (1) Schizophrenia, paranoid type: Status: Acute Plan 63F PMH significant for schizophrenia?who initially presented to the ED on 08/23/2023 for evaluation of delusional behavior. Medical workup has been negative for any acute concerns, and patient had been placed on physician observation, due to prolonged stay, transfered to medical service 10/13/23 essentially no changes in care at this time Schizophrenia, paranoid type, symptoms controlled, lucid, continue meds per Psych direction (Prolixin, cogentin, Trazadone at hs) and or further adjustment per Psych Patient otherwise has no acute or chronic medical conditions issues and just awaiting placement DVT Prophylaxis: Patient ambulatory need for inpt: awaiting for placement , Ongoing daily discussion with CM Quality Stroke Does the patient have a stroke diagnosis?: No VTE Prior VTE?: No VTE Risk Level:: Medical - low VTE Device Contraindication: Treatment Not Indicated VTE Drug Contraindication: Treatment Not Indicated
[2023-11-11] MEDS: Benztropine Mesylate 1 MG TABLET PO ×2 (10:16→20:06)
[2023-11-11] MEDS: Sennosides/Docusate Sodium TABLET 1 TAB PO ×2 (10:16→20:06)
[2023-11-11] MEDS: hydrOXYzine HCL 25 MG TABLET PO (19:33)
[2023-11-11 19:53] VITALS: BP 122/61; PULSE 54; RESP 18; TEMP 36.3; O2SAT 99
[2023-11-11] MEDS: Melatonin 3 MG TABLET 6 MG PO (20:06)
[2023-11-11] MEDS: traZODone HCL 25 MG HALFTAB 75 MG PO (20:06)
[2023-11-12 09:00] VITALS: BP 98/51; PULSE 64; RESP 18; TEMP 36.3; O2SAT 96
[2023-11-12] MEDS: Sennosides/Docusate Sodium TABLET 1 TAB PO ×2 (09:32→22:45)
[2023-11-12] MEDS: Benztropine Mesylate 1 MG TABLET PO ×2 (09:32→22:45)
--- NOTE | 2023-11-12 10:16 | P.PNIM_ITS ---
Subjective Subjective Date of Service: 11/12/23 Interval History: Being followed for placement Offers no acute complaints, tolerating diet no nausea, no vomiting, no abdominal pain No acute events overnight Review of Systems All other system reviewed and negative Physical Exam 2 Vital Signs: Vital Signs: Last Vital Signs Temp 97.3 F 11/12/23 09:00 Pulse 64 11/12/23 09:00 Resp 18 11/12/23 09:00 BP 98/51 L 11/12/23 09:00 Pulse Ox 96 11/12/23 09:00 O2 Del Method Room Air 11/12/23 09:00 O2 Flow Rate 2 11/02/23 15:24 BMI result Body Mass Index 25.0 Const: Other: Constitutional : Awake, alert, in no acute distress Neck : Normal inspection, no JVD Cardiovascular : Regular rate rhythm Respiratory lungs clear to auscultation, no wheeze no crackles Abdomen soft, bowel sounds audible Neurological : Nonfocal Extremities no edema Skin no rash Objective Data Active Medications Acetaminophen (Acetaminophen 325 Mg Tablet) 650 mg PO Q6H PRN PRN Reason: pain, fever Last Admin: 10/26/23 08:00 Dose: 650 mg Documented By: ESTHER Al Hydroxide/Mg Hydroxide (Magnesium Hydrox/Alum Hydrox 30 Ml Oral.Susp) 30 ml PO Q6H PRN PRN Reason: Dyspepsia Last Admin: 10/24/23 08:14 Dose: 30 ml Documented By: ESTHER Benztropine Mesylate (Benztropine Mesylate 1 Mg Tablet) 1 mg PO BID [facility] Last Admin: 11/12/23 09:32 Dose: 1 mg Documented By: BRENDA Calcium Carbonate (Calcium Carbonate 750 Mg Tab.Chew) 750 mg PO Q6H PRN PRN Reason: Dyspepsia Last Admin: 10/23/23 23:34 Dose: 750 mg Fluphenazine Decanoate (Fluphenazine Decanoate 25 Mg/Ml 5 Ml Vial) 25 mg IM Q28D [facility] Last Admin: 11/01/23 12:22 Dose: 25 mg Documented By: MARTIN Comments: med just arrived on unit Fluticasone Propionate (Fluticasone Propionate Nasal 16 Gm [place]) 1 spray NOSTRIL-B ONCE [facility] Guaifenesin/Dextromethorphan (Guaifenesin Dm 600/30 1 Tab Tab.Er.12h) 1 tab PO BID PRN PRN Reason: congestion/cough Hydroxyzine HCl (Hydroxyzine Hcl 25 Mg Tablet) 25 mg PO Q8H PRN PRN Reason: anxiety/restlessness Last Admin: 11/11/23 19:33 Dose: 25 mg Documented By: KIM Magnesium Hydroxide (Milk Of Magnesia 30 Ml Oral.Susp) 30 ml PO DAILY PRN PRN Reason: Constipation Last Admin: 10/16/23 14:52 Dose: 30 ml Documented By: JAGDISH Melatonin (Melatonin 3 Mg Tablet) 6 mg PO BEDTIME [facility] Last Admin: 11/11/23 20:06 Dose: 6 mg Documented By: KIM Ondansetron HCl (Ondansetron Hcl 4 Mg/2 Ml Vial) 4 mg IVPUSH Q8H PRN PRN Reason: Nausea and Vomiting Polyethylene Glycol (Polyethylene Glycol 3350 17 Gm Powd.Pack) 17 gm PO DAILY PRN PRN Reason: Constipation Last Admin: 10/18/23 14:03 Dose: 17 gm Documented By: SHIRLEY Quetiapine Fumarate (Quetiapine Fumarate 50 Mg Tablet) 50 mg PO Q6H PRN PRN Reason: agitation/anxiety Last Admin: 11/07/23 10:24 Dose: 50 mg Documented By: ROGELIO Senna/Docusate Sodium (Sennosides/Docusate Sodium Tablet) 1 tab PO BID [facility] Last Admin: 11/12/23 09:32 Dose: 1 tab Documented By: BRENDA Trazodone HCl (Trazodone Hcl 25 Mg Halftab) 75 mg PO BEDTIME [facility] Last Admin: 11/11/23 20:06 Dose: 75 mg Documented By: KIM Labs 10/14/23 05:47 10/14/23 05:47 Assessment and Plan (1) Schizophrenia, paranoid type: Status: Acute Plan 63F PMH significant for schizophrenia?who initially presented to the ED on 08/23/2023 for evaluation of delusional behavior. Medical workup has been negative for any acute concerns, and patient had been placed on physician observation, due to prolonged stay, transfered to medical service 10/13/23 Schizophrenia, paranoid type, symptoms controlled, no behavioral issues noted, continue meds per Psych direction (Prolixin, cogentin, Trazadone at ) Patient otherwise has no acute or chronic medical conditions issues and just awaiting placement DVT Prophylaxis: Patient ambulatory need for inpt: awaiting for placement , Ongoing daily discussion with CM Quality Stroke Does the patient have a stroke diagnosis?: No VTE Prior VTE?: No VTE Risk Level:: Medical - low VTE Device Contraindication: Treatment Not Indicated VTE Drug Contraindication: Treatment Not Indicated
[2023-11-12] MEDS: hydrOXYzine HCL 25 MG TABLET PO (13:09)
[2023-11-12 15:22] VITALS: BP 104/60; PULSE 59; RESP 20; TEMP 36.4; O2SAT 95
[2023-11-12 20:52] VITALS: BP 126/60; PULSE 58; RESP 16; TEMP 36.5; O2SAT 98
[2023-11-12] MEDS: Melatonin 3 MG TABLET 6 MG PO (22:45)
[2023-11-12] MEDS: traZODone HCL 25 MG HALFTAB 75 MG PO (22:45)
[2023-11-13] MEDS: Sennosides/Docusate Sodium TABLET 1 TAB PO ×2 (08:38→20:45)
[2023-11-13] MEDS: Benztropine Mesylate 1 MG TABLET PO ×2 (08:38→20:44)
[2023-11-13 08:56] VITALS: BP 123/67; PULSE 61; RESP 16; TEMP 36.8; O2SAT 99
[2023-11-13] MEDS: hydrOXYzine HCL 25 MG TABLET PO ×2 (09:58→18:03)
--- NOTE | 2023-11-13 12:04 | HO.PM.IMPN ---
Subjective Subjective Date of Service: 11/13/23 Interval History: Seen and evaluated this morning comfortable overall No complaints Physical Exam Vital Signs: Vital Signs: Last Vital Signs Temp 98.2 F 11/13/23 08:56 Pulse 61 11/13/23 08:56 Resp 16 11/13/23 08:56 BP 123/67 11/13/23 08:56 Pulse Ox 99 11/13/23 08:56 O2 Del Method Room Air 11/13/23 08:56 O2 Flow Rate 2 11/02/23 15:24 BMI result Body Mass Index 25.0 Const: Other: Constitutional : Awake, interactive, not in distress Neck : Normal inspection, Supple Cardiovascular : no JVP, no lower extremity edema Skin : Warm, Dry Neurological : Alert & oriented to self and place, No focal deficit Objective Data Active Medications Acetaminophen (Acetaminophen 325 Mg Tablet) 650 mg PO Q6H PRN PRN Reason: pain, fever Last Admin: 10/26/23 08:00 Dose: 650 mg Documented By: ESTHER Al Hydroxide/Mg Hydroxide (Magnesium Hydrox/Alum Hydrox 30 Ml Oral.Susp) 30 ml PO Q6H PRN PRN Reason: Dyspepsia Last Admin: 10/24/23 08:14 Dose: 30 ml Documented By: ESTHER Benztropine Mesylate (Benztropine Mesylate 1 Mg Tablet) 1 mg PO BID [facility] Last Admin: 11/13/23 08:38 Dose: 1 mg Documented By: BRENDA Calcium Carbonate (Calcium Carbonate 750 Mg Tab.Chew) 750 mg PO Q6H PRN PRN Reason: Dyspepsia Last Admin: 10/23/23 23:34 Dose: 750 mg Fluphenazine Decanoate (Fluphenazine Decanoate 25 Mg/Ml 5 Ml Vial) 25 mg IM Q28D [facility] Last Admin: 11/01/23 12:22 Dose: 25 mg Documented By: MARTIN Comments: med just arrived on unit Fluticasone Propionate (Fluticasone Propionate Nasal 16 Gm [place]) 1 spray NOSTRIL-B ONCE [facility] Guaifenesin/Dextromethorphan (Guaifenesin Dm 600/30 1 Tab Tab.Er.12h) 1 tab PO BID PRN PRN Reason: congestion/cough Hydroxyzine HCl (Hydroxyzine Hcl 25 Mg Tablet) 25 mg PO Q8H PRN PRN Reason: anxiety/restlessness Last Admin: 11/13/23 09:58 Dose: 25 mg Documented By: BRENDA Magnesium Hydroxide (Milk Of Magnesia 30 Ml Oral.Susp) 30 ml PO DAILY PRN PRN Reason: Constipation Last Admin: 10/16/23 14:52 Dose: 30 ml Documented By: JAGDISH Melatonin (Melatonin 3 Mg Tablet) 6 mg PO BEDTIME [facility] Last Admin: 11/12/23 22:45 Dose: 6 mg Documented By: FARRUKH Ondansetron HCl (Ondansetron Hcl 4 Mg/2 Ml Vial) 4 mg IVPUSH Q8H PRN PRN Reason: Nausea and Vomiting Polyethylene Glycol (Polyethylene Glycol 3350 17 Gm Powd.Pack) 17 gm PO DAILY PRN PRN Reason: Constipation Last Admin: 10/18/23 14:03 Dose: 17 gm Documented By: SHIRLEY Quetiapine Fumarate (Quetiapine Fumarate 50 Mg Tablet) 50 mg PO Q6H PRN PRN Reason: agitation/anxiety Last Admin: 11/07/23 10:24 Dose: 50 mg Documented By: ROGELIO Senna/Docusate Sodium (Sennosides/Docusate Sodium Tablet) 1 tab PO BID [facility] Last Admin: 11/13/23 08:38 Dose: 1 tab Documented By: BRENDA Trazodone HCl (Trazodone Hcl 25 Mg Halftab) 75 mg PO BEDTIME [facility] Last Admin: 11/12/23 22:45 Dose: 75 mg Documented By: FARRUKH Labs 10/14/23 05:47 10/14/23 05:47 Assessment and Plan (1) Schizophrenia, paranoid type: Status: Acute Plan 63F [facility] significant for schizophrenia?who initially presented to the ED on 08/23/2023 for evaluation of delusional behavior. Medical workup has been negative for any acute concerns, and patient had been placed on physician observation, due to prolonged stay, transfered to medical service 10/13/23 Schizophrenia, paranoid type, symptoms controlled, no behavioral issues noted, continue meds per Psych direction (Prolixin, cogentin, Trazadone at hs) risk of flight Patient otherwise has no acute or chronic medical conditions issues and just awaiting placement DVT Prophylaxis: Patient ambulatory need for inpt: awaiting for placement , Ongoing daily discussion with CM Quality Stroke Does the patient have a stroke diagnosis?: No VTE Prior VTE?: No VTE Risk Level:: Medical - low VTE Device Contraindication: Treatment Not Indicated VTE Drug Contraindication: Treatment Not Indicated
[2023-11-13 15:05] VITALS: BP 104/51; PULSE 60; RESP 20; TEMP 36.4; O2SAT 99
--- NOTE | 2023-11-13 15:20 | MHC.CM.PN ---
EMR reviewed and per MD rounds, pt remains medically cleared for D/C, but unable due to CM director awaiting court documents, as pts guardian working on clearing pts warrant and working on disenrolling pt from [place] part of pts medicaid.
[2023-11-13 20:14] VITALS: BP 127/59; PULSE 68; RESP 20; TEMP 36.1; O2SAT 97
[2023-11-13] MEDS: Melatonin 3 MG TABLET 6 MG PO (20:44)
[2023-11-13] MEDS: traZODone HCL 25 MG HALFTAB 75 MG PO (20:45)
[2023-11-14 06:07] VITALS: BP 120/55; PULSE 52; RESP 20; TEMP 36.1; O2SAT 95
[2023-11-14] MEDS: Benztropine Mesylate 1 MG TABLET PO ×2 (08:21→20:04)
[2023-11-14] MEDS: Sennosides/Docusate Sodium TABLET 1 TAB PO ×2 (08:21→20:04)
[2023-11-14] MEDS: hydrOXYzine HCL 25 MG TABLET PO ×2 (12:30→20:43)
--- NOTE | 2023-11-14 12:44 | HO.PM.IMPN ---
Subjective Subjective Date of Service: 11/14/23 Interval History: comfortable overall No complaints Review of Systems Review of Systems: Yes all other systems are reviewed and are negative Physical Exam Vital Signs: Vital Signs: Last Vital Signs Temp 97.0 F 11/14/23 06:07 Pulse 52 11/14/23 06:07 Resp 20 11/14/23 06:07 BP 120/55 L 11/14/23 06:07 Pulse Ox 95 11/14/23 06:07 O2 Del Method Room Air 11/14/23 06:07 O2 Flow Rate 2 11/02/23 15:24 BMI result Body Mass Index 25.0 Const: Other: Constitutional : Awake, interactive, not in distress Neck : Normal inspection, Supple Cardiovascular : no JVP, no lower extremity edema Skin : Warm, Dry Neurological : Alert & oriented to self and place, No focal deficit Objective Data Active Medications Acetaminophen (Acetaminophen 325 Mg Tablet) 650 mg PO Q6H PRN PRN Reason: pain, fever Last Admin: 10/26/23 08:00 Dose: 650 mg Documented By: ESTHER Al Hydroxide/Mg Hydroxide (Magnesium Hydrox/Alum Hydrox 30 Ml Oral.Susp) 30 ml PO Q6H PRN PRN Reason: Dyspepsia Last Admin: 10/24/23 08:14 Dose: 30 ml Documented By: ESTHER Benztropine Mesylate (Benztropine Mesylate 1 Mg Tablet) 1 mg PO BID [facility] Last Admin: 11/14/23 08:21 Dose: 1 mg Documented By: BRENDA Calcium Carbonate (Calcium Carbonate 750 Mg Tab.Chew) 750 mg PO Q6H PRN PRN Reason: Dyspepsia Last Admin: 10/23/23 23:34 Dose: 750 mg Fluphenazine Decanoate (Fluphenazine Decanoate 25 Mg/Ml 5 Ml Vial) 25 mg IM Q28D [facility] Last Admin: 11/01/23 12:22 Dose: 25 mg Documented By: MARTIN Comments: med just arrived on unit Fluticasone Propionate (Fluticasone Propionate Nasal 16 Gm [place]) 1 spray NOSTRIL-B ONCE [facility] Guaifenesin/Dextromethorphan (Guaifenesin Dm 600/30 1 Tab Tab.Er.12h) 1 tab PO BID PRN PRN Reason: congestion/cough Hydroxyzine HCl (Hydroxyzine Hcl 25 Mg Tablet) 25 mg PO Q8H PRN PRN Reason: anxiety/restlessness Last Admin: 11/14/23 12:30 Dose: 25 mg Documented By: BRENDA Magnesium Hydroxide (Milk Of Magnesia 30 Ml Oral.Susp) 30 ml PO DAILY PRN PRN Reason: Constipation Last Admin: 10/16/23 14:52 Dose: 30 ml Documented By: JAGDISH Melatonin (Melatonin 3 Mg Tablet) 6 mg PO BEDTIME [facility] Last Admin: 11/13/23 20:44 Dose: 6 mg Documented By: FARURKH Ondansetron HCl (Ondansetron Hcl 4 Mg/2 Ml Vial) 4 mg IVPUSH Q8H PRN PRN Reason: Nausea and Vomiting Polyethylene Glycol (Polyethylene Glycol 3350 17 Gm Powd.Pack) 17 gm PO DAILY PRN PRN Reason: Constipation Last Admin: 10/18/23 14:03 Dose: 17 gm Documented By: SHIRLEY Quetiapine Fumarate (Quetiapine Fumarate 50 Mg Tablet) 50 mg PO Q6H PRN PRN Reason: agitation/anxiety Last Admin: 11/07/23 10:24 Dose: 50 mg Documented By: ROGELIO Senna/Docusate Sodium (Sennosides/Docusate Sodium Tablet) 1 tab PO BID [facility] Last Admin: 11/14/23 08:21 Dose: 1 tab Documented By: BRENDA Trazodone HCl (Trazodone Hcl 25 Mg Halftab) 75 mg PO BEDTIME [facility] Last Admin: 11/13/23 20:45 Dose: 75 mg Documented By: FARRUKH Labs 10/14/23 05:47 10/14/23 05:47 Assessment and Plan (1) Schizophrenia, paranoid type: Status: Acute Plan 63F PM significant for schizophrenia?who initially presented to the ED on 08/23/2023 for evaluation of delusional behavior. Medical workup has been negative for any acute concerns, and patient had been placed on physician observation, due to prolonged stay, transfered to medical service 10/13/23 Schizophrenia, paranoid type, symptoms controlled, no behavioral issues noted, continue meds per Psych direction (Prolixin, cogentin, Trazadone at hs) risk of flight Patient otherwise has no acute or chronic medical conditions issues and just awaiting placement DVT Prophylaxis: Patient ambulatory need for inpt: awaiting for placement , Ongoing daily discussion with CM Quality Stroke Does the patient have a stroke diagnosis?: No VTE Prior VTE?: No VTE Risk Level:: Medical - low VTE Device Contraindication: Treatment Not Indicated VTE Drug Contraindication: Treatment Not Indicated
[2023-11-14 19:12] VITALS: BP 131/64; PULSE 58; RESP 20; TEMP 36.4; O2SAT 97
[2023-11-14] MEDS: Melatonin 3 MG TABLET 6 MG PO (20:04)
[2023-11-14] MEDS: traZODone HCL 25 MG HALFTAB 75 MG PO (20:05)
[2023-11-15] MEDS: QUEtiapine Fumarate 50 MG TABLET PO (04:11)
[2023-11-15 06:04] VITALS: BP 114/57; PULSE 53; RESP 20; TEMP 36.4; O2SAT 96
[2023-11-15] MEDS: Benztropine Mesylate 1 MG TABLET PO ×2 (07:56→21:04)
[2023-11-15] MEDS: Sennosides/Docusate Sodium TABLET 1 TAB PO ×2 (07:56→21:04)
--- NOTE | 2023-11-15 11:41 | HO.PM.IMPN ---
Subjective Subjective Date of Service: 11/15/23 Interval History: feels well Physical Exam Vital Signs: Vital Signs: Last Vital Signs Temp 97.5 F 11/15/23 06:04 Pulse 53 11/15/23 06:04 Resp 20 11/15/23 06:04 BP 114/57 L 11/15/23 06:04 Pulse Ox 96 11/15/23 06:04 O2 Del Method Room Air 11/15/23 06:04 O2 Flow Rate 2 11/02/23 15:24 BMI result Body Mass Index 25.0 Const: Other: Constitutional : Awake, interactive, not in distress Neck : Normal inspection, Supple Cardiovascular : no JVP, no lower extremity edema Skin : Warm, Dry Neurological : Alert & oriented to self and place, No focal deficit Objective Data Active Medications Acetaminophen (Acetaminophen 325 Mg Tablet) 650 mg PO Q6H PRN PRN Reason: pain, fever Last Admin: 10/26/23 08:00 Dose: 650 mg Documented By: ESTHER Al Hydroxide/Mg Hydroxide (Magnesium Hydrox/Alum Hydrox 30 Ml Oral.Susp) 30 ml PO Q6H PRN PRN Reason: Dyspepsia Last Admin: 10/24/23 08:14 Dose: 30 ml Documented By: ESTHER Benztropine Mesylate (Benztropine Mesylate 1 Mg Tablet) 1 mg PO BID [facility] Last Admin: 11/15/23 07:56 Dose: 1 mg Documented By: ESTHER Calcium Carbonate (Calcium Carbonate 750 Mg Tab.Chew) 750 mg PO Q6H PRN PRN Reason: Dyspepsia Last Admin: 10/23/23 23:34 Dose: 750 mg Fluphenazine Decanoate (Fluphenazine Decanoate 25 Mg/Ml 5 Ml Vial) 25 mg IM Q28D [facility] Last Admin: 11/01/23 12:22 Dose: 25 mg Documented By: MARTIN Comments: med just arrived on unit Fluticasone Propionate (Fluticasone Propionate Nasal 16 Gm [place]) 1 spray NOSTRIL-B ONCE [facility] Guaifenesin/Dextromethorphan (Guaifenesin Dm 600/30 1 Tab Tab.Er.12h) 1 tab PO BID PRN PRN Reason: congestion/cough Hydroxyzine HCl (Hydroxyzine Hcl 25 Mg Tablet) 25 mg PO Q8H PRN PRN Reason: anxiety/restlessness Last Admin: 11/14/23 20:43 Dose: 25 mg Documented By: KIM Magnesium Hydroxide (Milk Of Magnesia 30 Ml Oral.Susp) 30 ml PO DAILY PRN PRN Reason: Constipation Last Admin: 10/16/23 14:52 Dose: 30 ml Documented By: JAGDISH Melatonin (Melatonin 3 Mg Tablet) 6 mg PO BEDTIME [facility] Last Admin: 11/14/23 20:04 Dose: 6 mg Documented By: KIM Ondansetron HCl (Ondansetron Hcl 4 Mg/2 Ml Vial) 4 mg IVPUSH Q8H PRN PRN Reason: Nausea and Vomiting Polyethylene Glycol (Polyethylene Glycol 3350 17 Gm Powd.Pack) 17 gm PO DAILY PRN PRN Reason: Constipation Last Admin: 10/18/23 14:03 Dose: 17 gm Documented By: SHIRLEY Quetiapine Fumarate (Quetiapine Fumarate 50 Mg Tablet) 50 mg PO Q6H PRN PRN Reason: agitation/anxiety Last Admin: 11/15/23 04:11 Dose: 50 mg Documented By: KIM Senna/Docusate Sodium (Sennosides/Docusate Sodium Tablet) 1 tab PO BID [facility] Last Admin: 11/15/23 07:56 Dose: 1 tab Documented By: ESTHER Trazodone HCl (Trazodone Hcl 25 Mg Halftab) 75 mg PO BEDTIME [facility] Last Admin: 11/14/23 20:05 Dose: 75 mg Documented By: KIM Labs 10/14/23 05:47 10/14/23 05:47 Assessment and Plan (1) Schizophrenia, paranoid type: Status: Acute Plan 63F [facility] significant for schizophrenia?who initially presented to the ED on 08/23/2023 for evaluation of delusional behavior. Medical workup has been negative for any acute concerns, and patient had been placed on physician observation, due to prolonged stay, transfered to medical service 10/13/23 Schizophrenia, paranoid type, symptoms controlled, no behavioral issues noted, continue meds per Psych direction (Prolixin, cogentin, Trazadone at hs) risk of flight Patient otherwise has no acute or chronic medical conditions issues and just awaiting placement DVT Prophylaxis: Patient ambulatory need for inpt: awaiting for placement , Ongoing daily discussion with CM Quality Stroke Does the patient have a stroke diagnosis?: No VTE Prior VTE?: No VTE Risk Level:: Medical - low VTE Device Contraindication: Treatment Not Indicated VTE Drug Contraindication: Treatment Not Indicated
[2023-11-15] MEDS: hydrOXYzine HCL 25 MG TABLET PO (12:55)
[2023-11-15 19:41] VITALS: BP 129/59; PULSE 56; RESP 18; TEMP 36.3; O2SAT 98
[2023-11-15] MEDS: Melatonin 3 MG TABLET 6 MG PO (21:04)
[2023-11-15] MEDS: traZODone HCL 25 MG HALFTAB 75 MG PO (21:04)
[2023-11-16 07:56] VITALS: BP 131/73; PULSE 53; RESP 20; TEMP 36.4; O2SAT 96
[2023-11-16 08:45] VITALS: BP 131/73; PULSE 53; RESP 20; TEMP 36.4; O2SAT 96
[2023-11-16] MEDS: Benztropine Mesylate 1 MG TABLET PO ×2 (08:53→20:00)
[2023-11-16] MEDS: Sennosides/Docusate Sodium TABLET 1 TAB PO ×2 (08:53→20:00)
--- NOTE | 2023-11-16 09:12 | P.PNIM_ITS ---
Subjective Subjective Date of Service: 11/16/23 Interval History: no new issues Physical Exam 2 Vital Signs: Vital Signs: Last Vital Signs Temp 97.5 F 11/16/23 08:45 Pulse 53 11/16/23 08:45 Resp 20 11/16/23 08:45 BP 131/73 11/16/23 08:45 Pulse Ox 96 11/16/23 08:45 O2 Del Method Room Air 11/16/23 08:45 O2 Flow Rate 2 11/02/23 15:24 BMI result Body Mass Index 25.0 Const: Other: Constitutional : Awake, interactive, not in distress Neck : Normal inspection, Supple Cardiovascular : no JVP, no lower extremity edema Skin : Warm, Dry Neurological : Alert & oriented to self and place, No focal deficit Objective Data Active Medications Acetaminophen (Acetaminophen 325 Mg Tablet) 650 mg PO Q6H PRN PRN Reason: pain, fever Last Admin: 10/26/23 08:00 Dose: 650 mg Documented By: ESTHER Al Hydroxide/Mg Hydroxide (Magnesium Hydrox/Alum Hydrox 30 Ml Oral.Susp) 30 ml PO Q6H PRN PRN Reason: Dyspepsia Last Admin: 10/24/23 08:14 Dose: 30 ml Documented By: ESTHER Benztropine Mesylate (Benztropine Mesylate 1 Mg Tablet) 1 mg PO BID COUNTS INCLUDE 234 BEDS AT THE [facility] Last Admin: 11/16/23 08:53 Dose: 1 mg Documented By: CINTHYA Calcium Carbonate (Calcium Carbonate 750 Mg Tab.Chew) 750 mg PO Q6H PRN PRN Reason: Dyspepsia Last Admin: 10/23/23 23:34 Dose: 750 mg Fluphenazine Decanoate (Fluphenazine Decanoate 25 Mg/Ml 5 Ml Vial) 25 mg IM Q28D COUNTS INCLUDE 234 BEDS AT THE [facility] Last Admin: 11/01/23 12:22 Dose: 25 mg Documented By: MARTIN Comments: med just arrived on unit Fluticasone Propionate (Fluticasone Propionate Nasal 16 Gm [place]) 1 spray NOSTRIL-B ONCE COUNTS INCLUDE 234 BEDS AT THE [facility] Guaifenesin/Dextromethorphan (Guaifenesin Dm 600/30 1 Tab Tab.Er.12h) 1 tab PO BID PRN PRN Reason: congestion/cough Hydroxyzine HCl (Hydroxyzine Hcl 25 Mg Tablet) 25 mg PO Q8H PRN PRN Reason: anxiety/restlessness Last Admin: 11/15/23 12:55 Dose: 25 mg Documented By: ESTHER Magnesium Hydroxide (Milk Of Magnesia 30 Ml Oral.Susp) 30 ml PO DAILY PRN PRN Reason: Constipation Last Admin: 10/16/23 14:52 Dose: 30 ml Documented By: JAGDISH Melatonin (Melatonin 3 Mg Tablet) 6 mg PO BEDTIME COUNTS INCLUDE 234 BEDS AT THE [facility] Last Admin: 11/15/23 21:04 Dose: 6 mg Documented By: MICHAEL Ondansetron HCl (Ondansetron Hcl 4 Mg/2 Ml Vial) 4 mg IVPUSH Q8H PRN PRN Reason: Nausea and Vomiting Polyethylene Glycol (Polyethylene Glycol 3350 17 Gm Powd.Pack) 17 gm PO DAILY PRN PRN Reason: Constipation Last Admin: 10/18/23 14:03 Dose: 17 gm Documented By: SHIRLEY Quetiapine Fumarate (Quetiapine Fumarate 50 Mg Tablet) 50 mg PO Q6H PRN PRN Reason: agitation/anxiety Last Admin: 11/15/23 04:11 Dose: 50 mg Documented By: KIM Senna/Docusate Sodium (Sennosides/Docusate Sodium Tablet) 1 tab PO BID COUNTS INCLUDE 234 BEDS AT THE [facility] Last Admin: 11/16/23 08:53 Dose: 1 tab Documented By: CINTHYA Trazodone HCl (Trazodone Hcl 25 Mg Halftab) 75 mg PO BEDTIME COUNTS INCLUDE 234 BEDS AT THE [facility] Last Admin: 11/15/23 21:04 Dose: 75 mg Documented By: MICHAEL Labs 10/14/23 05:47 10/14/23 05:47 Assessment and Plan (1) Schizophrenia, paranoid type: Status: Acute Plan 63F [facility] significant for schizophrenia?who initially presented to the ED on 08/23/2023 for evaluation of delusional behavior. Medical workup has been negative for any acute concerns, and patient had been placed on physician observation, due to prolonged stay, transfered to medical service 10/13/23 Schizophrenia, paranoid type, symptoms controlled, no behavioral issues noted, continue meds per Psych direction (Prolixin, cogentin, Trazadone at hs) risk of flight Patient otherwise has no acute or chronic medical conditions issues and just awaiting placement DVT Prophylaxis: Patient ambulatory need for inpt: awaiting for placement , Ongoing daily discussion with CM Quality Stroke Does the patient have a stroke diagnosis?: No VTE Prior VTE?: No VTE Risk Level:: Medical - low VTE Device Contraindication: Treatment Not Indicated VTE Drug Contraindication: Treatment Not Indicated
[2023-11-16] MEDS: hydrOXYzine HCL 25 MG TABLET PO (10:50)
[2023-11-16 19:04] VITALS: BP 113/56; PULSE 88; RESP 20; TEMP 36.4; O2SAT 98
[2023-11-16] MEDS: Melatonin 3 MG TABLET 6 MG PO (20:00)
[2023-11-16] MEDS: traZODone HCL 25 MG HALFTAB 75 MG PO (20:00)
[2023-11-17 08:03] VITALS: BP 122/68; PULSE 56; RESP 20; TEMP 36.8; O2SAT 94
[2023-11-17] MEDS: Sennosides/Docusate Sodium TABLET 1 TAB PO ×2 (09:27→19:48)
[2023-11-17] MEDS: Benztropine Mesylate 1 MG TABLET PO ×2 (09:27→19:48)
--- NOTE | 2023-11-17 10:27 | P.PNIM_ITS ---
Subjective Subjective Date of Service: 11/17/23 Interval History: no new issues Physical Exam 2 Vital Signs: Vital Signs: Last Vital Signs Temp 98.2 F 11/17/23 08:03 Pulse 56 11/17/23 08:03 Resp 20 11/17/23 08:03 BP 122/68 11/17/23 08:03 Pulse Ox 94 11/17/23 08:03 O2 Del Method Room Air 11/17/23 08:03 O2 Flow Rate 2 11/02/23 15:24 BMI result Body Mass Index 25.0 Const: Other: Constitutional : Awake, interactive, not in distress Neck : Normal inspection, Supple Cardiovascular : no JVP, no lower extremity edema Skin : Warm, Dry Neurological : Alert & oriented to self and place, No focal deficit Objective Data Active Medications Acetaminophen (Acetaminophen 325 Mg Tablet) 650 mg PO Q6H PRN PRN Reason: pain, fever Last Admin: 10/26/23 08:00 Dose: 650 mg Documented By: ESTHER Al Hydroxide/Mg Hydroxide (Magnesium Hydrox/Alum Hydrox 30 Ml Oral.Susp) 30 ml PO Q6H PRN PRN Reason: Dyspepsia Last Admin: 10/24/23 08:14 Dose: 30 ml Documented By: ESTHER Benztropine Mesylate (Benztropine Mesylate 1 Mg Tablet) 1 mg PO BID [facility] Last Admin: 11/17/23 09:27 Dose: 1 mg Documented By: MARTIN Calcium Carbonate (Calcium Carbonate 750 Mg Tab.Chew) 750 mg PO Q6H PRN PRN Reason: Dyspepsia Last Admin: 10/23/23 23:34 Dose: 750 mg Fluphenazine Decanoate (Fluphenazine Decanoate 25 Mg/Ml 5 Ml Vial) 25 mg IM Q28D [facility] Last Admin: 11/01/23 12:22 Dose: 25 mg Documented By: MARTIN Comments: med just arrived on unit Fluticasone Propionate (Fluticasone Propionate Nasal [address] [place] [address]) 1 spray NOSTRIL-B ONCE [facility] Guaifenesin/Dextromethorphan (Guaifenesin Dm 600/30 1 Tab Tab.Er.12h) 1 tab PO BID PRN PRN Reason: congestion/cough Hydroxyzine HCl (Hydroxyzine Hcl 25 Mg Tablet) 25 mg PO Q8H PRN PRN Reason: anxiety/restlessness Last Admin: 11/16/23 10:50 Dose: 25 mg Documented By: CINTHYA Magnesium Hydroxide (Milk Of Magnesia 30 Ml Oral.Susp) 30 ml PO DAILY PRN PRN Reason: Constipation Last Admin: 10/16/23 14:52 Dose: 30 ml Documented By: JAGDISH Melatonin (Melatonin 3 Mg Tablet) 6 mg PO BEDTIME [facility] Last Admin: 11/16/23 20:00 Dose: 6 mg Documented By: MICHAEL Ondansetron HCl (Ondansetron Hcl 4 Mg/2 Ml Vial) 4 mg IVPUSH Q8H PRN PRN Reason: Nausea and Vomiting Polyethylene Glycol (Polyethylene Glycol 3350 17 Gm Powd.Pack) 17 gm PO DAILY PRN PRN Reason: Constipation Last Admin: 10/18/23 14:03 Dose: 17 gm Documented By: SHIRLEY Quetiapine Fumarate (Quetiapine Fumarate 50 Mg Tablet) 50 mg PO Q6H PRN PRN Reason: agitation/anxiety Last Admin: 11/15/23 04:11 Dose: 50 mg Documented By: KIM Senna/Docusate Sodium (Sennosides/Docusate Sodium Tablet) 1 tab PO BID [facility] Last Admin: 11/17/23 09:27 Dose: 1 tab Documented By: MARTIN Trazodone HCl (Trazodone Hcl 25 Mg Halftab) 75 mg PO BEDTIME [facility] Last Admin: 11/16/23 20:00 Dose: 75 mg Documented By: MICHAEL Labs 10/14/23 05:47 10/14/23 05:47 Assessment and Plan (1) Schizophrenia, paranoid type: Status: Acute Plan 63F [facility] significant for schizophrenia?who initially presented to the ED on 08/23/2023 for evaluation of delusional behavior. Medical workup has been negative for any acute concerns, and patient had been placed on physician observation, due to prolonged stay, transfered to medical service 10/13/23 Schizophrenia, paranoid type, symptoms controlled, no behavioral issues noted, continue meds per Psych direction (Prolixin, cogentin, Trazadone at hs) risk of flight Patient otherwise has no acute or chronic medical conditions issues and just awaiting placement DVT Prophylaxis: Patient ambulatory need for inpt: awaiting for placement , Ongoing daily discussion with CM Quality Stroke Does the patient have a stroke diagnosis?: No VTE Prior VTE?: No VTE Risk Level:: Medical - low VTE Device Contraindication: Treatment Not Indicated VTE Drug Contraindication: Treatment Not Indicated
--- NOTE | 2023-11-17 12:46 | MHC.CM.PN ---
Pt remains medically cleared for DC with no accepting facility. Guardian and conservator in place, working on changing insurance from [facility] to Medicaid. Once this is complete, CM will update referrals.
[2023-11-17] MEDS: traZODone HCL 25 MG HALFTAB 75 MG PO (19:47)
[2023-11-17] MEDS: Melatonin 3 MG TABLET 6 MG PO (19:47)
[2023-11-17 20:48] VITALS: BP 120/58; PULSE 60; RESP 20; TEMP 36.8; O2SAT 92
[2023-11-18 06:11] VITALS: BP 132/61; PULSE 50; RESP 18; TEMP 36.2; O2SAT 95
[2023-11-18] MEDS: Benztropine Mesylate 1 MG TABLET PO ×2 (08:43→19:05)
[2023-11-18] MEDS: Sennosides/Docusate Sodium TABLET 1 TAB PO ×2 (08:43→19:05)
[2023-11-18 09:00] VITALS: BP 112/58; PULSE 61; RESP 18; TEMP 36.7; O2SAT 95
--- NOTE | 2023-11-18 09:20 | HO.PM.IMPN ---
Subjective Subjective Date of Service: 11/18/23 Interval History: no new issues Physical Exam Vital Signs: Vital Signs: Last Vital Signs Temp 98.1 F 11/18/23 09:00 Pulse 61 11/18/23 09:00 Resp 18 11/18/23 09:00 BP 112/58 L 11/18/23 09:00 Pulse Ox 95 11/18/23 09:00 O2 Del Method Room Air 11/18/23 09:00 O2 Flow Rate 2 11/02/23 15:24 BMI result Body Mass Index 25.0 Const: Other: Constitutional : Awake, interactive, not in distress Neck : Normal inspection, Supple Cardiovascular : no JVP, no lower extremity edema Skin : Warm, Dry Neurological : Alert & oriented to self and place, No focal deficit Objective Data Active Medications Acetaminophen (Acetaminophen 325 Mg Tablet) 650 mg PO Q6H PRN PRN Reason: pain, fever Last Admin: 10/26/23 08:00 Dose: 650 mg Documented By: ESTHER Al Hydroxide/Mg Hydroxide (Magnesium Hydrox/Alum Hydrox 30 Ml Oral.Susp) 30 ml PO Q6H PRN PRN Reason: Dyspepsia Last Admin: 10/24/23 08:14 Dose: 30 ml Documented By: ESTHER Benztropine Mesylate (Benztropine Mesylate 1 Mg Tablet) 1 mg PO BID [facility] Last Admin: 11/18/23 08:43 Dose: 1 mg Documented By: CINTHYA Calcium Carbonate (Calcium Carbonate 750 Mg Tab.Chew) 750 mg PO Q6H PRN PRN Reason: Dyspepsia Last Admin: 10/23/23 23:34 Dose: 750 mg Fluphenazine Decanoate (Fluphenazine Decanoate 25 Mg/Ml 5 Ml Vial) 25 mg IM Q28D [facility] Last Admin: 11/01/23 12:22 Dose: 25 mg Documented By: MARTIN Comments: med just arrived on unit Fluticasone Propionate (Fluticasone Propionate Nasal 16 Gm [place]) 1 spray NOSTRIL-B ONCE [facility] Guaifenesin/Dextromethorphan (Guaifenesin Dm 600/30 1 Tab Tab.Er.12h) 1 tab PO BID PRN PRN Reason: congestion/cough Hydroxyzine HCl (Hydroxyzine Hcl 25 Mg Tablet) 25 mg PO Q8H PRN PRN Reason: anxiety/restlessness Last Admin: 11/16/23 10:50 Dose: 25 mg Documented By: CINTHYA Magnesium Hydroxide (Milk Of Magnesia 30 Ml Oral.Susp) 30 ml PO DAILY PRN PRN Reason: Constipation Last Admin: 10/16/23 14:52 Dose: 30 ml Documented By: JAGDISH Melatonin (Melatonin 3 Mg Tablet) 6 mg PO BEDTIME [facility] Last Admin: 11/17/23 19:47 Dose: 6 mg Documented By: ELIANA Ondansetron HCl (Ondansetron Hcl 4 Mg/2 Ml Vial) 4 mg IVPUSH Q8H PRN PRN Reason: Nausea and Vomiting Polyethylene Glycol (Polyethylene Glycol 3350 17 Gm Powd.Pack) 17 gm PO DAILY PRN PRN Reason: Constipation Last Admin: 10/18/23 14:03 Dose: 17 gm Documented By: SHIRLEY Quetiapine Fumarate (Quetiapine Fumarate 50 Mg Tablet) 50 mg PO Q6H PRN PRN Reason: agitation/anxiety Last Admin: 11/15/23 04:11 Dose: 50 mg Documented By: KIM Senna/Docusate Sodium (Sennosides/Docusate Sodium Tablet) 1 tab PO BID [facility] Last Admin: 11/18/23 08:43 Dose: 1 tab Documented By: CINTHYA Trazodone HCl (Trazodone Hcl 25 Mg Halftab) 75 mg PO BEDTIME [facility] Last Admin: 11/17/23 19:47 Dose: 75 mg Documented By: ELIANA Labs 10/14/23 05:47 10/14/23 05:47 Assessment and Plan (1) Schizophrenia, paranoid type: Status: Acute Plan 63F [facility] significant for schizophrenia?who initially presented to the ED on 08/23/2023 for evaluation of delusional behavior. Medical workup has been negative for any acute concerns, and patient had been placed on physician observation, due to prolonged stay, transfered to medical service 10/13/23 Schizophrenia, paranoid type, symptoms controlled, no behavioral issues noted, continue meds per Psych direction (Prolixin, cogentin, Trazadone at hs) risk of flight Patient otherwise has no acute or chronic medical conditions issues and just awaiting placement DVT Prophylaxis: Patient ambulatory need for inpt: awaiting for placement , Ongoing daily discussion with CM Quality Stroke Does the patient have a stroke diagnosis?: No VTE Prior VTE?: No VTE Risk Level:: Medical - low VTE Device Contraindication: Treatment Not Indicated VTE Drug Contraindication: Treatment Not Indicated
[2023-11-18] MEDS: hydrOXYzine HCL 25 MG TABLET PO (17:00)
[2023-11-18] MEDS: Melatonin 3 MG TABLET 6 MG PO (19:05)
[2023-11-18] MEDS: QUEtiapine Fumarate 50 MG TABLET PO (19:05)
[2023-11-18] MEDS: traZODone HCL 25 MG HALFTAB 75 MG PO (19:05)
[2023-11-18 20:32] VITALS: BP 133/64; PULSE 54; RESP 20; TEMP 36.6; O2SAT 95
[2023-11-19 09:00] VITALS: BP 126/71; PULSE 70; RESP 20; TEMP 36.3; O2SAT 96
--- NOTE | 2023-11-19 09:28 | HO.PM.IMPN ---
Subjective Subjective Date of Service: 11/19/23 Interval History: no new complaints Physical Exam Vital Signs: Vital Signs: Last Vital Signs Temp 97.9 F 11/18/23 20:32 Pulse 54 11/18/23 20:32 Resp 20 11/18/23 20:32 BP 133/64 11/18/23 20:32 Pulse Ox 95 11/18/23 20:32 O2 Del Method Room Air 11/18/23 20:32 O2 Flow Rate 2 11/02/23 15:24 BMI result Body Mass Index 25.0 Const: Other: Constitutional : Awake, interactive, not in distress Neck : Normal inspection, Supple Cardiovascular : no JVP, no lower extremity edema Skin : Warm, Dry Neurological : Alert & oriented to self and place, No focal deficit Objective Data Active Medications Acetaminophen (Acetaminophen 325 Mg Tablet) 650 mg PO Q6H PRN PRN Reason: pain, fever Last Admin: 10/26/23 08:00 Dose: 650 mg Documented By: ESTHER Al Hydroxide/Mg Hydroxide (Magnesium Hydrox/Alum Hydrox 30 Ml Oral.Susp) 30 ml PO Q6H PRN PRN Reason: Dyspepsia Last Admin: 10/24/23 08:14 Dose: 30 ml Documented By: ESTHER Benztropine Mesylate (Benztropine Mesylate 1 Mg Tablet) 1 mg PO BID [facility] Last Admin: 11/18/23 19:05 Dose: 1 mg Documented By: ELIANA Calcium Carbonate (Calcium Carbonate 750 Mg Tab.Chew) 750 mg PO Q6H PRN PRN Reason: Dyspepsia Last Admin: 10/23/23 23:34 Dose: 750 mg Fluphenazine Decanoate (Fluphenazine Decanoate 25 Mg/Ml 5 Ml Vial) 25 mg IM Q28D [facility] Last Admin: 11/01/23 12:22 Dose: 25 mg Documented By: MARTIN Comments: med just arrived on unit Fluticasone Propionate (Fluticasone Propionate Nasal 16 Gm [place]) 1 spray NOSTRIL-B ONCE [facility] Guaifenesin/Dextromethorphan (Guaifenesin Dm 600/30 1 Tab Tab.Er.12h) 1 tab PO BID PRN PRN Reason: congestion/cough Hydroxyzine HCl (Hydroxyzine Hcl 25 Mg Tablet) 25 mg PO Q8H PRN PRN Reason: anxiety/restlessness Last Admin: 11/18/23 17:00 Dose: 25 mg Documented By: CINTHYA Magnesium Hydroxide (Milk Of Magnesia 30 Ml Oral.Susp) 30 ml PO DAILY PRN PRN Reason: Constipation Last Admin: 10/16/23 14:52 Dose: 30 ml Documented By: JAGDISH Melatonin (Melatonin 3 Mg Tablet) 6 mg PO BEDTIME [facility] Last Admin: 11/18/23 19:05 Dose: 6 mg Documented By: ELIANA Ondansetron HCl (Ondansetron Hcl 4 Mg/2 Ml Vial) 4 mg IVPUSH Q8H PRN PRN Reason: Nausea and Vomiting Polyethylene Glycol (Polyethylene Glycol 3350 17 Gm Powd.Pack) 17 gm PO DAILY PRN PRN Reason: Constipation Last Admin: 10/18/23 14:03 Dose: 17 gm Documented By: SHIRLEY Quetiapine Fumarate (Quetiapine Fumarate 50 Mg Tablet) 50 mg PO Q6H PRN PRN Reason: agitation/anxiety Last Admin: 11/18/23 19:05 Dose: 50 mg Documented By: ELIANA Senna/Docusate Sodium (Sennosides/Docusate Sodium Tablet) 1 tab PO BID [facility] Last Admin: 11/18/23 19:05 Dose: 1 tab Documented By: ELIANA Trazodone HCl (Trazodone Hcl 25 Mg Halftab) 75 mg PO BEDTIME [facility] Last Admin: 11/18/23 19:05 Dose: 75 mg Documented By: ELIANA Labs 10/14/23 05:47 10/14/23 05:47 Assessment and Plan (1) Schizophrenia, paranoid type: Status: Acute Plan 63F [facility] significant for schizophrenia?who initially presented to the ED on 08/23/2023 for evaluation of delusional behavior. Medical workup has been negative for any acute concerns, and patient had been placed on physician observation, due to prolonged stay, transfered to medical service 10/13/23 Schizophrenia, paranoid type, symptoms controlled, no behavioral issues noted, continue meds per Psych direction (Prolixin, cogentin, Trazadone at hs) risk of flight Patient otherwise has no acute or chronic medical conditions issues and just awaiting placement DVT Prophylaxis: Patient ambulatory need for inpt: awaiting for placement , Ongoing daily discussion with CM Quality Stroke Does the patient have a stroke diagnosis?: No VTE Prior VTE?: No VTE Risk Level:: Medical - low VTE Device Contraindication: Treatment Not Indicated VTE Drug Contraindication: Treatment Not Indicated
[2023-11-19] MEDS: Sennosides/Docusate Sodium TABLET 1 TAB PO ×2 (09:57→20:57)
[2023-11-19] MEDS: hydrOXYzine HCL 25 MG TABLET PO (09:57)
[2023-11-19] MEDS: Benztropine Mesylate 1 MG TABLET PO ×2 (09:57→20:57)
[2023-11-19 20:12] VITALS: BP 128/63; PULSE 56; RESP 20; TEMP 36.8; O2SAT 95
[2023-11-19] MEDS: traZODone HCL 25 MG HALFTAB 75 MG PO (20:56)
[2023-11-19] MEDS: Melatonin 3 MG TABLET 6 MG PO (20:57)
[2023-11-20] MEDS: QUEtiapine Fumarate 50 MG TABLET PO (02:51)
[2023-11-20] MEDS: hydrOXYzine HCL 25 MG TABLET PO ×2 (02:51→20:46)
[2023-11-20 07:51] VITALS: BP 119/57; PULSE 60; RESP 18; TEMP 35.9; O2SAT 98
[2023-11-20 09:00] VITALS: BP 119/57; PULSE 60; RESP 18; TEMP 35.9
[2023-11-20] MEDS: Benztropine Mesylate 1 MG TABLET PO ×2 (09:06→20:46)
[2023-11-20] MEDS: Sennosides/Docusate Sodium TABLET 1 TAB PO ×2 (09:07→20:46)
--- NOTE | 2023-11-20 09:24 | HO.PM.IMPN ---
Subjective Subjective Date of Service: 11/20/23 Interval History: no new complaints Physical Exam Vital Signs: Vital Signs: Last Vital Signs Temp 96.6 F L 11/20/23 09:00 Pulse 60 11/20/23 09:00 Resp 18 11/20/23 09:00 BP 119/57 L 11/20/23 09:00 Pulse Ox 98 11/20/23 07:51 O2 Del Method Room Air 11/20/23 09:00 O2 Flow Rate 2 11/02/23 15:24 BMI result Body Mass Index 25.0 Const: Other: Constitutional : Awake, interactive, not in distress Neck : Normal inspection, Supple Cardiovascular : no JVP, no lower extremity edema Skin : Warm, Dry Neurological : Alert & oriented to self and place, No focal deficit Objective Data Active Medications Acetaminophen (Acetaminophen 325 Mg Tablet) 650 mg PO Q6H PRN PRN Reason: pain, fever Last Admin: 10/26/23 08:00 Dose: 650 mg Documented By: ESTHER Al Hydroxide/Mg Hydroxide (Magnesium Hydrox/Alum Hydrox 30 Ml Oral.Susp) 30 ml PO Q6H PRN PRN Reason: Dyspepsia Last Admin: 10/24/23 08:14 Dose: 30 ml Documented By: ESTHER Benztropine Mesylate (Benztropine Mesylate 1 Mg Tablet) 1 mg PO BID [facility] Last Admin: 11/20/23 09:06 Dose: 1 mg Documented By: SABA Calcium Carbonate (Calcium Carbonate 750 Mg Tab.Chew) 750 mg PO Q6H PRN PRN Reason: Dyspepsia Last Admin: 10/23/23 23:34 Dose: 750 mg Fluphenazine Decanoate (Fluphenazine Decanoate 25 Mg/Ml 5 Ml Vial) 25 mg IM Q28D [facility] Last Admin: 11/01/23 12:22 Dose: 25 mg Documented By: MARTIN Comments: med just arrived on unit Fluticasone Propionate (Fluticasone Propionate Nasal 16 Gm [place]) 1 spray NOSTRIL-B ONCE [facility] Guaifenesin/Dextromethorphan (Guaifenesin Dm 600/30 1 Tab Tab.Er.12h) 1 tab PO BID PRN PRN Reason: congestion/cough Hydroxyzine HCl (Hydroxyzine Hcl 25 Mg Tablet) 25 mg PO Q8H PRN PRN Reason: anxiety/restlessness Last Admin: 11/20/23 02:51 Dose: 25 mg Documented By: MANNY Comments: pt reports feeling restless, walking around in room Magnesium Hydroxide (Milk Of Magnesia 30 Ml Oral.Susp) 30 ml PO DAILY PRN PRN Reason: Constipation Last Admin: 10/16/23 14:52 Dose: 30 ml Documented By: JAGDISH Melatonin (Melatonin 3 Mg Tablet) 6 mg PO BEDTIME [facility] Last Admin: 11/19/23 20:57 Dose: 6 mg Documented By: MANNY Ondansetron HCl (Ondansetron Hcl 4 Mg/2 Ml Vial) 4 mg IVPUSH Q8H PRN PRN Reason: Nausea and Vomiting Polyethylene Glycol (Polyethylene Glycol 3350 17 Gm Powd.Pack) 17 gm PO DAILY PRN PRN Reason: Constipation Last Admin: 10/18/23 14:03 Dose: 17 gm Documented By: SHIRLEY Quetiapine Fumarate (Quetiapine Fumarate 50 Mg Tablet) 50 mg PO Q6H PRN PRN Reason: agitation/anxiety Last Admin: 11/20/23 02:51 Dose: 50 mg Documented By: MANNY Comments: pt feels anxious requesting Seroquel Senna/Docusate Sodium (Sennosides/Docusate Sodium Tablet) 1 tab PO BID [facility] Last Admin: 11/20/23 09:07 Dose: 1 tab Documented By: SABA Trazodone HCl (Trazodone Hcl 25 Mg Halftab) 75 mg PO BEDTIME [facility] Last Admin: 11/19/23 20:56 Dose: 75 mg Documented By: MANNY Labs 10/14/23 05:47 10/14/23 05:47 Assessment and Plan (1) Schizophrenia, paranoid type: Status: Acute Plan 63F [facility] significant for schizophrenia?who initially presented to the ED on 08/23/2023 for evaluation of delusional behavior. Medical workup has been negative for any acute concerns, and patient had been placed on physician observation, due to prolonged stay, transfered to medical service 10/13/23 Schizophrenia, paranoid type, symptoms controlled, no behavioral issues noted, continue meds per Psych direction (Prolixin, cogentin, Trazadone at hs) risk of flight Patient otherwise has no acute or chronic medical conditions issues and just awaiting placement DVT Prophylaxis: Patient ambulatory need for inpt: awaiting for placement , Ongoing daily discussion with CM Quality Stroke Does the patient have a stroke diagnosis?: No VTE Prior VTE?: No VTE Risk Level:: Medical - low VTE Device Contraindication: Treatment Not Indicated VTE Drug Contraindication: Treatment Not Indicated
--- NOTE | 2023-11-20 10:24 | MHC.CM.PN ---
Addendum entered by Gemini Ryan 11/20/23 11:31: Per [employer] Patient is still active with [facility]. Original Note: Patient has conservatarship and guardianship in place. She is medically cleared for discharge. An accepting facility has not been found. Patients Guardian [facility] the process [facility] A message has been sent to [facility] financial councilors. An update on the insurance change status has been requested. DP Locked unit via BLS once an accepting facility has been obtained.
[2023-11-20 20:42] VITALS: BP 119/57; PULSE 64; RESP 20; TEMP 36.7; O2SAT 95
[2023-11-20] MEDS: traZODone HCL 25 MG HALFTAB 75 MG PO (20:46)
[2023-11-20] MEDS: Melatonin 3 MG TABLET 6 MG PO (20:46)
[2023-11-21] MEDS: Benztropine Mesylate 1 MG TABLET PO ×2 (07:41→19:31)
[2023-11-21] MEDS: Sennosides/Docusate Sodium TABLET 1 TAB PO ×2 (07:41→19:31)
--- NOTE | 2023-11-21 09:35 | P.PNIM_ITS ---
Subjective Subjective Date of Service: 11/21/23 Interval History: no new complaints Physical Exam 2 Vital Signs: Vital Signs: Last Vital Signs Temp 98.1 F 11/20/23 20:42 Pulse 64 11/20/23 20:42 Resp 20 11/20/23 20:42 BP 119/57 L 11/20/23 20:42 Pulse Ox 95 11/20/23 20:42 O2 Del Method Room Air 11/20/23 20:42 O2 Flow Rate 2 11/02/23 15:24 BMI result Body Mass Index 25.0 Const: Other: Constitutional : Awake, interactive, not in distress Neck : Normal inspection, Supple Cardiovascular : no JVP, no lower extremity edema Skin : Warm, Dry Neurological : Alert & oriented to self and place, No focal deficit Objective Data Active Medications Acetaminophen (Acetaminophen 325 Mg Tablet) 650 mg PO Q6H PRN PRN Reason: pain, fever Last Admin: 10/26/23 08:00 Dose: 650 mg Documented By: ESTHER Al Hydroxide/Mg Hydroxide (Magnesium Hydrox/Alum Hydrox 30 Ml Oral.Susp) 30 ml PO Q6H PRN PRN Reason: Dyspepsia Last Admin: 10/24/23 08:14 Dose: 30 ml Documented By: ESTHER Benztropine Mesylate (Benztropine Mesylate 1 Mg Tablet) 1 mg PO BID [facility] Last Admin: 11/21/23 07:41 Dose: 1 mg Documented By: LAUREL Calcium Carbonate (Calcium Carbonate 750 Mg Tab.Chew) 750 mg PO Q6H PRN PRN Reason: Dyspepsia Last Admin: 10/23/23 23:34 Dose: 750 mg Fluphenazine Decanoate (Fluphenazine Decanoate 25 Mg/Ml 5 Ml Vial) 25 mg IM Q28D [facility] Last Admin: 11/01/23 12:22 Dose: 25 mg Documented By: MARTIN Comments: med just arrived on unit Fluticasone Propionate (Fluticasone Propionate Nasal 16 Gm [place]) 1 spray NOSTRIL-B ONCE [facility] Guaifenesin/Dextromethorphan (Guaifenesin Dm 600/30 1 Tab Tab.Er.12h) 1 tab PO BID PRN PRN Reason: congestion/cough Hydroxyzine HCl (Hydroxyzine Hcl 25 Mg Tablet) 25 mg PO Q8H PRN PRN Reason: anxiety/restlessness Last Admin: 11/20/23 20:46 Dose: 25 mg Documented By: MANNY Comments: reports anxiety Magnesium Hydroxide (Milk Of Magnesia 30 Ml Oral.Susp) 30 ml PO DAILY PRN PRN Reason: Constipation Last Admin: 10/16/23 14:52 Dose: 30 ml Documented By: JAGDISH Melatonin (Melatonin 3 Mg Tablet) 6 mg PO BEDTIME [facility] Last Admin: 11/20/23 20:46 Dose: 6 mg Documented By: MANNY Ondansetron HCl (Ondansetron Hcl 4 Mg/2 Ml Vial) 4 mg IVPUSH Q8H PRN PRN Reason: Nausea and Vomiting Polyethylene Glycol (Polyethylene Glycol 3350 17 Gm Powd.Pack) 17 gm PO DAILY PRN PRN Reason: Constipation Last Admin: 10/18/23 14:03 Dose: 17 gm Documented By: SHIRLEY Quetiapine Fumarate (Quetiapine Fumarate 50 Mg Tablet) 50 mg PO Q6H PRN PRN Reason: agitation/anxiety Last Admin: 11/20/23 02:51 Dose: 50 mg Documented By: MANNY Comments: pt feels anxious requesting Seroquel Senna/Docusate Sodium (Sennosides/Docusate Sodium Tablet) 1 tab PO BID [facility] Last Admin: 11/21/23 07:41 Dose: 1 tab Documented By: LAUREL Trazodone HCl (Trazodone Hcl 25 Mg Halftab) 75 mg PO BEDTIME [facility] Last Admin: 11/20/23 20:46 Dose: 75 mg Documented By: MANNY Labs 10/14/23 05:47 10/14/23 05:47 Assessment and Plan (1) Schizophrenia, paranoid type: Status: Acute Plan 63F PMH significant for schizophrenia?who initially presented to the ED on 08/23/2023 for evaluation of delusional behavior. Medical workup has been negative for any acute concerns, and patient had been placed on physician observation, due to prolonged stay, transfered to medical service 10/13/23 Schizophrenia, paranoid type, symptoms controlled, no behavioral issues noted, continue meds per Psych direction (Prolixin, cogentin, Trazadone at hs) risk of flight Patient otherwise has no acute or chronic medical conditions issues and just awaiting placement DVT Prophylaxis: Patient ambulatory need for inpt: awaiting for placement , Ongoing daily discussion with CM Quality Stroke Does the patient have a stroke diagnosis?: No VTE Prior VTE?: No VTE Risk Level:: Medical - low VTE Device Contraindication: Treatment Not Indicated VTE Drug Contraindication: Treatment Not Indicated
[2023-11-21 10:34] VITALS: BP 104/54; PULSE 60; RESP 18; TEMP 36.9; O2SAT 98
[2023-11-21] MEDS: QUEtiapine Fumarate 50 MG TABLET PO (15:00)
[2023-11-21] MEDS: traZODone HCL 25 MG HALFTAB 75 MG PO (19:31)
[2023-11-21] MEDS: Melatonin 3 MG TABLET 6 MG PO (19:31)
[2023-11-21 21:00] VITALS: BP 115/54; PULSE 52; RESP 16; TEMP 36.1; O2SAT 95
[2023-11-22] MEDS: Sennosides/Docusate Sodium TABLET 1 TAB PO ×2 (07:30→19:52)
[2023-11-22] MEDS: Benztropine Mesylate 1 MG TABLET PO ×2 (07:30→19:52)
[2023-11-22] MEDS: hydrOXYzine HCL 25 MG TABLET PO ×2 (10:50→18:30)
[2023-11-22 13:34] VITALS: BP 105/50; PULSE 66; RESP 18; TEMP 36.9; O2SAT 97
--- NOTE | 2023-11-22 14:09 | MHC.CM.PN ---
CHRISTIANO spoke to guardian, Tony Gracia today, insurace has not yet been changed to Medicaid. CHRISTIANO informed her that the [facility] will consider pt. there but they do not take her insurance ([facility]). Tony said she will contact admissions at [facility] to let them know that pt. can pay privately initially and then go on Medicaid. No changes in legal concerns, Tony reiterated that if pt. goes to a secure facility, then the charges will be dropped. CHRISTIANO obtained Miguelina email to communicate, and requested to be updated with any changes, [email or web address].
--- NOTE | 2023-11-22 14:24 | P.PNIM_ITS ---
Subjective Subjective Date of Service: 11/22/23 Interval History: comfortable overall No complaints Physical Exam 2 Vital Signs: Vital Signs: Last Vital Signs Temp 98.4 F 11/22/23 13:34 Pulse 66 11/22/23 13:34 Resp 18 11/22/23 13:34 BP 105/50 L 11/22/23 13:34 Pulse Ox 97 11/22/23 13:34 O2 Del Method Room Air 11/22/23 13:34 O2 Flow Rate 2 11/02/23 15:24 BMI result Body Mass Index 25.0 Const: Other: Constitutional : Awake, interactive, not in distress Neck : Normal inspection, Supple Cardiovascular : no JVP, no lower extremity edema Skin : Warm, Dry Neurological : Alert & oriented to self and place, No focal deficit Objective Data Active Medications Acetaminophen (Acetaminophen 325 Mg Tablet) 650 mg PO Q6H PRN PRN Reason: pain, fever Last Admin: 10/26/23 08:00 Dose: 650 mg Documented By: ESTHER Al Hydroxide/Mg Hydroxide (Magnesium Hydrox/Alum Hydrox 30 Ml Oral.Susp) 30 ml PO Q6H PRN PRN Reason: Dyspepsia Last Admin: 10/24/23 08:14 Dose: 30 ml Documented By: ESTHER Benztropine Mesylate (Benztropine Mesylate 1 Mg Tablet) 1 mg PO BID [facility] Last Admin: 11/22/23 07:30 Dose: 1 mg Documented By: LAUREL Calcium Carbonate (Calcium Carbonate 750 Mg Tab.Chew) 750 mg PO Q6H PRN PRN Reason: Dyspepsia Last Admin: 10/23/23 23:34 Dose: 750 mg Fluphenazine Decanoate (Fluphenazine Decanoate 25 Mg/Ml 5 Ml Vial) 25 mg IM Q28D [facility] Last Admin: 11/01/23 12:22 Dose: 25 mg Documented By: MARTIN Comments: med just arrived on unit Fluticasone Propionate (Fluticasone Propionate Nasal 16 Gm [place]) 1 spray NOSTRIL-B ONCE [facility] Guaifenesin/Dextromethorphan (Guaifenesin Dm 600/30 1 Tab Tab.Er.12h) 1 tab PO BID PRN PRN Reason: congestion/cough Hydroxyzine HCl (Hydroxyzine Hcl 25 Mg Tablet) 25 mg PO Q8H PRN PRN Reason: anxiety/restlessness Last Admin: 11/22/23 10:50 Dose: 25 mg Documented By: LAUREL Magnesium Hydroxide (Milk Of Magnesia 30 Ml Oral.Susp) 30 ml PO DAILY PRN PRN Reason: Constipation Last Admin: 10/16/23 14:52 Dose: 30 ml Documented By: JAGDISH Melatonin (Melatonin 3 Mg Tablet) 6 mg PO BEDTIME [facility] Last Admin: 11/21/23 19:31 Dose: 6 mg Documented By: TIESHA Ondansetron HCl (Ondansetron Hcl 4 Mg/2 Ml Vial) 4 mg IVPUSH Q8H PRN PRN Reason: Nausea and Vomiting Polyethylene Glycol (Polyethylene Glycol 3350 17 Gm Powd.Pack) 17 gm PO DAILY PRN PRN Reason: Constipation Last Admin: 10/18/23 14:03 Dose: 17 gm Documented By: SHIRLEY Quetiapine Fumarate (Quetiapine Fumarate 50 Mg Tablet) 50 mg PO Q6H PRN PRN Reason: agitation/anxiety Last Admin: 11/21/23 15:00 Dose: 50 mg Documented By: CAROLYN Senna/Docusate Sodium (Sennosides/Docusate Sodium Tablet) 1 tab PO BID [facility] Last Admin: 11/22/23 07:30 Dose: 1 tab Documented By: LAUREL Trazodone HCl (Trazodone Hcl 25 Mg Halftab) 75 mg PO BEDTIME [facility] Last Admin: 11/21/23 19:31 Dose: 75 mg Documented By: TIESHA Labs 10/14/23 05:47 10/14/23 05:47 Assessment and Plan (1) Schizophrenia, paranoid type: Status: Acute Plan 63F PMH significant for schizophrenia?who initially presented to the ED on 08/23/2023 for evaluation of delusional behavior. Medical workup has been negative for any acute concerns, and patient had been placed on physician observation, due to prolonged stay, transfered to medical service 10/13/23 Schizophrenia, paranoid type, symptoms controlled, no behavioral issues noted, continue meds per Psych direction (Prolixin, cogentin, Trazadone at hs) risk of flight Patient otherwise has no acute or chronic medical conditions issues and just awaiting placement DVT Prophylaxis: Patient ambulatory need for inpt: awaiting for placement , Ongoing daily discussion with CM Quality Stroke Does the patient have a stroke diagnosis?: No VTE Prior VTE?: No VTE Risk Level:: Medical - low VTE Device Contraindication: Treatment Not Indicated VTE Drug Contraindication: Treatment Not Indicated
[2023-11-22] MEDS: Melatonin 3 MG TABLET 6 MG PO (19:52)
[2023-11-22] MEDS: traZODone HCL 25 MG HALFTAB 75 MG PO (19:52)
[2023-11-22 20:18] VITALS: BP 124/59; PULSE 56; RESP 16; TEMP 36.6; O2SAT 95
[2023-11-22] MEDS: Milk of Magnesia 30 ML ORAL.SUSP PO (20:40)
--- NOTE | 2023-11-22 21:03 | PC.NURSE ---
Pt doesn't remember her last BM . She stated that she feels like she has urge to go , feels constipated , medicated with MOM yudi
[2023-11-23 07:57] VITALS: BP 138/75; PULSE 60; RESP 20; TEMP 36.2; O2SAT 96
[2023-11-23] MEDS: Benztropine Mesylate 1 MG TABLET PO ×2 (07:58→20:01)
[2023-11-23] MEDS: hydrOXYzine HCL 25 MG TABLET PO ×2 (07:58→18:33)
[2023-11-23] MEDS: Sennosides/Docusate Sodium TABLET 1 TAB PO ×2 (07:58→20:01)
--- NOTE | 2023-11-23 11:43 | HO.PM.IMPN ---
Subjective Subjective Date of Service: 11/23/23 Interval History: Having breakfast comfortable overall No complaints Review of Systems Review of Systems: Yes all other systems are reviewed and are negative Physical Exam Vital Signs: Vital Signs: Last Vital Signs Temp 97.2 F 11/23/23 07:57 Pulse 60 11/23/23 07:57 Resp 20 11/23/23 07:57 BP 138/75 11/23/23 07:57 Pulse Ox 96 11/23/23 07:57 O2 Del Method Room Air 11/23/23 07:57 O2 Flow Rate 2 11/02/23 15:24 BMI result Body Mass Index 25.0 Const: Other: Constitutional : Awake, interactive, not in distress Neck : Normal inspection, Supple Cardiovascular : no JVP, no lower extremity edema Skin : Warm, Dry Neurological : Alert & oriented to self and place, No focal deficit Objective Data Active Medications Al Hydroxide/Mg Hydroxide (Magnesium Hydrox/Alum Hydrox 30 Ml Oral.Susp) 30 ml PO Q6H PRN PRN Reason: Dyspepsia Last Admin: 10/24/23 08:14 Dose: 30 ml Documented By: ESTHER Benztropine Mesylate (Benztropine Mesylate 1 Mg Tablet) 1 mg PO BID [facility] Last Admin: 11/23/23 07:58 Dose: 1 mg Documented By: BRENDA Calcium Carbonate (Calcium Carbonate 750 Mg Tab.Chew) 750 mg PO Q6H PRN PRN Reason: Dyspepsia Last Admin: 10/23/23 23:34 Dose: 750 mg Fluphenazine Decanoate (Fluphenazine Decanoate 25 Mg/Ml 5 Ml Vial) 25 mg IM Q28D [facility] Last Admin: 11/01/23 12:22 Dose: 25 mg Documented By: MARTIN Comments: med just arrived on unit Hydroxyzine HCl (Hydroxyzine Hcl 25 Mg Tablet) 25 mg PO Q8H PRN PRN Reason: anxiety/restlessness Last Admin: 11/23/23 07:58 Dose: 25 mg Documented By: BRENDA Magnesium Hydroxide (Milk Of Magnesia 30 Ml Oral.Susp) 30 ml PO DAILY PRN PRN Reason: Constipation Last Admin: 11/22/23 20:40 Dose: 30 ml Documented By: MICHAEL Melatonin (Melatonin 3 Mg Tablet) 6 mg PO BEDTIME [facility] Last Admin: 11/22/23 19:52 Dose: 6 mg Documented By: MICHAEL Ondansetron HCl (Ondansetron Hcl 4 Mg/2 Ml Vial) 4 mg IVPUSH Q8H PRN PRN Reason: Nausea and Vomiting Polyethylene Glycol (Polyethylene Glycol 3350 17 Gm Powd.Pack) 17 gm PO DAILY PRN PRN Reason: Constipation Last Admin: 10/18/23 14:03 Dose: 17 gm Documented By: SHIRLEY Quetiapine Fumarate (Quetiapine Fumarate 50 Mg Tablet) 50 mg PO Q6H PRN PRN Reason: agitation/anxiety Last Admin: 11/21/23 15:00 Dose: 50 mg Documented By: CAROLYN Senna/Docusate Sodium (Sennosides/Docusate Sodium Tablet) 1 tab PO BID [facility] Last Admin: 11/23/23 07:58 Dose: 1 tab Documented By: BRENDA Trazodone HCl (Trazodone Hcl 25 Mg Halftab) 75 mg PO BEDTIME [facility] Last Admin: 11/22/23 19:52 Dose: 75 mg Documented By: MICHAEL Labs 10/14/23 05:47 10/14/23 05:47 Assessment and Plan (1) Schizophrenia, paranoid type: Status: Acute Plan 63F [facility] significant for schizophrenia?who initially presented to the ED on 08/23/2023 for evaluation of delusional behavior. Medical workup has been negative for any acute concerns, and patient had been placed on physician observation, due to prolonged stay, transfered to medical service 10/13/23 Schizophrenia, paranoid type, symptoms controlled, no behavioral issues noted, continue meds per Psych direction (Prolixin, cogentin, Trazadone at ) risk of flight Patient otherwise has no acute or chronic medical conditions issues and just awaiting placement DVT Prophylaxis: Patient ambulatory need for inpt: awaiting for placement , Ongoing daily discussion with CM Quality Stroke Does the patient have a stroke diagnosis?: No VTE Prior VTE?: No VTE Risk Level:: Medical - low VTE Device Contraindication: Treatment Not Indicated VTE Drug Contraindication: Treatment Not Indicated
--- NOTE | 2023-11-23 12:11 | MHC.CM.PN ---
[facility] is reviewing the patient for possible admission to their facility in [place]. [facility] is reviewing the patient. They requested additional documentation. A VM was left for Tony Buck re Conservatorship paperwork and access to funds. A copy of [employer] application has been requested. [facility] had also shown interest. Additional documentation requested was sent; but now have thanked [facility] for the referral. CM will continue bed search for discharge.
[2023-11-23 16:34] VITALS: BP 105/50; PULSE 56; RESP 16; TEMP 36.4; O2SAT 97
[2023-11-23 19:50] VITALS: BP 129/60; PULSE 62; RESP 18; TEMP 36.8; O2SAT 98
[2023-11-23] MEDS: Melatonin 3 MG TABLET 6 MG PO (20:01)
[2023-11-23] MEDS: traZODone HCL 25 MG HALFTAB 75 MG PO (20:01)
[2023-11-24 08:15] VITALS: BP 119/67; PULSE 56; RESP 20; TEMP 36.3; O2SAT 96
[2023-11-24] MEDS: Sennosides/Docusate Sodium TABLET 1 TAB PO ×2 (08:19→20:14)
[2023-11-24] MEDS: Benztropine Mesylate 1 MG TABLET PO ×2 (08:19→20:14)
--- NOTE | 2023-11-24 12:58 | P.PNIM_ITS ---
Subjective Subjective Date of Service: 11/24/23 Interval History: Sitting in recliner comfortable overall No complaints Review of Systems Review of Systems: Yes all other systems are reviewed and are negative Physical Exam 2 Vital Signs: Vital Signs: Last Vital Signs Temp 97.3 F 11/24/23 08:15 Pulse 56 11/24/23 08:15 Resp 20 11/24/23 08:15 BP 119/67 11/24/23 08:15 Pulse Ox 96 11/24/23 08:15 O2 Del Method Room Air 11/24/23 08:15 O2 Flow Rate 2 11/02/23 15:24 BMI result Body Mass Index 25.0 Const: Other: Constitutional : Awake, interactive, not in distress Neck : Normal inspection, Supple Cardiovascular : no JVP, no lower extremity edema Skin : Warm, Dry Neurological : Alert & oriented to self and place, No focal deficit Objective Data Active Medications Al Hydroxide/Mg Hydroxide (Magnesium Hydrox/Alum Hydrox 30 Ml Oral.Susp) 30 ml PO Q6H PRN PRN Reason: Dyspepsia Last Admin: 10/24/23 08:14 Dose: 30 ml Documented By: ESTHER Benztropine Mesylate (Benztropine Mesylate 1 Mg Tablet) 1 mg PO BID [facility] Last Admin: 11/24/23 08:19 Dose: 1 mg Documented By: BRENDA Calcium Carbonate (Calcium Carbonate 750 Mg Tab.Chew) 750 mg PO Q6H PRN PRN Reason: Dyspepsia Last Admin: 10/23/23 23:34 Dose: 750 mg Fluphenazine Decanoate (Fluphenazine Decanoate 25 Mg/Ml 5 Ml Vial) 25 mg IM Q28D [facility] Last Admin: 11/01/23 12:22 Dose: 25 mg Documented By: MARTIN Comments: med just arrived on unit Hydroxyzine HCl (Hydroxyzine Hcl 25 Mg Tablet) 25 mg PO Q8H PRN PRN Reason: anxiety/restlessness Last Admin: 11/23/23 18:33 Dose: 25 mg Documented By: BRENDA Magnesium Hydroxide (Milk Of Magnesia 30 Ml Oral.Susp) 30 ml PO DAILY PRN PRN Reason: Constipation Last Admin: 11/22/23 20:40 Dose: 30 ml Documented By: MICHAEL Melatonin (Melatonin 3 Mg Tablet) 6 mg PO BEDTIME [facility] Last Admin: 11/23/23 20:01 Dose: 6 mg Documented By: KIM Ondansetron HCl (Ondansetron Hcl 4 Mg/2 Ml Vial) 4 mg IVPUSH Q8H PRN PRN Reason: Nausea and Vomiting Polyethylene Glycol (Polyethylene Glycol 3350 17 Gm Powd.Pack) 17 gm PO DAILY PRN PRN Reason: Constipation Last Admin: 10/18/23 14:03 Dose: 17 gm Documented By: SHIRLEY Quetiapine Fumarate (Quetiapine Fumarate 50 Mg Tablet) 50 mg PO Q6H PRN PRN Reason: agitation/anxiety Last Admin: 11/21/23 15:00 Dose: 50 mg Documented By: CAROLYN Senna/Docusate Sodium (Sennosides/Docusate Sodium Tablet) 1 tab PO BID [facility] Last Admin: 11/24/23 08:19 Dose: 1 tab Documented By: LESSARMirza Trazodone HCl (Trazodone Hcl 25 Mg Halftab) 75 mg PO BEDTIME [facility] Last Admin: 11/23/23 20:01 Dose: 75 mg Documented By: KIM Labs 10/14/23 05:47 10/14/23 05:47 Assessment and Plan (1) Schizophrenia, paranoid type: Status: Acute Plan 63F [facility] significant for schizophrenia?who initially presented to the ED on 08/23/2023 for evaluation of delusional behavior. Medical workup has been negative for any acute concerns, and patient had been placed on physician observation, due to prolonged stay, transfered to medical service 10/13/23 Schizophrenia, paranoid type, symptoms controlled, no behavioral issues noted, continue meds per Psych direction (Prolixin, cogentin, Trazadone at hs) risk of flight Patient otherwise has no acute or chronic medical conditions issues and just awaiting placement DVT Prophylaxis: Patient ambulatory need for inpt: awaiting for placement , Ongoing daily discussion with CM Quality Stroke Does the patient have a stroke diagnosis?: No VTE Prior VTE?: No VTE Risk Level:: Medical - low VTE Device Contraindication: Treatment Not Indicated VTE Drug Contraindication: Treatment Not Indicated
[2023-11-24] MEDS: hydrOXYzine HCL 25 MG TABLET PO (19:07)
[2023-11-24 20:04] VITALS: BP 119/59; PULSE 57; RESP 20; TEMP 36; O2SAT 97
[2023-11-24] MEDS: Melatonin 3 MG TABLET 6 MG PO (20:14)
[2023-11-24] MEDS: traZODone HCL 25 MG HALFTAB 75 MG PO (20:14)
[2023-11-25] MEDS: Sennosides/Docusate Sodium TABLET 1 TAB PO ×2 (08:27→20:05)
[2023-11-25] MEDS: Benztropine Mesylate 1 MG TABLET PO ×2 (08:27→20:05)
[2023-11-25] MEDS: hydrOXYzine HCL 25 MG TABLET PO (08:27)
[2023-11-25 08:31] VITALS: BP 135/75; PULSE 59; RESP 20; TEMP 36.8; O2SAT 97
--- NOTE | 2023-11-25 11:31 | P.PNIM_ITS ---
Subjective Subjective Date of Service: 11/25/23 Interval History: walking around in her room comfortable overall No complaints Physical Exam 2 Vital Signs: Vital Signs: Last Vital Signs Temp 98.2 F 11/25/23 08:31 Pulse 59 11/25/23 08:31 Resp 20 11/25/23 08:31 BP 135/75 11/25/23 08:31 Pulse Ox 97 11/25/23 08:31 O2 Del Method Room Air 11/25/23 08:31 O2 Flow Rate 2 11/02/23 15:24 BMI result Body Mass Index 25.0 Const: Other: Constitutional : Awake, interactive, not in distress Neck : Normal inspection, Supple Cardiovascular : no JVP, no lower extremity edema Skin : Warm, Dry Neurological : Alert & oriented to self and place, No focal deficit Objective Data Active Medications Al Hydroxide/Mg Hydroxide (Magnesium Hydrox/Alum Hydrox 30 Ml Oral.Susp) 30 ml PO Q6H PRN PRN Reason: Dyspepsia Last Admin: 10/24/23 08:14 Dose: 30 ml Documented By: ESTHER Benztropine Mesylate (Benztropine Mesylate 1 Mg Tablet) 1 mg PO BID [facility] Last Admin: 11/25/23 08:27 Dose: 1 mg Documented By: BRENDA Calcium Carbonate (Calcium Carbonate 750 Mg Tab.Chew) 750 mg PO Q6H PRN PRN Reason: Dyspepsia Last Admin: 10/23/23 23:34 Dose: 750 mg Fluphenazine Decanoate (Fluphenazine Decanoate 25 Mg/Ml 5 Ml Vial) 25 mg IM Q28D [facility] Last Admin: 11/01/23 12:22 Dose: 25 mg Documented By: MARTIN Comments: med just arrived on unit Hydroxyzine HCl (Hydroxyzine Hcl 25 Mg Tablet) 25 mg PO Q8H PRN PRN Reason: anxiety/restlessness Last Admin: 11/25/23 08:27 Dose: 25 mg Documented By: BRENDA Magnesium Hydroxide (Milk Of Magnesia 30 Ml Oral.Susp) 30 ml PO DAILY PRN PRN Reason: Constipation Last Admin: 11/22/23 20:40 Dose: 30 ml Documented By: MICHAEL Melatonin (Melatonin 3 Mg Tablet) 6 mg PO BEDTIME [facility] Last Admin: 11/24/23 20:14 Dose: 6 mg Documented By: KIM Ondansetron HCl (Ondansetron Hcl 4 Mg/2 Ml Vial) 4 mg IVPUSH Q8H PRN PRN Reason: Nausea and Vomiting Polyethylene Glycol (Polyethylene Glycol 3350 17 Gm Powd.Pack) 17 gm PO DAILY PRN PRN Reason: Constipation Last Admin: 10/18/23 14:03 Dose: 17 gm Documented By: SHIRLEY Quetiapine Fumarate (Quetiapine Fumarate 50 Mg Tablet) 50 mg PO Q6H PRN PRN Reason: agitation/anxiety Last Admin: 11/21/23 15:00 Dose: 50 mg Documented By: CAROLYN Senna/Docusate Sodium (Sennosides/Docusate Sodium Tablet) 1 tab PO BID [facility] Last Admin: 11/25/23 08:27 Dose: 1 tab Documented By: BRENDA Trazodone HCl (Trazodone Hcl 25 Mg Halftab) 75 mg PO BEDTIME [facility] Last Admin: 11/24/23 20:14 Dose: 75 mg Documented By: KIM Labs 10/14/23 05:47 10/14/23 05:47 Assessment and Plan (1) Schizophrenia, paranoid type: Status: Acute Plan 63F [facility] significant for schizophrenia?who initially presented to the ED on 08/23/2023 for evaluation of delusional behavior. Medical workup has been negative for any acute concerns, and patient had been placed on physician observation, due to prolonged stay, transfered to medical service 10/13/23 Schizophrenia, paranoid type, symptoms controlled, no behavioral issues noted, continue meds per Psych direction (Prolixin, cogentin, Trazadone at hs) risk of flight Patient otherwise has no acute or chronic medical conditions issues and just awaiting placement DVT Prophylaxis: Patient ambulatory need for inpt: awaiting for placement , Ongoing daily discussion with CM Quality Stroke Does the patient have a stroke diagnosis?: No VTE Prior VTE?: No VTE Risk Level:: Medical - low VTE Device Contraindication: Treatment Not Indicated VTE Drug Contraindication: Treatment Not Indicated
[2023-11-25] MEDS: QUEtiapine Fumarate 50 MG TABLET PO (12:55)
[2023-11-25 15:10] VITALS: BP 109/52; PULSE 55; RESP 20; TEMP 36.3; O2SAT 96
[2023-11-25] MEDS: Melatonin 3 MG TABLET 6 MG PO (20:05)
[2023-11-25] MEDS: traZODone HCL 25 MG HALFTAB 75 MG PO (20:05)
[2023-11-25 21:00] VITALS: BP 101/59; PULSE 55; RESP 22; TEMP 36.1; O2SAT 95
[2023-11-26] MEDS: QUEtiapine Fumarate 50 MG TABLET PO (02:51)
[2023-11-26 08:19] VITALS: BP 108/64; PULSE 63; RESP 18; TEMP 36.8; O2SAT 98
[2023-11-26] MEDS: Sennosides/Docusate Sodium TABLET 1 TAB PO ×2 (09:50→20:39)
[2023-11-26] MEDS: Benztropine Mesylate 1 MG TABLET PO ×2 (09:50→20:39)
--- NOTE | 2023-11-26 10:25 | HO.PM.IMPN ---
Subjective Subjective Date of Service: 11/26/23 Interval History: walking around in her room comfortable overall No complaints Physical Exam Vital Signs: Vital Signs: Last Vital Signs Temp 98.3 F 11/26/23 08:19 Pulse 63 11/26/23 08:19 Resp 18 11/26/23 08:19 BP 108/64 11/26/23 08:19 Pulse Ox 98 11/26/23 08:19 O2 Del Method Room Air 11/26/23 08:19 O2 Flow Rate 2 11/02/23 15:24 BMI result Body Mass Index 25.0 Const: Other: Constitutional : Awake, interactive, not in distress Neck : Normal inspection, Supple Cardiovascular : no JVP, no lower extremity edema Skin : Warm, Dry Neurological : Alert & oriented to self and place, No focal deficit Objective Data Active Medications Al Hydroxide/Mg Hydroxide (Magnesium Hydrox/Alum Hydrox 30 Ml Oral.Susp) 30 ml PO Q6H PRN PRN Reason: Dyspepsia Last Admin: 10/24/23 08:14 Dose: 30 ml Documented By: ESTHER Benztropine Mesylate (Benztropine Mesylate 1 Mg Tablet) 1 mg PO BID [facility] Last Admin: 11/26/23 09:50 Dose: 1 mg Documented By: VLADISLAV Calcium Carbonate (Calcium Carbonate 750 Mg Tab.Chew) 750 mg PO Q6H PRN PRN Reason: Dyspepsia Last Admin: 10/23/23 23:34 Dose: 750 mg Fluphenazine Decanoate (Fluphenazine Decanoate 25 Mg/Ml 5 Ml Vial) 25 mg IM Q28D [facility] Last Admin: 11/01/23 12:22 Dose: 25 mg Documented By: MARTIN Comments: med just arrived on unit Hydroxyzine HCl (Hydroxyzine Hcl 25 Mg Tablet) 25 mg PO Q8H PRN PRN Reason: anxiety/restlessness Last Admin: 11/25/23 08:27 Dose: 25 mg Documented By: BRENDA Magnesium Hydroxide (Milk Of Magnesia 30 Ml Oral.Susp) 30 ml PO DAILY PRN PRN Reason: Constipation Last Admin: 11/22/23 20:40 Dose: 30 ml Documented By: MICHAEL Melatonin (Melatonin 3 Mg Tablet) 6 mg PO BEDTIME [facility] Last Admin: 11/25/23 20:05 Dose: 6 mg Documented By: KIM Ondansetron HCl (Ondansetron Hcl 4 Mg/2 Ml Vial) 4 mg IVPUSH Q8H PRN PRN Reason: Nausea and Vomiting Polyethylene Glycol (Polyethylene Glycol 3350 17 Gm Powd.Pack) 17 gm PO DAILY PRN PRN Reason: Constipation Last Admin: 10/18/23 14:03 Dose: 17 gm Documented By: SHIRLEY Quetiapine Fumarate (Quetiapine Fumarate 50 Mg Tablet) 50 mg PO Q6H PRN PRN Reason: agitation/anxiety Last Admin: 11/26/23 02:51 Dose: 50 mg Documented By: KIM Senna/Docusate Sodium (Sennosides/Docusate Sodium Tablet) 1 tab PO BID [facility] Last Admin: 11/26/23 09:50 Dose: 1 tab Documented By: VLADISLAV Trazodone HCl (Trazodone Hcl 25 Mg Halftab) 75 mg PO BEDTIME [facility] Last Admin: 11/25/23 20:05 Dose: 75 mg Documented By: KIM Labs 10/14/23 05:47 10/14/23 05:47 Assessment and Plan (1) Schizophrenia, paranoid type: Status: Acute Plan 63F [facility] significant for schizophrenia?who initially presented to the ED on 08/23/2023 for evaluation of delusional behavior. Medical workup has been negative for any acute concerns, and patient had been placed on physician observation, due to prolonged stay, transfered to medical service 10/13/23 Schizophrenia, paranoid type, symptoms controlled, no behavioral issues noted, continue meds per Psych direction (Prolixin, cogentin, Trazadone at hs) risk of flight Patient otherwise has no acute or chronic medical conditions issues and just awaiting placement DVT Prophylaxis: Patient ambulatory need for inpt: awaiting for placement , Ongoing daily discussion with CM Quality Stroke Does the patient have a stroke diagnosis?: No VTE Prior VTE?: No VTE Risk Level:: Medical - low VTE Device Contraindication: Treatment Not Indicated VTE Drug Contraindication: Treatment Not Indicated
[2023-11-26] MEDS: hydrOXYzine HCL 25 MG TABLET PO ×2 (13:35→18:14)
[2023-11-26 19:12] VITALS: BP 100/50; PULSE 59; RESP 58; TEMP 36.2; O2SAT 96
[2023-11-26] MEDS: Melatonin 3 MG TABLET 6 MG PO (20:39)
[2023-11-26] MEDS: traZODone HCL 25 MG HALFTAB 75 MG PO (20:39)
[2023-11-27] MEDS: QUEtiapine Fumarate 50 MG TABLET PO (03:05)
[2023-11-27 08:14] VITALS: BP 111/56; PULSE 49; RESP 20; TEMP 36.5; O2SAT 97
[2023-11-27] MEDS: Sennosides/Docusate Sodium TABLET 1 TAB PO ×2 (08:45→20:33)
[2023-11-27] MEDS: Benztropine Mesylate 1 MG TABLET PO ×2 (08:45→20:33)
[2023-11-27] MEDS: hydrOXYzine HCL 25 MG TABLET PO ×2 (08:46→18:38)
--- NOTE | 2023-11-27 09:54 | HO.PM.IMPN ---
Subjective Subjective Date of Service: 11/27/23 Interval History: resting in her bed comfortable overall No complaints Review of Systems Review of Systems: Yes all other systems are reviewed and are negative Physical Exam Vital Signs: Vital Signs: Last Vital Signs Temp 97.7 F 11/27/23 08:14 Pulse 49 L 11/27/23 08:14 Resp 20 11/27/23 08:14 BP 111/56 L 11/27/23 08:14 Pulse Ox 97 11/27/23 08:14 O2 Del Method Room Air 11/27/23 08:14 O2 Flow Rate 2 11/02/23 15:24 BMI result Body Mass Index 25.0 Const: Other: Constitutional : Awake, interactive, not in distress Neck : Normal inspection, Supple Cardiovascular : no JVP, no lower extremity edema Skin : Warm, Dry Neurological : Alert & oriented to self and place, No focal deficit Objective Data Active Medications Al Hydroxide/Mg Hydroxide (Magnesium Hydrox/Alum Hydrox 30 Ml Oral.Susp) 30 ml PO Q6H PRN PRN Reason: Dyspepsia Last Admin: 10/24/23 08:14 Dose: 30 ml Documented By: ESTHER Benztropine Mesylate (Benztropine Mesylate 1 Mg Tablet) 1 mg PO BID [facility] Last Admin: 11/27/23 08:45 Dose: 1 mg Documented By: BRENDA Calcium Carbonate (Calcium Carbonate 750 Mg Tab.Chew) 750 mg PO Q6H PRN PRN Reason: Dyspepsia Last Admin: 10/23/23 23:34 Dose: 750 mg Fluphenazine Decanoate (Fluphenazine Decanoate 25 Mg/Ml 5 Ml Vial) 25 mg IM Q28D [facility] Last Admin: 11/01/23 12:22 Dose: 25 mg Documented By: MARTIN Comments: med just arrived on unit Hydroxyzine HCl (Hydroxyzine Hcl 25 Mg Tablet) 25 mg PO Q8H PRN PRN Reason: anxiety/restlessness Last Admin: 11/27/23 08:46 Dose: 25 mg Documented By: BRENDA Magnesium Hydroxide (Milk Of Magnesia 30 Ml Oral.Susp) 30 ml PO DAILY PRN PRN Reason: Constipation Last Admin: 11/22/23 20:40 Dose: 30 ml Documented By: MICHAEL Melatonin (Melatonin 3 Mg Tablet) 6 mg PO BEDTIME [facility] Last Admin: 11/26/23 20:39 Dose: 6 mg Documented By: VLADISLAV Ondansetron HCl (Ondansetron Hcl 4 Mg/2 Ml Vial) 4 mg IVPUSH Q8H PRN PRN Reason: Nausea and Vomiting Polyethylene Glycol (Polyethylene Glycol 3350 17 Gm Powd.Pack) 17 gm PO DAILY PRN PRN Reason: Constipation Last Admin: 10/18/23 14:03 Dose: 17 gm Documented By: SHIRLEY Quetiapine Fumarate (Quetiapine Fumarate 50 Mg Tablet) 50 mg PO Q6H PRN PRN Reason: agitation/anxiety Last Admin: 11/27/23 03:05 Dose: 50 mg Documented By: ARNOLDO Senna/Docusate Sodium (Sennosides/Docusate Sodium Tablet) 1 tab PO BID [facility] Last Admin: 11/27/23 08:45 Dose: 1 tab Documented By: BRENDA Trazodone HCl (Trazodone Hcl 25 Mg Halftab) 75 mg PO BEDTIME [facility] Last Admin: 11/26/23 20:39 Dose: 75 mg Documented By: VLADISLAV Labs 10/14/23 05:47 10/14/23 05:47 Assessment and Plan (1) Schizophrenia, paranoid type: Status: Acute Plan 63F [facility] significant for schizophrenia?who initially presented to the ED on 08/23/2023 for evaluation of delusional behavior. Medical workup has been negative for any acute concerns, and patient had been placed on physician observation, due to prolonged stay, transfered to medical service 10/13/23 Schizophrenia, paranoid type, symptoms controlled, no behavioral issues noted, continue meds per Psych direction (Prolixin, cogentin, Trazadone at hs) risk of flight Patient otherwise has no acute or chronic medical conditions issues and just awaiting placement DVT Prophylaxis: Patient ambulatory need for inpt: awaiting for placement , Ongoing daily discussion with CM Quality Stroke Does the patient have a stroke diagnosis?: No VTE Prior VTE?: No VTE Risk Level:: Medical - low VTE Device Contraindication: Treatment Not Indicated VTE Drug Contraindication: Treatment Not Indicated
--- NOTE | 2023-11-27 13:15 | MHC.CM.PN ---
EMR REVIEWED, CM DISCUSSED CASE W/CM DIRECTOR, PER GUARDIAN MOST RECENT PLAN WAS FOR [facility] AND FOR GUARDIAN TO DISENROLL PT IN [employer], CM HAS ATTEMPTED TO CONTACT FARAZ AT 1:15PM AT NUMBER ON FILE, DETAILED MESSAGE LEFT AND CM WILL CONT TO FOLLOW DC NEEDS.
[2023-11-27 19:12] VITALS: BP 107/55; PULSE 60; RESP 20; TEMP 36.4; O2SAT 98
[2023-11-27] MEDS: Melatonin 3 MG TABLET 6 MG PO (20:33)
[2023-11-27] MEDS: traZODone HCL 25 MG HALFTAB 75 MG PO (20:33)
[2023-11-28] MEDS: hydrOXYzine HCL 25 MG TABLET PO (02:19)
[2023-11-28 07:33] VITALS: BP 107/76; PULSE 53; RESP 20; TEMP 36.3; O2SAT 97
[2023-11-28] MEDS: Sennosides/Docusate Sodium TABLET 1 TAB PO ×2 (09:24→21:13)
[2023-11-28] MEDS: Benztropine Mesylate 1 MG TABLET PO ×2 (09:24→21:13)
--- NOTE | 2023-11-28 12:44 | MHC.CM.PN ---
This ad writer sent email to guardianTony, regarding finical status of patient in-order to move d/c plan forward. Awaiting response back.
--- NOTE | 2023-11-28 12:45 | P.PNIM_ITS ---
Subjective Subjective Date of Service: 11/28/23 Interval History: resting in her bed denies new c/o. Review of Systems no new c/o. Physical Exam 2 Vital Signs: Vital Signs: Last Vital Signs Temp 97.4 F 11/28/23 07:33 Pulse 53 11/28/23 07:33 Resp 20 11/28/23 07:33 BP 107/76 11/28/23 07:33 Pulse Ox 97 11/28/23 07:33 O2 Del Method Room Air 11/28/23 07:33 O2 Flow Rate 2 11/02/23 15:24 BMI result Body Mass Index 25.0 Constitutional : Awake, interactive, not in distress Neck : Normal inspection, Supple Cardiovascular : no JVP, no lower extremity edema Skin : Warm, Dry Neurological : Alert & oriented to self and place, No focal deficit Objective Data Active Medications Al Hydroxide/Mg Hydroxide (Magnesium Hydrox/Alum Hydrox 30 Ml Oral.Susp) 30 ml PO Q6H PRN PRN Reason: Dyspepsia Last Admin: 10/24/23 08:14 Dose: 30 ml Documented By: ESTHER Benztropine Mesylate (Benztropine Mesylate 1 Mg Tablet) 1 mg PO BID [facility] Last Admin: 11/28/23 09:24 Dose: 1 mg Documented By: BRENDA Calcium Carbonate (Calcium Carbonate 750 Mg Tab.Chew) 750 mg PO Q6H PRN PRN Reason: Dyspepsia Last Admin: 10/23/23 23:34 Dose: 750 mg Fluphenazine Decanoate (Fluphenazine Decanoate 25 Mg/Ml 5 Ml Vial) 25 mg IM Q28D [facility] Last Admin: 11/01/23 12:22 Dose: 25 mg Documented By: MARTIN Comments: med just arrived on unit Hydroxyzine HCl (Hydroxyzine Hcl 25 Mg Tablet) 25 mg PO Q8H PRN PRN Reason: anxiety/restlessness Last Admin: 11/28/23 02:19 Dose: 25 mg Documented By: NIKHIL Magnesium Hydroxide (Milk Of Magnesia 30 Ml Oral.Susp) 30 ml PO DAILY PRN PRN Reason: Constipation Last Admin: 11/22/23 20:40 Dose: 30 ml Documented By: MICHAEL Melatonin (Melatonin 3 Mg Tablet) 6 mg PO BEDTIME [facility] Last Admin: 11/27/23 20:33 Dose: 6 mg Documented By: NIKHIL Ondansetron HCl (Ondansetron Hcl 4 Mg/2 Ml Vial) 4 mg IVPUSH Q8H PRN PRN Reason: Nausea and Vomiting Polyethylene Glycol (Polyethylene Glycol 3350 17 Gm Powd.Pack) 17 gm PO DAILY PRN PRN Reason: Constipation Last Admin: 10/18/23 14:03 Dose: 17 gm Documented By: PHATJ Senna/Docusate Sodium (Sennosides/Docusate Sodium Tablet) 1 tab PO BID [facility] Last Admin: 11/28/23 09:24 Dose: 1 tab Documented By: LESSARMirza Trazodone HCl (Trazodone Hcl 25 Mg Halftab) 75 mg PO BEDTIME [facility] Last Admin: 11/27/23 20:33 Dose: 75 mg Documented By: NIKHIL Labs 10/14/23 05:47 10/14/23 05:47 Assessment and Plan (1) Schizophrenia, paranoid type: Status: Acute Plan 63F [facility] significant for schizophrenia?who initially presented to the ED on 08/23/2023 for evaluation of delusional behavior. Medical workup has been negative for any acute concerns, and patient had been placed on physician observation, due to prolonged stay, transfered to medical service 10/13/23 Schizophrenia, paranoid type, symptoms controlled, no behavioral issues noted, continue meds per Psych direction (Prolixin, cogentin, Trazadone at hs) risk of flight Patient otherwise has no acute or chronic medical conditions issues and just awaiting placement DVT Prophylaxis: Patient ambulatory need for inpt: awaiting for placement , Ongoing daily discussion with CM Quality Stroke Does the patient have a stroke diagnosis?: No VTE Prior VTE?: No VTE Risk Level:: Medical - low VTE Device Contraindication: Treatment Not Indicated VTE Drug Contraindication: Treatment Not Indicated
[2023-11-28 19:11] VITALS: BP 110/55; PULSE 55; RESP 20; TEMP 36.7; O2SAT 97
[2023-11-28] MEDS: traZODone HCL 25 MG HALFTAB 75 MG PO (21:12)
[2023-11-28] MEDS: Melatonin 3 MG TABLET 6 MG PO (21:12)
[2023-11-29 07:39] VITALS: BP 108/61; PULSE 63; RESP 20; TEMP 36.3; O2SAT 96
[2023-11-29] MEDS: Benztropine Mesylate 1 MG TABLET PO ×2 (08:43→20:09)
[2023-11-29] MEDS: Sennosides/Docusate Sodium TABLET 1 TAB PO ×2 (08:43→20:09)
--- NOTE | 2023-11-29 10:15 | MHC.CM.PN ---
Addendum entered by Karol Morrison RN 11/29/23 11:18: CM RE-ATTEMPTED TO CONTACT GRANT AT [facility] AT 11:17AM, NO ANSWER, CM TO REVISIT. Original Note: CM RECEIVED MESSAGE FROM [facility] REQUESTING CM CONTACT GRANT [phone], CM ATTEMPTED TO CALL AT 9:45AM. NO ANSWER AND DETAILED MESSAGE LEFT W/CM CONTACT NUMBER, CM WILL REVISIT IF NO CALL BACK BY 11AM.
--- NOTE | 2023-11-29 11:04 | P.PNIM_ITS ---
Subjective Subjective Date of Service: 11/29/23 Interval History: resting in her bed denies new c/o. Review of Systems no new c/o. Physical Exam 2 Vital Signs: Vital Signs: Last Vital Signs Temp 97.4 F 11/29/23 07:39 Pulse 63 11/29/23 07:39 Resp 20 11/29/23 07:39 BP 108/61 11/29/23 07:39 Pulse Ox 96 11/29/23 07:39 O2 Del Method Room Air 11/29/23 07:39 O2 Flow Rate 2 11/02/23 15:24 BMI result Body Mass Index 25.0 Constitutional : Awake, interactive, not in distress Neck : Normal inspection, Supple Cardiovascular : no JVP, no lower extremity edema Skin : Warm, Dry Neurological : Alert & oriented to self and place, No focal deficit Objective Data Active Medications Al Hydroxide/Mg Hydroxide (Magnesium Hydrox/Alum Hydrox 30 Ml Oral.Susp) 30 ml PO Q6H PRN PRN Reason: Dyspepsia Last Admin: 10/24/23 08:14 Dose: 30 ml Documented By: ESTHER Benztropine Mesylate (Benztropine Mesylate 1 Mg Tablet) 1 mg PO BID [facility] Last Admin: 11/29/23 08:43 Dose: 1 mg Documented By: CINTHYA Calcium Carbonate (Calcium Carbonate 750 Mg Tab.Chew) 750 mg PO Q6H PRN PRN Reason: Dyspepsia Last Admin: 10/23/23 23:34 Dose: 750 mg Fluphenazine Decanoate (Fluphenazine Decanoate 25 Mg/Ml 5 Ml Vial) 25 mg IM Q28D [facility] Last Admin: 11/01/23 12:22 Dose: 25 mg Documented By: MARTIN Comments: med just arrived on unit Hydroxyzine HCl (Hydroxyzine Hcl 25 Mg Tablet) 25 mg PO Q8H PRN PRN Reason: anxiety/restlessness Last Admin: 11/28/23 02:19 Dose: 25 mg Documented By: NIKHIL Magnesium Hydroxide (Milk Of Magnesia 30 Ml Oral.Susp) 30 ml PO DAILY PRN PRN Reason: Constipation Last Admin: 11/22/23 20:40 Dose: 30 ml Documented By: MICHAEL Melatonin (Melatonin 3 Mg Tablet) 6 mg PO BEDTIME [facility] Last Admin: 11/28/23 21:12 Dose: 6 mg Documented By: NIKHIL Ondansetron HCl (Ondansetron Hcl 4 Mg/2 Ml Vial) 4 mg IVPUSH Q8H PRN PRN Reason: Nausea and Vomiting Polyethylene Glycol (Polyethylene Glycol 3350 17 Gm Powd.Pack) 17 gm PO DAILY PRN PRN Reason: Constipation Last Admin: 10/18/23 14:03 Dose: 17 gm Documented By: SHIRLEY Senna/Docusate Sodium (Sennosides/Docusate Sodium Tablet) 1 tab PO BID [facility] Last Admin: 11/29/23 08:43 Dose: 1 tab Documented By: CINTHYA Trazodone HCl (Trazodone Hcl 25 Mg Halftab) 75 mg PO BEDTIME [facility] Last Admin: 11/28/23 21:12 Dose: 75 mg Documented By: NIKHIL Labs 10/14/23 05:47 10/14/23 05:47 Assessment and Plan (1) Schizophrenia, paranoid type: Status: Acute Plan 63F [facility] significant for schizophrenia?who initially presented to the ED on 08/23/2023 for evaluation of delusional behavior. Medical workup has been negative for any acute concerns, and patient had been placed on physician observation, due to prolonged stay, transfered to medical service 10/13/23 Schizophrenia, paranoid type, symptoms controlled, no behavioral issues noted, continue meds per Psych direction (Prolixin, cogentin, Trazadone at hs) risk of flight Patient otherwise has no acute or chronic medical conditions issues and just awaiting placement DVT Prophylaxis: Patient ambulatory need for inpt: awaiting for placement , Ongoing daily discussion with CM Quality Stroke Does the patient have a stroke diagnosis?: No VTE Prior VTE?: No VTE Risk Level:: Medical - low VTE Device Contraindication: Treatment Not Indicated VTE Drug Contraindication: Treatment Not Indicated
[2023-11-29] MEDS: fluPHENAZine decanoate 25 MG/ML 5 ML VIAL IM (14:34)
[2023-11-29] MEDS: hydrOXYzine HCL 25 MG TABLET PO (18:07)
[2023-11-29 19:48] VITALS: BP 137/60; PULSE 96; RESP 16; TEMP 36.3; O2SAT 96
[2023-11-29] MEDS: Melatonin 3 MG TABLET 6 MG PO (20:09)
[2023-11-29] MEDS: traZODone HCL 25 MG HALFTAB 75 MG PO (20:10)
[2023-11-30] MEDS: Benztropine Mesylate 1 MG TABLET PO ×2 (08:33→20:04)
[2023-11-30] MEDS: Sennosides/Docusate Sodium TABLET 1 TAB PO ×2 (08:34→20:03)
[2023-11-30 09:00] VITALS: BP 112/57; PULSE 56; RESP 18; TEMP 35.8; O2SAT 96
--- NOTE | 2023-11-30 10:42 | P.PNIM_ITS ---
Subjective Subjective Date of Service: 11/30/23 Interval History: resting in her bed denies new c/o. Review of Systems no new c/o. Physical Exam 2 Vital Signs: Vital Signs: Last Vital Signs Temp 96.4 F L 11/30/23 09:00 Pulse 56 11/30/23 09:00 Resp 18 11/30/23 09:00 BP 112/57 L 11/30/23 09:00 Pulse Ox 96 11/30/23 09:00 O2 Del Method Room Air 11/30/23 09:00 O2 Flow Rate 2 11/02/23 15:24 BMI result Body Mass Index 25.0 Constitutional : Awake, interactive, not in distress Neck : Normal inspection, Supple Cardiovascular : no JVP, no lower extremity edema Skin : Warm, Dry Neurological : Alert & oriented to self and place, No focal deficit Objective Data Active Medications Al Hydroxide/Mg Hydroxide (Magnesium Hydrox/Alum Hydrox 30 Ml Oral.Susp) 30 ml PO Q6H PRN PRN Reason: Dyspepsia Last Admin: 10/24/23 08:14 Dose: 30 ml Documented By: ESTHER Benztropine Mesylate (Benztropine Mesylate 1 Mg Tablet) 1 mg PO BID [facility] Last Admin: 11/30/23 08:33 Dose: 1 mg Documented By: ESTHER Calcium Carbonate (Calcium Carbonate 750 Mg Tab.Chew) 750 mg PO Q6H PRN PRN Reason: Dyspepsia Last Admin: 10/23/23 23:34 Dose: 750 mg Fluphenazine Decanoate (Fluphenazine Decanoate 25 Mg/Ml 5 Ml Vial) 25 mg IM Q28D [facility] Last Admin: 11/29/23 14:34 Dose: 25 mg Documented By: CINTHYA Hydroxyzine HCl (Hydroxyzine Hcl 25 Mg Tablet) 25 mg PO Q8H PRN PRN Reason: anxiety/restlessness Last Admin: 11/29/23 18:07 Dose: 25 mg Documented By: CINTHYA Magnesium Hydroxide (Milk Of Magnesia 30 Ml Oral.Susp) 30 ml PO DAILY PRN PRN Reason: Constipation Last Admin: 11/22/23 20:40 Dose: 30 ml Documented By: MICHAEL Melatonin (Melatonin 3 Mg Tablet) 6 mg PO BEDTIME [facility] Last Admin: 11/29/23 20:09 Dose: 6 mg Documented By: KIM Ondansetron HCl (Ondansetron Hcl 4 Mg/2 Ml Vial) 4 mg IVPUSH Q8H PRN PRN Reason: Nausea and Vomiting Polyethylene Glycol (Polyethylene Glycol 3350 17 Gm Powd.Pack) 17 gm PO DAILY PRN PRN Reason: Constipation Last Admin: 10/18/23 14:03 Dose: 17 gm Documented By: SHIRLEY Senna/Docusate Sodium (Sennosides/Docusate Sodium Tablet) 1 tab PO BID [facility] Last Admin: 11/30/23 08:34 Dose: 1 tab Documented By: ESTHER Trazodone HCl (Trazodone Hcl 25 Mg Halftab) 75 mg PO BEDTIME [facility] Last Admin: 11/29/23 20:10 Dose: 75 mg Documented By: KIM Labs 10/14/23 05:47 10/14/23 05:47 Assessment and Plan (1) Schizophrenia, paranoid type: Status: Acute Plan 63F [facility] significant for schizophrenia?who initially presented to the ED on 08/23/2023 for evaluation of delusional behavior. Medical workup has been negative for any acute concerns, and patient had been placed on physician observation, due to prolonged stay, transfered to medical service 10/13/23 Schizophrenia, paranoid type, symptoms controlled, no behavioral issues noted, continue meds per Psych direction (Prolixin, cogentin, Trazadone at hs) risk of flight Patient otherwise has no acute or chronic medical conditions issues and just awaiting placement DVT Prophylaxis: Patient ambulatory need for inpt: awaiting for placement , Ongoing daily discussion with CM Quality Stroke Does the patient have a stroke diagnosis?: No VTE Prior VTE?: No VTE Risk Level:: Medical - low VTE Device Contraindication: Treatment Not Indicated VTE Drug Contraindication: Treatment Not Indicated
[2023-11-30] MEDS: hydrOXYzine HCL 25 MG TABLET PO (16:25)
[2023-11-30] MEDS: Melatonin 3 MG TABLET 6 MG PO (20:03)
[2023-11-30] MEDS: traZODone HCL 25 MG HALFTAB 75 MG PO (20:04)
[2023-11-30 20:08] VITALS: BP 131/61; PULSE 55; RESP 16; TEMP 36.3; O2SAT 96
[2023-11-30] MEDS: QUEtiapine Fumarate 50 MG TABLET PO (20:12)
[2023-12-01] MEDS: Benztropine Mesylate 1 MG TABLET PO ×2 (08:23→21:54)
[2023-12-01] MEDS: Sennosides/Docusate Sodium TABLET 1 TAB PO ×2 (08:23→21:54)
[2023-12-01 08:46] VITALS: BP 122/70; PULSE 55; RESP 18; TEMP 35.7; O2SAT 97
--- NOTE | 2023-12-01 09:03 | P.PNIM_ITS ---
Subjective Subjective Date of Service: 12/01/23 Interval History: resting in her bed denies new c/o. Review of Systems no new c/o. Physical Exam 2 Vital Signs: Vital Signs: Last Vital Signs Temp 96.3 F L 12/01/23 08:46 Pulse 55 12/01/23 08:46 Resp 18 12/01/23 08:46 BP 122/70 12/01/23 08:46 Pulse Ox 97 12/01/23 08:46 O2 Del Method Room Air 12/01/23 08:46 O2 Flow Rate 2 11/02/23 15:24 BMI result Body Mass Index 25.0 Constitutional : Awake, interactive, not in distress Neck : Normal inspection, Supple Cardiovascular : no JVP, no lower extremity edema Skin : Warm, Dry Neurological : Alert & oriented to self and place, No focal deficit Objective Data Active Medications Al Hydroxide/Mg Hydroxide (Magnesium Hydrox/Alum Hydrox 30 Ml Oral.Susp) 30 ml PO Q6H PRN PRN Reason: Dyspepsia Last Admin: 10/24/23 08:14 Dose: 30 ml Documented By: ESTHER Benztropine Mesylate (Benztropine Mesylate 1 Mg Tablet) 1 mg PO BID [facility] Last Admin: 12/01/23 08:23 Dose: 1 mg Documented By: CINTHYA Calcium Carbonate (Calcium Carbonate 750 Mg Tab.Chew) 750 mg PO Q6H PRN PRN Reason: Dyspepsia Last Admin: 10/23/23 23:34 Dose: 750 mg Fluphenazine Decanoate (Fluphenazine Decanoate 25 Mg/Ml 5 Ml Vial) 25 mg IM Q28D [facility] Last Admin: 11/29/23 14:34 Dose: 25 mg Documented By: CINTHYA Hydroxyzine HCl (Hydroxyzine Hcl 25 Mg Tablet) 25 mg PO Q8H PRN PRN Reason: anxiety/restlessness Last Admin: 11/30/23 16:25 Dose: 25 mg Documented By: ESTHER Magnesium Hydroxide (Milk Of Magnesia 30 Ml Oral.Susp) 30 ml PO DAILY PRN PRN Reason: Constipation Last Admin: 11/22/23 20:40 Dose: 30 ml Documented By: MICHAEL Melatonin (Melatonin 3 Mg Tablet) 6 mg PO BEDTIME [facility] Last Admin: 11/30/23 20:03 Dose: 6 mg Documented By: KIM Ondansetron HCl (Ondansetron Hcl 4 Mg/2 Ml Vial) 4 mg IVPUSH Q8H PRN PRN Reason: Nausea and Vomiting Polyethylene Glycol (Polyethylene Glycol 3350 17 Gm Powd.Pack) 17 gm PO DAILY PRN PRN Reason: Constipation Last Admin: 10/18/23 14:03 Dose: 17 gm Documented By: SHIRLEY Quetiapine Fumarate (Quetiapine Fumarate 50 Mg Tablet) 50 mg PO BEDTIME [facility] Last Admin: 11/30/23 20:12 Dose: 50 mg Documented By: KIM Senna/Docusate Sodium (Sennosides/Docusate Sodium Tablet) 1 tab PO BID [facility] Last Admin: 12/01/23 08:23 Dose: 1 tab Documented By: CINTHYA Trazodone HCl (Trazodone Hcl 25 Mg Halftab) 75 mg PO BEDTIME [facility] Last Admin: 11/30/23 20:04 Dose: 75 mg Documented By: KIM Labs 10/14/23 05:47 10/14/23 05:47 Assessment and Plan (1) Schizophrenia, paranoid type: Status: Acute Plan 63F [facility] significant for schizophrenia?who initially presented to the ED on 08/23/2023 for evaluation of delusional behavior. Medical workup has been negative for any acute concerns, and patient had been placed on physician observation, due to prolonged stay, transfered to medical service 10/13/23 Schizophrenia, paranoid type, symptoms controlled, no behavioral issues noted, continue meds per Psych direction (Prolixin, cogentin, Trazadone at hs) risk of flight Patient otherwise has no acute or chronic medical conditions issues and just awaiting placement DVT Prophylaxis: Patient ambulatory need for inpt: awaiting for placement , Ongoing daily discussion with CM Quality Stroke Does the patient have a stroke diagnosis?: No VTE Prior VTE?: No VTE Risk Level:: Medical - low VTE Device Contraindication: Treatment Not Indicated VTE Drug Contraindication: Treatment Not Indicated
[2023-12-01] MEDS: hydrOXYzine HCL 25 MG TABLET PO (11:39)
--- NOTE | 2023-12-01 11:47 | MHC.CM.PN ---
CHRISTIANO RECEIVED A CALL ABCK FROM GRANT AT [facility], GRANT REPORTS PT IS ACCEPTED AND THEY ARE JUST WORKING OUT FINANCES W/[employer] AND MAY NEED TO GET A ONE TIME CONTRACT W/[employer] [employer], GRANT REPORTS PT KEVIN RUTH WILL BE IN CONTACT W/GRANT AFTER GOING TO BANK. GRANT REPORTS SHE IS HOPEFUL FINANCES WILL BE RESOLVED AND PT WILL BE ABLE TO TRANSFER BY NEXT WEEK. CHRISTIANO HAS STILL NOT RECEIVED A CALL BACK FROM PT'S GUARDIAN FARAZ NIETO CM TO REVISIT.
[2023-12-01 20:00] VITALS: BP 122/59; PULSE 63; RESP 20; TEMP 36.2; O2SAT 95
[2023-12-01] MEDS: QUEtiapine Fumarate 50 MG TABLET PO (21:54)
[2023-12-01] MEDS: Melatonin 3 MG TABLET 6 MG PO (21:54)
[2023-12-01] MEDS: traZODone HCL 25 MG HALFTAB 75 MG PO (21:54)
[2023-12-02 08:07] VITALS: BP 114/65; PULSE 52; RESP 18; TEMP 36.7; O2SAT 96
[2023-12-02] MEDS: Benztropine Mesylate 1 MG TABLET PO ×2 (08:47→20:02)
[2023-12-02] MEDS: Sennosides/Docusate Sodium TABLET 1 TAB PO ×2 (08:47→20:03)
--- NOTE | 2023-12-02 08:56 | P.PNIM_ITS ---
Subjective Subjective Date of Service: 12/02/23 Interval History: resting in her bed denies new c/o. Review of Systems no new c/o. Physical Exam 2 Vital Signs: Vital Signs: Last Vital Signs Temp 98.0 F 12/02/23 08:07 Pulse 52 12/02/23 08:07 Resp 18 12/02/23 08:07 BP 114/65 12/02/23 08:07 Pulse Ox 96 12/02/23 08:07 O2 Del Method Room Air 12/02/23 08:07 O2 Flow Rate 2 11/02/23 15:24 BMI result Body Mass Index 25.0 Constitutional : Awake, interactive, not in distress Neck : Normal inspection, Supple Cardiovascular : no JVP, no lower extremity edema Skin : Warm, Dry Neurological : Alert & oriented to self and place, No focal deficit Objective Data Active Medications Al Hydroxide/Mg Hydroxide (Magnesium Hydrox/Alum Hydrox 30 Ml Oral.Susp) 30 ml PO Q6H PRN PRN Reason: Dyspepsia Last Admin: 10/24/23 08:14 Dose: 30 ml Documented By: ESTHER Benztropine Mesylate (Benztropine Mesylate 1 Mg Tablet) 1 mg PO BID [facility] Last Admin: 12/02/23 08:47 Dose: 1 mg Documented By: CINTHYA Calcium Carbonate (Calcium Carbonate 750 Mg Tab.Chew) 750 mg PO Q6H PRN PRN Reason: Dyspepsia Last Admin: 10/23/23 23:34 Dose: 750 mg Fluphenazine Decanoate (Fluphenazine Decanoate 25 Mg/Ml 5 Ml Vial) 25 mg IM Q28D [facility] Last Admin: 11/29/23 14:34 Dose: 25 mg Documented By: CINTHYA Hydroxyzine HCl (Hydroxyzine Hcl 25 Mg Tablet) 25 mg PO Q8H PRN PRN Reason: anxiety/restlessness Last Admin: 12/01/23 11:39 Dose: 25 mg Documented By: CINTHYA Magnesium Hydroxide (Milk Of Magnesia 30 Ml Oral.Susp) 30 ml PO DAILY PRN PRN Reason: Constipation Last Admin: 11/22/23 20:40 Dose: 30 ml Documented By: MICHAEL Melatonin (Melatonin 3 Mg Tablet) 6 mg PO BEDTIME [facility] Last Admin: 12/01/23 21:54 Dose: 6 mg Documented By: HO.ARMSTRH Ondansetron HCl (Ondansetron Hcl 4 Mg/2 Ml Vial) 4 mg IVPUSH Q8H PRN PRN Reason: Nausea and Vomiting Polyethylene Glycol (Polyethylene Glycol 3350 17 Gm Powd.Pack) 17 gm PO DAILY PRN PRN Reason: Constipation Last Admin: 10/18/23 14:03 Dose: 17 gm Documented By: SHIRLEY Quetiapine Fumarate (Quetiapine Fumarate 50 Mg Tablet) 50 mg PO BEDTIME [facility] Last Admin: 12/01/23 21:54 Dose: 50 mg Documented By: FARRUKH Senna/Docusate Sodium (Sennosides/Docusate Sodium Tablet) 1 tab PO BID [facility] Last Admin: 12/02/23 08:47 Dose: 1 tab Documented By: CINTHYA Trazodone HCl (Trazodone Hcl 25 Mg Halftab) 75 mg PO BEDTIME [facility] Last Admin: 12/01/23 21:54 Dose: 75 mg Documented By: FARRUKH Labs 10/14/23 05:47 10/14/23 05:47 Assessment and Plan (1) Schizophrenia, paranoid type: Status: Acute Plan 63F PMH significant for schizophrenia?who initially presented to the ED on 08/23/2023 for evaluation of delusional behavior. Medical workup has been negative for any acute concerns, and patient had been placed on physician observation, due to prolonged stay, transfered to medical service 10/13/23 Schizophrenia, paranoid type, symptoms controlled, no behavioral issues noted, continue meds per Psych direction (Prolixin, cogentin, Trazadone at hs) risk of flight Patient otherwise has no acute or chronic medical conditions issues and just awaiting placement DVT Prophylaxis: Patient ambulatory need for inpt: awaiting for placement , Ongoing daily discussion with CM Quality Stroke Does the patient have a stroke diagnosis?: No VTE Prior VTE?: No VTE Risk Level:: Medical - low VTE Device Contraindication: Treatment Not Indicated VTE Drug Contraindication: Treatment Not Indicated
[2023-12-02] MEDS: hydrOXYzine HCL 25 MG TABLET PO (18:08)
[2023-12-02 19:35] VITALS: BP 105/53; PULSE 63; RESP 20; TEMP 36.7; O2SAT 95
[2023-12-02] MEDS: traZODone HCL 25 MG HALFTAB 75 MG PO (20:01)
[2023-12-02] MEDS: Melatonin 3 MG TABLET 6 MG PO (20:02)
[2023-12-02] MEDS: QUEtiapine Fumarate 50 MG TABLET PO (20:03)
[2023-12-03 09:00] VITALS: BP 100/53; PULSE 57; RESP 18; TEMP 36.3; O2SAT 96
--- NOTE | 2023-12-03 09:00 | P.PNIM_ITS ---
Subjective Subjective Date of Service: 12/03/23 Interval History: resting in her bed denies new c/o. Review of Systems no new c/o. Physical Exam 2 Vital Signs: Vital Signs: Last Vital Signs Temp 98.1 F 12/02/23 19:35 Pulse 63 12/02/23 19:35 Resp 20 12/02/23 19:35 BP 105/53 L 12/02/23 19:35 Pulse Ox 95 12/02/23 19:35 O2 Del Method Room Air 12/02/23 19:35 O2 Flow Rate 2 11/02/23 15:24 BMI result Body Mass Index 25.0 Constitutional : Awake, interactive, not in distress Neck : Normal inspection, Supple Cardiovascular : no JVP, no lower extremity edema Skin : Warm, Dry Neurological : Alert & oriented to self and place, No focal deficit Objective Data Active Medications Al Hydroxide/Mg Hydroxide (Magnesium Hydrox/Alum Hydrox 30 Ml Oral.Susp) 30 ml PO Q6H PRN PRN Reason: Dyspepsia Last Admin: 10/24/23 08:14 Dose: 30 ml Documented By: ESTHER Benztropine Mesylate (Benztropine Mesylate 1 Mg Tablet) 1 mg PO BID [facility] Last Admin: 12/02/23 20:02 Dose: 1 mg Documented By: FARRUKH Calcium Carbonate (Calcium Carbonate 750 Mg Tab.Chew) 750 mg PO Q6H PRN PRN Reason: Dyspepsia Last Admin: 10/23/23 23:34 Dose: 750 mg Fluphenazine Decanoate (Fluphenazine Decanoate 25 Mg/Ml 5 Ml Vial) 25 mg IM Q28D [facility] Last Admin: 11/29/23 14:34 Dose: 25 mg Documented By: CINTHYA Hydroxyzine HCl (Hydroxyzine Hcl 25 Mg Tablet) 25 mg PO Q8H PRN PRN Reason: anxiety/restlessness Last Admin: 12/02/23 18:08 Dose: 25 mg Documented By: CINTHYA Magnesium Hydroxide (Milk Of Magnesia 30 Ml Oral.Susp) 30 ml PO DAILY PRN PRN Reason: Constipation Last Admin: 11/22/23 20:40 Dose: 30 ml Documented By: MICHAEL Melatonin (Melatonin 3 Mg Tablet) 6 mg PO BEDTIME [facility] Last Admin: 12/02/23 20:02 Dose: 6 mg Documented By: FARRUKH Ondansetron HCl (Ondansetron Hcl 4 Mg/2 Ml Vial) 4 mg IVPUSH Q8H PRN PRN Reason: Nausea and Vomiting Polyethylene Glycol (Polyethylene Glycol 3350 17 Gm Powd.Pack) 17 gm PO DAILY PRN PRN Reason: Constipation Last Admin: 10/18/23 14:03 Dose: 17 gm Documented By: SHIRLEY Quetiapine Fumarate (Quetiapine Fumarate 50 Mg Tablet) 50 mg PO BEDTIME [facility] Last Admin: 12/02/23 20:03 Dose: 50 mg Documented By: FARRUKH Senna/Docusate Sodium (Sennosides/Docusate Sodium Tablet) 1 tab PO BID [facility] Last Admin: 12/02/23 20:03 Dose: 1 tab Documented By: FARRUKH Trazodone HCl (Trazodone Hcl 25 Mg Halftab) 75 mg PO BEDTIME [facility] Last Admin: 12/02/23 20:01 Dose: 75 mg Documented By: FARRUKH Labs 10/14/23 05:47 10/14/23 05:47 Assessment and Plan (1) Schizophrenia, paranoid type: Status: Acute Plan 63F PMH significant for schizophrenia?who initially presented to the ED on 08/23/2023 for evaluation of delusional behavior. Medical workup has been negative for any acute concerns, and patient had been placed on physician observation, due to prolonged stay, transfered to medical service 10/13/23 Schizophrenia, paranoid type, symptoms controlled, no behavioral issues noted, continue meds per Psych direction (Prolixin, cogentin, Trazadone at hs) risk of flight Patient otherwise has no acute or chronic medical conditions issues and just awaiting placement DVT Prophylaxis: Patient ambulatory need for inpt: awaiting for placement , Ongoing daily discussion with CM Quality Stroke Does the patient have a stroke diagnosis?: No VTE Prior VTE?: No VTE Risk Level:: Medical - low VTE Device Contraindication: Treatment Not Indicated VTE Drug Contraindication: Treatment Not Indicated
[2023-12-03] MEDS: Benztropine Mesylate 1 MG TABLET PO ×2 (09:23→20:38)
[2023-12-03] MEDS: Sennosides/Docusate Sodium TABLET 1 TAB PO ×2 (09:23→20:38)
[2023-12-03] MEDS: traZODone HCL 25 MG HALFTAB 75 MG PO (20:38)
[2023-12-03] MEDS: Melatonin 3 MG TABLET 6 MG PO (20:39)
[2023-12-03] MEDS: QUEtiapine Fumarate 50 MG TABLET PO (20:40)
[2023-12-03 20:47] VITALS: BP 108/55; PULSE 60; RESP 16; TEMP 36.7; O2SAT 96
[2023-12-04 07:35] VITALS: BP 99/55; PULSE 50; RESP 15; TEMP 36.2; O2SAT 96
[2023-12-04] MEDS: Benztropine Mesylate 1 MG TABLET PO ×2 (07:58→20:36)
[2023-12-04] MEDS: Sennosides/Docusate Sodium TABLET 1 TAB PO ×2 (07:58→20:36)
--- NOTE | 2023-12-04 08:59 | HO.PM.IMPN ---
Subjective Subjective Date of Service: 12/04/23 Interval History: resting in her bed denies new c/o. Review of Systems no new c/o. Physical Exam Vital Signs: Vital Signs: Last Vital Signs Temp 97.2 F 12/04/23 07:35 Pulse 50 12/04/23 07:35 Resp 15 12/04/23 07:35 BP 99/55 L 12/04/23 07:35 Pulse Ox 96 12/04/23 07:35 O2 Del Method Room Air 12/04/23 07:35 O2 Flow Rate 2 11/02/23 15:24 BMI result Body Mass Index 25.0 Constitutional : Awake, interactive, not in distress Neck : Normal inspection, Supple Cardiovascular : no JVP, no lower extremity edema Skin : Warm, Dry Neurological : Alert & oriented to self and place, No focal deficit Objective Data Active Medications Al Hydroxide/Mg Hydroxide (Magnesium Hydrox/Alum Hydrox 30 Ml Oral.Susp) 30 ml PO Q6H PRN PRN Reason: Dyspepsia Last Admin: 10/24/23 08:14 Dose: 30 ml Documented By: ESTHER Benztropine Mesylate (Benztropine Mesylate 1 Mg Tablet) 1 mg PO BID [facility] Last Admin: 12/04/23 07:58 Dose: 1 mg Documented By: ESTHER Calcium Carbonate (Calcium Carbonate 750 Mg Tab.Chew) 750 mg PO Q6H PRN PRN Reason: Dyspepsia Last Admin: 10/23/23 23:34 Dose: 750 mg Fluphenazine Decanoate (Fluphenazine Decanoate 25 Mg/Ml 5 Ml Vial) 25 mg IM Q28D [facility] OF [facility] Last Admin: 11/29/23 14:34 Dose: 25 mg Documented By: CINTHYA Hydroxyzine HCl (Hydroxyzine Hcl 25 Mg Tablet) 25 mg PO Q8H PRN PRN Reason: anxiety/restlessness Last Admin: 12/02/23 18:08 Dose: 25 mg Documented By: CINTHYA Magnesium Hydroxide (Milk Of Magnesia 30 Ml Oral.Susp) 30 ml PO DAILY PRN PRN Reason: Constipation Last Admin: 11/22/23 20:40 Dose: 30 ml Documented By: MICHAEL Melatonin (Melatonin 3 Mg Tablet) 6 mg PO BEDTIME [facility] OF [facility] Last Admin: 12/03/23 20:39 Dose: 6 mg Documented By: HO.ARMSTRH Ondansetron HCl (Ondansetron Hcl 4 Mg/2 Ml Vial) 4 mg IVPUSH Q8H PRN PRN Reason: Nausea and Vomiting Polyethylene Glycol (Polyethylene Glycol 3350 17 Gm Powd.Pack) 17 gm PO DAILY PRN PRN Reason: Constipation Last Admin: 10/18/23 14:03 Dose: 17 gm Documented By: SHIRLEY Quetiapine Fumarate (Quetiapine Fumarate 50 Mg Tablet) 50 mg PO BEDTIME ON [facility] OF [facility] Last Admin: 12/03/23 20:40 Dose: 50 mg Documented By: FARRUKH Senna/Docusate Sodium (Sennosides/Docusate Sodium Tablet) 1 tab PO BID [facility] OF [facility] Last Admin: 12/04/23 07:58 Dose: 1 tab Documented By: ESTHER Trazodone HCl (Trazodone Hcl 25 Mg Halftab) 75 mg PO BEDTIME ON [facility] OF [facility] Last Admin: 12/03/23 20:38 Dose: 75 mg Documented By: FARRUKH Labs 10/14/23 05:47 10/14/23 05:47 Assessment and Plan (1) Schizophrenia, paranoid type: Status: Acute Plan 63F PMH significant for schizophrenia?who initially presented to the ED on 08/23/2023 for evaluation of delusional behavior. Medical workup has been negative for any acute concerns, and patient had been placed on physician observation, due to prolonged stay, transfered to medical service 10/13/23 Schizophrenia, paranoid type, symptoms controlled, no behavioral issues noted, continue meds per Psych direction (Prolixin, cogentin, Trazadone at hs) risk of flight Patient otherwise has no acute or chronic medical conditions issues and just awaiting placement DVT Prophylaxis: Patient ambulatory need for inpt: awaiting for placement , Ongoing daily discussion with CM Quality Stroke Does the patient have a stroke diagnosis?: No VTE Prior VTE?: No VTE Risk Level:: Medical - low VTE Device Contraindication: Treatment Not Indicated VTE Drug Contraindication: Treatment Not Indicated
[2023-12-04 09:00] VITALS: BP 90/51; PULSE 61; RESP 16; TEMP 36; O2SAT 95
[2023-12-04 16:18] VITALS: BP 118/59; PULSE 54; RESP 16; TEMP 36.3; O2SAT 96
[2023-12-04] MEDS: hydrOXYzine HCL 25 MG TABLET PO (16:54)
[2023-12-04 19:58] VITALS: BP 110/46; PULSE 59; RESP 20; TEMP 36.2; O2SAT 95
[2023-12-04] MEDS: QUEtiapine Fumarate 50 MG TABLET PO (20:36)
[2023-12-04] MEDS: traZODone HCL 25 MG HALFTAB 75 MG PO (20:36)
[2023-12-04] MEDS: Melatonin 3 MG TABLET 6 MG PO (20:36)
[2023-12-05 08:36] VITALS: BP 115/74; PULSE 56; RESP 18; TEMP 36.3; O2SAT 96
--- NOTE | 2023-12-05 10:20 | P.PNIM_ITS ---
Subjective Subjective Date of Service: 12/05/23 Interval History: resting in her bed denies new c/o. Review of Systems no new c/o. Physical Exam 2 Vital Signs: Vital Signs: Last Vital Signs Temp 97.4 F 12/05/23 08:36 Pulse 56 12/05/23 08:36 Resp 18 12/05/23 08:36 BP 115/74 12/05/23 08:36 Pulse Ox 96 12/05/23 08:36 O2 Del Method Room Air 12/05/23 08:36 O2 Flow Rate 2 11/02/23 15:24 BMI result Body Mass Index 25.0 Constitutional : Awake, interactive, not in distress Neck : Normal inspection, Supple Cardiovascular : no JVP, no lower extremity edema Skin : Warm, Dry Neurological : Alert & oriented to self and place, No focal deficit Objective Data Active Medications Al Hydroxide/Mg Hydroxide (Magnesium Hydrox/Alum Hydrox 30 Ml Oral.Susp) 30 ml PO Q6H PRN PRN Reason: Dyspepsia Last Admin: 10/24/23 08:14 Dose: 30 ml Documented By: ESTHER Benztropine Mesylate (Benztropine Mesylate 1 Mg Tablet) 1 mg PO BID [facility] Last Admin: 12/04/23 20:36 Dose: 1 mg Documented By: TREV Calcium Carbonate (Calcium Carbonate 750 Mg Tab.Chew) 750 mg PO Q6H PRN PRN Reason: Dyspepsia Last Admin: 10/23/23 23:34 Dose: 750 mg Fluphenazine Decanoate (Fluphenazine Decanoate 25 Mg/Ml 5 Ml Vial) 25 mg IM Q28D [facility] Last Admin: 11/29/23 14:34 Dose: 25 mg Documented By: CINTHYA Hydroxyzine HCl (Hydroxyzine Hcl 25 Mg Tablet) 25 mg PO Q8H PRN PRN Reason: anxiety/restlessness Last Admin: 12/04/23 16:54 Dose: 25 mg Documented By: ESTHER Magnesium Hydroxide (Milk Of Magnesia 30 Ml Oral.Susp) 30 ml PO DAILY PRN PRN Reason: Constipation Last Admin: 11/22/23 20:40 Dose: 30 ml Documented By: MICHAEL Melatonin (Melatonin 3 Mg Tablet) 6 mg PO BEDTIME [facility] Last Admin: 12/04/23 20:36 Dose: 6 mg Documented By: TREV Ondansetron HCl (Ondansetron Hcl 4 Mg/2 Ml Vial) 4 mg IVPUSH Q8H PRN PRN Reason: Nausea and Vomiting Polyethylene Glycol (Polyethylene Glycol 3350 17 Gm Powd.Pack) 17 gm PO DAILY PRN PRN Reason: Constipation Last Admin: 10/18/23 14:03 Dose: 17 gm Documented By: SHIRLEY Quetiapine Fumarate (Quetiapine Fumarate 50 Mg Tablet) 50 mg PO BEDTIME [facility] Last Admin: 12/04/23 20:36 Dose: 50 mg Documented By: TREV Senna/Docusate Sodium (Sennosides/Docusate Sodium Tablet) 1 tab PO BID [facility] Last Admin: 12/04/23 20:36 Dose: 1 tab Documented By: TREV Trazodone HCl (Trazodone Hcl 25 Mg Halftab) 75 mg PO BEDTIME [facility] Last Admin: 12/04/23 20:36 Dose: 75 mg Documented By: TREV Labs 10/14/23 05:47 10/14/23 05:47 Assessment and Plan (1) Schizophrenia, paranoid type: Status: Acute Plan 63F PMH significant for schizophrenia?who initially presented to the ED on 08/23/2023 for evaluation of delusional behavior. Medical workup has been negative for any acute concerns, and patient had been placed on physician observation, due to prolonged stay, transfered to medical service 10/13/23 Schizophrenia, paranoid type, symptoms controlled, no behavioral issues noted, continue meds per Psych direction (Prolixin, cogentin, Trazadone at hs) risk of flight Patient otherwise has no acute or chronic medical conditions issues and just awaiting placement DVT Prophylaxis: Patient ambulatory need for inpt: awaiting for placement , Ongoing daily discussion with CM Quality Stroke Does the patient have a stroke diagnosis?: No VTE Prior VTE?: No VTE Risk Level:: Medical - low VTE Device Contraindication: Treatment Not Indicated VTE Drug Contraindication: Treatment Not Indicated
[2023-12-05 10:51] VITALS: BP 115/74; PULSE 56; O2SAT 96
--- NOTE | 2023-12-05 12:52 | PC.NURSE ---
patient refused cogentin and senna this AM. These two meds are not under [facility] Order, notified.
--- NOTE | 2023-12-05 14:33 | MHC.CM.PN ---
EMR REVIEWED, CM CONTACTED [facility]UCKER GRANT AT [phone], CARRIED REQUESTING UPDATED MD AND NSG NOTES, OT/PT EVALS PT WILL NEED TO GO THROUGH HER [facility] MEDICAID, PER GRANT PT UNABLE TO DIS-ENROLL IN HER [facility] PLAN UNTIL SHE TURNS 64 IN MARCH. GRANT AWARE THAT PT IS INDEP W/ACTIVITY AND WILL NOT QUALIFY FOR INPT OT/PT, EVALS ALONG W/CLINICALS HAVE BEEN SENT. GRANT WILL NEED TO COMPLETE A ONE TIME CONTRACT W/PT'S [employer] MEDICAID WHICH WILL TAKE APPROX ONE WEEK.
[2023-12-05 19:10] VITALS: BP 133/64; PULSE 55; RESP 20; TEMP 36.4; O2SAT 96
[2023-12-05] MEDS: traZODone HCL 25 MG HALFTAB 75 MG PO (20:55)
[2023-12-05] MEDS: Melatonin 3 MG TABLET 6 MG PO (20:55)
[2023-12-05] MEDS: Sennosides/Docusate Sodium TABLET 1 TAB PO (20:56)
[2023-12-05] MEDS: QUEtiapine Fumarate 50 MG TABLET PO (20:56)
[2023-12-06 08:13] VITALS: BP 114/56; PULSE 68; RESP 20; TEMP 36.1; O2SAT 96
[2023-12-06] MEDS: Sennosides/Docusate Sodium TABLET 1 TAB PO ×2 (08:19→19:49)
--- NOTE | 2023-12-06 10:06 | HO.PM.IMPN ---
Subjective Subjective Date of Service: 12/06/23 Interval History: no complaints Physical Exam Vital Signs: Vital Signs: Last Vital Signs Temp 97.0 F 12/06/23 08:13 Pulse 68 12/06/23 08:13 Resp 20 12/06/23 08:13 BP 114/56 L 12/06/23 08:13 Pulse Ox 96 12/06/23 08:13 O2 Del Method Room Air 12/06/23 08:13 O2 Flow Rate 2 11/02/23 15:24 BMI result Body Mass Index 25.0 Constitutional : Awake, interactive, not in distress Neck : Normal inspection, Supple Cardiovascular : no JVP, no lower extremity edema Skin : Warm, Dry Neurological : Alert & oriented to self and place, No focal deficit Objective Data Active Medications Al Hydroxide/Mg Hydroxide (Magnesium Hydrox/Alum Hydrox 30 Ml Oral.Susp) 30 ml PO Q6H PRN PRN Reason: Dyspepsia Last Admin: 10/24/23 08:14 Dose: 30 ml Documented By: ESTHER Benztropine Mesylate (Benztropine Mesylate 1 Mg Tablet) 1 mg PO BID [facility] Last Admin: 12/06/23 08:17 Dose: Not Given Documented By: CAROLYN Non-Admin Reason: Patient Refused Calcium Carbonate (Calcium Carbonate 750 Mg Tab.Chew) 750 mg PO Q6H PRN PRN Reason: Dyspepsia Last Admin: 10/23/23 23:34 Dose: 750 mg Fluphenazine Decanoate (Fluphenazine Decanoate 25 Mg/Ml 5 Ml Vial) 25 mg IM Q28D [facility] Last Admin: 11/29/23 14:34 Dose: 25 mg Documented By: CINTHYA Hydroxyzine HCl (Hydroxyzine Hcl 25 Mg Tablet) 25 mg PO Q8H PRN PRN Reason: anxiety/restlessness Last Admin: 12/04/23 16:54 Dose: 25 mg Documented By: ESTHER Magnesium Hydroxide (Milk Of Magnesia 30 Ml Oral.Susp) 30 ml PO DAILY PRN PRN Reason: Constipation Last Admin: 11/22/23 20:40 Dose: 30 ml Documented By: MICHAEL Melatonin (Melatonin 3 Mg Tablet) 6 mg PO BEDTIME [facility] Last Admin: 12/05/23 20:55 Dose: 6 mg Documented By: LEONA Ondansetron HCl (Ondansetron Hcl 4 Mg/2 Ml Vial) 4 mg IVPUSH Q8H PRN PRN Reason: Nausea and Vomiting Polyethylene Glycol (Polyethylene Glycol 3350 17 Gm Powd.Pack) 17 gm PO DAILY PRN PRN Reason: Constipation Last Admin: 10/18/23 14:03 Dose: 17 gm Documented By: SHIRLEY Quetiapine Fumarate (Quetiapine Fumarate 50 Mg Tablet) 50 mg PO BEDTIME [facility] Last Admin: 12/05/23 20:56 Dose: 50 mg Documented By: LEONA Senna/Docusate Sodium (Sennosides/Docusate Sodium Tablet) 1 tab PO BID [facility] Last Admin: 12/06/23 08:19 Dose: 1 tab Documented By: CAROLYN Trazodone HCl (Trazodone Hcl 25 Mg Halftab) 75 mg PO BEDTIME [facility] Last Admin: 12/05/23 20:55 Dose: 75 mg Documented By: LEONA Labs 10/14/23 05:47 10/14/23 05:47 Assessment and Plan (1) Schizophrenia, paranoid type: Status: Acute Plan 63F [facility] significant for TBI, schizophrenia?who initially presented to the ED on 08/23/2023 for evaluation of delusional behavior. Medical workup has been negative for any acute concerns, and patient had been placed on physician observation, due to prolonged stay, transfered to medical service 10/13/23 TBI, Schizophrenia, paranoid type, symptoms controlled, no behavioral issues noted, continue meds per Psych direction (Prolixin, cogentin, Trazadone at hs) risk of flight Patient otherwise has no acute or chronic medical conditions issues and just awaiting placement DVT Prophylaxis: Patient ambulatory need for inpt: awaiting for placement , Ongoing daily discussion with CM Quality Stroke Does the patient have a stroke diagnosis?: No VTE Prior VTE?: No VTE Risk Level:: Medical - low VTE Device Contraindication: Treatment Not Indicated VTE Drug Contraindication: Treatment Not Indicated
[2023-12-06] MEDS: Acetaminophen 325 MG TABLET 650 MG PO (17:23)
[2023-12-06] MEDS: hydrOXYzine HCL 25 MG TABLET PO (17:38)
[2023-12-06 19:19] VITALS: BP 130/65; PULSE 57; RESP 18; TEMP 36.2; O2SAT 97
[2023-12-06] MEDS: traZODone HCL 25 MG HALFTAB 75 MG PO (19:47)
[2023-12-06] MEDS: QUEtiapine Fumarate 50 MG TABLET PO (19:47)
[2023-12-06] MEDS: Melatonin 3 MG TABLET 6 MG PO (19:49)
[2023-12-07 07:52] VITALS: BP 134/63; PULSE 55; RESP 20; TEMP 36.7; O2SAT 98
--- NOTE | 2023-12-07 08:48 | MHC.CM.PN ---
CHRISTIANO HAS RECEIVED A MESSAGE FROM BARRIE NAIDU FROM [employer] REPORTS SHE WILL BE FACILITATING THE ONE TIME CONTRACT /[facility] AND [facility], BARRIE RIOS REPORTS SHE SHOULD HAVE THIS RESOLVED BY END OF DAY AND IF I DO NOT RECEIVE OR AM UNABLE TO OPEN HER EMAIL TO CALL HER AT [phone], CM WILL CONT TO FOLLOW.
[2023-12-07] MEDS: Sennosides/Docusate Sodium TABLET 1 TAB PO (08:49)
--- NOTE | 2023-12-07 13:53 | HO.PM.IMPN ---
Subjective Subjective Date of Service: 12/07/23 Interval History: resting in her bed comfortable overall reporting dandruff No complaints Review of Systems Review of Systems: Yes all other systems are reviewed and are negative Physical Exam Vital Signs: Vital Signs: Last Vital Signs Temp 98.0 F 12/07/23 07:52 Pulse 55 12/07/23 07:52 Resp 20 12/07/23 07:52 BP 134/63 12/07/23 07:52 Pulse Ox 98 12/07/23 07:52 O2 Del Method Room Air 12/07/23 07:52 O2 Flow Rate 2 11/02/23 15:24 BMI result Body Mass Index 25.0 Const: Other: Constitutional : Awake, interactive, not in distress Neck : Normal inspection, Supple Cardiovascular : no JVP, no lower extremity edema Skin : Warm, Dry Neurological : Alert & oriented to self and place, No focal deficit Objective Data Active Medications Acetaminophen (Acetaminophen 325 Mg Tablet) 650 mg PO Q6H PRN PRN Reason: Headache Last Admin: 12/06/23 17:23 Dose: 650 mg Documented By: CAROLYN Al Hydroxide/Mg Hydroxide (Magnesium Hydrox/Alum Hydrox 30 Ml Oral.Susp) 30 ml PO Q6H PRN PRN Reason: Dyspepsia Last Admin: 10/24/23 08:14 Dose: 30 ml Documented By: ESTHER Benztropine Mesylate (Benztropine Mesylate 1 Mg Tablet) 1 mg PO BID [facility]S [facility]CLUDE [facility] BEDS AT [facility] Last Admin: 12/07/23 08:51 Dose: Not Given Documented By: CINTHYA Non-Admin Reason: Patient Refused Calcium Carbonate (Calcium Carbonate 750 Mg Tab.Chew) 750 mg PO Q6H PRN PRN Reason: Dyspepsia Last Admin: 10/23/23 23:34 Dose: 750 mg Fluphenazine Decanoate (Fluphenazine Decanoate 25 Mg/Ml 5 Ml Vial) 25 mg IM Q28D COUNTS [facility]CLUDE 234 BEDS AT THE [facility] Last Admin: 11/29/23 14:34 Dose: 25 mg Documented By: CINTHYA Hydroxyzine HCl (Hydroxyzine Hcl 25 Mg Tablet) 25 mg PO Q8H PRN PRN Reason: anxiety/restlessness Last Admin: 12/06/23 17:38 Dose: 25 mg Documented By: CAROLYN Magnesium Hydroxide (Milk Of Magnesia 30 Ml Oral.Susp) 30 ml PO DAILY PRN PRN Reason: Constipation Last Admin: 11/22/23 20:40 Dose: 30 ml Documented By: MICHAEL Melatonin (Melatonin 3 Mg Tablet) 6 mg PO BEDTIME [facility]S [facility]CLUDE 234 BEDS AT THE [facility] Last Admin: 12/06/23 19:49 Dose: 6 mg Documented By: CHADD Ondansetron HCl (Ondansetron Hcl 4 Mg/2 Ml Vial) 4 mg IVPUSH Q8H PRN PRN Reason: Nausea and Vomiting Polyethylene Glycol (Polyethylene Glycol 3350 17 Gm Powd.Pack) 17 gm PO DAILY PRN PRN Reason: Constipation Last Admin: 10/18/23 14:03 Dose: 17 gm Documented By: SHIRLEY Quetiapine Fumarate (Quetiapine Fumarate 50 Mg Tablet) 50 mg PO BEDTIME [facility]S [facility]CLUDE 234 BEDS AT THE [facility] Last Admin: 12/06/23 19:47 Dose: 50 mg Documented By: CHADD Senna/Docusate Sodium (Sennosides/Docusate Sodium Tablet) 1 tab PO BID COUNTS INCLUDE 234 BEDS AT THE [facility] Last Admin: 12/07/23 08:49 Dose: 1 tab Documented By: CINTHYA Trazodone HCl (Trazodone Hcl 25 Mg Halftab) 75 mg PO BEDTIME COUNTS INCLUDE 234 BEDS AT THE [facility] Last Admin: 12/06/23 19:47 Dose: 75 mg Documented By: CHADD Labs 10/14/23 05:47 10/14/23 05:47 Assessment and Plan (1) Schizophrenia, paranoid type: Status: Acute Plan 63F PMH significant for TBI, schizophrenia?who initially presented to the ED on 08/23/2023 for evaluation of delusional behavior. Medical workup has been negative for any acute concerns, and patient had been placed on physician observation, due to prolonged stay, transfered to medical service 10/13/23 TBI, Schizophrenia, paranoid type, symptoms controlled, no behavioral issues noted, continue meds per Psych direction (Prolixin, cogentin, Trazadone at hs) risk of flight Patient otherwise has no acute or chronic medical conditions issues and just awaiting placement DVT Prophylaxis: Patient ambulatory need for inpt: awaiting for placement , Ongoing daily discussion with CM Quality Stroke Does the patient have a stroke diagnosis?: No VTE Prior VTE?: No VTE Risk Level:: Medical - low VTE Device Contraindication: Treatment Not Indicated VTE Drug Contraindication: Treatment Not Indicated
[2023-12-07 14:11] LABS: Hematocrit 40.8 % (37.0-47.0); Hemoglobin 13.8 g/dl (12.0-16.0); Mean Corpuscular HGB Conc 33.8 g/dl (31.0-35.0); Mean Corpuscular Hemoglobin 29.7 pg (27.0-33.0); Mean Corpuscular Volume 87.9 fL (80.0-98.0); Mean Platelet Volume 8.3 fL (9.4-12.3); Platelet Count 344 X10*3/uL (160-400); Red Blood Count 4.64 X10*6/uL (4.20-5.50); Red Cell Distribution Width 13.6 % (11.0-16.0)
[2023-12-07 14:23] LABS: Anion Gap 7 (12-20); Blood Urea Nitrogen 18 mg/dL (9-16); Calcium 9.1 mg/dL (8.4-10.2); Carbon Dioxide 28 mmol/L (22-29); Chloride 109 mmol/L (96-108); Creatinine Clr Calc Pharmacy 51.2; Estimated Glomerular Filt Rate 59; Glucose Random 101 mg/dL (60-115); Potassium 4.2 mmol/L (3.3-5.1); Sodium 140 mmol/L (135-145)
[2023-12-07] MEDS: hydrOXYzine HCL 25 MG TABLET PO (14:29)
[2023-12-07] MEDS: Melatonin 3 MG TABLET 6 MG PO (19:28)
[2023-12-07] MEDS: traZODone HCL 25 MG HALFTAB 75 MG PO (19:28)
[2023-12-07] MEDS: QUEtiapine Fumarate 50 MG TABLET PO (19:28)
[2023-12-07 19:30] VITALS: BP 137/73; PULSE 56; RESP 20; TEMP 36.5; O2SAT 96
--- NOTE | 2023-12-08 08:41 | MHC.CM.PN ---
Addendum entered by Karol Morrison RN 12/08/23 15:28: CM RECEIVED A CALL BACK FROM BARRIE NAIDU REPORTING SHE WILL FOLLOW UP W/'S [facility] PLAN, LATER CM RECEIVED AN EMAIL FROM BARRIE RIOS THAT NOTED SHE HAD SENT A REMINDER TO [facility]. CM ATTEMPTED TO CONTACT EQUIPMENT ASSOCIATE GRANT AT [facility], NO ANSWER AND DETAILED MESSAGE LEFT W/REQUEST FOR CALL BACK. Original Note: CM HAS NOT RECEIVED EMAIL FROM BARRIE NAIDU REGARDING ONE TIME CONTRACT W/[employer], CM CONTACTACTD BARRIE ROSS AT 0830AM [phone], BARRIE RIOS REPORTS SHE IS IN A MTG AND REQUESTED CM EMAIL HER, CM HAS SENT FOLLOW UP EMAIL TO ELYSIA [email or web address]., IF NO TIMELY RESPONSE, CM WILL CALL AGAIN.
[2023-12-08] MEDS: Sennosides/Docusate Sodium TABLET 1 TAB PO ×2 (08:42→20:01)
[2023-12-08 09:00] VITALS: BP 117/53; PULSE 57; RESP 18; TEMP 36.2; O2SAT 95
[2023-12-08 11:49] VITALS: BP 109/56; PULSE 63; RESP 16; TEMP 36.1; O2SAT 97
[2023-12-08] MEDS: hydrOXYzine HCL 25 MG TABLET PO (15:53)
[2023-12-08 16:19] VITALS: BP 114/70; PULSE 57; RESP 16; TEMP 36.2; O2SAT 96
--- NOTE | 2023-12-08 16:32 | HO.PM.IMPN ---
Subjective Subjective Date of Service: 12/08/23 Interval History: resting in her bed comfortable overall reporting dandruff No complaints Physical Exam Vital Signs: Vital Signs: Last Vital Signs Temp 97.1 F 12/08/23 16:19 Pulse 57 12/08/23 16:19 Resp 16 12/08/23 16:19 BP 114/70 12/08/23 16:19 Pulse Ox 96 12/08/23 16:19 O2 Del Method Room Air 12/08/23 16:19 O2 Flow Rate 2 11/02/23 15:24 BMI result Body Mass Index 25.0 Const: Other: Constitutional : Awake, interactive, not in distress Neck : Normal inspection, Supple Cardiovascular : no JVP, no lower extremity edema Skin : Warm, Dry Neurological : Alert & oriented to self and place, No focal deficit Objective Data Active Medications Acetaminophen (Acetaminophen 325 Mg Tablet) 650 mg PO Q6H PRN PRN Reason: Headache Last Admin: 12/06/23 17:23 Dose: 650 mg Documented By: CAROLYN Al Hydroxide/Mg Hydroxide (Magnesium Hydrox/Alum Hydrox 30 Ml Oral.Susp) 30 ml PO Q6H PRN PRN Reason: Dyspepsia Last Admin: 10/24/23 08:14 Dose: 30 ml Documented By: ESTHER Benztropine Mesylate (Benztropine Mesylate 1 Mg Tablet) 1 mg PO BID [facility] Last Admin: 12/08/23 08:42 Dose: Not Given Documented By: ESTHER Non-Admin Reason: Patient Refused Calcium Carbonate (Calcium Carbonate 750 Mg Tab.Chew) 750 mg PO Q6H PRN PRN Reason: Dyspepsia Last Admin: 10/23/23 23:34 Dose: 750 mg Fluphenazine Decanoate (Fluphenazine Decanoate 25 Mg/Ml 5 Ml Vial) 25 mg IM Q28D [facility] Last Admin: 11/29/23 14:34 Dose: 25 mg Documented By: CINTHYA Hydroxyzine HCl (Hydroxyzine Hcl 25 Mg Tablet) 25 mg PO Q8H PRN PRN Reason: anxiety/restlessness Last Admin: 12/08/23 15:53 Dose: 25 mg Documented By: ESTHER Magnesium Hydroxide (Milk Of Magnesia 30 Ml Oral.Susp) 30 ml PO DAILY PRN PRN Reason: Constipation Last Admin: 11/22/23 20:40 Dose: 30 ml Documented By: MICHAEL Melatonin (Melatonin 3 Mg Tablet) 6 mg PO BEDTIME [facility] Last Admin: 12/07/23 19:28 Dose: 6 mg Documented By: LENA Ondansetron HCl (Ondansetron Hcl 4 Mg/2 Ml Vial) 4 mg IVPUSH Q8H PRN PRN Reason: Nausea and Vomiting Polyethylene Glycol (Polyethylene Glycol 3350 17 Gm Powd.Pack) 17 gm PO DAILY PRN PRN Reason: Constipation Last Admin: 10/18/23 14:03 Dose: 17 gm Documented By: SHIRLEY Quetiapine Fumarate (Quetiapine Fumarate 50 Mg Tablet) 50 mg PO BEDTIME [facility] Last Admin: 12/07/23 19:28 Dose: 50 mg Documented By: LENA Senna/Docusate Sodium (Sennosides/Docusate Sodium Tablet) 1 tab PO BID [facility] Last Admin: 12/08/23 08:42 Dose: 1 tab Documented By: ESTHER Trazodone HCl (Trazodone Hcl 25 Mg Halftab) 75 mg PO BEDTIME [facility] Last Admin: 12/07/23 19:28 Dose: 75 mg Documented By: LENA Labs 12/07/23 14:03 12/07/23 14:03 Assessment and Plan (1) Schizophrenia, paranoid type: Status: Acute Plan 63F PMH significant for TBI, schizophrenia?who initially presented to the ED on 08/23/2023 for evaluation of delusional behavior. Medical workup has been negative for any acute concerns, and patient had been placed on physician observation, due to prolonged stay, transfered to medical service 10/13/23 TBI, Schizophrenia, paranoid type, symptoms controlled, no behavioral issues noted, continue meds per Psych direction (Prolixin, cogentin, Trazadone at hs) Patient has been refusinh Benzotropin for reported side effect of tremor risk of flight Patient otherwise has no acute or chronic medical conditions issues and just awaiting placement DVT Prophylaxis: Patient ambulatory need for inpt: awaiting for placement , Ongoing daily discussion with CM Quality Stroke Does the patient have a stroke diagnosis?: No VTE Prior VTE?: No VTE Risk Level:: Medical - low VTE Device Contraindication: Treatment Not Indicated VTE Drug Contraindication: Treatment Not Indicated
[2023-12-08] MEDS: QUEtiapine Fumarate 50 MG TABLET PO (20:01)
[2023-12-08] MEDS: Melatonin 3 MG TABLET 6 MG PO (20:01)
[2023-12-08] MEDS: traZODone HCL 25 MG HALFTAB 75 MG PO (20:01)
[2023-12-08 20:26] VITALS: BP 137/60; PULSE 56; RESP 15; TEMP 36.2; O2SAT 95
[2023-12-09] MEDS: Sennosides/Docusate Sodium TABLET 1 TAB PO ×2 (08:00→20:08)
[2023-12-09 08:57] VITALS: BP 114/57; PULSE 60; RESP 18; TEMP 36.4; O2SAT 96
--- NOTE | 2023-12-09 13:55 | HO.PM.IMPN ---
Subjective Subjective Date of Service: 12/09/23 Interval History: resting in her bed comfortable overall No complaints Review of Systems Review of Systems: Yes all other systems are reviewed and are negative Physical Exam Vital Signs: Vital Signs: Last Vital Signs Temp 97.6 F 12/09/23 08:57 Pulse 60 12/09/23 08:57 Resp 18 12/09/23 08:57 BP 114/57 L 12/09/23 08:57 Pulse Ox 96 12/09/23 08:57 O2 Del Method Room Air 12/09/23 08:57 O2 Flow Rate 2 11/02/23 15:24 BMI result Body Mass Index 25.0 Const: Other: Constitutional : Awake, interactive, not in distress Neck : Normal inspection, Supple Cardiovascular : no JVP, no lower extremity edema Skin : Warm, Dry Neurological : Alert & oriented to self and place, No focal deficit Objective Data Active Medications Acetaminophen (Acetaminophen 325 Mg Tablet) 650 mg PO Q6H PRN PRN Reason: Headache Last Admin: 12/06/23 17:23 Dose: 650 mg Documented By: CAROLYN Al Hydroxide/Mg Hydroxide (Magnesium Hydrox/Alum Hydrox 30 Ml Oral.Susp) 30 ml PO Q6H PRN PRN Reason: Dyspepsia Last Admin: 10/24/23 08:14 Dose: 30 ml Documented By: ESTHER Benztropine Mesylate (Benztropine Mesylate 1 Mg Tablet) 1 mg PO BID [facility] Last Admin: 12/09/23 08:00 Dose: Not Given Documented By: ESTHER Non-Admin Reason: Patient Refused Calcium Carbonate (Calcium Carbonate 750 Mg Tab.Chew) 750 mg PO Q6H PRN PRN Reason: Dyspepsia Last Admin: 10/23/23 23:34 Dose: 750 mg Fluphenazine Decanoate (Fluphenazine Decanoate 25 Mg/Ml 5 Ml Vial) 25 mg IM Q28D [facility] Last Admin: 11/29/23 14:34 Dose: 25 mg Documented By: CINTHYA Hydroxyzine HCl (Hydroxyzine Hcl 25 Mg Tablet) 25 mg PO Q8H PRN PRN Reason: anxiety/restlessness Last Admin: 12/08/23 15:53 Dose: 25 mg Documented By: ESTHER Magnesium Hydroxide (Milk Of Magnesia 30 Ml Oral.Susp) 30 ml PO DAILY PRN PRN Reason: Constipation Last Admin: 11/22/23 20:40 Dose: 30 ml Documented By: MICHAEL Melatonin (Melatonin 3 Mg Tablet) 6 mg PO BEDTIME [facility] Last Admin: 12/08/23 20:01 Dose: 6 mg Documented By: KIM Ondansetron HCl (Ondansetron Hcl 4 Mg/2 Ml Vial) 4 mg IVPUSH Q8H PRN PRN Reason: Nausea and Vomiting Polyethylene Glycol (Polyethylene Glycol 3350 17 Gm Powd.Pack) 17 gm PO DAILY PRN PRN Reason: Constipation Last Admin: 10/18/23 14:03 Dose: 17 gm Documented By: SHIRLEY Quetiapine Fumarate (Quetiapine Fumarate 50 Mg Tablet) 50 mg PO BEDTIME [facility] Last Admin: 12/08/23 20:01 Dose: 50 mg Documented By: KIM Senna/Docusate Sodium (Sennosides/Docusate Sodium Tablet) 1 tab PO BID [facility] Last Admin: 12/09/23 08:00 Dose: 1 tab Documented By: ESTHER Trazodone HCl (Trazodone Hcl 25 Mg Halftab) 75 mg PO BEDTIME [facility] Last Admin: 12/08/23 20:01 Dose: 75 mg Documented By: KIM Labs 12/07/23 14:03 12/07/23 14:03 Assessment and Plan (1) Schizophrenia, paranoid type: Status: Acute Plan 63F PMH significant for TBI, schizophrenia?who initially presented to the ED on 08/23/2023 for evaluation of delusional behavior. Medical workup has been negative for any acute concerns, and patient had been placed on physician observation, due to prolonged stay, transfered to medical service 10/13/23 TBI, Schizophrenia, paranoid type, symptoms controlled, no behavioral issues noted, continue meds per Psych direction (Prolixin, cogentin, Trazadone at hs) Patient has been refusinh Benzotropin for reported side effects risk of flight Patient otherwise has no acute or chronic medical conditions issues and just awaiting placement DVT Prophylaxis: Patient ambulatory need for inpt: awaiting for placement , Ongoing daily discussion with CM Quality Stroke Does the patient have a stroke diagnosis?: No VTE Prior VTE?: No VTE Risk Level:: Medical - low VTE Device Contraindication: Treatment Not Indicated VTE Drug Contraindication: Treatment Not Indicated
[2023-12-09] MEDS: hydrOXYzine HCL 25 MG TABLET PO (15:57)
[2023-12-09] MEDS: Melatonin 3 MG TABLET 6 MG PO (20:08)
[2023-12-09] MEDS: traZODone HCL 25 MG HALFTAB 75 MG PO (20:08)
[2023-12-09] MEDS: QUEtiapine Fumarate 50 MG TABLET PO (20:08)
[2023-12-09 21:00] VITALS: BP 112/53; PULSE 60; RESP 16; TEMP 36.4; O2SAT 93
[2023-12-10] MEDS: Sennosides/Docusate Sodium TABLET 1 TAB PO ×2 (08:26→20:06)
[2023-12-10 08:33] VITALS: BP 116/70; PULSE 60; RESP 18; TEMP 37; O2SAT 97
--- NOTE | 2023-12-10 11:51 | HO.PM.IMPN ---
Subjective Subjective Date of Service: 12/10/23 Interval History: comfortable overall No complaints Review of Systems Review of Systems: Yes all other systems are reviewed and are negative Physical Exam Vital Signs: Vital Signs: Last Vital Signs Temp 98.6 F 12/10/23 08:33 Pulse 60 12/10/23 08:33 Resp 18 12/10/23 08:33 BP 116/70 12/10/23 08:33 Pulse Ox 97 12/10/23 08:33 O2 Del Method Room Air 12/10/23 08:33 O2 Flow Rate 2 11/02/23 15:24 BMI result Body Mass Index 25.0 Const: Other: Constitutional : Awake, interactive, not in distress Neck : Normal inspection, Supple Cardiovascular : no JVP, no lower extremity edema Neurological : Alert & oriented to self and place, No focal deficit Objective Data Active Medications Acetaminophen (Acetaminophen 325 Mg Tablet) 650 mg PO Q6H PRN PRN Reason: Headache Last Admin: 12/06/23 17:23 Dose: 650 mg Documented By: CAROLYN Al Hydroxide/Mg Hydroxide (Magnesium Hydrox/Alum Hydrox 30 Ml Oral.Susp) 30 ml PO Q6H PRN PRN Reason: Dyspepsia Last Admin: 10/24/23 08:14 Dose: 30 ml Documented By: ESTHER Benztropine Mesylate (Benztropine Mesylate 1 Mg Tablet) 1 mg PO BID [facility] Last Admin: 12/10/23 08:24 Dose: Not Given Documented By: BRENDA Non-Admin Reason: Patient Refused Calcium Carbonate (Calcium Carbonate 750 Mg Tab.Chew) 750 mg PO Q6H PRN PRN Reason: Dyspepsia Last Admin: 10/23/23 23:34 Dose: 750 mg Fluphenazine Decanoate (Fluphenazine Decanoate 25 Mg/Ml 5 Ml Vial) 25 mg IM Q28D [facility] Last Admin: 11/29/23 14:34 Dose: 25 mg Documented By: CINTHYA Hydroxyzine HCl (Hydroxyzine Hcl 25 Mg Tablet) 25 mg PO Q8H PRN PRN Reason: anxiety/restlessness Last Admin: 12/09/23 15:57 Dose: 25 mg Documented By: COTEMA Magnesium Hydroxide (Milk Of Magnesia 30 Ml Oral.Susp) 30 ml PO DAILY PRN PRN Reason: Constipation Last Admin: 11/22/23 20:40 Dose: 30 ml Documented By: MICHAEL Melatonin (Melatonin 3 Mg Tablet) 6 mg PO BEDTIME [facility] Last Admin: 12/09/23 20:08 Dose: 6 mg Documented By: KIM Ondansetron HCl (Ondansetron Hcl 4 Mg/2 Ml Vial) 4 mg IVPUSH Q8H PRN PRN Reason: Nausea and Vomiting Polyethylene Glycol (Polyethylene Glycol 3350 17 Gm Powd.Pack) 17 gm PO DAILY PRN PRN Reason: Constipation Last Admin: 10/18/23 14:03 Dose: 17 gm Documented By: SHIRLEY Quetiapine Fumarate (Quetiapine Fumarate 50 Mg Tablet) 50 mg PO BEDTIME [facility] Last Admin: 12/09/23 20:08 Dose: 50 mg Documented By: KIM Senna/Docusate Sodium (Sennosides/Docusate Sodium Tablet) 1 tab PO BID [facility] Last Admin: 12/10/23 08:26 Dose: 1 tab Documented By: BRENDA Trazodone HCl (Trazodone Hcl 25 Mg Halftab) 75 mg PO BEDTIME [facility] Last Admin: 12/09/23 20:08 Dose: 75 mg Documented By: KIM Labs 12/07/23 14:03 12/07/23 14:03 Assessment and Plan (1) Schizophrenia, paranoid type: Status: Acute Plan 63F [facility] significant for TBI, schizophrenia?who initially presented to the ED on 08/23/2023 for evaluation of delusional behavior. Medical workup has been negative for any acute concerns, and patient had been placed on physician observation, due to prolonged stay, transfered to medical service 10/13/23 TBI, Schizophrenia, paranoid type, symptoms controlled, no behavioral issues noted, continue meds per Psych direction (Prolixin, cogentin, Trazadone at hs) Patient has been refusinh Benzotropin for reported side effects risk of flight Patient otherwise has no acute or chronic medical conditions issues and just awaiting placement DVT Prophylaxis: Patient ambulatory need for inpt: awaiting for placement , Ongoing daily discussion with CM Quality Stroke Does the patient have a stroke diagnosis?: No VTE Prior VTE?: No VTE Risk Level:: Medical - low VTE Device Contraindication: Treatment Not Indicated VTE Drug Contraindication: Treatment Not Indicated
[2023-12-10] MEDS: hydrOXYzine HCL 25 MG TABLET PO (13:41)
[2023-12-10 19:11] VITALS: BP 118/58; PULSE 62; RESP 20; TEMP 36.1; O2SAT 96
[2023-12-10] MEDS: QUEtiapine Fumarate 50 MG TABLET PO (20:06)
[2023-12-10] MEDS: traZODone HCL 25 MG HALFTAB 75 MG PO (20:06)
[2023-12-10] MEDS: Melatonin 3 MG TABLET 6 MG PO (20:06)
[2023-12-11 09:00] VITALS: BP 113/60; PULSE 67; RESP 18; TEMP 36.3; O2SAT 96
[2023-12-11] MEDS: Sennosides/Docusate Sodium TABLET 1 TAB PO ×2 (09:28→19:56)
--- NOTE | 2023-12-11 12:52 | HO.PM.IMPN ---
Subjective Subjective Date of Service: 12/11/23 Interval History: comfortable overall No complaints Physical Exam Vital Signs: Vital Signs: Last Vital Signs Temp 97.4 F 12/11/23 09:00 Pulse 67 12/11/23 09:00 Resp 18 12/11/23 09:00 BP 113/60 12/11/23 09:00 Pulse Ox 96 12/11/23 09:00 O2 Del Method Room Air 12/11/23 09:00 O2 Flow Rate 2 11/02/23 15:24 BMI result Body Mass Index 25.0 Const: Other: Constitutional : Awake, interactive, not in distress Neck : Normal inspection, Supple Cardiovascular : no JVP, no lower extremity edema Neurological : Alert & oriented to self and place, No focal deficit Objective Data Active Medications Acetaminophen (Acetaminophen 325 Mg Tablet) 650 mg PO Q6H PRN PRN Reason: Headache Last Admin: 12/06/23 17:23 Dose: 650 mg Documented By: CAROLYN Al Hydroxide/Mg Hydroxide (Magnesium Hydrox/Alum Hydrox 30 Ml Oral.Susp) 30 ml PO Q6H PRN PRN Reason: Dyspepsia Last Admin: 10/24/23 08:14 Dose: 30 ml Documented By: ESTHER Benztropine Mesylate (Benztropine Mesylate 1 Mg Tablet) 1 mg PO BID [facility] Last Admin: 12/11/23 09:29 Dose: Not Given Documented By: BRENDA Non-Admin Reason: Patient Refused Calcium Carbonate (Calcium Carbonate 750 Mg Tab.Chew) 750 mg PO Q6H PRN PRN Reason: Dyspepsia Last Admin: 10/23/23 23:34 Dose: 750 mg Fluphenazine Decanoate (Fluphenazine Decanoate 25 Mg/Ml 5 Ml Vial) 25 mg IM Q28D [facility] Last Admin: 11/29/23 14:34 Dose: 25 mg Documented By: CINTHYA Hydroxyzine HCl (Hydroxyzine Hcl 25 Mg Tablet) 25 mg PO Q8H PRN PRN Reason: anxiety/restlessness Last Admin: 12/10/23 13:41 Dose: 25 mg Documented By: BRENDA Magnesium Hydroxide (Milk Of Magnesia 30 Ml Oral.Susp) 30 ml PO DAILY PRN PRN Reason: Constipation Last Admin: 11/22/23 20:40 Dose: 30 ml Documented By: MICHAEL Melatonin (Melatonin 3 Mg Tablet) 6 mg PO BEDTIME [facility] Last Admin: 12/10/23 20:06 Dose: 6 mg Documented By: KIM Ondansetron HCl (Ondansetron Hcl 4 Mg/2 Ml Vial) 4 mg IVPUSH Q8H PRN PRN Reason: Nausea and Vomiting Polyethylene Glycol (Polyethylene Glycol 3350 17 Gm Powd.Pack) 17 gm PO DAILY PRN PRN Reason: Constipation Last Admin: 10/18/23 14:03 Dose: 17 gm Documented By: SHIRLEY Quetiapine Fumarate (Quetiapine Fumarate 50 Mg Tablet) 50 mg PO BEDTIME [facility] Last Admin: 12/10/23 20:06 Dose: 50 mg Documented By: KIM Senna/Docusate Sodium (Sennosides/Docusate Sodium Tablet) 1 tab PO BID [facility] Last Admin: 12/11/23 09:28 Dose: 1 tab Documented By: BRENDA Trazodone HCl (Trazodone Hcl 25 Mg Halftab) 75 mg PO BEDTIME [facility] Last Admin: 12/10/23 20:06 Dose: 75 mg Documented By: KIM Labs 12/07/23 14:03 12/07/23 14:03 Assessment and Plan (1) Schizophrenia, paranoid type: Status: Acute Plan 63F PMH significant for TBI, schizophrenia?who initially presented to the ED on 08/23/2023 for evaluation of delusional behavior. Medical workup has been negative for any acute concerns, and patient had been placed on physician observation, due to prolonged stay, transfered to medical service 10/13/23 TBI, Schizophrenia, paranoid type, symptoms controlled, no behavioral issues noted, continue meds per Psych direction (Prolixin, cogentin, Trazadone at hs) Patient has been refusinh Benzotropin for reported side effects risk of flight Patient otherwise has no acute or chronic medical conditions issues and just awaiting placement DVT Prophylaxis: Patient ambulatory need for inpt: awaiting for placement , Ongoing daily discussion with CM Quality Stroke Does the patient have a stroke diagnosis?: No VTE Prior VTE?: No VTE Risk Level:: Medical - low VTE Device Contraindication: Treatment Not Indicated VTE Drug Contraindication: Treatment Not Indicated
--- NOTE | 2023-12-11 15:56 | MHC.CM.PN ---
Pt remains medically cleared for D/C, awaiting [facility] contract for one time letter of agreement for pt to go to the [facility].
[2023-12-11] MEDS: QUEtiapine Fumarate 50 MG TABLET PO (19:56)
[2023-12-11] MEDS: traZODone HCL 25 MG HALFTAB 75 MG PO (19:56)
[2023-12-11] MEDS: Melatonin 3 MG TABLET 6 MG PO (19:56)
[2023-12-11 20:38] VITALS: BP 119/58; PULSE 59; RESP 19; TEMP 36.5; O2SAT 96
--- NOTE | 2023-12-11 23:17 | PC.NURSE ---
Assumed care of patient at 19:15. Pt continues as a med-surg pt without tele on s4 while awaiting senior living placement (insurance issues being worked out by CM at this time). Pt is A&Ox4. Calm and cooperative. Tolerates meds whole with water without issues. +pp/cms. -edema. Lungs clear on RA. Breathing is even and unlabored without distress. Pt is on scheduled bowel regimen with LBM reported by pt on Monday which she states is normal for her. +BSx4, abdomen is soft, round, non-tender, non-distended. Voids in bathroom, denies dysuria. Evening VSS. Pt denies pain and offers no acute complaints. Resting in bed appearing comfortable. Continues with in-room camera. Handoff report given to oncoming RN at 23:00.
[2023-12-12 07:36] VITALS: BP 110/62; PULSE 56; RESP 18; TEMP 36.8; O2SAT 97
[2023-12-12] MEDS: Sennosides/Docusate Sodium TABLET 1 TAB PO (08:50)
--- NOTE | 2023-12-12 13:24 | P.PNIM_ITS ---
Subjective Subjective Date of Service: 12/12/23 Interval History: comfortable overall No complaints Physical Exam 2 Vital Signs: Vital Signs: Last Vital Signs Temp 98.2 F 12/12/23 07:36 Pulse 56 12/12/23 07:36 Resp 18 12/12/23 07:36 BP 110/62 12/12/23 07:36 Pulse Ox 97 12/12/23 07:36 O2 Del Method Room Air 12/12/23 07:36 O2 Flow Rate 2 11/02/23 15:24 BMI result Body Mass Index 25.0 Const: Other: Constitutional : Awake, interactive, not in distress Neck : Normal inspection, Supple Cardiovascular : no JVP, no lower extremity edema Neurological : Alert & oriented to self and place, No focal deficit Objective Data Active Medications Acetaminophen (Acetaminophen 325 Mg Tablet) 650 mg PO Q6H PRN PRN Reason: Headache Last Admin: 12/06/23 17:23 Dose: 650 mg Documented By: CAROLYN Al Hydroxide/Mg Hydroxide (Magnesium Hydrox/Alum Hydrox 30 Ml Oral.Susp) 30 ml PO Q6H PRN PRN Reason: Dyspepsia Last Admin: 10/24/23 08:14 Dose: 30 ml Documented By: ESTHER Benztropine Mesylate (Benztropine Mesylate 1 Mg Tablet) 1 mg PO BID [facility] Last Admin: 12/12/23 08:50 Dose: Not Given Documented By: BRENDA Non-Admin Reason: Patient Refused Calcium Carbonate (Calcium Carbonate 750 Mg Tab.Chew) 750 mg PO Q6H PRN PRN Reason: Dyspepsia Last Admin: 10/23/23 23:34 Dose: 750 mg Fluphenazine Decanoate (Fluphenazine Decanoate 25 Mg/Ml 5 Ml Vial) 25 mg IM Q28D [facility] Last Admin: 11/29/23 14:34 Dose: 25 mg Documented By: CINTHYA Hydroxyzine HCl (Hydroxyzine Hcl 25 Mg Tablet) 25 mg PO Q8H PRN PRN Reason: anxiety/restlessness Last Admin: 12/10/23 13:41 Dose: 25 mg Documented By: BRENDA Magnesium Hydroxide (Milk Of Magnesia 30 Ml Oral.Susp) 30 ml PO DAILY PRN PRN Reason: Constipation Last Admin: 11/22/23 20:40 Dose: 30 ml Documented By: MICHAEL Melatonin (Melatonin 3 Mg Tablet) 6 mg PO BEDTIME [facility] Last Admin: 12/11/23 19:56 Dose: 6 mg Documented By: NIKHIL Ondansetron HCl (Ondansetron Hcl 4 Mg/2 Ml Vial) 4 mg IVPUSH Q8H PRN PRN Reason: Nausea and Vomiting Polyethylene Glycol (Polyethylene Glycol 3350 17 Gm Powd.Pack) 17 gm PO DAILY PRN PRN Reason: Constipation Last Admin: 10/18/23 14:03 Dose: 17 gm Documented By: SHIRLEY Quetiapine Fumarate (Quetiapine Fumarate 50 Mg Tablet) 50 mg PO BEDTIME [facility] Last Admin: 12/11/23 19:56 Dose: 50 mg Documented By: NIKHIL Senna/Docusate Sodium (Sennosides/Docusate Sodium Tablet) 1 tab PO BID [facility] Last Admin: 12/12/23 08:50 Dose: 1 tab Documented By: BRENDA Trazodone HCl (Trazodone Hcl 25 Mg Halftab) 75 mg PO BEDTIME [facility] Last Admin: 12/11/23 19:56 Dose: 75 mg Documented By: NIKHIL Labs 12/07/23 14:03 12/07/23 14:03 Assessment and Plan (1) Schizophrenia, paranoid type: Status: Acute Plan 63F PMH significant for TBI, schizophrenia?who initially presented to the ED on 08/23/2023 for evaluation of delusional behavior. Medical workup has been negative for any acute concerns, and patient had been placed on physician observation, due to prolonged stay, transfered to medical service 10/13/23 TBI, Schizophrenia, paranoid type, symptoms controlled, no behavioral issues noted, continue meds per Psych direction (Prolixin, cogentin, Trazadone at hs) Patient has been refusinh Benzotropin for reported side effects risk of flight Patient otherwise has no acute or chronic medical conditions issues and just awaiting placement DVT Prophylaxis: Patient ambulatory need for inpt: awaiting for placement , Ongoing daily discussion with CM Quality Stroke Does the patient have a stroke diagnosis?: No VTE Prior VTE?: No VTE Risk Level:: Medical - low VTE Device Contraindication: Treatment Not Indicated VTE Drug Contraindication: Treatment Not Indicated
--- NOTE | 2023-12-12 14:35 | PM.PSYCN ---
History of Present Illness Date of Service: 12/12/2023 Chief Complaint: Awaiting skilled nursing placement Discussed with referring provider: Yes Sources of Information: patient interviewed, chart reviewed and crisis/core team assessment reviewed HPI Narrative: Interim Hx; pt received prolixin 25mg IM on 11/28. mild bilateral action tremors noted, much decreased after reduction of monthly prolixin dose from 50mg IM to 25mg IM. Her thought process continues to present as much more organized, mild residual delusions but not as suspicious, guarded or paranoid when first came to the hospital. No SI/HI. She thanks this data analyst report writer for treatment and assistance although still not combinced she has schizophrenia nor that improvement is due to antipsychotic medications. She would like to continue seroquel at night, mostly for sleep despite this data analyst report writer suggesting to take instead trazodone alone. She reports it also helps with anxious mood. Past Psychiatric History: Inpatient: Shahana Mcintosh 07/2023, 6 other admission in past year but unclear where OP: none Past medication trials: olanzapine, seroquel [facility] Medical History TBI (traumatic brain injury) Diagnostics Vital Signs (24Hr): Vital Signs - 24 hr 12/11/23 20:38 12/12/23 07:36 Temperature 97.7 F 98.2 F Pulse Rate 59 56 Respiratory Rate 19 18 Blood Pressure 119/58 L 110/62 Pulse Oximetry 96 97 Oxygen Delivery Method Room Air Room Air BMI result Body Mass Index 25.0 Labs 12/07/23 14:03 12/07/23 14:03 Mental Status Exam Mental Status Exam Narrative: Appearance: wearing hospital gown, fair hygiene, in NAD Behavior: cooperative. Psychomotor: no agitation or retardation noted Speech: clear, normal rate/rhythm/volume, spontaneous TP: mostly linear TC: waiting for a place to go VH/AH: denies Delusions: no overt delusions. Insight/judgment: improving x 2 Memory/cog: alert, oriented x 3. Medications Medications Current Medications Acetaminophen (Acetaminophen 325 Mg Tablet) 650 mg PO Q6H PRN PRN Reason: Headache Last Admin: 12/06/23 17:23 Dose: 650 mg Al Hydroxide/Mg Hydroxide (Magnesium Hydrox/Alum Hydrox 30 Ml Oral.Susp) 30 ml PO Q6H PRN PRN Reason: Dyspepsia Last Admin: 10/24/23 08:14 Dose: 30 ml Benztropine Mesylate (Benztropine Mesylate 1 Mg Tablet) 1 mg PO BID [facility] Last Admin: 12/12/23 08:50 Dose: Not Given Calcium Carbonate (Calcium Carbonate 750 Mg Tab.Chew) 750 mg PO Q6H PRN PRN Reason: Dyspepsia Last Admin: 10/23/23 23:34 Dose: 750 mg Fluphenazine Decanoate (Fluphenazine Decanoate 25 Mg/Ml 5 Ml Vial) 25 mg IM Q28D [facility] Last Admin: 11/29/23 14:34 Dose: 25 mg Hydroxyzine HCl (Hydroxyzine Hcl 25 Mg Tablet) 25 mg PO Q8H PRN PRN Reason: anxiety/restlessness Last Admin: 12/10/23 13:41 Dose: 25 mg Magnesium Hydroxide (Milk Of Magnesia 30 Ml Oral.Susp) 30 ml PO DAILY PRN PRN Reason: Constipation Last Admin: 11/22/23 20:40 Dose: 30 ml Melatonin (Melatonin 3 Mg Tablet) 6 mg PO BEDTIME [facility] Last Admin: 12/11/23 19:56 Dose: 6 mg Ondansetron HCl (Ondansetron Hcl 4 Mg/2 Ml Vial) 4 mg IVPUSH Q8H PRN PRN Reason: Nausea and Vomiting Polyethylene Glycol (Polyethylene Glycol 3350 17 Gm Powd.Pack) 17 gm PO DAILY PRN PRN Reason: Constipation Last Admin: 10/18/23 14:03 Dose: 17 gm Quetiapine Fumarate (Quetiapine Fumarate 50 Mg Tablet) 50 mg PO BEDTIME [facility] Last Admin: 12/11/23 19:56 Dose: 50 mg Senna/Docusate Sodium (Sennosides/Docusate Sodium Tablet) 1 tab PO BID [facility] Last Admin: 12/12/23 08:50 Dose: 1 tab Trazodone HCl (Trazodone Hcl 25 Mg Halftab) 75 mg PO BEDTIME [facility] Last Admin: 12/11/23 19:56 Dose: 75 mg Allergies Allergies Allergy/AdvReac Type Severity Reaction Status Date / Time amoxicillin [From Augmentin] AdvReac Facial Verified 08/23/23 17:23 Swelling clavulanic acid AdvReac Facial Verified 08/23/23 17:23 [From Augmentin] Swelling Sulfa (Sulfonamide AdvReac Hives Verified 08/23/23 17:23 Antibiotics) sulfamethoxazole AdvReac Hives Verified 08/23/23 17:23 [From Bactrim] trimethoprim [From Bactrim] AdvReac Hives Verified 08/23/23 17:23 Assessment & Plan Assessment & Plan (1) Schizophrenia, paranoid type: Status: Acute Code(s): F20.0 - Paranoid schizophrenia Plan Ms. Garcia is a 63 year-old woman with hx of schizophrenia, large untreated until this admission. She has responded well to prolixin in terms of effectively and significantly decreasing paranoid delusions, psychosis and has helped improved pt's awareness of her surrounds and reality. Her insight into mental illness is limited- this is a symptoms of the illness itself- agnosognosia, which sometimes improves with treatment but not always. However, she is much more receptive to talk about her dx, medications and need for support in terms of managing her finances and medication management. PLAN 1. continue prolixin 25mg IM [id number]. continue seroquel 50mg po qhs. pt not taking cogentin for mild tremors, no significant impairment in function noted when she is eating or lifting objects. Total time managing care of this patient today ____ minutes.
[2023-12-12 19:11] VITALS: BP 143/68; PULSE 62; RESP 20; TEMP 35.9; O2SAT 96
[2023-12-12] MEDS: traZODone HCL 25 MG HALFTAB 75 MG PO (21:37)
[2023-12-12] MEDS: Melatonin 3 MG TABLET 6 MG PO (21:39)
[2023-12-12] MEDS: QUEtiapine Fumarate 50 MG TABLET PO (21:39)
[2023-12-13 07:44] VITALS: BP 122/64; PULSE 58; RESP 18; TEMP 36.4; O2SAT 96
[2023-12-13] MEDS: Sennosides 8.6 MG TABLET PO (09:01)
--- NOTE | 2023-12-13 13:59 | MHC.CM.PN ---
Kaylen Moser from [facility] in today to see pt and complete level 2.
--- NOTE | 2023-12-13 15:22 | P.PNIM_ITS ---
Subjective Subjective Date of Service: 12/13/23 Interval History: comfortable overall No complaints Physical Exam 2 Vital Signs: Vital Signs: Last Vital Signs Temp 97.6 F 12/13/23 07:44 Pulse 58 12/13/23 07:44 Resp 18 12/13/23 07:44 BP 122/64 12/13/23 07:44 Pulse Ox 96 12/13/23 07:44 O2 Del Method Room Air 12/13/23 07:44 O2 Flow Rate 2 11/02/23 15:24 BMI result Body Mass Index 25.0 Const: Other: Constitutional : Awake, interactive, not in distress Neck : Normal inspection, Supple Cardiovascular : no JVP, no lower extremity edema Neurological : Alert & oriented to self and place, No focal deficit Objective Data Active Medications Acetaminophen (Acetaminophen 325 Mg Tablet) 650 mg PO Q6H PRN PRN Reason: Headache Last Admin: 12/06/23 17:23 Dose: 650 mg Documented By: CAROLYN Al Hydroxide/Mg Hydroxide (Magnesium Hydrox/Alum Hydrox 30 Ml Oral.Susp) 30 ml PO Q6H PRN PRN Reason: Dyspepsia Last Admin: 10/24/23 08:14 Dose: 30 ml Documented By: ESTHER Benztropine Mesylate (Benztropine Mesylate 1 Mg Tablet) 1 mg PO BID [facility] Last Admin: 12/13/23 08:04 Dose: Not Given Documented By: ESTHER Non-Admin Reason: Patient Refused Calcium Carbonate (Calcium Carbonate 750 Mg Tab.Chew) 750 mg PO Q6H PRN PRN Reason: Dyspepsia Last Admin: 10/23/23 23:34 Dose: 750 mg Fluphenazine Decanoate (Fluphenazine Decanoate 25 Mg/Ml 5 Ml Vial) 25 mg IM Q28D [facility] Last Admin: 11/29/23 14:34 Dose: 25 mg Documented By: CINTHYA Hydroxyzine HCl (Hydroxyzine Hcl 25 Mg Tablet) 25 mg PO Q8H PRN PRN Reason: anxiety/restlessness Last Admin: 12/10/23 13:41 Dose: 25 mg Documented By: BRENDA Magnesium Hydroxide (Milk Of Magnesia 30 Ml Oral.Susp) 30 ml PO DAILY PRN PRN Reason: Constipation Last Admin: 11/22/23 20:40 Dose: 30 ml Documented By: MICHAEL Melatonin (Melatonin 3 Mg Tablet) 6 mg PO BEDTIME [facility] Last Admin: 12/12/23 21:39 Dose: 6 mg Documented By: PAULIE Ondansetron HCl (Ondansetron Hcl 4 Mg/2 Ml Vial) 4 mg IVPUSH Q8H PRN PRN Reason: Nausea and Vomiting Polyethylene Glycol (Polyethylene Glycol 3350 17 Gm Powd.Pack) 17 gm PO DAILY PRN PRN Reason: Constipation Last Admin: 10/18/23 14:03 Dose: 17 gm Documented By: SHIRLEY Quetiapine Fumarate (Quetiapine Fumarate 50 Mg Tablet) 50 mg PO BEDTIME [facility] Last Admin: 12/12/23 21:39 Dose: 50 mg Documented By: PAULIE Senna (Sennosides 8.6 Mg Tablet) 8.6 mg PO DAILY [facility] Last Admin: 12/13/23 09:01 Dose: 8.6 mg Documented By: ESTHER Trazodone HCl (Trazodone Hcl 25 Mg Halftab) 75 mg PO BEDTIME [facility] Last Admin: 12/12/23 21:37 Dose: 75 mg Documented By: PAULIE Labs 12/07/23 14:03 12/07/23 14:03 Assessment and Plan (1) Schizophrenia, paranoid type: Status: Acute Plan 63F PM significant for TBI, schizophrenia?who initially presented to the ED on 08/23/2023 for evaluation of delusional behavior. Medical workup has been negative for any acute concerns, and patient had been placed on physician observation, due to prolonged stay, transfered to medical service 10/13/23 TBI, Schizophrenia, paranoid type, symptoms controlled, no behavioral issues noted, continue meds per Psych direction (Prolixin IM Q28 days, cogentin, Trazadone at hs) Patient has been refusinh Benzotropin for reported side effects, psych eval and said its ok to dc on discharge if she continues to refuse risk of flight Patient otherwise has no acute or chronic medical conditions issues and just awaiting placement DVT Prophylaxis: Patient ambulatory need for inpt: awaiting for placement , Ongoing daily discussion with CM Quality Stroke Does the patient have a stroke diagnosis?: No VTE Prior VTE?: No VTE Risk Level:: Medical - low VTE Device Contraindication: Treatment Not Indicated VTE Drug Contraindication: Treatment Not Indicated
[2023-12-13 19:14] VITALS: BP 131/62; PULSE 64; RESP 20; TEMP 37.1; O2SAT 94
[2023-12-13] MEDS: QUEtiapine Fumarate 50 MG TABLET PO (22:05)
[2023-12-13] MEDS: Melatonin 3 MG TABLET 6 MG PO (22:05)
[2023-12-13] MEDS: traZODone HCL 25 MG HALFTAB 75 MG PO (22:06)
[2023-12-14 09:00] VITALS: BP 121/56; PULSE 63; RESP 18; TEMP 36.1; O2SAT 96
[2023-12-14] MEDS: Sennosides 8.6 MG TABLET PO (09:48)
--- NOTE | 2023-12-14 11:46 | HO.PM.IMPN ---
Subjective Subjective Date of Service: 12/14/23 Interval History: c/o mild nasal congestion; no cough or dyspnea Review of Systems Review of Systems: Yes all other systems are reviewed and are negative Physical Exam Vital Signs: Vital Signs: Last Vital Signs Temp 97.0 F 12/14/23 09:00 Pulse 63 12/14/23 09:00 Resp 18 12/14/23 09:00 BP 121/56 L 12/14/23 09:00 Pulse Ox 96 12/14/23 09:00 O2 Del Method Room Air 12/14/23 09:00 O2 Flow Rate 2 11/02/23 15:24 BMI result Body Mass Index 25.0 Gen: in no acute distress Lungs: normal effort Neuro: alert and oriented to self + place Objective Data Active Medications Acetaminophen (Acetaminophen 325 Mg Tablet) 650 mg PO Q6H PRN PRN Reason: Headache Last Admin: 12/06/23 17:23 Dose: 650 mg Documented By: CAROLYN Al Hydroxide/Mg Hydroxide (Magnesium Hydrox/Alum Hydrox 30 Ml Oral.Susp) 30 ml PO Q6H PRN PRN Reason: Dyspepsia Last Admin: 10/24/23 08:14 Dose: 30 ml Documented By: ESTHER Benztropine Mesylate (Benztropine Mesylate 1 Mg Tablet) 1 mg PO BID [facility] Last Admin: 12/14/23 07:27 Dose: Not Given Documented By: VLADISLAV Non-Admin Reason: Patient Refused Calcium Carbonate (Calcium Carbonate 750 Mg Tab.Chew) 750 mg PO Q6H PRN PRN Reason: Dyspepsia Last Admin: 10/23/23 23:34 Dose: 750 mg Fluphenazine Decanoate (Fluphenazine Decanoate 25 Mg/Ml 5 Ml Vial) 25 mg IM Q28D [facility] Last Admin: 11/29/23 14:34 Dose: 25 mg Documented By: CINTHYA Hydroxyzine HCl (Hydroxyzine Hcl 25 Mg Tablet) 25 mg PO Q8H PRN PRN Reason: anxiety/restlessness Last Admin: 12/10/23 13:41 Dose: 25 mg Documented By: BRENDA Magnesium Hydroxide (Milk Of Magnesia 30 Ml Oral.Susp) 30 ml PO DAILY PRN PRN Reason: Constipation Last Admin: 11/22/23 20:40 Dose: 30 ml Documented By: MICHAEL Melatonin (Melatonin 3 Mg Tablet) 6 mg PO BEDTIME [facility] Last Admin: 12/13/23 22:05 Dose: 6 mg Documented By: MANNY Ondansetron HCl (Ondansetron Hcl 4 Mg/2 Ml Vial) 4 mg IVPUSH Q8H PRN PRN Reason: Nausea and Vomiting Polyethylene Glycol (Polyethylene Glycol 3350 17 Gm Powd.Pack) 17 gm PO DAILY PRN PRN Reason: Constipation Last Admin: 10/18/23 14:03 Dose: 17 gm Documented By: SHIRLEY Quetiapine Fumarate (Quetiapine Fumarate 50 Mg Tablet) 50 mg PO BEDTIME [facility] Last Admin: 12/13/23 22:05 Dose: 50 mg Documented By: MANNY Senna (Sennosides 8.6 Mg Tablet) 8.6 mg PO DAILY [facility] Last Admin: 12/14/23 09:48 Dose: 8.6 mg Documented By: VLADISLAV Trazodone HCl (Trazodone Hcl 25 Mg Halftab) 75 mg PO BEDTIME [facility] Last Admin: 12/13/23 22:06 Dose: 75 mg Documented By: MANNY Labs 12/07/23 14:03 12/07/23 14:03 Assessment and Plan (1) Schizophrenia, paranoid type: Status: Acute Plan d63 63yo F with TBI + schizophrenia presented to ED 08/23/23 for delusional behavior, placed on physician observation, negative medical workup, transferred to medical service 10/13/23, awaiting placement paranoid schizophrenia TBI - continue medications per Psychaitry consultation: Prolixin IM q28d, trazodone + quetiapine qhs, benztropine [refusing the latter]. Risk of flight VTE ppx: ambulatory dispo: LTC In my clinical judgment, the patient requires continued inpatient hospitalization for the following reasons: long-term care placement Total time managing care of this patient today: 25 minutes. Quality Stroke Does the patient have a stroke diagnosis?: No VTE Prior VTE?: No VTE Risk Level:: Medical - low VTE Device Contraindication: Treatment Not Indicated VTE Drug Contraindication: Treatment Not Indicated
[2023-12-14] MEDS: QUEtiapine Fumarate 50 MG TABLET PO (20:31)
[2023-12-14] MEDS: Melatonin 3 MG TABLET 6 MG PO (20:31)
[2023-12-14] MEDS: traZODone HCL 25 MG HALFTAB 75 MG PO (20:31)
[2023-12-14 20:41] VITALS: BP 121/57; PULSE 55; RESP 18; TEMP 36.2; O2SAT 95
[2023-12-15 08:46] VITALS: BP 137/72; PULSE 57; RESP 18; TEMP 36.2; O2SAT 95
[2023-12-15] MEDS: Sennosides 8.6 MG TABLET PO (09:05)
--- NOTE | 2023-12-15 13:33 | MHC.CM.PN ---
Extended guardianship paperwork received, now on file, and was also faxed to Bea Auguste/fashion director of [facility]. Per Bea, she is hoping for Lillian to be able to discharge to [facility] on Sunday 12/17 by 1pm as long as they have all of the paperwork needed, they are still awaiting court papers. Per Bea, if pt is unable to discharge on Monday, it will have to be on Monday as they are already fully booked on Monday. Bea requests that the CM call her on Monday to follow up.
--- NOTE | 2023-12-15 14:25 | P.PNIM_ITS ---
Subjective Subjective Date of Service: 12/15/23 Interval History: no new complaints Review of Systems Review of Systems: Yes all other systems are reviewed and are negative Physical Exam 2 Vital Signs: Vital Signs: Last Vital Signs Temp 97.2 F 12/15/23 08:46 Pulse 57 12/15/23 08:46 Resp 18 12/15/23 08:46 BP 137/72 12/15/23 08:46 Pulse Ox 95 12/15/23 08:46 O2 Del Method Room Air 12/15/23 08:46 O2 Flow Rate 2 11/02/23 15:24 BMI result Body Mass Index 25.0 Gen: in no acute distress Lungs: normal effort Neuro: alert and oriented to self + place Objective Data Active Medications Acetaminophen (Acetaminophen 325 Mg Tablet) 650 mg PO Q6H PRN PRN Reason: Headache Last Admin: 12/06/23 17:23 Dose: 650 mg Documented By: CAROLYN Al Hydroxide/Mg Hydroxide (Magnesium Hydrox/Alum Hydrox 30 Ml Oral.Susp) 30 ml PO Q6H PRN PRN Reason: Dyspepsia Last Admin: 10/24/23 08:14 Dose: 30 ml Documented By: ESTHER Benztropine Mesylate (Benztropine Mesylate 1 Mg Tablet) 1 mg PO BID [facility] Last Admin: 12/15/23 09:05 Dose: Not Given Documented By: CINTHYA Non-Admin Reason: Patient Refused Calcium Carbonate (Calcium Carbonate 750 Mg Tab.Chew) 750 mg PO Q6H PRN PRN Reason: Dyspepsia Last Admin: 10/23/23 23:34 Dose: 750 mg Fluphenazine Decanoate (Fluphenazine Decanoate 25 Mg/Ml 5 Ml Vial) 25 mg IM Q28D [facility] Last Admin: 11/29/23 14:34 Dose: 25 mg Documented By: CNITHYA Hydroxyzine HCl (Hydroxyzine Hcl 25 Mg Tablet) 25 mg PO Q8H PRN PRN Reason: anxiety/restlessness Last Admin: 12/10/23 13:41 Dose: 25 mg Documented By: BRENDA Magnesium Hydroxide (Milk Of Magnesia 30 Ml Oral.Susp) 30 ml PO DAILY PRN PRN Reason: Constipation Last Admin: 11/22/23 20:40 Dose: 30 ml Documented By: MICHAEL Melatonin (Melatonin 3 Mg Tablet) 6 mg PO BEDTIME [facility] Last Admin: 12/14/23 20:31 Dose: 6 mg Documented By: MANNY Ondansetron HCl (Ondansetron Hcl 4 Mg/2 Ml Vial) 4 mg IVPUSH Q8H PRN PRN Reason: Nausea and Vomiting Polyethylene Glycol (Polyethylene Glycol 3350 17 Gm Powd.Pack) 17 gm PO DAILY PRN PRN Reason: Constipation Last Admin: 10/18/23 14:03 Dose: 17 gm Documented By: SHIRLEY Quetiapine Fumarate (Quetiapine Fumarate 50 Mg Tablet) 50 mg PO BEDTIME [facility] Last Admin: 12/14/23 20:31 Dose: 50 mg Documented By: MANNY Senna (Sennosides 8.6 Mg Tablet) 8.6 mg PO DAILY [facility] Last Admin: 12/15/23 09:05 Dose: 8.6 mg Documented By: CINTHYA Trazodone HCl (Trazodone Hcl 25 Mg Halftab) 75 mg PO BEDTIME [facility] Last Admin: 12/14/23 20:31 Dose: 75 mg Documented By: MANNY Labs 12/07/23 14:03 12/07/23 14:03 Assessment and Plan (1) Schizophrenia, paranoid type: Status: Acute Plan d64 63yo F with TBI + schizophrenia presented to ED 08/23/23 for delusional behavior, placed on physician observation, negative medical workup, transferred to medical service 10/13/23, awaiting placement paranoid schizophrenia TBI - continue medications per Psychaitry consultation: Prolixin IM q28d, trazodone + quetiapine qhs, benztropine [refusing the latter]. Risk of flight VTE ppx: ambulatory dispo: LTC In my clinical judgment, the patient requires continued inpatient hospitalization for the following reasons: long-term care placement Total time managing care of this patient today: 25 minutes. Quality Stroke Does the patient have a stroke diagnosis?: No VTE Prior VTE?: No VTE Risk Level:: Medical - low VTE Device Contraindication: Treatment Not Indicated VTE Drug Contraindication: Treatment Not Indicated
[2023-12-15 19:43] VITALS: BP 142/68; PULSE 66; RESP 18; TEMP 36.7; O2SAT 95
[2023-12-15] MEDS: QUEtiapine Fumarate 50 MG TABLET PO (19:47)
[2023-12-15] MEDS: traZODone HCL 25 MG HALFTAB 75 MG PO (19:48)
[2023-12-15] MEDS: Melatonin 3 MG TABLET 6 MG PO (19:48)
[2023-12-16] MEDS: Sennosides 8.6 MG TABLET PO (08:34)
[2023-12-16 08:48] VITALS: BP 130/62; PULSE 63; RESP 18; TEMP 36.1; O2SAT 96
--- NOTE | 2023-12-16 11:31 | HO.PM.IMPN ---
Subjective Subjective Date of Service: 12/16/23 Interval History: no new complaints Review of Systems Review of Systems: Yes all other systems are reviewed and are negative Physical Exam Vital Signs: Vital Signs: Last Vital Signs Temp 97.0 F 12/16/23 08:48 Pulse 63 12/16/23 08:48 Resp 18 12/16/23 08:48 BP 130/62 12/16/23 08:48 Pulse Ox 96 12/16/23 08:48 O2 Del Method Room Air 12/16/23 08:48 O2 Flow Rate 2 11/02/23 15:24 BMI result Body Mass Index 25.0 Gen: in no acute distress Lungs: normal effort Neuro: alert and oriented to self + place Objective Data Active Medications Acetaminophen (Acetaminophen 325 Mg Tablet) 650 mg PO Q6H PRN PRN Reason: Headache Last Admin: 12/06/23 17:23 Dose: 650 mg Documented By: CAROLYN Al Hydroxide/Mg Hydroxide (Magnesium Hydrox/Alum Hydrox 30 Ml Oral.Susp) 30 ml PO Q6H PRN PRN Reason: Dyspepsia Last Admin: 10/24/23 08:14 Dose: 30 ml Documented By: ESTHER Benztropine Mesylate (Benztropine Mesylate 1 Mg Tablet) 1 mg PO BID [facility] Last Admin: 12/16/23 08:34 Dose: Not Given Documented By: GORDON Non-Admin Reason: Patient Refused Calcium Carbonate (Calcium Carbonate 750 Mg Tab.Chew) 750 mg PO Q6H PRN PRN Reason: Dyspepsia Last Admin: 10/23/23 23:34 Dose: 750 mg Fluphenazine Decanoate (Fluphenazine Decanoate 25 Mg/Ml 5 Ml Vial) 25 mg IM Q28D [facility] Last Admin: 11/29/23 14:34 Dose: 25 mg Documented By: CINTHYA Hydroxyzine HCl (Hydroxyzine Hcl 25 Mg Tablet) 25 mg PO Q8H PRN PRN Reason: anxiety/restlessness Last Admin: 12/10/23 13:41 Dose: 25 mg Documented By: BRENDA Magnesium Hydroxide (Milk Of Magnesia 30 Ml Oral.Susp) 30 ml PO DAILY PRN PRN Reason: Constipation Last Admin: 11/22/23 20:40 Dose: 30 ml Documented By: MICHAEL Melatonin (Melatonin 3 Mg Tablet) 6 mg PO BEDTIME [facility] Last Admin: 12/15/23 19:48 Dose: 6 mg Documented By: NIKHIL Ondansetron HCl (Ondansetron Hcl 4 Mg/2 Ml Vial) 4 mg IVPUSH Q8H PRN PRN Reason: Nausea and Vomiting Polyethylene Glycol (Polyethylene Glycol 3350 17 Gm Powd.Pack) 17 gm PO DAILY PRN PRN Reason: Constipation Last Admin: 10/18/23 14:03 Dose: 17 gm Documented By: SHIRLEY Quetiapine Fumarate (Quetiapine Fumarate 50 Mg Tablet) 50 mg PO BEDTIME [facility] Last Admin: 12/15/23 19:47 Dose: 50 mg Documented By: NIKHIL Senna (Sennosides 8.6 Mg Tablet) 8.6 mg PO DAILY [facility] Last Admin: 12/16/23 08:34 Dose: 8.6 mg Documented By: GORDON Trazodone HCl (Trazodone Hcl 25 Mg Halftab) 75 mg PO BEDTIME [facility] Last Admin: 12/15/23 19:48 Dose: 75 mg Documented By: NIKHIL Labs 12/07/23 14:03 12/07/23 14:03 Assessment and Plan (1) Schizophrenia, paranoid type: Status: Acute Plan d65 63yo F with TBI + schizophrenia presented to ED 08/23/23 for delusional behavior, placed on physician observation, negative medical workup, transferred to medical service 10/13/23, awaiting placement paranoid schizophrenia TBI - continue medications per Psychaitry consultation: Prolixin IM q28d, trazodone + quetiapine qhs, benztropine [refusing the latter]. Risk of flight VTE ppx: ambulatory dispo: LTC In my clinical judgment, the patient requires continued inpatient hospitalization for the following reasons: long-term care placement Total time managing care of this patient today: 25 minutes. Quality Stroke Does the patient have a stroke diagnosis?: No VTE Prior VTE?: No VTE Risk Level:: Medical - low VTE Device Contraindication: Treatment Not Indicated VTE Drug Contraindication: Treatment Not Indicated
[2023-12-16 19:47] VITALS: BP 117/67; PULSE 61; RESP 20; TEMP 37; O2SAT 96
[2023-12-16] MEDS: traZODone HCL 25 MG HALFTAB 75 MG PO (20:13)
[2023-12-16] MEDS: QUEtiapine Fumarate 50 MG TABLET PO (20:13)
[2023-12-16] MEDS: Melatonin 3 MG TABLET 6 MG PO (20:13)
[2023-12-17 08:43] VITALS: BP 122/63; PULSE 64; RESP 16; TEMP 37.1; O2SAT 97
[2023-12-17] MEDS: Sennosides 8.6 MG TABLET PO (09:00)
[2023-12-17] MEDS: hydrOXYzine HCL 25 MG TABLET PO ×2 (10:35→21:05)
--- NOTE | 2023-12-17 11:03 | HO.PM.IMPN ---
Subjective Subjective Date of Service: 12/17/23 Interval History: no new complaints, awaiting placement Review of Systems Review of Systems: Yes all other systems are reviewed and are negative Physical Exam Vital Signs: Vital Signs: Last Vital Signs Temp 98.7 F 12/17/23 08:43 Pulse 64 12/17/23 08:43 Resp 16 12/17/23 08:43 BP 122/63 12/17/23 08:43 Pulse Ox 97 12/17/23 08:43 O2 Del Method Room Air 12/17/23 08:43 O2 Flow Rate 2 11/02/23 15:24 BMI result Body Mass Index 25.0 Gen: in no acute distress Lungs: normal effort Neuro: alert and oriented to self + place Objective Data Active Medications Acetaminophen (Acetaminophen 325 Mg Tablet) 650 mg PO Q6H PRN PRN Reason: Headache Last Admin: 12/06/23 17:23 Dose: 650 mg Documented By: CAROLYN Al Hydroxide/Mg Hydroxide (Magnesium Hydrox/Alum Hydrox 30 Ml Oral.Susp) 30 ml PO Q6H PRN PRN Reason: Dyspepsia Last Admin: 10/24/23 08:14 Dose: 30 ml Documented By: ESTHER Benztropine Mesylate (Benztropine Mesylate 1 Mg Tablet) 1 mg PO BID [facility] Last Admin: 12/17/23 09:01 Dose: Not Given Documented By: CINTHYA Non-Admin Reason: Patient Refused Calcium Carbonate (Calcium Carbonate 750 Mg Tab.Chew) 750 mg PO Q6H PRN PRN Reason: Dyspepsia Last Admin: 10/23/23 23:34 Dose: 750 mg Fluphenazine Decanoate (Fluphenazine Decanoate 25 Mg/Ml 5 Ml Vial) 25 mg IM Q28D [facility] Last Admin: 11/29/23 14:34 Dose: 25 mg Documented By: CINTHYA Hydroxyzine HCl (Hydroxyzine Hcl 25 Mg Tablet) 25 mg PO Q8H PRN PRN Reason: anxiety/restlessness Last Admin: 12/17/23 10:35 Dose: 25 mg Documented By: CINTHYA Magnesium Hydroxide (Milk Of Magnesia 30 Ml Oral.Susp) 30 ml PO DAILY PRN PRN Reason: Constipation Last Admin: 11/22/23 20:40 Dose: 30 ml Documented By: MICHAEL Melatonin (Melatonin 3 Mg Tablet) 6 mg PO BEDTIME [facility] Last Admin: 12/16/23 20:13 Dose: 6 mg Documented By: YVROSE Ondansetron HCl (Ondansetron Hcl 4 Mg/2 Ml Vial) 4 mg IVPUSH Q8H PRN PRN Reason: Nausea and Vomiting Polyethylene Glycol (Polyethylene Glycol 3350 17 Gm Powd.Pack) 17 gm PO DAILY PRN PRN Reason: Constipation Last Admin: 10/18/23 14:03 Dose: 17 gm Documented By: SHIRLEY Quetiapine Fumarate (Quetiapine Fumarate 50 Mg Tablet) 50 mg PO BEDTIME [facility] Last Admin: 12/16/23 20:13 Dose: 50 mg Documented By: YVROSE Senna (Sennosides 8.6 Mg Tablet) 8.6 mg PO DAILY [facility] Last Admin: 12/17/23 09:00 Dose: 8.6 mg Documented By: CINTHYA Trazodone HCl (Trazodone Hcl 25 Mg Halftab) 75 mg PO BEDTIME [facility] Last Admin: 12/16/23 20:13 Dose: 75 mg Documented By: YVROSE Labs 12/07/23 14:03 12/07/23 14:03 Assessment and Plan (1) Schizophrenia, paranoid type: Status: Acute Plan [id number] 63yo F with TBI + schizophrenia presented to ED 08/23/23 for delusional behavior, placed on physician observation, negative medical workup, transferred to medical service 10/13/23, awaiting placement paranoid schizophrenia TBI - continue medications per Psychaitry consultation: Prolixin IM q28d, trazodone + quetiapine qhs, benztropine [refusing the latter]. Risk of flight VTE ppx: ambulatory dispo: LTC In my clinical judgment, the patient requires continued inpatient hospitalization for the following reasons: long-term care placement Total time managing care of this patient today: 25 minutes. Quality Stroke Does the patient have a stroke diagnosis?: No VTE Prior VTE?: No VTE Risk Level:: Medical - low VTE Device Contraindication: Treatment Not Indicated VTE Drug Contraindication: Treatment Not Indicated
[2023-12-17 19:57] VITALS: BP 109/58; PULSE 59; RESP 20; TEMP 36.1; O2SAT 97
[2023-12-17] MEDS: QUEtiapine Fumarate 50 MG TABLET PO (21:04)
[2023-12-17] MEDS: traZODone HCL 25 MG HALFTAB 75 MG PO (21:04)
[2023-12-17] MEDS: Melatonin 3 MG TABLET 6 MG PO (21:04)
[2023-12-18 07:31] VITALS: BP 120/54; PULSE 56; RESP 16; TEMP 36.4; O2SAT 93
[2023-12-18] MEDS: Sennosides 8.6 MG TABLET PO (09:07)
--- NOTE | 2023-12-18 10:45 | MHC.CM.PN ---
Pt is medically cleared for D/C to [facility] today at 12pm via BLS/[facility]. Bae Arguetater/admissions directors called this CM to confirm that they have all the paperwork needed for the pt. This CM called pts carly Jimenez to confirm D/C plans, a voicemail was left for Tony with detailed message and call back number.
--- NOTE | 2023-12-18 11:14 | P.DS_ITS ---
DS: Providers Provider Date of Service: 12/18/23 Date of admission: 10/13/23 16:37 Date of discharge: 12/18/23 Primary care physician: Unknown Physician Consults: 08/23/23 17:39 Consult to Care Team Routine Comment: Reason for consultation: Delusional DS: Diagnosis Discharge Diagnosis (1) Schizophrenia, paranoid type: Status: Acute DS: Summary Hospital Course Hospital Course: From the history and physical by the admitting hospitalist, BRIGIDA Galeas, 10/13/23: Pt is a 63-year-old female with a PMH significant for schizophrenia? who initially presented to the ED on 08/23/2023 for evaluation of delusional behavior. Patient was apparently recently discharged from [facility] and was placed on a section 12 due to increasingly erratic behavior. Patient apparently was paranoid that other people were ?trying to kill me for my spiritual gives? by ?drilling into my head to do bad things and get the spirits out?. Workup at that time significant for patient tested positive for COVID. Patient was placed in physician observation and seen by crisis and case management and placed in overflow awaiting long-term placement and filing for guardianship. Temporary guardianship was obtained, and patient's stay has so far has been largely unremarkable. Vital signs have remained stable. Will get labs tomorrow. Patient seen and evaluated in her room, where she is resting comfortably in bed. Patient is alert and oriented x4. Reports being ?bored? since she does not have much of anything to do, but has no acute medical complaints at this time. Patient will be admitted to the hospital and brought to the medical floor while awaiting long-term placement. 63yo F with TBI + schizophrenia who presented to the ED 08/23/23 for delusional behavior, was placed on physician observation, had a negative medical workup, and was transferred to the medical service 10/13/23. She had a prolonged but uneventful hospitalization while awaiting long-term care placement. Psychiatry was consulted and she was placed on Prolixin, trazodone, quetiapine, and benztropine. Eventually, she was transferred to [facility] for long-term care. Time Attestation Discharge Coordination Time (in mins): 35 Quality: Safe Use of Opioids Does Pt have an Active Cancer Diagnosis on the Problem List?: No Quality: Stroke Does the patient have a stroke diagnosis?: No Physical Exam Vital Signs: Vital Signs: Last Vital Signs Temp 97.6 F 12/18/23 07:31 Pulse 56 12/18/23 07:31 Resp 16 12/18/23 07:31 BP 120/54 L 12/18/23 07:31 Pulse Ox 93 12/18/23 07:31 O2 Del Method Room Air 12/18/23 07:31 O2 Flow Rate 2 11/02/23 15:24 BMI result Body Mass Index 25.0 Gen: in no acute distress HEENT: sclera anicteric, moist mucus membranes Neck: supple Lungs: clear to auscultation bilaterally Heart: regular rate and rhythm, no murmurs Abd: soft, non-tender, non-distended Ext: no edema Skin: warm/well-perfused Neuro: alert and oriented to self and place Psych: appropriate affect DS: Data Data Completed and Pending Completed studies during hospitalization [Text1]: Laboratory Results WBC 8.0 X10*3/uL (4.8-10.8) 12/07/23 14:03 RBC 4.64 X10*6/uL (4.20-5.50) 12/07/23 14:03 Hgb 13.8 g/dl (12.0-16.0) 12/07/23 14:03 Hct 40.8 % (37.0-47.0) 12/07/23 14:03 MCV 87.9 fL (80.0-98.0) 12/07/23 14:03 MCH 29.7 pg (27.0-33.0) 12/07/23 14:03 MCHC 33.8 g/dl (31.0-35.0) 12/07/23 14:03 RDW 13.6 % (11.0-16.0) 12/07/23 14:03 Plt Count 344 X10*3/uL (160-400) 12/07/23 14:03 MPV 8.3 fL (9.4-12.3) L 12/07/23 14:03 Immature Gran % (Auto) 0.1 % (0.0-0.4) 09/29/23 15:59 Neut % (Auto) 75.0 % (45-73) H 09/29/23 15:59 Lymph % (Auto) 14.8 % (20-40) L 09/29/23 15:59 [place] % (Auto) 7.2 % (2-11) 09/29/23 15:59 Eos % (Auto) 2.3 % (0-4) 09/29/23 15:59 Baso % (Auto) 0.6 % (0-2) 09/29/23 15:59 Lymph # (Auto) 1.0 X10*3/uL (1.2-4.9) L 09/29/23 15:59 [place] # (Auto) 0.5 X10*3/uL (0.1-1.2) 09/29/23 15:59 Eos # (Auto) 0.2 X10*3/uL (0.0-0.4) 09/29/23 15:59 Baso # (Auto) 0.0 X10*3/uL (0.0-0.2) 09/29/23 15:59 Abs Immat Gran (auto) 0.01 X10*3/uL (0.00-0.03) 09/29/23 15:59 Absolute Neuts (auto) 5.1 x10*3/uL (2.0-8.3) 09/29/23 15:59 Absolute Nucleated RBC 0.000 X10*3/uL (0.0-0.012) 12/07/23 14:03 Nucleated RBC % (auto) 0.0 /100WBC (0.0-0.2) 12/07/23 14:03 Sodium 140 mmol/L (135-145) 12/07/23 14:03 Potassium 4.2 mmol/L (3.3-5.1) 12/07/23 14:03 Chloride 109 mmol/L (96-108) H 12/07/23 14:03 Carbon Dioxide 28 mmol/L (22-29) 12/07/23 14:03 Anion Gap 7 (12-20) L 12/07/23 14:03 BUN 18 mg/dL (9-16) H 12/07/23 14:03 Creatinine 0.96 mg/dL (0.5-1.4) 12/07/23 14:03 Estim Creat Clear Calc 51.2 12/07/23 14:03 Estimated GFR 59 12/07/23 14:03 Random Glucose 101 mg/dL (60-115) 12/07/23 14:03 Calcium 9.1 mg/dL (8.4-10.2) 12/07/23 14:03 Magnesium 2.1 mg/dL (1.6-2.6) 09/29/23 15:59 Total Bilirubin 0.4 mg/dL (0.0-1.0) 09/29/23 15:59 AST 13 U/L (5-31) 09/29/23 15:59 ALT 10 U/L (0-31) 09/29/23 15:59 Alkaline Phosphatase 71 U/L (39-117) 09/29/23 15:59 Troponin I High Sens < 2.7 ng/L (<3.5-17.0) 09/09/23 16:11 Total Protein 7.1 g/dL (6.5-8.0) 09/29/23 15:59 Albumin 4.2 g/dL (3.5-5.0) 09/29/23 15:59 Urine Color Yellow 09/29/23 16:02 Urine Appearance Cloudy 09/29/23 16:02 Urine pH 6.5 (5.0-9.0) 09/29/23 16:02 Ur Specific [facility] 1.025 (1.005-1.025) 09/29/23 16:02 Urine Protein Negative mg/dL (Neg-Trace) 09/29/23 16:02 Urine Glucose (UA) Negative mg/dL (Negative) 09/29/23 16:02 Urine Ketones Negative mg/dL (Negative) 09/29/23 16:02 Urine Blood Negative (Negative) 09/29/23 16:02 Urine Nitrite Negative (Negative) 09/29/23 16:02 Ur Leukocyte Esterase Negative (Negative) 09/29/23 16:02 Urine RBC 0-2 /HPF (0-2) 08/23/23 17:48 Urine WBC 0-5 /HPF (0-5) 08/23/23 17:48 Ur Squamous Epith Cells 0-2 /HPF (0-2) 08/23/23 17:48 Urine Bacteria None Seen (None Seen) 08/23/23 17:48 Hyaline Casts 0-2 /LPF (0-2) 08/23/23 17:48 Salicylates < 5.0 mg/dL (15-30) L 08/23/23 17:59 Urine Opiates Screen Not Detected (Not Detect) 08/23/23 17:48 Urine Fentanyl Screen Not Detected (Not Detect) 08/23/23 17:48 Acetaminophen < 3 mcg/mL (<30) 08/23/23 17:59 Ur Barbiturates Screen Not Detected (Not Detect) 08/23/23 17:48 Ur Phencyclidine Scrn Not Detected (Not Detect) 08/23/23 17:48 Ur Amphetamines Screen Not Detected (Not Detect) 08/23/23 17:48 U Benzodiazepines Scrn Not Detected (Not Detect) 08/23/23 17:48 Urine Cocaine Screen Not Detected (Not Detect) 08/23/23 17:48 U Marijuana (THC) Screen Not Detected (Not Detect) 08/23/23 17:48 Ethyl Alcohol < 10 mg/dL 08/23/23 17:59 COVID-19 (ERIC) Negative (Negative) 09/03/23 16:48 COVID-19 Clin Com See Note 09/03/23 16:48 Discharge Plan Discharge Anticipated Discharge Date/Time: 12/18/23 11:08 Patient Disposition: Xfer [facility] Discharge Diagnosis: schizophrenia Referrals: [facility] [Outside] - 1 Day Physician,Unknown J [Primary Care Provider] - 1 Week Discharge Medications: New fluphenazine decanoate 25 mg/mL Solution 25 mg IM Q28D Qty: 1 0RF benztropine 1 mg Tablet 1 mg PO BID Qty: 1 0RF hydroxyzine HCl 25 mg Tablet 25 mg PO Q8H PRN (Reason: Anxiety/Restlessness) Qty: 1 0RF trazodone 50 mg tablet 75 mg PO BEDTIME Qty: 1 0RF sennosides [Senna Lax] 8.6 mg Tablet 8.6 mg PO DAILY Qty: 1 0RF polyethylene glycol 3350 17 gram Powder In Packet 17 g PO DAILY PRN (Reason: Constipation) Qty: 1 0RF melatonin 3 mg Tablet 6 mg PO BEDTIME Qty: 1 0RF Continued quetiapine 50 mg tablet 50 mg PO BEDTIME Discharge Orders: Discharge Order (Routine); Ordered 12/18/23 Ordered By: Eliana Perez Diet: Advance to usual diet Activity on Discharge: As tolerated Stand Alone Forms: Patient Portal Discharge page Print Language: Spanish Care Plan Goals: long-term care Health Concerns: schizophrenia Plan of Treatment: take psychiatric medications as prescribed transfer to [facility] for long-term care Assessment: See Discharge Summary.
== END 2023-12-18 12:10 | disposition skilled nursing facility (03) | DRG 137 ==
LOC: HO.ED 10-13 19:21 → HO.EDOVER 10-13 21:13 → HO.S3 10-16 07:52 → HO.EDOVER 10-16 09:34 → HO.IMC 10-16 18:15
PROVIDERS: Emergency Medicine; Internal Medicine; Physician Assistant; Student in an Organized Health Care Education/Training Program; Admitting Provider Student in an Organized Health Care Education/Training Program; Emergency Provider Emergency Medicine; Visit Provider Family Medicine
DX: U07.1 COVID-19 (principal); F20.0 Paranoid schizophrenia; Z75.1 Person awaiting admission to adequate facility elsewhere; Z87.820 Personal history of traumatic brain injury; Z87.891 Personal history of nicotine dependence; Z79.899 Other long term (current) drug therapy
CPT/HCPCS: 36415; 80048; 80053; 80143; 80179; 80307; 81001; 81003; 83735; 84484; 85025; 85027; 87635; 93005; 97161; 97165; 99285; J2680; S9485

== ENCOUNTER → 2023-08-23 18:12 | Outpatient (BNV) | payer OTHER, SELFPAY | PROVIDERS: Emergency Provider Emergency Medicine; Visit Provider Student in an Organized Health Care Education/Training Program | DX: F20.0 Paranoid schizophrenia (principal) | CPT/HCPCS: 99222; 99231; 99232; 99239 ==

== ENCOUNTER → 2023-08-23 18:12 | Outpatient (BNV) | payer OTHER, SELFPAY | PROVIDERS: Emergency Provider Emergency Medicine; Visit Provider Social Worker | DX: F20.0 Paranoid schizophrenia (principal) | CPT/HCPCS: 99222; 99232; 99285 ==

== ENCOUNTER → 2023-08-23 19:46 | Outpatient (BNV) | payer OTHER, SELFPAY | PROVIDERS: Emergency Provider Emergency Medicine; Visit Provider Internal Medicine Cardiovascular Disease | DX: R94.31 Abnormal electrocardiogram [ECG] [EKG] (principal) | CPT/HCPCS: 93010 ==

== ENCOUNTER → 2023-09-08 14:44 | Outpatient (BNV) | payer OTHER, SELFPAY | PROVIDERS: Emergency Provider Emergency Medicine; Visit Provider Internal Medicine | DX: I45.81 Long QT syndrome (principal) | CPT/HCPCS: 93010 ==

== ENCOUNTER → 2023-09-09 12:44 | Outpatient (BNV) | payer OTHER, SELFPAY | PROVIDERS: Emergency Provider Emergency Medicine; Visit Provider Internal Medicine | DX: R00.1 Bradycardia, unspecified (principal) | CPT/HCPCS: 93010 ==